=== PATIENT | female | born 1950 | race Caucasian/White ===

== ENCOUNTER → 2020-10-27 | Outpatient (CLI) | payer OTHER ==
[~2020-10-27] MED LIST: /BACIOPOI OP; ASPI325T OR; CIPR500T4 OR; FLAG500T OR; ONDA-1 OR; TRAVATAN OU
== END ==
LOC: M LABSMTC 11:10
PROVIDERS: ATTEND Pediatrics
DX: Z11.59 Encounter for screening for other viral diseases (principal)

== ENCOUNTER 2021-02-08 07:42 | Inpatient (IN) | payer MEDICARE, OTHER ==
[~2021-02-08] VITALS: Ht 152.4 cm; Wt 81.5 kg
[2021-02-08] MEDS ORDERED: NS 1,000 ML IV SCH (08:35)
[2021-02-08] MEDS ORDERED: MORPHINE 2 MG/ML 1ML VIAL (J2270) IV ONE (08:50)
[2021-02-08] MEDS ORDERED: diazePAM 10MG/2ML SYRINGE (J3360 PER 5MG) IV ONE (08:50)
[2021-02-08] MEDS ORDERED: ONDANSETRON 4MG/2ML VIAL IV ONE (08:50)
[2021-02-08] MEDS ORDERED: ISOVUE-370 76% 100ML VIAL As Ordered ONE (09:34)
[2021-02-08 09:40] LABS: BASO % 0.2 % (0.0-1.0); EOS # 0.1 10^3/uL (0.0-0.5); EOS % 0.8 % (0.0-3.0); HEMATOCRIT 40.9 % (36.0-47.0); HEMOGLOBIN 13.3 g/dl (12.0-15.5); LYMPH # 1.9 10^3/uL (1.5-5.0); LYMPH % 20.3 % (24.0-44.0); MEAN CORPUSCULAR HEMOGLOBIN 32.4 pg (27.0-33.0); MEAN CORPUSCULAR HGB CONC 32.5 g/dl (32.0-36.5); MEAN CORPUSCULAR VOLUME 99.5 fl (80.0-96.0); MONO # 0.9 10^3/uL (0.0-0.8); MONO % 9.7 % (2.0-8.0); NEUTROPHILS # 6.5 10^3/uL (1.5-8.5); NEUTROPHILS % 68.5 % (36.0-66.0); RED BLOOD COUNT 4.11 10^6/uL (4.00-5.40); WHITE BLOOD COUNT 9.5 10^3/uL (4.0-10.0)
[2021-02-08 10:10] LABS: PLATELET COUNT, AUTOMATED 73 10^3/uL (150-450)
[2021-02-08 10:15] LABS: ALBUMIN 2.3 GM/DL (3.2-5.2); BILIRUBIN,DIRECT 1.8 MG/DL (0.0-0.2); BILIRUBIN,TOTAL 4.5 MG/DL (0.2-1.0); TOTAL PROTEIN 6.3 GM/DL (6.4-8.2)
[2021-02-08] MEDS ORDERED: TRAV04OPD OU (10:38)
--- NOTE | 2021-02-08 10:38 | REP ---
INDICATION: lg firm bulge lateral to umbilicus, irreducible, decrease BS COMPARISON: None. TECHNIQUE: CT Scan of the abdomen and pelvis was performed with intravenous administration of 100 cc of Isovue 370, without oral contrast. Sagittal and coronal reconstruction images are performed. FINDINGS: Lung bases: Varices are seen along the distal esophagus. There is a small hiatal hernia. Liver: The liver is small in size with scalloped margins suggesting cirrhosis. Gallbladder: Multiple gallstones are seen in the gallbladder. Spleen: There is mild splenomegaly, the length of the spleen is 13.5 cm. Large varices are seen in the splenic hilum, which communicate with the larger left renal vein.. Adrenals: Normal. Pancreas: Normal. Kidneys: Normal. Small and large bowel: There is small-bowel obstruction, the transition point is within an umbilical hernia. The hernia sac contains dilated small bowel as well as collapsed more distal small bowel. There is mild fluid and scattered edema in the hernia sac. The aperture of the hernia is approximately 4.7 cm in diameter.. Diverticula are seen throughout the colon. Free fluid: Mild free fluid in the umbilical hernia sac. Abdominal aorta: No aneurysm or dissection. Adenopathy: None. Appendix: Not inflamed. Osseous structures: There are degenerative changes of the spine without compression deformity. Pelvis: No mass. IMPRESSION: Small-bowel obstruction, with the transition point identified within an umbilical hernia. Mild free fluid in the hernia sac. There are findings of cirrhosis, mild splenomegaly, with varices of the distal esophagus and splenic hilum. <Electronically signed by Shaun Carson > 02/08/21 [id number]
[2021-02-08] MEDS ORDERED: META28.32 PO (10:44)
[2021-02-08] MEDS ORDERED: OCUVTAB8 PO (10:44)
[2021-02-08] MEDS ORDERED: CENT1TAB PO (10:44)
[2021-02-08] MEDS ORDERED: MAGN400C PO (10:44)
[2021-02-08] MEDS ORDERED: C 50TAB PO (10:44)
[2021-02-08] MEDS ORDERED: ZINC1TAB2 PO (10:44)
[2021-02-08] MEDS ORDERED: RA T500C2 PO (10:44)
[2021-02-08] MEDS ORDERED: D31000TA2 PO (10:44)
[2021-02-08] MEDS ORDERED: CALC-263 PO (10:44)
[2021-02-08] MEDS ORDERED: ONDANSETRON 4MG/2ML VIAL IV PRN (11:55)
[2021-02-08 11:58] LABS: RSV AMPLIFICATION NEGATIVE (NEGATIVE)
--- NOTE | 2021-02-08 12:28 | REP ---
INDICATION: NG tube placement. COMPARISON: 11/11/2011. TECHNIQUE: SINGLE PORTABLE AP VIEW OF THE CHEST WAS PERFORMED. FINDINGS: There is no acute infiltrate. There is mild cardiomegaly. There is calcification and tortuosity of the thoracic aorta. The mediastinal silhouette is unchanged. A nasogastric tube is seen. The side port is at the gastroesophageal junction. IMPRESSION: No infiltrate seen. Nasogastric tube side port is at the gastroesophageal junction. <Electronically signed by Shaun Carson > 02/08/21 [id number]
[2021-02-08 14:00] VITALS: BP 158/78
[2021-02-08] MEDS: PANTOPRAZOLE 40MG VIAL (C9113 PER 1) IV SCH (14:16)
[2021-02-08] MEDS: KCL 10MEQ/100ML SWI (KRUN) 10 MEQ in IV 1 EA IV SCH ×3 (15:45→18:10)
--- NOTE | 2021-02-08 15:49 | HPE ---
HISTORY AND PHYSICAL DATE OF ADMISSION: 02/08/2021 ADMISSION DIAGNOSIS: Incarcerated ventral incision hernia with bowel obstruction. HISTORY OF PRESENT ILLNESS: The patient is a pleasant 70-year-old woman who presented to the emergency department at approximately 7:40 on the morning of the 08 of February. She complained of two to three days of some nausea and recurrent vomiting. She reports that with the vomiting, she noticed a bulge in her lower left abdomen that became somewhat more painful. She was unable to tolerate any significant oral intake without recurrence of her nausea and vomiting. She does have a history of repair of an incarcerated umbilical hernia approximately nine years ago. She does not have a primary physician with whom she follows. She thinks it has probably been several years since she saw a physician for medical issues. She does see an manager group who manages her glaucoma. In the emergency department, she underwent evaluation with laboratory studies and then had a CT scan of the abdomen and pelvis as well. She was found to have a bulge at the umbilical area extending into the lower and lower left portion of the abdomen. Labs showed an elevated bilirubin with otherwise normal liver function tests. Her platelet count was low at 73,000. Her CT scan confirmed an incision hernia containing loops of small bowel with at least one loop that was dilated consistent with a point of obstruction. Also noted on the CT scan was some nodularity and decreased size of the liver with an enlarged spleen and prominent vasculature, suggestive of possible varices. I have been able, I believe, to reduce her hernia, and I am admitting her now for preoperative evaluation; particularly, as regards to her apparent underlying cirrhosis, in preparation for repair of her recurrent ventral hernia. ALLERGIES: The patient reports an allergy to LATEX. MEDICATIONS: The patient reports that the only prescription medication that she takes is some Travatan eye drops for her glaucoma. She also takes some multivitamins, some vitamin D3, calcium carbonate, zinc tablets, magnesium oxide, psyllium husk, and vitamin C, as well tumeric root extract. PAST SURGICAL HISTORY: Significant only for repair of her incarcerated umbilical hernia back in 10/2011. This was repaired with a primary closure with placement of a 9 cm Parietex patch. Bilateral cataracts with lens implants and a tonsillectomy in the distant past. PAST MEDICAL HISTORY: The patient reports a history of glaucoma. She has been following with Dr. Workman and reports that her eye pressures are under adequate control at this point. She denies any other active medical problems. She has never had a colonoscopy and reports that her most recent mammogram was probably ten years ago. FAMILY HISTORY: The patient's father reportedly had Alzheimer's and there was a history of heart disease in her mother's family. SOCIAL HISTORY: The patient is . 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 She denies any alcohol intake at all currently. She reports that she was a smoker, but quit 13 years ago. REVIEW OF SYSTEMS: The patient denies any history of chest pain or palpitations. She has no cough, wheezing, or sputum production. She has had two COVID shots. She denies any history of abdominal pain. She has had no melena or hematochezia. She denies any history of hepatitis or jaundice. She does report that her mother had hepatitis many years ago and she apparently had some sort of shot at that time. She denies dysuria or hematuria. She has had no severe bone or joint issues. She denies any history of DVT or pulmonary embolus. She has no history of chronic severe headaches, seizure, or stroke. PHYSICAL EXAMINATION: GENERAL: Reveals a pleasant older woman lying quietly on a stretcher in the emergency department. She is alert and oriented. HEENT: She has a small caliber nasogastric tube in the nose with really nothing in the tubing. She has oxygen tubing on via nasal cannula. She has some spotty red liriano around the orbits bilaterally, which may be petechiae. Sclerae are not obviously icteric. Skin is warm and dry. Mucous membranes are tacky. NECK: Shows no mass. She has no cervical bruit. HEART: Shows a regular rhythm at a rate of about 80. LUNGS: Clear to auscultation bilaterally. She has palpable radial pulses bilaterally. ABDOMEN: Shows a curved scar along the midline beginning above the umbilicus curving to the left and then coming back to the midline. The abdomen is not particularly distended currently. She has bowel sounds present. The abdomen is soft and without significant tenderness. Palpation along the umbilicus revealed a hernia bulge about 12 cm in diameter extending somewhat to the left and inferiorly from the area of the umbilicus. This was massaged and manipulated gently and I was able, I believe, to reduce the hernia completely. There is a suggestion of a fascial defect perhaps 5-6 cm in diameter beneath the umbilicus. There is no evidence of inguinal hernia or inguinal adenopathy. EXTREMITIES: Lower extremities are without edema and she has palpable posterior tibial pulses bilaterally. LABORATORY DATA: Studies today show a white count of 10, hemoglobin 13, hematocrit 41, and a platelet count of 73,000. Differential count shows 68% neutrophils, 20% lymphocytes, and 10% monocytes. [id number] chemistry profile showed a sodium of 141, potassium 3.2, chloride 101, CO2 of 26, BUN 11, creatinine 0.4, and a glucose of 158. Other chemistries showed a total bilirubin of 4.5 with a direct of 1.8. AST is 49, ALT 25, and the alkaline phosphatase is 118. Her total protein is 6.3 with an albumin of 2.3. Lipase is only 75 and she had a lactic acid of 3.3. Serology for COVID, influenza A and B, and RSV were all negative. IMAGING DATA: A CT scan of the abdomen and pelvis had been obtained and I reviewed these images personally. The radiologist interpreted the study as showing a small bowel obstruction with a transition point within a midline ventral hernia. It was reported that there were findings consistent with cirrhosis with some mild splenomegaly with varices of the distal esophagus and splenic hilum. She was also noted to have cholelithiasis. The gallbladder did not appear acutely inflamed. IMPRESSION: 1. Incarcerated ventral incisional hernia with small bowel obstruction, now reduced. 2. Cirrhosis of unclear etiology. 3. Glaucoma. PLAN: The patient and her , who accompanies her, were counseled that she clearly had an obstruction of the small intestine within her ventral incisional hernia. I have now been able to reduce her hernia manually and hopefully, this will relieve her obstruction for now. She will need to have this hernia repaired. However, if it is effectively reduced, then we at least do not have to proceed as an emergency to repair this. I advised her of the findings, suggestive of some chronic damage to her liver, and have recommended an internal medicine or hospitalist consult to address this issue and make some recommendations regarding further evaluation or treatment. They had an opportunity to ask questions. My hope would be that if her liver situation is felt to be stable, that we would be able to proceed within the next couple of days to arrange for a robotic approach for repair of her ventral hernia using mesh. The patient is satisfied with this plan. We will keep her n.p.o. for now with the nasogastric (NG) tube in place; but if later in the day it is clear that her bowel obstruction has resolved, I may remove the NG. She will remain on some IV fluids. I see no need for antibiotics right at this time. RENEE
[2021-02-08 16:08] LABS: INR 1.66
[2021-02-08 16:09] LABS: PARTIAL THROMBOPLASTIN TIME 37.7 SECONDS (24.2-38.5)
[2021-02-08 17:14] LABS: FERRITIN 42 NG/ML (8-252); IRON (FE) 125 UG/DL (50-170); PERCENT SATURATION 69.8 % (13.2-45.0); TOTAL IRON BINDING CAPACITY 179 UG/DL (250-450)
[2021-02-08 17:27] LABS: HEPATITIS B SURFACE ANTIGEN NEGATIVE (NEGATIVE)
[2021-02-08 17:55] LABS: HEPATITIS C VIRUS ABY INDEX < 0.0 INDEX (<0.8)
[2021-02-08 17:56] LABS: HEPATITIS B CORE ANTIBODY IGM NEGATIVE (NEGATIVE)
[2021-02-08 17:59] VITALS: BP 147/81
[2021-02-08 18:06] LABS: HEMOGLOBIN A1c 5.6 %
--- NOTE | 2021-02-08 19:22 | ECGEPIP ---
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
[2021-02-08 19:52] LABS: HEPATITIS A ANTIBODY IGM NEGATIVE (NEGATIVE)
[2021-02-08] MEDS: KCL 40MEQ in NS 1000ML 1,000 ML IV SCH (21:18)
--- NOTE | 2021-02-08 21:48 | REPVR ---
PROCEDURE INFORMATION: Exam: MR Abdomen Without Contrast Exam date and time: 02/08/2021 7:26 PM Age: 70 years old Clinical indication: Screening exam; Other: ? Obstrution; Patient HX: Mrcp; Additional info: Elevated bili R/O cbd dilatation/ psc pbc TECHNIQUE: Imaging protocol: MR of the abdomen without contrast. 3D rendering (Not supervised by radiologist): MIP and/or 3D reconstructed images were created by the technologist. COMPARISON: CT ABD/PEL W/IV CONTRAST ONLY 02/08/2021 9:52 AM FINDINGS: Mediastinal space: There is a small hiatal hernia. Liver: The liver has a nodular surface and cirrhotic morphology. No liver masses are seen. Gallbladder and bile ducts: Multiple small calculi in the gallbladder and cystic duct. Small amount of pericholecystic fluid. Common bile duct is borderline dilated at 7 mm. No obstructing common bile duct stones are seen. Pancreas: The main pancreatic duct is borderline dilated proximally at 3.5 mm. Distal pancreatic duct is nondilated. Spleen: Unremarkable. No splenomegaly. Adrenal glands: Unremarkable. No mass. Kidneys and ureters: Unremarkable. No solid mass. No hydronephrosis. Stomach and bowel: Visualized stomach and intestines are unremarkable. Intraperitoneal space: No free fluid. Arteries: No abdominal aortic aneurysm. Bones/joints: Unremarkable. Soft tissues: Unremarkable. IMPRESSION: 1. Motion limited exam. 2. Possible cholecystitis with multiple calculi in the gallbladder and pericholecystic fluid. Consider gallbladder ultrasound follow-up. 3. Borderline dilated common bile duct and proximal pancreatic duct. No obstructing common duct stone or biliary duct dilation. 4. Cirrhotic liver morphology. 5. Small hiatal hernia. Electronically signed by: Karsten Murrell On 02/08/2021 21:48:37 PM
[2021-02-08 22:00] VITALS: BP 164/82
[2021-02-08] MEDS: LATANOPROST 0.005% OPHTH SOLN 2.5 ML OU SCH (22:18)
[2021-02-09 02:00] VITALS: BP 132/88
[2021-02-09] MEDS: KCL 40MEQ in NS 1000ML 1,000 ML IV SCH ×2 (05:36→14:44)
[2021-02-09 06:00] VITALS: BP 152/84
[2021-02-09 07:11] LABS: CHOLESTEROL LEVEL 161 MG/DL (<200); CHOLESTEROL RISK RATIO 2.927 (<5); HDL CHOLESTEROL 55 MG/DL (>40); LDL CHOLESTEROL 86 MG/DL (<100); NON-HDL-C 106 MG/DL; TRIGLYCERIDES LEVEL 98 MG/DL (<150)
[2021-02-09 07:31] LABS: BLOOD UREA NITROGEN 17 MG/DL (7-18); CALCIUM LEVEL 8.2 MG/DL (8.8-10.2); CARBON DIOXIDE LEVEL 29 MEQ/L (21-32); CHLORIDE LEVEL 111 MEQ/L (98-107); CREATININE FOR GFR 0.48 MG/DL (0.55-1.30); GLOMERULAR FILTRATION RATE > 60.0 (>39); GLUCOSE, FASTING 85 MG/DL (70-100); POTASSIUM SERUM 3.8 MEQ/L (3.5-5.1); SODIUM LEVEL 145 MEQ/L (136-145)
[2021-02-09] MEDS: PANTOPRAZOLE 40MG VIAL (C9113 PER 1) IV SCH (07:54)
[2021-02-09 08:01] LABS: BASO % 0.3 % (0.0-1.0); EOS # 0.2 10^3/uL (0.0-0.5); HEMATOCRIT 39.8 % (36.0-47.0); HEMOGLOBIN 12.5 g/dl (12.0-15.5); LYMPH # 1.9 10^3/uL (1.5-5.0); LYMPH % 29.8 % (24.0-44.0); MEAN CORPUSCULAR HEMOGLOBIN 32.6 pg (27.0-33.0); MEAN CORPUSCULAR HGB CONC 31.4 g/dl (32.0-36.5); MEAN CORPUSCULAR VOLUME 103.9 fl (80.0-96.0); MONO # 0.5 10^3/uL (0.0-0.8); MONO % 8.3 % (2.0-8.0); NEUTROPHILS # 3.8 10^3/uL (1.5-8.5); NEUTROPHILS % 58.3 % (36.0-66.0); RED BLOOD COUNT 3.83 10^6/uL (4.00-5.40); WHITE BLOOD COUNT 6.4 10^3/uL (4.0-10.0)
[2021-02-09 08:02] LABS: PLATELET COUNT, AUTOMATED 68 10^3/uL (150-450)
[2021-02-09 09:31] LABS: ALBUMIN 2.1 GM/DL (3.2-5.2); ALT/SGPT 21 U/L (12-78); BILIRUBIN,DIRECT 1.9 MG/DL (0.0-0.2); BILIRUBIN,TOTAL 3.7 MG/DL (0.2-1.0); TOTAL PROTEIN 5.7 GM/DL (6.4-8.2)
--- NOTE | 2021-02-09 10:10 | IPNPDOC ---
Text Note Date of Service The patient was seen on 02/09/21. NOTE General Surgery Dr Paul The patient is a 70-year-old female admitted 02/08/21 with incarcerated ventral incisional hernia with small bowel obstruction which was reduced in the emergency department as per Dr. Paul. This morning, the patient states abdominal pain is improved but the area is still sore. Denies nausea or vomiting. NG tube removed 02/08. Tolerating ice chips. Reports flatus, no bowel movement. Temperature 98.4, afebrile since admission. Heart rate 84, respiratory rate 18, blood pressure 152/84, 92% room air. Resting in bed, no acute distress. MMM Lungs are clear to auscultation anteriorly. S1-S2 regular rate and rhythm. Abdomen. Mildly distended but soft. Mild tenderness with palpation around the area of the hernia left side of the umbilicus. No erythema, discoloration. Extremities well perfused with no edema. WBC 6.4, hemoglobin 12.5, platelets 68, this is decreased from 73 on admission. Total bilirubin 3.7, direct bilirubin 1.9, AST 37, ALT 21, alkaline phosphatase 95. Total protein 5.7, albumin 2.1. Assessment/plan Incarcerated ventral hernia status post reduction in the emergency department 02/08/21. Continue with nothing by mouth, ice chips. Tentative plan is to proceed with robotic repair of her ventral hernia as per Dr. Paul within the next couple of days once medically optimized. Abn LFTs/Cirrhosis/thrombocytopenia Hospitalist consulted to evaluate further. VS,Fishbone, I+O VS, Fishbone, I+O Laboratory Tests 02/09/21 05:58 02/09/21 05:59 Vital Signs Date Time Temp Pulse Resp B/P (MAP) Pulse Ox O2 Delivery O2 Flow Rate FiO2 02/09/21 06:00 98.4 84 18 152/84 (106) 92 Room Air 02/08/21 22:00 1.0 I&O- Last 24 Hours up to 6 AM 02/09/21 05:59 Intake Total 500 ml Output Total 500 ml Balance 0 ml Attending Note Attending Note Agree with Stefanie's note. I saw patient in evening about 1730. Appreciate evaluation by Dr Andrade. MRI yesterday shows no CBD dilation or stone. Liver C/W cirrhosis. Had Ultrasound of liver today with result pending. Total bili down a bit and platelets at 68K. PEx: Hernia out again but reducible with mild effort. Abd otherwise soft and nontender. Imp: Incisional hernia with risk of reincarceration/ Cirrhosis Plan: will plan robotic assisted repair of hernia on 02/11 if medically ready. Begin full liquids. Stefanie French Feb 09, 2021 10:10 Wero Paul Feb 09, 2021 19:58
[2021-02-09 10:37] VITALS: BP 132/90
--- NOTE | 2021-02-09 10:44 | HPEPDOC ---
General Date of Admission Feb 08, 2021 at 11:55 Date of Service: Feb 08, 2021 Chief Complaint The patient is a 70-year-old female admitted with a reason for visit of Incarerated Incisional Hernia. History of Present Illness Consultation report. Consultation requested by Dr Paul Consultation for evaluation of Cirrhosis seen in CT scan of abdomen and medical optimization prior to surgery for incisional hernia. HPI: 70 year old female with no PMH presented to ED with 2 to 3 days of nausea and vomiting and unable to tolerate food and a bulge in the left side of the abdomen. She was found to have a incisional hernia containing loops of small bowel with at least one loop that was dilated consistent with a point of obstruction. Patient was admitted to the surgical service. The bowel was successfully reduced by surgeon and is planned for a repair of recurrent incisional hernia. During her work up in ED she was noted to have a platelet of 73K. 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 So the hospitalist service was consulted for evaluation for cirrhosis and medical optimization prior to surgery. Patent was never overweight when she was younger. She has gained some weight over the last 15 years , She never was a heavy alcohol drinker. She would just have a drink in special occasions like birthdays. At present she complains of mild pain in the left periumbilical region about 3/10 dull aching but better than before. denies any nausea or vomiting. Home Medications Scheduled Ascorbic Acid (Vitamin C) 500 Mg Tablet, 500 MG PO DAILY, (Reported) Calcium Carb/Vitamin D3/Vit K1 (Citracal Soft Chew) 1 Each Tab.chew, 1 CHEW PO DAILY, (Reported) Cholecalciferol (Vitamin D3) (Vitamin D3) 1,000 Unit Tablet, 1,000 UNITS PO DAILY, (Reported) Magnesium Oxide (Magnesium) 400 Mg Capsule, 400 MG PO DAILY, (Reported) Multivit-Min/FA/Lycopen/Lutein (Centrum Silver Tablet) 1 Each Tablet, 1 TAB PO DAILY, (Reported) Mv-Min/FA/Vit K/Lycop/Lut/Zeax (Ocuvite Eye Plus Multi Tablet) 1 Each Tablet, 1 TAB PO DAILY, (Reported) Psyllium Husk (with Sugar) (Metamucil Powder) 575 Gm Powder, 1 PKT PO DAILY, (Reported) Travoprost (Travatan Z) 0.004% 2.5ML Drops, 1 DROP OU QHS, (Reported) Turmeric Root Extract (Turmeric) 500 Mg Capsule, 500 MG PO DAILY, (Reported) Zinc (Zinc) 50 Mg Tablet, 50 MG PO DAILY, (Reported) Allergies Coded Allergies: latex (Verified Allergy, Intermediate, rash, 02/08/21) Past Medical History Medical History glaucoma Incarcerated umbilical hernia repair in 2012 tonsillectomy bilateral cataract surgery. Eczema/ psoriasis in the right leg. Family History Significant Family History: Heart disease, Other ( Hepatitis in Mother, Psoriasis in family members.) Mother at age 98 of old age Father had Alzheimer's at age 85 Social History * Smoker: former Smoker Alcohol: Denies Drugs: denies A-FIB/CHADSVASC A-FIB History Current/History of A-Fib/PAF?: No Review of Systems Constitutional: Denies: Chills, Fever, Malaise, Night Sweats, Fatigue, Weight Loss Eyes: Denies: Pain, Vision change ENT: Denies: Head Aches, Ear Pain, Dysphagia Skin: Reports: Rash (right leg), Itching Pulmonary: Denies: Dyspnea, Cough Cardiovascular: Denies: Chest Pain, Palpitations, Orthopnea, Paroxysmal Noc. Dyspnea, Lt Headedness Gastrointestinal: Reports: Abdominal Pain; Denies: Nausea, Vomiting, Diarrhea, Constipation Genitourinary: Denies: Dysuria, Frequency, Incontinence, Retention Hematologic: Denies: Bruising, Bleeding Excessively Physical Examination General Exam: Positive: Alert, Cooperative, No Acute Distress Eye Exam: Positive: PERRLA, Conjunctiva & lids normal, EOMI; Negative: Sclera icteric ENT Exam: Positive: Atraumatic, Mucous membr. moist/pink, Pharynx Normal Neck Exam: Positive: Supple; Negative: JVD, thyromegaly Chest Exam: Positive: Clear to auscultation, Normal air movement Heart Exam: Positive: Rate Normal, Regular Rhythm, Normal S1, Normal S2, Murmurs (soft systolic); Negative: Rubs Abdomen Exam: Positive: Normal bowel sounds, Soft, Tenderness (in the left periumbilical area); Negative: Hepatospenomegaly Extremity Exam: Negative: Clubbing, Cyanosis, Edema Skin Exam: Positive: Rash (right leg), Pruritus Neuro Exam: Positive: Normal Speech, Strength at 5/5 X4 ext, Normal Tone Psych Exam: Positive: Mood NL, Memory Intact, Oriented x 3 Vital Signs Vital Signs Date Time Temp Pulse Resp B/P (MAP) Pulse Ox O2 Delivery O2 Flow Rate FiO2 02/08/21 14:00 99.1 85 20 158/78 (104) 96 Room Air 2.0 Laboratory Data Labs 24H Laboratory Tests 2 02/08/21 08:34: Immature Granulocyte % (Auto) 0.5, Neutrophils (%) (Auto) 68.5H, Lymphocytes (%) (Auto) 20.3L, Monocytes (%) (Auto) 9.7H, Eosinophils (%) (Auto) 0.8, Basophils (%) (Auto) 0.2, Neutrophils # (Auto) 6.5, Lymphocytes # (Auto) 1.9, Monocytes # (Auto) 0.9H, Eosinophils # (Auto) 0.1, Basophils # (Auto) 0.0, Nucleated Red Blood Cells % (auto) 0.0, Immature Platelet Fraction 6.3, Lactic Acid Level 3.3*H, Total Bilirubin 4.5H, Direct Bilirubin 1.8H, Aspartate Amino Transf (AST/SGOT) 49H, Alanine Aminotransferase (ALT/SGPT) 25, Alkaline Phosphatase 118H, Total Protein 6.3L, Albumin 2.3L, Albumin/Globulin Ratio 0.6L, Lipase 75 02/08/21 09:24: POC Glucose (Misc Panel) 158H, POC Sodium (Misc Panel) 141, POC Potassium (Misc Panel) 3.2L, POC Chloride (Misc Panel) 101, POC Total CO2 (Misc Panel) 26.0, POC Blood Urea Nitrogen (Misc Panel 11, POC Ionized Calcium (Misc Panel) 4.5, POC Creatinine (Misc Panel) 0.4L, POC Hematocrit (Misc Panel) 40.0 02/08/21 11:04: Coronavirus (COVID-19)(PCR) NEGATIVE, Influenza Type A (RT-PCR) NEGATIVE, Influenza Type B (RT-PCR) NEGATIVE, Respiratory Syncytial Virus (PCR) NEGATIVE 02/08/21 14:11: Lactic Acid Followup at 4 Hours 2.0 02/08/21 15:29: CBC/BMP Laboratory Tests 02/08/21 08:34 Assessment/Plan 70 year old female with no PMH presented to ED with 2 to 3 days of nausea and vomiting and unable to tolerate food and a bulge in the left side of the abdomen. She was found to have a incisional hernia containing loops of small bowel with at least one loop that was dilated consistent with a point of obstruction. Patient was admitted to the surgical service. The bowel was successfully reduced by surgeon and is planned for a repair of recurrent incisional hernia. During her work up in ED she was noted to have a platelet [place] 73K. 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 So the hospitalist service was consulted for evaluation for cirrhosis and medical optimization prior to surgery. 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 No h/o obesity or alcohol use, hepatitis panel is negative, Ferritin not elevated labs have have been sent for work up of Primary biliary cirrhosis and other autoimmune hepatitis, Kenyon's disease, alpha one antitrypsin def Will get hepatic doppler flow. No Ascites will need to be referred to GI as outpatient. Medical optimization with thrombocytopenia and mildly elevated INR at 1.66 may have increased bleeding during surgery. Start Vit [place] [address] will need platelet transfusion Avoid acetaminophen in the post op period. At this time Patient is compensated and medically optimized and may go ahead with planned procedure DVT prophylaxis mechanical. Incisional hernia with SBO Now reduced hernia. Planned for repair of incisional hernia laparoscopically management as per surgery Plan / VTE VTE Prophylaxis Ordered?: Yes EMIGDIO MCFADDEN MD Feb 08, 2021 16:14
[2021-02-09] MEDS: PHYTONADIONE 5 MG TAB PO SCH (11:45)
[2021-02-09] MEDS: NADOLOL 20MG TABLET PO SCH (11:45)
[2021-02-09 14:00] VITALS: BP 128/88
[2021-02-09] MEDS: ACETAMINOPHEN 500 MG TAB PO PRN (16:45)
--- NOTE | 2021-02-09 17:44 | REP ---
INDICATION: hepatic or portal vein thrombosis. COMPARISON: None. TECHNIQUE: Real-time sonographic evaluation of ABDOMEN PERFORMED, WITH DUPLEX DOPPLER EVALUATION OF PORTAL VASCULATURE. FINDINGS: Multiple gallstones are seen in the gallbladder. Gallbladder wall is upper limits normal at 3 mm in thickness. There is no intrahepatic or extrahepatic biliary dilatation, common bile duct measures 6 mm in maximum diameter. The liver demonstrates diffuse heterogeneous coarsened echotexture with no focal mass. The pancreas is not optimally visualized, the visualized portions are grossly unremarkable. Spleen is upper limits of normal in size to mildly enlarged, with no intrinsic abnormality, measuring 12.2 cm in length. There is no evidence of hydronephrosis, cyst, mass, or calculus in either kidney. The right kidney measures 11.4 x 6.7 x 4.4 cm. Left renal dimensions are 11.9 x 4.9 x 4.9 cm. The abdominal aorta could not be visualized. No free fluid is seen. The main portal vein measures 6 mm in diameter. There is a hepatofugal flow in the main portal vein and left portal vein. The right portal vein is not visualized. There is no definite portal vein thrombosis. Hepatic veins are patent with no thrombus, with monophasic waveforms. Patent main hepatic artery demonstrates peak systolic velocity of 86.2 centimeters/second. Splenic vein is dilated and there are multiple splenic varicosities noted. IMPRESSION: Multiple gallstones in the gallbladder. No biliary dilatation or free fluid. Diffuse heterogeneous coarsened echotexture of the liver. Spleen at upper limits of normal in size to mildly enlarged. Hepatofugal flow in the main portal vein and left portal vein. No definite portal vein or hepatic vein thrombosis. Venous varicosities in the region of the spleen. Portal vasculature demonstrates normal direction of flow with no thrombosis. No evidence of hepatic vein thrombosis. <Electronically signed by Shaun Carson > 02/09/21 [id number]
[2021-02-09] MEDS: LATANOPROST 0.005% OPHTH SOLN 2.5 ML OU SCH (20:11)
[2021-02-09 22:00] VITALS: BP 140/80
[2021-02-10 02:00] VITALS: BP 123/60
[2021-02-10 06:00] VITALS: BP 119/60
[2021-02-10 06:30] LABS: BASO % 0.5 % (0.0-1.0); EOS # 0.3 10^3/uL (0.0-0.5); EOS % 3.9 % (0.0-3.0); HEMATOCRIT 40.2 % (36.0-47.0); HEMOGLOBIN 12.7 g/dl (12.0-15.5); LYMPH # 3.1 10^3/uL (1.5-5.0); LYMPH % 35.2 % (24.0-44.0); MEAN CORPUSCULAR HEMOGLOBIN 32.5 pg (27.0-33.0); MEAN CORPUSCULAR HGB CONC 31.6 g/dl (32.0-36.5); MEAN CORPUSCULAR VOLUME 102.8 fl (80.0-96.0); MONO # 0.8 10^3/uL (0.0-0.8); MONO % 8.5 % (2.0-8.0); NEUTROPHILS # 4.5 10^3/uL (1.5-8.5); NEUTROPHILS % 51.4 % (36.0-66.0); PLATELET COUNT, AUTOMATED 109 10^3/uL (150-450); RED BLOOD COUNT 3.91 10^6/uL (4.00-5.40); WHITE BLOOD COUNT 8.8 10^3/uL (4.0-10.0)
[2021-02-10 06:48] LABS: BLOOD UREA NITROGEN 24 MG/DL (7-18); CALCIUM LEVEL 8.4 MG/DL (8.8-10.2); CARBON DIOXIDE LEVEL 26 MEQ/L (21-32); CHLORIDE LEVEL 112 MEQ/L (98-107); CREATININE FOR GFR 0.58 MG/DL (0.55-1.30); GLOMERULAR FILTRATION RATE > 60.0 (>39); GLUCOSE, FASTING 84 MG/DL (70-100); POTASSIUM SERUM 4.5 MEQ/L (3.5-5.1); SODIUM LEVEL 143 MEQ/L (136-145)
[2021-02-10] MEDS: NADOLOL 20MG TABLET PO SCH (09:07)
[2021-02-10] MEDS: PHYTONADIONE 5 MG TAB PO SCH (09:07)
[2021-02-10] MEDS: PANTOPRAZOLE 40MG VIAL (C9113 PER 1) IV SCH (09:08)
--- NOTE | 2021-02-10 10:19 | IPNPDOC ---
Subjective Date Seen The patient was seen on 02/10/21. Subjective Chief Complaint/HPI No complaints this morning. Complains of itching in the leg. Objective Physical Examination General Exam: Positive: Alert, Cooperative, No Acute Distress Eye Exam: Positive: PERRLA, Conjunctiva & lids normal, EOMI; Negative: Sclera icteric ENT Exam: Positive: Atraumatic, Mucous membr. moist/pink, Pharynx Normal Neck Exam: Positive: Supple; Negative: JVD, thyromegaly Chest Exam: Positive: Clear to auscultation, Normal air movement Heart Exam: Positive: Rate Normal, Regular Rhythm, Normal S1, Normal S2, Murmurs (soft systolic); Negative: Rubs Abdomen Exam: Positive: Normal bowel sounds, Soft, Tenderness (in the left periumbilical area); Negative: Hepatospenomegaly Extremity Exam: Negative: Clubbing, Cyanosis, Edema Skin Exam: Positive: Rash (right leg), Pruritus Neuro Exam: Positive: Normal Speech, Strength at 5/5 X4 ext, Normal Tone Psych Exam: Positive: Mood NL, Memory Intact, Oriented x 3 Assessment /Plan Assessment 70 year old female with no PMH presented to ED with 2 to 3 days of nausea and vomiting and unable to tolerate food and a bulge in the left side of the abdomen. She was found to have a incisional hernia containing loops of small bowel with at least one loop that was dilated consistent with a point of ob struction. Patient was admitted to the surgical service. The bowel was successfully reduced by surgeon and is planned for a repair of recurrent incisional hernia. During her work up in ED she was noted to have a platelet of 73K. 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 So the hospitalist service was consulted for evaluation for cirrhosis and medical optimization prior to surgery. 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 No h/o obesity or alcohol use, hepatitis panel is negative, Ferritin not elevated labs have have been sent for work up of Primary biliary cirrhosis and other autoimmune hepatitis, Kenyon's disease, alpha one antitrypsin def Will get hepatic doppler flow. No Ascites will need to be referred to GI as outpatient. Medical optimization with thrombocytopenia and mildly elevated INR at 1.66 may have increased bleeding during surgery. Start Vit [place] [id number] will need platelet transfusion Avoid acetaminophen in the post op period. At this time Patient is compensated and medically optimized and may go ahead with planned procedure, DVT prophylaxis mechanical. Incisional hernia with SBO Now reduced hernia. Planned for repair of incisional hernia laparoscopically management as per surgery Skin rash right leg , Patient applies hydrocortisone oint at home 1% will consult derm. Plan/VTE VTE Prophylaxis Ordered?: Yes VS, I&O, 24H, Fishbone Vital Signs/I&O Vital Signs Date Time Temp Pulse Resp B/P (MAP) Pulse Ox O2 Delivery O2 Flow Rate FiO2 02/10/21 09:07 64 119/60 02/10/21 06:00 97.8 18 92 Room Air 02/08/21 22:00 1.0 I&O- Last 24 Hours up to 6 AM 02/10/21 06:00 Intake Total 460 ml Output Total 950 ml Balance -490 ml Laboratory Data 24H LABS Laboratory Tests 2 02/10/21 06:06: Immature Granulocyte % (Auto) 0.5, Neutrophils (%) (Auto) 51.4, Lymphocytes (%) (Auto) 35.2, Monocytes (%) (Auto) 8.5H, Eosinophils (%) (Auto) 3.9H, Basophils (%) (Auto) 0.5, Neutrophils # (Auto) 4.5, Lymphocytes # (Auto) 3.1, Monocytes # (Auto) 0.8, Eosinophils # (Auto) 0.3, Basophils # (Auto) 0.0, Nucleated Red Blood Cells % (auto) 0.0, Anion Gap 5L, Glomerular Filtration Rate > 60.0, Calcium Level 8.4L CBC/BMP Laboratory Tests 02/10/21 06:06 EMIGDIO MCFADDEN MD Feb 10, 2021 10:19
[2021-02-10] MEDS: ACETAMINOPHEN 500 MG TAB PO PRN ×2 (11:36→18:50)
[2021-02-10 14:00] VITALS: BP 122/78
[2021-02-10 16:09] LABS: ANTI-MITOCHONDRIAL ANTIBODY <20.0 Units (0.0-20.0); ANTINUCLEAR ANTIBODIES DIRECT Negative (Negative); CERULOPLASMIN 15.8 mg/dL (19.0-39.0)
[2021-02-10] MEDS: LATANOPROST 0.005% OPHTH SOLN 2.5 ML OU SCH (21:40)
[2021-02-10 21:49] VITALS: BP 119/85
--- NOTE | 2021-02-10 21:50 | IPN ---
PROGRESS NOTE DATE: 02/10/2021 HISTORY: The patient was admitted on the 08 of February with an incarcerated ventral incisional hernia. This was reduced at the time of admission with resolution of her symptoms. Admission imaging suggested cirrhosis and she has been undergoing evaluation by the Hospitalist. The patient has felt comfortable since yesterday. She tolerated some clear liquids and has had no further nausea or vomiting. OBJECTIVE: VITAL SIGNS: She has been afebrile over the past 24 hours. Her pulse is running in the 60's. Blood pressure is good and her room air oxygen saturation is normal. INTAKE AND OUTPUT: Intake and output shows that she had 1,460 in yesterday with 950 mL of urine recorded and several bowel movements. PHYSICAL EXAMINATION: GENERAL APPEARANCE: The patient is lying comfortably in the hospital bed. She is alert and oriented. HEART: Unremarkable. LUNGS: Unremarkable. ABDOMEN: Her hernia is again protruding but is soft and nontender to palpation. She has active bowel sounds. LABORATORY STUDIES: Laboratory studies today show a white count of 9, hemoglobin 13, hematocrit 40 and a platelet count of 109,000. Differential count is normal. Chemistry profile shows sodium 143, potassium 4.5, chloride 112, CO2 of 26, BUN of 24, creatinine 0.6 and a glucose of 84. IMPRESSION: The patient appears stable and her platelet count has come up a little bit. Her hernia is protruding again but is nontender. PLAN: The patient will be advanced to a regular diet. She will be kept n.p.o. after midnight. The plan is to proceed with a robotic assisted laparoscopic repair of her ventral incisional hernia tomorrow. She is agreeable with this plan. RENEE
[2021-02-11 06:00] VITALS: BP 146/82
[2021-02-11 06:33] LABS: BASO % 0.5 % (0.0-1.0); EOS # 0.2 10^3/uL (0.0-0.5); HEMATOCRIT 38.2 % (36.0-47.0); LYMPH # 2.1 10^3/uL (1.5-5.0); LYMPH % 35.7 % (24.0-44.0); MEAN CORPUSCULAR HEMOGLOBIN 32.4 pg (27.0-33.0); MEAN CORPUSCULAR HGB CONC 31.4 g/dl (32.0-36.5); MEAN CORPUSCULAR VOLUME 103.2 fl (80.0-96.0); MONO # 0.7 10^3/uL (0.0-0.8); MONO % 11.1 % (2.0-8.0); NEUTROPHILS # 2.9 10^3/uL (1.5-8.5); NEUTROPHILS % 48.4 % (36.0-66.0)
[2021-02-11 06:42] LABS: PLATELET COUNT, AUTOMATED 95 10^3/uL (150-450)
[2021-02-11 06:59] LABS: BLOOD UREA NITROGEN 21 MG/DL (7-18); CALCIUM LEVEL 8.6 MG/DL (8.8-10.2); CARBON DIOXIDE LEVEL 28 MEQ/L (21-32); CHLORIDE LEVEL 111 MEQ/L (98-107); CREATININE FOR GFR 0.47 MG/DL (0.55-1.30); GLOMERULAR FILTRATION RATE > 60.0 (>39); GLUCOSE, FASTING 124 MG/DL (70-100); POTASSIUM SERUM 4.1 MEQ/L (3.5-5.1); SODIUM LEVEL 144 MEQ/L (136-145)
[2021-02-11] MEDS: NADOLOL 20MG TABLET PO SCH (08:29)
[2021-02-11] MEDS: PANTOPRAZOLE 40MG VIAL (C9113 PER 1) IV SCH (08:29)
[2021-02-11] MEDS: PHYTONADIONE 5 MG TAB PO SCH (08:29)
[2021-02-11] MEDS ORDERED: fentaNYL 100 MCG/2 ML INJECTION (J3010) As Ordered ONE ×2 (09:31→13:42)
[2021-02-11] MEDS ORDERED: propofoL 200 MG/20 ML VIAL As Ordered ONE (09:32)
[2021-02-11] MEDS ORDERED: ROCURONIUM BROMIDE 50 MG/5 ML VIAL As Ordered ONE ×3 (09:32→16:12)
[2021-02-11] MEDS ORDERED: dexameTHASONE 4 MG/ML 1ML VIAL (J1100 PER 1MG) As Ordered ONE (09:32)
[2021-02-11] MEDS ORDERED: LIDOCAINE 2% 100MG/5ML SDV (FOR ANES.) As Ordered ONE (09:32)
[2021-02-11] MEDS ORDERED: ONDANSETRON 4MG/2ML VIAL As Ordered ONE (09:32)
[2021-02-11] MEDS ORDERED: MIDAZOLAM INJ 2MG/2ML VIAL (J2250 PER 1MG) As Ordered ONE (09:32)
--- NOTE | 2021-02-11 12:14 | IPNPDOC ---
Subjective Date Seen The patient was seen on 02/11/21. Subjective Chief Complaint/HPI Feeling ok this morning. Planned for surgery today. Objective Physical Examination General Exam: Positive: Alert, Cooperative, No Acute Distress Eye Exam: Positive: PERRLA, Conjunctiva & lids normal, EOMI; Negative: Sclera icteric ENT Exam: Positive: Atraumatic, Mucous membr. moist/pink, Pharynx Normal Neck Exam: Positive: Supple; Negative: JVD, thyromegaly Chest Exam: Positive: Clear to auscultation, Normal air movement Heart Exam: Positive: Rate Normal, Regular Rhythm, Normal S1, Normal S2, Murmurs (soft systolic); Negative: Rubs Abdomen Exam: Positive: Normal bowel sounds, Soft, Tenderness (in the left periumbilical area); Negative: Hepatospenomegaly Extremity Exam: Positive: Edema (1+); Negative: Clubbing, Cyanosis Skin Exam: Positive: Rash (right leg), Pruritus Neuro Exam: Positive: Normal Speech, Strength at 5/5 X4 ext, Normal Tone Psych Exam: Positive: Mood NL, Memory Intact, Oriented x 3 Assessment /Plan Assessment 70 year old female with no PMH presented to ED with 2 to 3 days of nausea and vomiting and unable to tolerate food and a bulge in the left side of the abdomen. She was found to have a incisional hernia containing loops of small bowel with at least one loop that was dilated consistent with a point of obstruction. Patient was admitted to the surgical service. The bowel was successfully reduced by surgeon and is planned for a repair of recurrent incisional hernia. During her work up in ED she was noted to have a platelet [place] 73K. 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 So the hospitalist service was consulted for evaluation for cirrhosis and medical optimization prior to surgery. 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 No h/o obesity or alcohol use, hepatitis panel is negative, Ferritin not elevated, ceruloplasmin slightly low at 15.8, antimitochondrial antibody negative. labs have have been sent for work up of Primary biliary cirrhosis and other autoimmune hepatitis, alpha one antitrypsin def Hepatic doppler shows Hepatofugal flow in the main portal vein and left portal vein. No definite portal vein or hepatic vein thrombosis. Venous varicosities in the region of the spleen. Portal vasculature demonstrates normal direction of flow with no thrombosis. No evidence of hepatic vein thrombosis. No Ascites will need to be referred to GI as outpatient. Medical optimization with thrombocytopenia and mildly elevated INR at 1.66 may have increased bleeding during surgery. Start Vit K Nadol[place] [address] will need platelet transfusion Avoid acetaminophen in the post op period. At this time Patient is compensated and medically optimized and may go ahead with planned procedure, DVT prophylaxis mechanical. will watch for fluid overload inth perioperative period , may need lasix. Incisional hernia with SBO Now reduced hernia. Planned for repair of incisional hernia laparoscopically management as per surgery Skin rash discussed with rash likely stasis dermatitis will start on triamcinolone tid Plan/VTE VTE Prophylaxis Ordered?: Yes VS, I&O, 24H, Fishbone Vital Signs/I&O Vital Signs Date Time Temp Pulse Resp B/P (MAP) Pulse Ox O2 Delivery O2 Flow Rate FiO2 02/11/21 08:29 64 146/82 02/11/21 06:00 97.9 18 94 Room Air 02/08/21 22:00 1.0 I&O- Last 24 Hours up to 6 AM 02/11/21 06:00 Intake Total 1720 ml Output Total 100 ml Balance 1620 ml Laboratory Data 24H LABS Laboratory Tests 2 02/11/21 05:50: Immature Granulocyte % (Auto) 0.3, Neutrophils (%) (Auto) 48.4, Lymphocytes (%) (Auto) 35.7, Monocytes (%) (Auto) 11.1H, Eosinophils (%) (Auto) 4.0H, Basophils (%) (Auto) 0.5, Neutrophils # (Auto) 2.9, Lymphocytes # (Auto) 2.1, Monocytes # (Auto) 0.7, Eosinophils # (Auto) 0.2, Basophils # (Auto) 0.0, Nucleated Red Blood Cells % (auto) 0.0, Immature Platelet Fraction 4.9, Anion Gap 5L, Glomerular Filtration Rate > 60.0, Calcium Level 8.6L CBC/BMP Laboratory Tests 02/11/21 05:50 EMIGDIO MCFADDEN MD Feb 11, 2021 12:14
[2021-02-11] MEDS ORDERED: BUPIVACAINE HCL 0.25% 30ML VIAL As Ordered ONE (12:20)
[2021-02-11] MEDS ORDERED: ACETAMINOPHEN 1000MG 100ML IV BTL (OFIRMEV) (J0131 PER 10MG) As Ordered ONE (13:32)
[2021-02-11] MEDS ORDERED: SUGAMMADEX SODIUM 500 MG/5 ML VIAL (BRIDION) As Ordered ONE (14:28)
[2021-02-11] MEDS ORDERED: KETOROLAC 60MG 2ML VIAL As Ordered ONE (14:28)
[2021-02-11] MEDS ORDERED: cefoTEtan INJ 2GM VIAL (S0074 PER 500MG) As Ordered ONE (14:43)
[2021-02-11] MEDS: TRIAMCINOLONE ACET 0.1% OINTMENT 15 GM TOP SCH ×2 (16:00→21:00)
[2021-02-11 16:10] LABS: ALPHA 1 ANTITRYPSIN 124 mg/dL (101-187); ANCA-ATYPICAL <1:20 titer (Neg:<1:20); ANTI-SMOOTH MUSCLE ANTIBODY 6 Units (0-19); CYTOPLASMIC NEUTROP AB ANCA-C <1:20 titer (Neg:<1:20); PERINUCLEAR AB ANCA-P <1:20 titer (Neg:<1:20)
[2021-02-11] MEDS ORDERED: metroNIDAZOLE/NACL 500MG(5MG/ML) 100ML BAG (S0030) As Ordered ONE (18:34)
[2021-02-11] MEDS ORDERED: HYDROmorphone HCL 2 MG/ML 1ML VIAL (J1170) As Ordered ONE (19:33)
[2021-02-11] MEDS: LATANOPROST 0.005% OPHTH SOLN 2.5 ML OU SCH (21:00)
[2021-02-11] MEDS ORDERED: KCL 20MEQ IN 0.45NS 1000ML 1,000 ML IV SCH (21:20)
[2021-02-11 22:01] LABS: BASO % 0.1 % (0.0-1.0); EOS % 0.1 % (0.0-3.0); HEMATOCRIT 41.6 % (36.0-47.0); LYMPH # 1.4 10^3/uL (1.5-5.0); MEAN CORPUSCULAR HEMOGLOBIN 32.7 pg (27.0-33.0); MEAN CORPUSCULAR HGB CONC 31.3 g/dl (32.0-36.5); MEAN CORPUSCULAR VOLUME 104.5 fl (80.0-96.0); MONO # 0.6 10^3/uL (0.0-0.8); MONO % 6.1 % (2.0-8.0); NEUTROPHILS # 7.7 10^3/uL (1.5-8.5); NEUTROPHILS % 79.2 % (36.0-66.0); PLATELET COUNT, AUTOMATED 123 10^3/uL (150-450); RED BLOOD COUNT 3.98 10^6/uL (4.00-5.40); WHITE BLOOD COUNT 9.7 10^3/uL (4.0-10.0)
[2021-02-11 22:11] LABS: INR 1.49; PROTHROMBIN TIME 18.4 SECONDS (12.5-14.3)
[2021-02-11 22:12] LABS: PARTIAL THROMBOPLASTIN TIME 34.1 SECONDS (24.2-38.5)
[2021-02-11 22:34] LABS: ALBUMIN 2.3 GM/DL (3.2-5.2); BILIRUBIN,TOTAL 3.4 MG/DL (0.2-1.0); CALCIUM LEVEL 8.2 MG/DL (8.8-10.2); CREATININE FOR GFR 1.01 MG/DL (0.55-1.30); GLOMERULAR FILTRATION RATE 57.7 (>39); POTASSIUM SERUM 5.4 MEQ/L (3.5-5.1); TOTAL PROTEIN 6.1 GM/DL (6.4-8.2)
[2021-02-11 23:00] VITALS: BP 150/90
[2021-02-11] MEDS ORDERED: ONDANSETRON 4MG/2ML VIAL IV PRN (23:10)
[2021-02-11] MEDS ORDERED: HYDROMORPHONE HCL 0.5 MG/ 0.5 ML SYRINGE (J1170 PER 1) IV PRN (23:10)
[2021-02-11] MEDS ORDERED: fentaNYL 100 MCG/2 ML INJECTION (J3010) IV PRN (23:10)
[2021-02-11] MEDS ORDERED: METOCLOPRAMIDE INJ 10MG/2ML VIAL (J2765 PER 1) IV PRN (23:10)
[2021-02-11] MEDS ORDERED: PERCOCET 5MG/325MG TAB PO PRN (23:10)
[2021-02-11] MEDS ORDERED: LR 1,000 ML IV SCH (23:10)
[2021-02-12] VITALS (9 sets, daily range): BP systolic 128–135; BP diastolic 50–78; O2SAT 96
[2021-02-12] MEDS: NS 0.45% 1,000 ML IV SCH ×3 (01:46→22:46)
[2021-02-12] MEDS: metroNIDAZOLE 500 MG in IV 1 EA IV SCH ×4 (01:46→18:00)
[2021-02-12] MEDS: cefoTEtan DISODIUM 2 GM in D5W MINI-BAG PLUS 50 ML IV SCH ×3 (04:44→16:58)
[2021-02-12] MEDS: ACETAMINOPHEN 500 MG TAB PO PRN ×3 (06:15→19:58)
[2021-02-12 07:38] LABS: BASO % 0.1 % (0.0-1.0); HEMATOCRIT 38.3 % (36.0-47.0); LYMPH # 1.3 10^3/uL (1.5-5.0); LYMPH % 9.2 % (24.0-44.0); MEAN CORPUSCULAR HEMOGLOBIN 32.9 pg (27.0-33.0); MEAN CORPUSCULAR HGB CONC 31.3 g/dl (32.0-36.5); MEAN CORPUSCULAR VOLUME 104.9 fl (80.0-96.0); MONO # 1.1 10^3/uL (0.0-0.8); MONO % 7.6 % (2.0-8.0); NEUTROPHILS # 11.7 10^3/uL (1.5-8.5); NEUTROPHILS % 82.7 % (36.0-66.0); PLATELET COUNT, AUTOMATED 102 10^3/uL (150-450); RED BLOOD COUNT 3.65 10^6/uL (4.00-5.40); WHITE BLOOD COUNT 14.1 10^3/uL (4.0-10.0)
[2021-02-12] MEDS: TRIAMCINOLONE ACET 0.1% OINTMENT 15 GM TOP SCH ×3 (07:54→21:22)
[2021-02-12] MEDS: PANTOPRAZOLE 40MG VIAL (C9113 PER 1) IV SCH (07:55)
[2021-02-12] MEDS: NADOLOL 20MG TABLET PO SCH (07:55)
[2021-02-12] MEDS: PHYTONADIONE 5 MG TAB PO SCH (07:55)
[2021-02-12 08:10] LABS: BILIRUBIN,TOTAL 2.6 MG/DL (0.2-1.0); CALCIUM LEVEL 8.1 MG/DL (8.8-10.2); CREATININE FOR GFR 1.12 MG/DL (0.55-1.30); GLOMERULAR FILTRATION RATE 51.2 (>39); TOTAL PROTEIN 5.7 GM/DL (6.4-8.2)
--- NOTE | 2021-02-12 10:36 | IPNPDOC ---
Text Note Date of Service The patient was seen on 02/12/21. NOTE Gen. surgery. Dr. Paul The patient is a 70-year-old female admitted 02/08/21 with incarcerated ventral incisional hernia with small bowel obstruction which was reduced in the emergency department as per Dr. Paul. Status post RA repair incarcerated ventral hernia with mesh, lysis of adhesion, small bowel resection as per Dr. Paul 02/11/21. This morning, the patient is resting in bed. She reports generalized abdominal discomfort, reports her pain is currently controlled. Has not been out of bed. Reports she has had some ice chips, denies nausea, vomiting. Reports no flatus or BM. Afebrile. VSS General. A week and alert resting in bed. Appears in NAD. dry appearing MM. Lungs are clear to auscultation anteriorly. S1-S2 regular rate and rhythm. Abdomen with some mild distention, soft, mild tenderness around surgical incisions, dressing C/D/I. Extremities no edema. I/o 2000/300 +1700 WBC 14.1, hemoglobin 12.0, platelets 102. Serum creatinine 1.12 with GFR 51. Total bilirubin 2.6, AST 39, ALT 21. Assessment/plan Incarcerated ventral incisional hernia with small bowel obstruction now s/p RA repair incarcerated ventral hernia with mesh, lysis of adhesion, small bowel resection as per Dr. Paul 02/11/21. The patient is currently resting comfortably and states pain is controlled. Has not yet been out of bed. Tolerating ice chips and sips of clears. WBC noted to be 14.1 but patient is afebrile. LFTs stable. Continue IV Cefotan/Flagyl IVF 100cc/hr I/S. Encourage OOB. DVT px. SCD/TEDS Continue to monitor. VS,Fishbone, I+O VS, Fishbone, I+O Laboratory Tests 02/11/21 21:38 02/12/21 06:36 Vital Signs Date Time Temp Pulse Resp B/P (MAP) Pulse Ox O2 Delivery O2 Flow Rate FiO2 02/12/21 07:55 65 135/60 02/12/21 06:00 98.2 14 98 Nasal Cannula 2.0 I&O- Last 24 Hours up to 6 AM 02/12/21 06:00 Intake Total 2125 ml Output Total 300 ml Balance 1825 ml Attending Note Attending Note POD#1. Agree with note by Stefanie. Pretty sore as expected. Had prolonged procedure for repair of hernia with mesh and resection of segment of small bowel Being kept on abx for mesh placement in face of SB perforation and resection. Stefanie French Feb 12, 2021 10:36 Wero Paul Feb 16, 2021 22:30
[2021-02-12] MEDS: MORPHINE 2 MG/ML 1ML VIAL (J2270) IV PRN ×2 (11:13→14:18)
--- NOTE | 2021-02-12 11:24 | IPNPDOC ---
Subjective Date Seen The patient was seen on 02/12/21. Subjective Chief Complaint/HPI Patient had an extensive surgery lasting 9 hours yesterday requiring bowel resection, lysis of adhesions, repair of incarcerated hernia with mesh full operative note is not available at this time. This morning she complains of abdominal pain. Objective Physical Examination General Exam: Positive: Alert, Cooperative, No Acute Distress Eye Exam: Positive: PERRLA, Conjunctiva & lids normal, EOMI; Negative: Sclera icteric ENT Exam: Positive: Atraumatic, Mucous membr. moist/pink, Pharynx Normal Neck Exam: Positive: Supple; Negative: JVD, thyromegaly Chest Exam: Positive: Clear to auscultation, Normal air movement Heart Exam: Positive: Rate Normal, Regular Rhythm, Normal S1, Normal S2, Murmurs (soft systolic); Negative: Rubs Abdomen Exam: Positive: BS Hypoactive, Soft, Tenderness (all over); Negative: Hepatospenomegaly Extremity Exam: Positive: Edema (1+ bipedal ); Negative: Clubbing, Cyanosis Skin Exam: Positive: Rash (right leg), Pruritus Neuro Exam: Positive: Normal Speech, Strength at 5/5 X4 ext, Normal Tone Psych Exam: Positive: Mood NL, Memory Intact, Oriented x 3 Assessment /Plan Assessment 70 year old female with no PMH presented to ED with 2 to 3 days of nausea and vomiting and unable to tolerate food and a bulge in the left side of the abdomen. She was found to have a incisional hernia containing loops of small bowel with at least one loop that was dilated consistent with a point of obstruction. Patient was admitted to the surgical service. The bowel was successfully reduced by surgeon and is planned for a repair of recurrent incisional hernia. During her work up in ED she was noted to have a platelet [place] 73K. 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 So the hospitalist service was consulted for evaluation for cirrhosis and medical optimization prior to surgery. 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 labs have have been sent for work up of other autoimmune hepatitis, alpha one antitrypsin def Hepatic Doppler shows Hepatofugal flow in the main portal vein and left portal vein. No definite portal vein or hepatic vein thrombosis. Venous varicosities in the region of the spleen. Portal vasculature demonstrates normal direction of flow with no thrombosis. No evidence of hepatic vein thrombosis. will need to be referred to GI as outpatient. jeffery cardenas Incisional hernia with SBO had prolonged surgery on 02/11/21 with lysis of adhesions, bowel resection, repair of incarcerated hernia with mesh On Cefotetan and metronidazole management as per surgery Skin rash discussed with rash likely stasis dermatitis will start on triamcinolone tid Plan/VTE VTE Prophylaxis Ordered?: Yes VS, I&O, 24H, Fishbone Vital Signs/I&O Vital Signs Date Time Temp Pulse Resp B/P (MAP) Pulse Ox O2 Delivery O2 Flow Rate FiO2 02/12/21 10:26 98.2 63 15 128/78 (95) 97 Nasal Cannula 2.0 I&O- Last 24 Hours up to 6 AM 02/12/21 05:59 Intake Total 2100 ml Output Total 300 ml Balance 1800 ml Laboratory Data 24H LABS Laboratory Tests 2 02/11/21 21:38: Immature Granulocyte % (Auto) 0.5, Neutrophils (%) (Auto) 79.2H, Lymphocytes (%) (Auto) 14.0L, Monocytes (%) (Auto) 6.1, Eosinophils (%) (Auto) 0.1, Basophils (%) (Auto) 0.1, Neutrophils # (Auto) 7.7, Lymphocytes # (Auto) 1.4L, Monocytes # (Auto) 0.6, Eosinophils # (Auto) 0.0, Basophils # (Auto) 0.0, Nucleated Red Blood Cells % (auto) 0.0, Prothrombin Time 18.4H, Prothromb Time International Ratio 1.49, Activated Partial Thromboplast Time 34.1, Anion Gap 7L, Glomerular Filtration Rate 57.7, Calcium Level 8.2L, Total Bilirubin 3.4H, Aspartate Amino Transf (AST/SGOT) 45H, Alanine Aminotransferase (ALT/SGPT) 25, Alkaline Phosphatase 111, Total Protein 6.1L, Albumin 2.3L, Albumin/Globulin Ratio 0.6L 02/12/21 06:36: Immature Granulocyte % (Auto) 0.4, Neutrophils (%) (Auto) 82.7H, Lymphocytes (%) (Auto) 9.2L, Monocytes (%) (Auto) 7.6, Eosinophils (%) (Auto) 0.0, Basophils (%) (Auto) 0.1, Neutrophils # (Auto) 11.7H, Lymphocytes # (Auto) 1.3L, Monocytes # (Auto) 1.1H, Eosinophils # (Auto) 0.0, Basophils # (Auto) 0.0, Nucleated Red Blood Cells % (auto) 0.0, Anion Gap 7L, Glomerular Filtration Rate 51.2, Calcium Level 8.1L, Total Bilirubin 2.6H, Aspartate Amino Transf (AST/SGOT) 39H, Alanine Aminotransferase (ALT/SGPT) 21, Alkaline Phosphatase 91, Total Protein 5.7L, Albumin 2.0L, Albumin/Globulin Ratio 0.5L CBC/BMP Laboratory Tests 02/11/21 21:38 02/12/21 06:36 EMIGDIO MCFADDEN MD Feb 12, 2021 11:23
[2021-02-12] MEDS: LATANOPROST 0.005% OPHTH SOLN 2.5 ML OU SCH (21:21)
[2021-02-13] VITALS (7 sets, daily range): BP systolic 116–135; BP diastolic 63–75; O2SAT 98
[2021-02-13] MEDS: metroNIDAZOLE 500 MG in IV 1 EA IV SCH ×3 (01:49→17:57)
[2021-02-13] MEDS: cefoTEtan DISODIUM 2 GM in D5W MINI-BAG PLUS 50 ML IV SCH ×2 (04:24→15:13)
[2021-02-13] MEDS: NADOLOL 20MG TABLET PO SCH (08:57)
[2021-02-13] MEDS: PHYTONADIONE 5 MG TAB PO SCH (08:57)
[2021-02-13] MEDS: PANTOPRAZOLE 40MG VIAL (C9113 PER 1) IV SCH (08:57)
[2021-02-13] MEDS: ACETAMINOPHEN 500 MG TAB PO PRN ×3 (08:58→20:40)
[2021-02-13] MEDS: NS 0.45% 1,000 ML IV SCH (08:58)
[2021-02-13 09:46] LABS: BASO % 0.3 % (0.0-1.0); EOS # 0.2 10^3/uL (0.0-0.5); EOS % 1.7 % (0.0-3.0); HEMATOCRIT 36.4 % (36.0-47.0); HEMOGLOBIN 11.4 g/dl (12.0-15.5); LYMPH # 1.9 10^3/uL (1.5-5.0); LYMPH % 16.2 % (24.0-44.0); MEAN CORPUSCULAR HEMOGLOBIN 32.7 pg (27.0-33.0); MEAN CORPUSCULAR HGB CONC 31.3 g/dl (32.0-36.5); MEAN CORPUSCULAR VOLUME 104.3 fl (80.0-96.0); MONO # 1.2 10^3/uL (0.0-0.8); MONO % 9.9 % (2.0-8.0); NEUTROPHILS # 8.4 10^3/uL (1.5-8.5); NEUTROPHILS % 71.4 % (36.0-66.0); PLATELET COUNT, AUTOMATED 109 10^3/uL (150-450); RED BLOOD COUNT 3.49 10^6/uL (4.00-5.40); WHITE BLOOD COUNT 11.7 10^3/uL (4.0-10.0)
[2021-02-13 10:33] LABS: BILIRUBIN,TOTAL 2.5 MG/DL (0.2-1.0); CALCIUM LEVEL 7.9 MG/DL (8.8-10.2); CREATININE FOR GFR 1.3 MG/DL (0.55-1.30); GLOMERULAR FILTRATION RATE 43.1 (>39); POTASSIUM SERUM 4.3 MEQ/L (3.5-5.1); TOTAL PROTEIN 5.7 GM/DL (6.4-8.2)
[2021-02-13] MEDS: TRIAMCINOLONE ACET 0.1% OINTMENT 15 GM TOP SCH ×3 (11:02→20:41)
--- NOTE | 2021-02-13 14:30 | IPNPDOC ---
Subjective Date Seen The patient was seen on 02/13/21. Subjective Chief Complaint/HPI Continues to have severe abdominal pain and unable to move much. However was able to get out of bed with help and use the commode and sit in the chair for a little while. Objective Physical Examination General Exam: Positive: Alert, Cooperative, No Acute Distress Eye Exam: Positive: PERRLA, Conjunctiva & lids normal, EOMI; Negative: Sclera icteric ENT Exam: Positive: Atraumatic, Mucous membr. moist/pink, Pharynx Normal Neck Exam: Positive: Supple; Negative: JVD, thyromegaly Chest Exam: Positive: Clear to auscultation, Normal air movement Heart Exam: Positive: Rate Normal, Regular Rhythm, Normal S1, Normal S2, Murmurs (soft systolic); Negative: Rubs Abdomen Exam: Positive: BS Hypoactive, Soft, Tenderness (all over); Negative: Hepatospenomegaly Extremity Exam: Positive: Edema (1+ bipedal ); Negative: Clubbing, Cyanosis Skin Exam: Positive: Rash (right leg), Pruritus Neuro Exam: Positive: Normal Speech, Strength at 5/5 X4 ext, Normal Tone Psych Exam: Positive: Mood NL, Memory Intact, Oriented x 3 Assessment /Plan Assessment 70 year old female with no PMH presented to ED with 2 to 3 days of nausea and vomiting and unable to tolerate food and a bulge in the left side of the abdomen. She was found to have a incisional hernia containing loops of small bowel with at least one loop that was dilated consistent with a point of obstruction. Patient was admitted to the surgical service. The bowel was successfully reduced by surgeon and is planned for a repair of recurrent incisional hernia. During her work up in ED she was noted to have a platelet [place] 73K. 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 So the hospitalist service was consulted for evaluation for cirrhosis and medical optimization prior to surgery. 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 No definite portal vein or hepatic vein thrombosis. Venous varicosities in the region of the spleen. Portal vasculature demonstrates normal direction of flow with no thrombosis. No evidence of hepatic vein thrombosis. will need to be referred to GI as outpatient. lasix prn Incisional hernia with SBO had prolonged surgery on 02/11/21 with laparoscopic robotic-assisted lysis of adhesions, repair of an incarcerated ventral incisional hernia , small bowel resection with anastomosis as well as closure of her primary defect with placement of mesh. On Cefotetan and metronidazole management as per surgery Skin rash discussed with Derm rash likely stasis dermatitis will start on triamcinolone tid lasix prn Plan/VTE VTE Prophylaxis Ordered?: Yes VS, I&O, 24H, Fishbone Vital Signs/I&O Vital Signs Date Time Temp Pulse Resp B/P (MAP) Pulse Ox O2 Delivery O2 Flow Rate FiO2 02/13/21 13:44 97.9 61 18 124/68 (86) 96 Nasal Cannula 1.5 I&O- Last 24 Hours up to 6 AM 02/13/21 05:59 Intake Total 1140 ml Output Total 150 ml Balance 990 ml Laboratory Data 24H LABS Laboratory Tests 2 02/13/21 09:31: Immature Granulocyte % (Auto) 0.5, Neutrophils (%) (Auto) 71.4H, Lymphocytes (%) (Auto) 16.2L, Monocytes (%) (Auto) 9.9H, Eosinophils (%) (Auto) 1.7, Basophils (%) (Auto) 0.3, Neutrophils # (Auto) 8.4, Lymphocytes # (Auto) 1.9, Monocytes # (Auto) 1.2H, Eosinophils # (Auto) 0.2, Basophils # (Auto) 0.0, Nucleated Red Blood Cells % (auto) 0.0, Anion Gap 6L, Glomerular Filtration Rate 43.1, Calcium Level 7.9L, Total Bilirubin 2.5H, Aspartate Amino Transf (AST/SGOT) 28, Alanine Aminotransferase (ALT/SGPT) 19, Alkaline Phosphatase 79, Total Protein 5.7L, Albumin 2.0L, Albumin/Globulin Ratio 0.5L CBC/BMP Laboratory Tests 02/13/21 09:31 EMIGDIO MCFADDEN MD Feb 13, 2021 14:30
[2021-02-13] MEDS ORDERED: FUROSEMIDE 40MG/4ML VIAL (J1940) IV ONE (14:40)
--- NOTE | 2021-02-13 18:10 | IPN ---
PROGRESS NOTE DATE: 02/13/2021 HISTORY: Patient is now postoperative day #2 from a robotic-assisted laparoscopic repair of an incarcerated ventral incisional hernia. She underwent a small bowel resection with anastomosis as well as closure of her primary defect with placement of mesh. She has been maintained on antibiotics since surgery. Vital signs show that the patient has been afebrile over the past 24 hours. Her pulse is in the 60s. Her blood pressure is normal and she has been maintained on some nasal cannula oxygen with an oxygen saturation in the mid to upper 90s. Intake and output show that yesterday she had a total of approximately 1 liter in. She has voided. She has had a small amount of flatus, but no bowel movement yet. PHYSICAL EXAMINATION: Patient is lying quietly on the hospital bed. Skin is warm and dry. Heart exam shows a regular rhythm. The lungs are clear. The abdomen is perhaps mildly obese. Her dressings are clean and dry. She has a small amount of swelling in the area of her hernia sac, but this is fairly minimal at this point. She does have some tenderness on palpation of the abdomen fairly diffusely, but she has no rebound. LABORATORY STUDIES: Laboratory studies today show a white count of 12, hemoglobin 11, hematocrit 36 and a platelet count of 109,000. Differential count shows 71% neutrophils, 16 % lymphocytes and 10% monocytes. Chemistry profile shows normal electrolytes with a BUN of 41, creatinine 1.3 and a glucose of 183. Her liver function tests are normal with the exception of the total bilirubin of 1.5. Total protein is 5.7 with an albumin of 2.0. IMPRESSION: Patient overall seems to be doing pretty well two days out from her surgery. She has passed some gas and is tolerating some liquids. She is having some pain, somewhat greater than I would have anticipated, but this does not appear to be an indication of a problem. PLAN: I will advance her to full liquids. I will change her oxygen order to maintain her oxygen saturation to greater than 92%. She is encouraged to be up, out of bed and ambulating. [facility] HOSPITALCesar
[2021-02-13] MEDS: LATANOPROST 0.005% OPHTH SOLN 2.5 ML OU SCH (20:41)
[2021-02-14] VITALS: BP 116/62
[2021-02-14] MEDS: metroNIDAZOLE 500 MG in IV 1 EA IV SCH ×3 (01:58→18:00)
[2021-02-14] MEDS: NS 0.45% 1,000 ML IV SCH (02:49)
[2021-02-14] MEDS: cefoTEtan DISODIUM 2 GM in D5W MINI-BAG PLUS 50 ML IV SCH ×2 (03:27→14:32)
[2021-02-14 04:00] VITALS: BP 118/70
[2021-02-14] MEDS: ACETAMINOPHEN 500 MG TAB PO PRN ×2 (05:35→20:23)
[2021-02-14 07:08] LABS: BASO % 0.3 % (0.0-1.0); EOS # 0.2 10^3/uL (0.0-0.5); HEMATOCRIT 33.4 % (36.0-47.0); HEMOGLOBIN 10.7 g/dl (12.0-15.5); LYMPH # 1.5 10^3/uL (1.5-5.0); LYMPH % 18.9 % (24.0-44.0); MEAN CORPUSCULAR HEMOGLOBIN 32.5 pg (27.0-33.0); MEAN CORPUSCULAR VOLUME 101.5 fl (80.0-96.0); NEUTROPHILS # 5.2 10^3/uL (1.5-8.5); NEUTROPHILS % 65.4 % (36.0-66.0); RED BLOOD COUNT 3.29 10^6/uL (4.00-5.40); WHITE BLOOD COUNT 7.9 10^3/uL (4.0-10.0)
[2021-02-14 07:16] LABS: PLATELET COUNT, AUTOMATED 91 10^3/uL (150-450)
[2021-02-14 07:33] LABS: CREATININE FOR GFR 1.01 MG/DL (0.55-1.30); GLOMERULAR FILTRATION RATE 57.7 (>39); POTASSIUM SERUM 3.7 MEQ/L (3.5-5.1)
[2021-02-14] MEDS: PANTOPRAZOLE 40MG VIAL (C9113 PER 1) IV SCH (09:11)
[2021-02-14] MEDS: PHYTONADIONE 5 MG TAB PO SCH (09:12)
[2021-02-14] MEDS: TRIAMCINOLONE ACET 0.1% OINTMENT 15 GM TOP SCH ×3 (09:12→20:23)
[2021-02-14] MEDS: NADOLOL 20MG TABLET PO SCH (09:13)
[2021-02-14 10:00] VITALS: BP 139/72
[2021-02-14 14:00] VITALS: BP 118/68
[2021-02-14] MEDS ORDERED: FUROSEMIDE 40MG/4ML VIAL (J1940) IV ONE (14:20)
[2021-02-14] MEDS ORDERED: NORCO, ANEXSIA 5/325MG TABLET (HYDROcodone/ACETAMINOPHEN) PO PRN (14:45)
--- NOTE | 2021-02-14 16:40 | IPN ---
PROGRESS NOTE DATE: 02/14/2021 HISTORY: The patient is now postop day #3 from a robotic assisted laparoscopic reduction and repair of an incarcerated incisional hernia with a small bowel resection and repair of her hernia with mesh. She was advanced to a full liquid diet yesterday and has been tolerating these somewhat better over the last 24 hours. She did get a dose of Lasix yesterday and again today from Dr. Andrade of the hospitalist service. We have been tapering off her oxygen as tolerated. Vital signs show that she has been afebrile for the past 24 hours. Her pulse is generally in the 60s. Blood pressure is good and her oxygen saturation on 0.5 liters of oxygen has been in the mid 90s. Intake and output show that yesterday she had 2100 in, 1650 of which was IV with 820 ml of urine output. She has had some flatus, but no bowel movement yet today. PHYSICAL EXAMINATION: The patient looks slightly more comfortable today. She is alert and oriented. She reports that she has been up out of bed to sit in a chair twice today. Heart examination shows a regular rhythm. The lungs are clear. The abdomen is soft and she is perhaps a little less tender than she has been. Her incisions appear to be healing well and there is no significant fluid collection within her hernia. She does have bowel sounds present. LABORATORY STUDIES: Today shows that her white count has fallen back to normal at 7.9 with a hemoglobin of 11, hematocrit 33 and a platelet count of 91,000. Her differential reveals 65% neutrophils, 19% lymphocytes and 12% monocytes. Chemistry profile shows normal electrolytes with a BUN of 36, creatinine 1.0 and a glucose of 126. IMPRESSION: The patient is making slow, but steady progress. She has tolerated full liquids. Her blood pressure is good and we are weaning her off her oxygen. PLAN: We will try to strop her oxygen today. I will advance her to a regular diet. I am going to start her on some Senokot once daily to try to assist with her bowel function. She is encouraged to be up out of bed. We will continue her current antibiotics for now. MTDD
[2021-02-14 18:00] VITALS: BP 124/78
[2021-02-14] MEDS: LATANOPROST 0.005% OPHTH SOLN 2.5 ML OU SCH (20:23)
[2021-02-14] MEDS: SENOKOT S TAB PO SCH (20:23)
[2021-02-14 22:00] VITALS: BP 136/70
[2021-02-15 02:00] VITALS: BP 118/72
[2021-02-15] MEDS: metroNIDAZOLE 500 MG in IV 1 EA IV SCH ×3 (02:51→17:24)
[2021-02-15] MEDS: cefoTEtan DISODIUM 2 GM in D5W MINI-BAG PLUS 50 ML IV SCH ×2 (04:33→16:37)
[2021-02-15 05:13] VITALS: BP 122/68
[2021-02-15 08:28] VITALS: BP 120/68
[2021-02-15] MEDS: TRIAMCINOLONE ACET 0.1% OINTMENT 15 GM TOP SCH ×3 (08:52→20:25)
[2021-02-15] MEDS: NADOLOL 20MG TABLET PO SCH (08:53)
[2021-02-15] MEDS: FUROSEMIDE 20 MG TAB PO SCH (08:54)
[2021-02-15] MEDS: SPIRONOLACTONE 25 MG TAB PO SCH (08:55)
[2021-02-15] MEDS: PANTOPRAZOLE 40MG TAB (PROTONIX) PO SCH (08:55)
[2021-02-15] MEDS: ACETAMINOPHEN 500 MG TAB PO PRN ×2 (09:01→20:25)
--- NOTE | 2021-02-15 12:25 | IPNPDOC ---
Text Note Date of Service The patient was seen on 02/15/21. NOTE Gen. surgery. Dr. Paul The patient is POD4 S/P robotic assisted laparoscopic reduction and repair of an incarcerated incisional hernia with a small bowel resection and repair of her hernia with mesh as per Dr Paul. The patient was advanced to regular diet last evening, the patient has been tolerating this. She is up out of bed to the chair. She states she is feeling weak. Denies nausea or vomiting. Abdominal pain has been reasonably controlled. She reports a small amount of flatus, no BM. She is still on supplemental oxygen, saturation is 95%. Temperature 98.1 respiratory rate 18, heart rate 61, blood pressure 120/68, saturation 93% on 1/2 L nasal cannula. Dry appearing lips and mucous membranes. Lungs with good air entry, clear. S1-S2 regular rate and rhythm. Abdomen with surgical dressings C/D/I. soft, still some tenderness around surgical sites. No new labs. I/O [id number]/[id number], +305. Assessment/plan Incarcerated ventral incisional hernia with small bowel obstruction POD4 S/P robotic assisted laparoscopic reduction and repair of an incarcerated incisional hernia with a small bowel resection and repair of her hernia with mesh as per Dr Paul. Afebrile. Continuing to wean off supplemental oxygen. Tolerating regular diet. IV Cefotan/Flagyl I/S. Continue to encourage OOB. DVT px. SCD/TEDS Continue to monitor. VS,Fishbone, I+O VS, Fishbone, I+O Vital Signs Date Time Temp Pulse Resp B/P (MAP) Pulse Ox O2 Delivery O2 Flow Rate FiO2 02/15/21 11:00 0.5 02/15/21 08:53 61 120/68 02/15/21 08:28 98.1 18 93 Nasal Cannula I&O- Last 24 Hours up to 6 AM 02/15/21 06:00 Intake Total 2030 ml Output Total 1825 ml Balance 205 ml Attending Note Attending Note Excellent note by Stefanie. Patient has had BM since seen earlier. No signs of infection. Tolerating diet well. Will follow bowel function. Stop antibiotics. Stefanie French Feb 15, 2021 12:25 Wero Paul Feb 16, 2021 22:37
[2021-02-15 14:00] VITALS: BP 139/70
--- NOTE | 2021-02-15 15:08 | IPNPDOC ---
Text Note Date of Service The patient was seen on 02/15/21. NOTE Subjective: -Abd pain is improving, tolerating walking to the bathroom now -Tolerating regular diet -Passing flatus, no BM yet Objective: General: Alert, Cooperative, No Acute Distress Eyes: PERRLA, Conjunctiva & lids normal, EOMI, anicteric ENT: Atraumatic, Mucous membr. moist/pink, Pharynx Normal Neck: Supple, no JVD or thyromegaly Chest: Clear to auscultation, Normal air movement Heart: Rate Normal, Regular Rhythm, Normal S1, Normal S2, 2/6 systolic murmur Abdomen: Hypoactive bowel sounds, Soft, diffuse tenderness to palpation, no rebound or involuntary guarding Extremities: 1+ bipedal edema, otherwise WWP Neuro: Normal Speech, Strength at 5/5 X4 ext, Normal Tone Psych: Alert and Oriented x 3 Labs: Reviewed Assessment: 70 year old W with no known PMHx who was admitted to the surgical service for incarcerated ventral incisional hernia with small bowel obstruction now POD4 c/p robotic assisted laparoscopic reduction and repair of an incarcerated incisional hernia with a small bowel resection and repair of her hernia with mesh by Dr Paul, with course c/b incidentally noted cirrhosis with associated varices, thrombocytopenia and coagulopathy. 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 No history of alcohol use, hepatitis panel is negative, Ferritin not elevated, ceruloplasmin slightly low at 15.8, antimitochondrial antibody negative, alpha one antitrypsin was normal, ANCA normal Hepatic Doppler shows Hepatofugal flow in the main portal vein and left portal vein. No definite portal vein or hepatic vein thrombosis. Venous varicosities in the region of the spleen. Portal vasculature demonstrates normal direction of flow with no thrombosis. No evidence of hepatic vein thrombosis. will need to be referred to hepatology as outpatient. -lasix prn Incisional hernia with SBO -POD4 - had prolonged surgery on 02/11/21 with laparoscopic robotic-assisted lysis of adhesions, repair of an incarcerated ventral incisional hernia , small bowel resection with anastomosis as well as closure of her primary defect with placement of mesh. -On Cefotetan and metronidazole -management as per surgery -tolerating regular diet -passing flatus, no BM yet Skin rash -discussed with Derm rash likely stasis dermatitis -triamcinolone tid DVT ppx: TEDs VS,Fishbone, I+O VS, Fishbone, I+O Vital Signs Date Time Temp Pulse Resp B/P (MAP) Pulse Ox O2 Delivery O2 Flow Rate FiO2 02/15/21 14:00 98.0 63 18 139/70 (93) 95 Nasal Cannula 0.5 I&O- Last 24 Hours up to 6 AM 02/15/21 06:00 Intake Total 2030 ml Output Total 1825 ml Balance 205 ml LUÍS HILL MD Feb 15, 2021 15:08
[2021-02-15 18:00] VITALS: BP 140/65
[2021-02-15] MEDS ORDERED: ONDANSETRON 4MG/2ML VIAL IV PRN (19:20)
[2021-02-15] MEDS ORDERED: LR 1,000 ML IV SCH (19:20)
[2021-02-15] MEDS: SENOKOT S TAB PO SCH (20:25)
[2021-02-15] MEDS: LATANOPROST 0.005% OPHTH SOLN 2.5 ML OU SCH (20:25)
[2021-02-15 22:00] VITALS: BP 130/60
[2021-02-16 02:00] VITALS: BP 140/65
[2021-02-16 06:00] VITALS: BP 120/54
[2021-02-16 08:45] VITALS: BP 138/64
[2021-02-16] MEDS: PANTOPRAZOLE 40MG TAB (PROTONIX) PO SCH (09:08)
[2021-02-16] MEDS: FUROSEMIDE 20 MG TAB PO SCH (09:09)
[2021-02-16] MEDS: SPIRONOLACTONE 25 MG TAB PO SCH (09:09)
[2021-02-16 09:10] VITALS: BP 138/64
[2021-02-16] MEDS: NADOLOL 20MG TABLET PO SCH (09:10)
[2021-02-16] MEDS: TRIAMCINOLONE ACET 0.1% OINTMENT 15 GM TOP SCH ×2 (09:11→16:29)
[2021-02-16] MEDS ORDERED: ALDA25TA2 PO (09:56)
[2021-02-16] MEDS ORDERED: NADO20TA PO (09:56)
[2021-02-16] MEDS ORDERED: SENN-52 PO (09:56)
[2021-02-16] MEDS ORDERED: PANT40TA29 PO (09:56)
[2021-02-16] MEDS ORDERED: TRIA1OI TOP (09:56)
[2021-02-16] MEDS ORDERED: HYDR-3715 PO (09:56)
--- NOTE | 2021-02-16 10:14 | DS.PDOC ---
Discharge Summary General Date of Admission Feb 08, 2021 at 11:55 Date of Discharge 02/16/2021 Attending Physician: LUÍS HILL MD Specialist/Consultants Involve: Wero Paul Discharge Summary PROCEDURES PERFORMED DURING STAY: ADMITTING DIAGNOSES: Incarcerated ventral hernia DISCHARGE DIAGNOSES: Incarcerated ventral hernia Newly noted liver cirrhosis c/b varices and thrombocytopenia SHANE COMPLICATIONS/CHIEF COMPLAINT: Incarerated Ventral Hernia. HPI: 70 year old W with no known PMH who presented to ED with 2 to 3 days of nausea and vomiting and unable to tolerate food and a bulge in the left side of the abdomen. HOSPITAL COURSE: She was found to have a incisional hernia containing loops of small bowel with at least one loop that was dilated consistent with a point of obstruction. Patient was admitted to the surgical service. The bowel was successfully reduced by surgeon and was planned for a repair of recurrent incisional hernia. During her work up in ED she was noted to have a platelet of 73K. 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 Internal medicine service was consulted for evaluation for cirrhosis and medical optimization prior to surgery. While she is obese, she otherwise has no history of alcohol use, hepatitis panel was negative, ferritin was not elevated, ceruloplasmin was slightly low at 15.8, antimitochondrial antibody was negative, alpha one antitrypsin was normal, ANCA was normal and hepatic Doppler showed Hepatofugal flow in the main portal vein and left portal vein with no definite portal vein or hepatic vein thrombosis. She did have venous varicosities in the region of the spleen. For the cirrhosis, she was started on low dose nadolol and aldactone and had some PRN lasix. With regard to the incisional hernia with SBO, she eventually had a prolonged surgery on 02/11/21 with laparoscopic robotic- assisted lysis of adhesions, repair of an incarcerated ventral incisional hernia , small bowel resection with anastomosis as well as closure of her primary defect with placement of mesh and had a full course of empiric Cefotetan and metronidazole. Her postop course went very well with slow advancement of a diet and is now back on a regular diet and has had bowel movements. Her abdominal pain is well controlled with the current pain regiment. Due the critical illness and surgery, she has some significant deconditioning and on evaluation was deemed appropriate for admission to the ARU. She will require referral to GI/hepatology at home discharge. DISCHARGE MEDICATIONS: Please see below. ALLERGIES: Please see below. PHYSICAL EXAMINATION ON DISCHARGE: VITAL SIGNS: Please see below. General: Alert, Cooperative, No Acute Distress Eyes: PERRLA, Conjunctiva & lids normal, EOMI, anicteric ENT: Atraumatic, Mucous membr. moist/pink, Pharynx Normal Neck: Supple, no JVD or thyromegaly Chest: Clear to auscultation, Normal air movement Heart: Rate Normal, Regular Rhythm, Normal S1, Normal S2, 2/6 systolic murmur Abdomen: Hypoactive bowel sounds, Soft, diffuse tenderness to palpation, no rebound or involuntary guarding Extremities: 1+ bipedal edema, otherwise WWP Neuro: Normal Speech, Strength at 5/5 X4 ext, Normal Tone Psych: Alert and Oriented x 3 LABORATORY DATA: Please see below. IMAGIN/22 CT A/P: Lung bases: Varices are seen along the distal esophagus. There is a small hiatal hernia. Liver: The liver is small in size with scalloped margins suggesting cirrhosis. Gallbladder: Multiple gallstones are seen in the gallbladder. Spleen: There is mild splenomegaly, the length of the spleen is 13.5 cm. Large varices are seen in the splenic hilum, which communicate with the larger left renal vein.. Adrenals: Normal. Pancreas: Normal. Kidneys: Normal. Small and large bowel: There is small-bowel obstruction, the transition point is within an umbilical hernia. The hernia sac contains dilated small bowel as well as collapsed more distal small bowel. There is mild fluid and scattered edema in the hernia sac. The aperture of the hernia is approximately 4.7 cm in diameter.. Diverticula are seen throughout the colon. Free fluid: Mild free fluid in the umbilical hernia sac. Abdominal aorta: No aneurysm or dissection. Adenopathy: None. Appendix: Not inflamed. Osseous structures: There are degenerative changes of the spine without compression deformity. Pelvis: No mass. IMPRESSION: Small-bowel obstruction, with the transition point identified within an umbilical hernia. Mild free fluid in the hernia sac. There are findings of cirrhosis, mild splenomegaly, with varices of the distal esophagus and splenic hilum. 02/08 CXR: There is no acute infiltrate. There is mild cardiomegaly. There is calcification and tortuosity of the thoracic aorta. The mediastinal silhouette is unchanged. A nasogastric tube is seen. The side port is at the gastroesophageal junction. IMPRESSION: No infiltrate seen. Nasogastric tube side port is at the gastroesophageal junction. 02/08 Abd MRI: Liver: The liver has a nodular surface and cirrhotic morphology. No liver masses are seen. Gallbladder and bile ducts: Multiple small calculi in the gallbladder and cystic duct. Small amount of pericholecystic fluid. Common bile duct is borderline dilated at 7 mm. No obstructing common bile duct stones are seen. Pancreas: The main pancreatic duct is borderline dilated proximally at 3.5 mm. Distal pancreatic duct is nondilated. Spleen: Unremarkable. No splenomegaly. Adrenal glands: Unremarkable. No mass. Kidneys and ureters: Unremarkable. No solid mass. No hydronephrosis. Stomach and bowel: Visualized stomach and intestines are unremarkable. Intraperitoneal space: No free fluid. Arteries: No abdominal aortic aneurysm. Bones/joints: Unremarkable. Soft tissues: Unremarkable. IMPRESSION: 1. Motion limited exam. 2. Possible cholecystitis with multiple calculi in the gallbladder and pericholecystic fluid. Consider gallbladder ultrasound follow-up. 3. Borderline dilated common bile duct and proximal pancreatic duct. No obstructing common duct stone or biliary duct dilation. 4. Cirrhotic liver morphology. 5. Small hiatal hernia. 02/09 Abd US: Multiple gallstones are seen in the gallbladder. Gallbladder wall is upper limits normal at 3 mm in thickness. There is no intrahepatic or extrahepatic biliary dilatation, common bile duct measures 6 mm in maximum diameter. The liver demonstrates diffuse heterogeneous coarsened echotexture with no focal mass. The pancreas is not optimally visualized, the visualized portions are grossly unremarkable. Spleen is upper limits of normal in size to mildly enlarged, with no intrinsic abnormality, measuring 12.2 cm in length. There is no evidence of hydronephrosis, cyst, mass, or calculus in either kidney. The right kidney measures 11.4 x 6.7 x 4.4 cm. Left renal dimensions are 11.9 x 4.9 x 4.9 cm. The abdominal aorta could not be visualized. No free fluid is seen. The main portal vein measures 6 mm in diameter. There is a hepatofugal flow in the main portal vein and left portal vein. The right portal vein is not visualized. There is no definite portal vein thrombosis. Hepatic veins are patent with no thrombus, with monophasic waveforms. Patent main hepatic artery demonstrates peak systolic velocity of 86.2 centimeters/second. Splenic vein is dilated and there are multiple splenic varicosities noted. IMPRESSION: Multiple gallstones in the gallbladder. No biliary dilatation or free fluid. Diffuse heterogeneous coarsened echotexture of the liver. Spleen at upper limits of normal in size to mildly enlarged. Hepatofugal flow in the main portal vein and left portal vein. No definite portal vein or hepatic vein thrombosis. Venous varicosities in the region of the spleen. Portal vasculature demonstrates normal direction of flow with no thrombosis. No evidence of hepatic vein thrombosis. PROGNOSIS: Good ACTIVITY: As tolerated DIET: Regular DISCHARGE PLAN: ARU DISPOSITION: ARU DISCHARGE INSTRUCTIONS: 1. ARU 2. Hepatology referral at ARU discharge to home ITEMS TO FOLLOWUP ON ON OUTPATIENT: Surgery follow up after abdominal surgery Hepatology referral for newly noted liver cirrhosis of unclear etiology DISCHARGE CONDITION: Stable TIME SPENT ON DISCHARGE: 42 minutes. Vital Signs/I&Os Vital Signs Date Time Temp Pulse Resp B/P (MAP) Pulse Ox O2 Delivery O2 Flow Rate FiO2 02/16/21 09:10 69 138/64 02/16/21 08:45 98.2 19 92 Room Air 02/16/21 06:00 0.5 I&O- Last 24 Hours up to 6 AM 02/16/21 06:00 Intake Total 660 ml Output Total 0 ml Balance 660 ml Discharge Medications Scheduled Ascorbic Acid (Vitamin C) 500 Mg Tablet, 500 MG PO DAILY, (Reported) Calcium Carb/Vitamin D3/Vit K1 (Citracal Soft Chew) 1 Each Tab.chew, 1 CHEW PO DAILY, (Reported) Cholecalciferol (Vitamin D3) (Vitamin D3) 1,000 Unit Tablet, 1,000 UNITS PO DAILY, (Reported) Magnesium Oxide (Magnesium) 400 Mg Capsule, 400 MG PO DAILY, (Reported) Multivit-Min/FA/Lycopen/Lutein (Centrum Silver Tablet) 1 Each Tablet, 1 TAB PO DAILY, (Reported) Mv-Min/FA/Vit K/Lycop/Lut/Zeax (Ocuvite Eye Plus Multi Tablet) 1 Each Tablet, 1 TAB PO DAILY, (Reported) Nadolol (Nadolol) 20 Mg Tablet, 40 MG PO DAILY Pantoprazole Sodium (Pantoprazole Sodium) 40 Mg Tablet.dr, 40 MG PO DAILY Psyllium Husk (with Sugar) (Metamucil Powder) 575 Gm Powder, 1 PKT PO DAILY, (Reported) Sennosides/Docusate Sodium (Senna Plus Tablet) 1 Each Tablet, 1 TAB PO QHS Spironolactone (Aldactone) 25 Mg Tablet, 25 MG PO QAM Travoprost (Travatan Z) 0.004% 2.5ML Drops, 1 DROP OU QHS, (Reported) Triamcinolone Acet (Triamcinolone Acetonide 0.1% Oint) 15 Gm Oint...g., 0 DOSE TOP TID Turmeric Root Extract (Turmeric) 500 Mg Capsule, 500 MG PO DAILY, (Reported) Zinc (Zinc) 50 Mg Tablet, 50 MG PO DAILY, (Reported) Scheduled PRN Hydrocodone/Acetaminophen (Hydrocodone-Acetamin 5-325 mg) 1 Each Tablet, 1 TAB PO Q6HP PRN for MODERATE/SEVERE PAIN (PS 5-10) Allergies Coded Allergies: latex (Verified Allergy, Intermediate, rash, 02/08/21) LUÍS HILL MD Feb 16, 2021 10:14
--- NOTE | 2021-02-16 10:21 | IPNPDOC ---
Text Note Date of Service The patient was seen on 02/16/21. NOTE Gen. surgery. Dr. Paul The patient is POD5 S/P robotic assisted laparoscopic reduction and repair of an incarcerated incisional hernia with a small bowel resection and repair of her hernia with mesh as per Dr Paul. The patient is tolerating regular diet. She is up out of bed to the chair and eating breakfast. She states she continues to feel weak. Denies nausea or vomiting. Abdominal pain has been controlled. She reports flatus and BM 1 yesterday and 1 this morning. She was on supplemental O2 overnight but is 92% on room air this morning. Afebrile VSS Dry appearing lips and mucous membranes. Lungs with a few inspiratory rales at the bases S1-S2 regular rate and rhythm. Abdomen with surgical dressings C/D/I. soft, still some tenderness around surgical sites. No new labs. I/O not recorded Assessment/plan Incarcerated ventral incisional hernia with small bowel obstruction POD5 S/P robotic assisted laparoscopic reduction and repair of an incarcerated incisional hernia with a small bowel resection and repair of her hernia with mesh as per Dr Paul. Afebrile. Continuing to wean off supplemental oxygen. Tolerating regular diet. IV Cefotan/Flagyl discontinued Continue to encourage I/S. Continue to encourage OOB. DVT px. SCD/TEDS Continue to monitor. VS,Fishbone, I+O VS, Fishbone, I+O Vital Signs Date Time Temp Pulse Resp B/P (MAP) Pulse Ox O2 Delivery O2 Flow Rate FiO2 02/16/21 09:10 69 138/64 02/16/21 08:45 98.2 19 92 Room Air 02/16/21 06:00 0.5 I&O- Last 24 Hours up to 6 AM 02/16/21 06:00 Intake Total 660 ml Output Total 0 ml Balance 660 ml Attending Note Attending Note Patient with less pain. Eating well. Had several BM's. Feels tired. Generally in bed when I come to see her. Wounds clean and healing. Hernia sac with no sig fluid. On diuretics per hospitalist for Cirrhosis. Hospitalist has order transfer to ARU. Stefanie French Feb 16, 2021 10:21 Wero Paul Feb 16, 2021 23:17
[2021-02-16 13:15] VITALS: BP 150/80
[2021-02-16 18:00] VITALS: BP 148/74
--- NOTE | 2021-02-22 08:55 | RO ---
OPERATIVE NOTE DATE OF OPERATION: 02/11/2021 PREOPERATIVE DIAGNOSIS: Ventral incisional hernia. POSTOPERATIVE DIAGNOSIS: Incarcerated ventral incisional hernia with extensive adhesions to small bowel. PROCEDURE PERFORMED: Robotic-assisted laparoscopic repair of an incarcerated ventral incisional hernia with mesh, and small bowel resection with anastomosis. SURGEON: Wero Paul MD WEAVER APPRENTICE: KEM Hicks ANESTHESIA: General INDICATIONS FOR THE PROCEDURE: The patient is a 70-year-old woman with a longstanding ventral hernia. She has previously undergone a repair of a hernia at the umbilicus using mesh but this had recurred and has been present for several years. She presented to the hospital with an incarcerated but it was possible to reduce with resolution of her symptoms. She is now for repair of her incisional hernia. OPERATIVE PROCEDURE: The patient was brought to the operating room and placed on the table in a supine position. She was placed under general endotracheal anesthesia. TEDs and sequentials were utilized. The patient's abdomen was prepped and draped in a sterile fashion. 1/4% Marcaine was infiltrated at each of the trocar sites as needed. Initial entry was in the left upper quadrant slightly below the costal margin. A short transverse incision was made and a Veress needle was inserted. After a positive hanging drop test, the abdomen was inflated with carbon dioxide gas. An 8 mm port was then placed over the scope and advanced to the abdominal wall without difficulty. Initial inspection showed some omentum and bowel extending up to the anterior abdominal wall at the site of her hernia. Her liver was quite nodular consistent with cirrhosis. T here was no ascites identified. A second 8 mm port was placed approximately 10 cm further inferior and slightly more lateral and a third port 12 mm in diameter was placed an additional 10-12 cm inferiorly. The patient was rolled slightly to the right and tilted to a slight Trendelenburg position to the level of the abdominal wall. The patient cart for the da Duane XI robot was then brought into position and docked to the middle port as the endoscope port. Targeting took place on the hernia and the additional robotic arms were docked. A fenestrated bipolar and cauterizing scissors were then inserted. I moved to the control console to then proceed with the surgery. Initially some adhesions of the omentum to the anterior abdominal cavity wall and the edges of the fascial defect were taken down sharply and with cautery. Bowel was seen entering the hernia. Dissection of the adhesions proceeded, reducing bowel and omentum into the abdomen. A loop of bowel that was densely adherent into the hernia was identified after all other structures had been reduced fairly readily. This consisted of a piece of what appeared to be approximately the mid-small bowel. It entered the inferolateral aspect of the fascial defect to the left and then curled across to the right side and came back into the abdomen. Dissection proceeded to attempt to free this. A prolonged period of time up to two hours was taken to try to free this loop without damaging the bowel. It was very densely fused to the tissues at the inferoposterior aspect of her hernia sac. Ultimately it was reduced into the abdomen. There were several seromuscular defects that were identified. There was a small amount of oozing from multiple punctate points on the raw surface were it had been peeled away from the abdominal wall. Initial exam did not confirm a perforation. Several simple sutures of 3-0 Vicryl were placed into a couple of the larger seromuscular tears. The hernia was inspected and this showed a fascial defect approximately 7 cm in length x 5 cm in width. A piece of previously placed Parietex patch was identified along the right edge of the existing fascial defect and extending out slightly on the inner aspect of the abdominal wall from that point. There was no significant preperitoneal fat in the area of her previous defect and it did not appear possible to elevate a peritoneal flap to cover any new mesh that might be placed. A #1 Stratafix suture was used to close the fascial defect longitudinally. The intra-abdominal pressure was reduced to 10 mmHg while this was accomplished. I then selected a 10 x 15 cm Parietex patch to reinforce the fascial closure. This was reference number [id number] and the lot number [id number]. This was rolled and inserted into the abdomen. This was placed with the long axis going longitudinally and covering the anterior abdominal wall centered over the sutured fascial defect. A 2-0 absorbable V-Loc suture was then used to suture across the transverse midline of the patch to fix this to the anterior abdominal wall. The suture was then carried along one edge of the mesh to fix this more securely in place. Additional sutures were placed to suture the longitudinal midline of the mesh in place and then to suture the entire periphery of the mesh to the anterior abdominal wall. The mesh was placed with the nonadherent side facing the bowel. The final repair looked excellent. At this point, the segment of small bowel that had been so difficult to reduce from within the hernia was inspected. There had been some oozing from several small points on the bowel perhaps associated with her underlying liver disease and somewhat low platelet count. The bowel was irrigated and carefully inspected. Several small bleeding points were cauterized. In the course of performing a more thorough inspection of this loop of bowel, a definite perforation of the small bowel was identified. There was also in the area of the perforation some duskiness with a short segment of the mesentery along this same area having been divided. With the combination of the small perforation and what appeared to be a devascularized short segment of the bowel, I elected to resect this segment of the small bowel. I elected to resect the entire segment that had been entrapped in the hernia because this was quite thickened and scarred. In order to facilitate this, the fourth arm of the robot was brought into play. A fourth trocar was placed low in the left lower quadrant and this was an 8 mm port. The arms were all reassigned and I proceeded with a robotic resection of this bowel. The SynchroSeal device was used to divide the mesentery of the bowel that was being resected. The bowel was transected at the proximal and distal ends of the segment using the 45 mm robotic stapler. An anastomosis was performed between the bowel using a 45 mm stapler load. The residual opening was closed with a running 3-0 absorbable V-Loc suture placed as a continuous two layer closure of the bowel. This appeared to give an excellent anastomosis. One or two sutures of Vicryl were used to close the mesenteric defect. The area was then copiously irrigated and the irrigation was then removed as thoroughly as possible. The segment of bowel had been placed within an Endopouch. Approximately 20 cm of bowel were resected. The patient was then returned to a flat position. The robotic instruments were removed. The robot was undocked and withdrawn. I elected to remove the specimen through the 12 mm port site. The string of the specimen pouch was grasped through this port and the port was removed. The skin incision was extended to perhaps 4-5 cm. The subcutaneous tissues were opened with the cautery. The fascia was then also opened in a muscle-splitting approach. The specimen was delivered and sent for permanent pathology. The fascia was then closed in layers with Vicryl. The skin incisions were all closed with buried sutures of 4-0 Vicryl. The patient tolerated the procedure well without apparent complication. She was awakened in the operating room, extubated and moved to the recovery room in stable condition.
== END 2021-02-16 18:50 | DRG 330 ==
LOC: M ED 07:42 → M ED INP 11:55 → ENRESERV 12:11 → M MS5PR 13:50
PROVIDERS: ADMIT Surgery; ATTEND Internal Medicine
PROC: 0WUF4JZ Supplement Abdominal Wall with Synthetic Substitute, Percutaneous Endoscopic Approach (ICD-10-PCS; 2021-02-11)
PROC: 0DN84ZZ Release Small Intestine, Percutaneous Endoscopic Approach (ICD-10-PCS; 2021-02-11)
PROC: 8E0W4CZ Robotic Assisted Procedure of Trunk Region, Percutaneous Endoscopic Approach (ICD-10-PCS; 2021-02-11)
PROC: 0DB84ZZ Excision of Small Intestine, Percutaneous Endoscopic Approach (ICD-10-PCS; principal; 2021-02-11 11:25)
DX: K43.0 Incisional hernia with obstruction, without gangrene (principal); K76.6 Portal hypertension; I85.10 Secondary esophageal varices without bleeding; D68.4 Acquired coagulation factor deficiency; N17.9 Acute kidney failure, unspecified; H40.9 Unspecified glaucoma; K74.60 Unspecified cirrhosis of liver; I87.2 Venous insufficiency (chronic) (peripheral); D69.59 Other secondary thrombocytopenia; Z98.41 Cataract extraction status, right eye; Z98.42 Cataract extraction status, left eye; Z96.1 Presence of intraocular lens; Z87.891 Personal history of nicotine dependence; Z20.822 Contact with and (suspected) exposure to COVID-19

== ENCOUNTER 2021-02-16 12:38 | Inpatient (IN) | payer MEDICARE, OTHER ==
[~2021-02-16] VITALS: Ht 152.4 cm; Wt 76.8 kg
[~2021-02-16 12:38] MED LIST changes: +ALDA25TA2 PO; +C 50TAB PO; +CALC-263 PO; +CENT1TAB PO; +D31000TA2 PO; +HYDR-3715 PO; +MAGN400C PO; +META28.32 PO; +NADO20TA PO; +OCUVTAB8 PO; +PANT40TA29 PO; +RA T500C2 PO; +SENN-52 PO; +TRAV04OPD OU; +TRIA1OI TOP; +ZINC1TAB2 PO
[2021-02-16] MEDS ORDERED: BISACODYL 10 MG SUPP PR PRN (16:05)
[2021-02-16] MEDS ORDERED: oxyCODONE 5MG TAB PO PRN (16:05)
--- NOTE | 2021-02-16 16:13 | HPEPDOC ---
[employer] Note DATE OF ADMISSION: 02-16-21 DATE OF SERVICE: 02-17-21 TIME OF ADMISSION: Please refer to physician's admission order. SOURCE OF ADMISSION INFORMATION: [facility] record and patient CHIEF COMPLAINT: ventral hernia repair HISTORY OF PRESENT ILLNESS: 70F with pmh of glaucoma, hx of umbilical hernia incarceration s/p repair, presented to [facility] ED on 02-08-21 with nausea and vomiting, found to have an incarcerated ventral hernia with CT abdomen showing, "Small-bowel obstruction, with the transition point identified within an umbilical hernia. There are findings of cirrhosis, mild splenomegaly, with varices of the distal esophagus and splenic hilum". She was found to have thrombocytopenia in the setting of liver cirrhosis for which medicine was consulted and etiology was unable to be determined. She underwent a robotic lysis of adhesions, repair of an in carcerated ventral incisional hernia , and small bowel resection with anastomosis as well as closure of her primary defect with placement of mesh on 02-11-21. She was given IV antibiotics, her diet advanced, and she was deemed medically appropriate for discharge to ARU after being evaluated by therapy and noted to have mobility and ADL impairments. REVIEW OF SYSTEMS: The following is a completed review of systems and has been reviewed. Review of systems otherwise unremarkable. PAIN: Patient self reports no pain EYES: No recent vision changes EARS, NOSE, & THROAT: No throat pain, or dysphagia, or rhinorrhea CARDIOVASCULAR: Denies chest pain or palpitations PULMONARY:+ shortness of breath with exertion, denies cough GASTROINTESTINAL: Denies constipation/diarrhea, s/p abdominal hernia repair GENITOURINARY: denies dysuria MUSCULOSKELETAL: generalized weakness. NEUROLOGICAL:denies tremor/parethesias HEMATOLOGICAL: +easy bruising SKIN: RLE rash PSYCHIATRIC[Unremarkable All other review of systems found to be negative. PAST MEDICAL HISTORY: as oer hpi PAST SURGICAL HISTORY: as per hpi ALLERGIES: Please see below. MEDICATIONS: Please see below. SOCIAL HISTORY: Former smoker, no etoh/illicit drugs DIET: low sodium, fluid restrict PHYSICAL EXAMINATION: VITAL SIGNS: Please see below. GENERAL: Pleasant and cooperative. No acute distress. HEENT: PERRL. Extraocular movements intact. Clear conjunctiva CARDIOVASCULAR: Regular rate and rhythm. No murmurs, rubs, or gallops LUNGS: Clear to auscultation bilaterally. No wheezes. No rhonchi ABDOMEN: Soft, mild guarding, TTP, surgical incision c/d/i NEUROLOGICAL: Alert and oriented times three. Cranial nerves II through XII grossly intact. Sensation grossly intact. EXTREMITIES: 5\\5 strength bilateral upper extremities. 5-\\5 strength right lower extremity. 5-/5 strength in left lower extremity. +bilat LE edema SKIN: scattered ecchymosis LABORATORY DATA: Please see below. IMAGING:Imaging documentation personally reviewed by record FUNCTIONAL STATUS: Premorbid: Independent with all activities of daily life as well as mobility On Admission: contact guard ambulating short distances, bed mobility, functional transfers, dressing, GOALS: Mod-I community distances, dressing, toileting, bathing, stairs ASSESSMENT:70-year-old F with past medical history of umbilical hernia repair who presents status post ventral hernia incarceration s/p repair, small bowel resection with anastomosis and lysis of adhesions PLAN: 1. Rehab- PT/OT advance mobility and ADLs, strengthen/stretch/maintain ROM all 4 limbs 2. cardiac- htn c/u BP meds, adjust prn -patient appears fluid overloaded, will fluid restrict, daily weights, suspect degree of CHF- c/u aldactone and lasix, will give 1x IV Lasix and monitor 3. resp- monitor for infection, concern for atelectasis in setting of recent abdominal surgery- CXR negative for infiltrate -supplemental 02 prn, incentive spirometry -bijan 4. GI- s/p ventral hernia incarceration s/p repair, small bowel resection with anastomosis and lysis of adhesions performed 02-11-21 will consult surgery, s/p course of IV antibiotics, monitor for infection, may need to be restarted -liver cirrhosis etiology unclear- f/u GI as outpatient -ppx- protonix 5. DVT ppx- teds, avoid AC due to thrombocytopenia 6. Pain- tylenol an oxycodone 7. Dispo- TBD POST ADMISSION PHYSICIAN EVALUATION: Medical and functional status: Description of medical status, medical assessment: As above. Rehabilitation diagnosis and current and prior cold morbid medical conditions as above. Risk of complications and plans to mitigate them as above. Description of functional status current status is as above. Prior status as above. Status compared to preadmission: There are no clinically significant differences between the patient's current status and the information described on the preadmission screening document. Treatment plan anticipated: Treatment plan is as described above. Required disciplines including physical therapy, occupational therapy, others as noted above. Intensity of services: 3 hours a day, 6 days a week. Special considerations: There are no specific special or safety considerations that would likely preclude immediate implementation of an intensive rehabilitation program or subsequently influence the plan of care. ATTESTATION: Considering all the information above, it is my best judgment that this patient requires intensive rehabilitation therapy as described above and an inpatient hospital environment due to the complexity of nursing, medical, and rehabilitation needs required by the patient. Furthermore, this patient can reasonably be expected to participate in an benefit from an inpatient rehabilitation stay with an interdisciplinary team approach to the delivery of rehabilitation care under the direction and supervision of rehabilitation physician PROGNOSIS: good ESTIMATED LENGTH OF STAY:12-14 days. PROJECTED DISCHARGE DESTINATION: Home with family support and any durable medical equipment required to increase functional safety and mobility TIME SPENT COUNSELING AND COORDINATING INITIAL CARE: Greater than 70 minutes. Vital Signs Vital Signs Date Time Temp Pulse Resp B/P (MAP) Pulse Ox O2 Delivery O2 Flow Rate FiO2 02/16/21 20:00 98.0 73 20 146/65 (92) 90 Room Air 02/17/21 01:00 2.0 Home Medications Scheduled Ascorbic Acid (Vitamin C) 500 Mg Tablet, 500 MG PO DAILY, (Reported) Calcium Carb/Vitamin D3/Vit K1 (Citracal Soft Chew) 1 Each Tab.chew, 1 CHEW PO DAILY, (Reported) Cholecalciferol (Vitamin D3) (Vitamin D3) 1,000 Unit Tablet, 1,000 UNITS PO DAILY, (Reported) Magnesium Oxide (Magnesium) 400 Mg Capsule, 400 MG PO DAILY, (Reported) Multivit-Min/FA/Lycopen/Lutein (Centrum Silver Tablet) 1 Each Tablet, 1 TAB PO DAILY, (Reported) Mv-Min/FA/Vit K/Lycop/Lut/Zeax (Ocuvite Eye Plus Multi Tablet) 1 Each Tablet, 1 TAB PO DAILY, (Reported) Nadolol (Nadolol) 20 Mg Tablet, 40 MG PO DAILY Pantoprazole Sodium (Pantoprazole Sodium) 40 Mg Tablet.dr, 40 MG PO DAILY Psyllium Husk (with Sugar) (Metamucil Powder) 575 Gm Powder, 1 PKT PO DAILY, (Reported) Sennosides/Docusate Sodium (Senna Plus Tablet) 1 Each Tablet, 1 TAB PO QHS Spironolactone (Aldactone) 25 Mg Tablet, 25 MG PO QAM Travoprost (Travatan Z) 0.004% 2.5ML Drops, 1 DROP OU QHS, (Reported) Triamcinolone Acet (Triamcinolone Acetonide 0.1% Oint) 15 Gm Oint...g., 0 DOSE TOP TID Turmeric Root Extract (Turmeric) 500 Mg Capsule, 500 MG PO DAILY, (Reported) Zinc (Zinc) 50 Mg Tablet, 50 MG PO DAILY, (Reported) Scheduled PRN Hydrocodone/Acetaminophen (Hydrocodone-Acetamin 5-325 mg) 1 Each Tablet, 1 TAB PO Q6HP PRN for MODERATE/SEVERE PAIN (PS 5-10) Allergies Coded Allergies: latex (Verified Allergy, Intermediate, rash, 02/08/21) A-FIB/CHADSVASC A-FIB History Current/History of A-Fib/PAF?: No KRISHNA JUÁREZ MD Feb 16, 2021 16:13
[2021-02-16] MEDS ORDERED: PILL CUTTER 1 EACH XX PRN (19:40)
[2021-02-16] MEDS: SENOKOT S TAB PO SCH (19:45)
[2021-02-16 20:00] VITALS: BP 146/65
[2021-02-16] MEDS: MAGNESIUM OXIDE 400MG TAB (MAG-OX) PO SCH (21:03)
[2021-02-16] MEDS: ACETAMINOPHEN TAB 650MG DOSE (2X325MG) PO PRN (21:03)
[2021-02-16] MEDS: TRIAMCINOLONE ACETONIDE 0.025 % 80 GM CREAM TOP SCH (21:04)
[2021-02-16] MEDS: REMEDY PHYTOPLEX Z-GUARD PASTE 113GM TUBE (FROM STOREROOM PRODUCT) TOP SCH (21:04)
[2021-02-16] MEDS: LATANOPROST 0.005% OPHTH SOLN 2.5 ML OU SCH (21:04)
[2021-02-17 06:00] VITALS: BP 142/70
[2021-02-17] MEDS: MULTIVITAMINS/MINERALS THERAP 1 TAB PO SCH (08:00)
[2021-02-17] MEDS: ASCORBIC ACID 500 MG TAB PO SCH (08:00)
[2021-02-17] MEDS: MAGNESIUM OXIDE 400MG TAB (MAG-OX) PO SCH ×2 (08:01→20:34)
[2021-02-17] MEDS: VITAMIN D 1,000 INTERNATIONAL UNITS TABLET PO SCH (08:01)
[2021-02-17] MEDS: ZINC SULFATE 220 MG CAP PO SCH (08:02)
[2021-02-17] MEDS: SPIRONOLACTONE 25 MG TAB PO SCH (08:02)
[2021-02-17] MEDS: NADOLOL 20MG TABLET PO SCH (08:02)
[2021-02-17] MEDS: FUROSEMIDE 20 MG TAB PO SCH (08:02)
[2021-02-17] MEDS: METAMUCIL (PSYLLIUM) PACKET PO SCH (08:03)
[2021-02-17] MEDS: SENOKOT S TAB PO SCH ×2 (08:04→20:34)
[2021-02-17] MEDS: REMEDY PHYTOPLEX Z-GUARD PASTE 113GM TUBE (FROM STOREROOM PRODUCT) TOP SCH ×3 (08:08→20:35)
[2021-02-17] MEDS: TRIAMCINOLONE ACETONIDE 0.025 % 80 GM CREAM TOP SCH ×3 (08:11→20:35)
--- NOTE | 2021-02-17 13:38 | IPNPDOC ---
Text Note Date of Service The patient was seen on 02/17/21. NOTE Subjective: -Abd pain continues to slowly improve -Tolerating regular diet Objective: General: Alert, Cooperative, No Acute Distress Eyes: PERRLA, Conjunctiva & lids normal, EOMI, anicteric ENT: Atraumatic, Mucous membr. moist/pink, Pharynx Normal Neck: Supple, no JVD or thyromegaly Chest: Clear to auscultation, Normal air movement Heart: Rate Normal, Regular Rhythm, Normal S1, Normal S2, 2/6 systolic murmur Abdomen: Hypoactive bowel sounds, Soft, diffuse tenderness to palpation, no rebound or involuntary guarding Extremities: 1+ bipedal edema, otherwise WWP Neuro: Normal Speech, Strength at 5/5 X4 ext, Normal Tone Psych: Alert and Oriented x 3 Labs: Reviewed Assessment: 70 year old W with no known PMHx who was admitted to the surgical service for incarcerated ventral incisional hernia with small bowel obstruction now POD4 c/p robotic assisted laparoscopic reduction and repair of an incarcerated incisional hernia with a small bowel resection and repair of her hernia with mesh by Dr Paul, with course c/b incidentally noted cirrhosis with associated varices, thrombocytopenia and coagulopathy. 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 No history of alcohol use, hepatitis panel is negative, Ferritin not elevated, ceruloplasmin slightly low at 15.8, antimitochondrial antibody negative, alpha one antitrypsin was normal, ANCA normal Hepatic Doppler shows Hepatofugal flow in the main portal vein and left portal vein. No definite portal vein or hepatic vein thrombosis. Venous varicosities in the region of the spleen. Portal vasculature demonstrates normal direction of flow with no thrombosis. No evidence of hepatic vein thrombosis. will need to be referred to hepatology as outpatient. -lasix prn, currently euvolemic Incisional hernia with SBO -POD5 - had prolonged surgery on 02/11/21 with laparoscopic robotic-assisted l ysis of adhesions, repair of an incarcerated ventral incisional hernia , small bowel resection with anastomosis as well as closure of her primary defect with placement of mesh. -s/p Cefotetan and metronidazole course -surgery continues to follow while in ARU -tolerating regular diet Skin rash -triamcinolone tid DVT ppx: TEDs VS,Fishbone, I+O VS, Fishbone, I+O Vital Signs Date Time Temp Pulse Resp B/P (MAP) Pulse Ox O2 Delivery O2 Flow Rate FiO2 02/17/21 08:02 68 140/70 02/17/21 06:00 98.3 18 94 Room Air 02/17/21 01:00 2.0 I&O- Last 24 Hours up to 6 AM 02/17/21 06:00 Intake Total 100 ml Output Total 15 ml Balance 85 ml LUÍS HILL MD Feb 17, 2021 08:49
[2021-02-17 14:00] VITALS: BP 142/60
--- NOTE | 2021-02-17 16:29 | REP ---
INDICATION: r/o infiltrate, recent abdominal surgery. COMPARISON: Portable chest dated 02/08/2021. TECHNIQUE: Upright PA and lateral chest. FINDINGS: The lung hammonds are clear. There are no focal infiltrates or pleural effusions. Cardiac size is normal. The mj, mediastinum and skeletal structures are unremarkable. The NG tube is been removed. There is no free subdiaphragmatic air. IMPRESSION: Essentially negative PA and lateral chest <Electronically signed by Shaun Srcuggs > 02/17/21 [id number]
[2021-02-17] MEDS ORDERED: FUROSEMIDE 20MG/2ML VIAL (J1940) IV ONE (16:40)
[2021-02-17] MEDS: IPRATROPIUM 0.5MG/ALBUTEROL 2.5MG INH SOL UD 3ML (DUONEB) NEB SCH (19:57)
[2021-02-17 20:00] VITALS: BP 169/75
[2021-02-17] MEDS: LATANOPROST 0.005% OPHTH SOLN 2.5 ML OU SCH (20:34)
[2021-02-18 05:23] VITALS: BP 155/70
[2021-02-18] MEDS: ACETAMINOPHEN TAB 650MG DOSE (2X325MG) PO PRN ×2 (06:51→20:54)
[2021-02-18 07:04] LABS: BASO % 0.2 % (0.0-1.0); EOS # 0.3 10^3/uL (0.0-0.5); EOS % 2.9 % (0.0-3.0); HEMATOCRIT 35.1 % (36.0-47.0); HEMOGLOBIN 11.6 g/dl (12.0-15.5); LYMPH # 2.1 10^3/uL (1.5-5.0); LYMPH % 20.7 % (24.0-44.0); MONO # 1.2 10^3/uL (0.0-0.8); MONO % 11.4 % (2.0-8.0); NEUTROPHILS # 6.5 10^3/uL (1.5-8.5); NEUTROPHILS % 64.5 % (36.0-66.0); PLATELET COUNT, AUTOMATED 116 10^3/uL (150-450); RED BLOOD COUNT 3.51 10^6/uL (4.00-5.40); WHITE BLOOD COUNT 10.1 10^3/uL (4.0-10.0)
[2021-02-18 07:29] LABS: BLOOD UREA NITROGEN 17 MG/DL (7-18); CALCIUM LEVEL 8.4 MG/DL (8.8-10.2); CARBON DIOXIDE LEVEL 35 MEQ/L (21-32); CHLORIDE LEVEL 106 MEQ/L (98-107); CREATININE FOR GFR 0.53 MG/DL (0.55-1.30); GLOMERULAR FILTRATION RATE > 60.0 (>39); GLUCOSE, FASTING 155 MG/DL (70-100); NT-PRO BNP 698 PG/ML (<125); POTASSIUM SERUM 3.4 MEQ/L (3.5-5.1); SODIUM LEVEL 144 MEQ/L (136-145)
[2021-02-18] MEDS: IPRATROPIUM 0.5MG/ALBUTEROL 2.5MG INH SOL UD 3ML (DUONEB) NEB SCH ×3 (07:35→20:00)
[2021-02-18] MEDS: NADOLOL 20MG TABLET PO SCH (08:05)
[2021-02-18] MEDS: ASCORBIC ACID 500 MG TAB PO SCH (08:05)
[2021-02-18] MEDS: VITAMIN D 1,000 INTERNATIONAL UNITS TABLET PO SCH (08:05)
[2021-02-18] MEDS: ZINC SULFATE 220 MG CAP PO SCH (08:05)
[2021-02-18] MEDS: MAGNESIUM OXIDE 400MG TAB (MAG-OX) PO SCH ×2 (08:05→20:54)
[2021-02-18] MEDS: MULTIVITAMINS/MINERALS THERAP 1 TAB PO SCH (08:05)
[2021-02-18] MEDS: SPIRONOLACTONE 25 MG TAB PO SCH (08:05)
[2021-02-18] MEDS: FUROSEMIDE 20 MG TAB PO SCH (08:05)
[2021-02-18] MEDS: REMEDY PHYTOPLEX Z-GUARD PASTE 113GM TUBE (FROM STOREROOM PRODUCT) TOP SCH ×3 (08:06→20:55)
[2021-02-18] MEDS: METAMUCIL (PSYLLIUM) PACKET PO SCH (08:07)
[2021-02-18] MEDS: SENOKOT S TAB PO SCH ×2 (08:07→20:54)
[2021-02-18] MEDS: TRIAMCINOLONE ACETONIDE 0.025 % 80 GM CREAM TOP SCH ×3 (09:26→20:55)
[2021-02-18] MEDS ORDERED: POTASSIUM CHLORIDE 10 MEQ SR TABLET PO ONE (10:15)
[2021-02-18] MEDS ORDERED: FUROSEMIDE 20 MG TAB PO ONE (10:15)
[2021-02-18 14:00] VITALS: BP 144/68
[2021-02-18] MEDS: LATANOPROST 0.005% OPHTH SOLN 2.5 ML OU SCH (20:54)
[2021-02-18 20:59] VITALS: BP 146/74
[2021-02-19 05:09] VITALS: BP 148/82
[2021-02-19] MEDS: IPRATROPIUM 0.5MG/ALBUTEROL 2.5MG INH SOL UD 3ML (DUONEB) NEB SCH ×3 (07:08→20:00)
[2021-02-19 07:33] LABS: BASO % 0.3 % (0.0-1.0); EOS # 0.3 10^3/uL (0.0-0.5); EOS % 2.6 % (0.0-3.0); HEMATOCRIT 34.6 % (36.0-47.0); HEMOGLOBIN 11.6 g/dl (12.0-15.5); LYMPH # 2.3 10^3/uL (1.5-5.0); LYMPH % 22.8 % (24.0-44.0); MEAN CORPUSCULAR HEMOGLOBIN 33.7 pg (27.0-33.0); MEAN CORPUSCULAR HGB CONC 33.5 g/dl (32.0-36.5); MEAN CORPUSCULAR VOLUME 100.6 fl (80.0-96.0); MONO % 9.8 % (2.0-8.0); NEUTROPHILS # 6.5 10^3/uL (1.5-8.5); PLATELET COUNT, AUTOMATED 118 10^3/uL (150-450); RED BLOOD COUNT 3.44 10^6/uL (4.00-5.40); WHITE BLOOD COUNT 10.2 10^3/uL (4.0-10.0)
[2021-02-19 07:58] LABS: BLOOD UREA NITROGEN 19 MG/DL (7-18); CALCIUM LEVEL 8.5 MG/DL (8.8-10.2); CARBON DIOXIDE LEVEL 33 MEQ/L (21-32); CHLORIDE LEVEL 104 MEQ/L (98-107); CREATININE FOR GFR 0.61 MG/DL (0.55-1.30); GLOMERULAR FILTRATION RATE > 60.0 (>39); GLUCOSE, FASTING 183 MG/DL (70-100); POTASSIUM SERUM 3.6 MEQ/L (3.5-5.1); SODIUM LEVEL 142 MEQ/L (136-145)
--- NOTE | 2021-02-19 08:45 | IPNPDOC ---
PM&R Progress Note DATE OF SERVICE: Feb 18, 2021 Currency Examiner Progress Note Subjective: PAtient reports her breathing is better today and that se could walk further. She denies any worsening abdominal pain. REVIEW OF SYSTEMS: The following is a completed review of systems and has been reviewed. Review of systems otherwise unremarkable. PAIN: Patient self reports no pain EYES: No recent vision changes EARS, NOSE, & THROAT: No throat pain, or dysphagia, or rhinorrhea CARDIOVASCULAR: Denies chest pain or palpitations PULMONARY:+ shortness of breath with exertion (improving) denies cough GASTROINTESTINAL: Denies constipation/diarrhea, s/p abdominal hernia repair GENITOURINARY: denies dysuria MUSCULOSKELETAL: generalized weakness. NEUROLOGICAL:denies tremor/parethesias HEMATOLOGICAL: +easy bruising SKIN: RLE rash PSYCHIATRIC[Unremarkable All other review of systems found to be negative. PHYSICAL EXAMINATION: VITAL SIGNS: Please see below. GENERAL: Pleasant and cooperative. No acute distress. HEENT: PERRL. Extraocular movements intact. Clear conjunctiva CARDIOVASCULAR: Regular rate and rhythm. No murmurs, rubs, or gallops LUNGS: Clear to auscultation bilaterally. No wheezes. No rhonchi ABDOMEN: Soft, mild guarding, TTP, surgical incision c/d/i NEUROLOGICAL: Alert and oriented times three. Cranial nerves II through XII grossly intact. Sensation grossly intact. EXTREMITIES: 5\5 strength bilateral upper extremities. 5-\5 strength right lower extremity. 5-/5 strength in left lower extremity. +bilat LE edema ASSESSMENT:70-year-old F with past medical history of umbilical hernia repair who presents status post ventral hernia incarceration s/p repair, small bowel resection with anastomosis and lysis of adhesions PLAN: 1. Rehab- PT/OT advance mobility and ADLs, strengthen/stretch/maintain ROM all 4 limbs 2. cardiac- htn c/u BP meds, adjust prn -likely CHF with LE edema, c/u fluid restrict, daily weights, suspect degree of CHF- c/u aldactone, will increase lasix to 40mg daily 3. resp- monitor for infection, concern for atelectasis in setting of recent abdominal surgery- CXR negative for infiltrate -supplemental 02 prn, incentive spirometry -bijan 4. GI- s/p ventral hernia incarceration s/p repair, small bowel resection with anastomosis and lysis of adhesions performed 02-11-21 will consult surgery, s/p course of IV antibiotics, monitor for infection, may need to be restarted -liver cirrhosis etiology unclear- f/u GI as outpatient -ppx- protonix 5. DVT ppx- teds, avoid AC due to thrombocytopenia 6. Pain- tylenol an oxycodone 7. Dispo- TBD Allergies Coded Allergies: latex (Verified Allergy, Intermediate, rash, 02/08/21) Vital Signs Vital Signs Date Time Temp Pulse Resp B/P (MAP) Pulse Ox O2 Delivery O2 Flow Rate FiO2 02/19/21 05:09 98.6 70 20 148/82 (104) 91 Room Air 02/18/21 07:52 1.0 Laboratory Data CBC/BMP Laboratory Tests 02/19/21 07:07 Labs 24H Laboratory Tests 2 02/19/21 07:07: Immature Granulocyte % (Auto) 0.5, Neutrophils (%) (Auto) 64.0, Lymphocytes (%) (Auto) 22.8L, Monocytes (%) (Auto) 9.8H, Eosinophils (%) (Auto) 2.6, Basophils (%) (Auto) 0.3, Neutrophils # (Auto) 6.5, Lymphocytes # (Auto) 2.3, Monocytes # (Auto) 1.0H, Eosinophils # (Auto) 0.3, Basophils # (Auto) 0.0, Nucleated Red Blood Cells % (auto) 0.0, Anion Gap 5L, Glomerular Filtration Rate > 60.0, Calcium Level 8.5L Current Medications Current Medications Current Medications Medications (Trade) Dose Ordered Sig/Lupe Route PRN Reason Start Time Stop Time Status Last Admin Dose Admin Acetaminophen (Tylenol Tab) 650 mg Q4HP PRN PO fever/MILD PAIN (PS 1-4) 02/16/21 16:05 02/18/21 20:54 Albuterol/ Ipratropium (Duoneb (Ipr 0.5mg/Alb 2.5mg)) 3 ml RTID NEB 02/17/21 16:00 02/19/21 07:08 Ascorbic Acid (Vitamin C) 500 mg DAILY PO 02/17/21 09:00 02/18/21 08:05 Bisacodyl (Dulcolax Suppository) 10 mg DAILYPRN PRN [place] CONSTIPATION 02/16/21 16:05 Furosemide (Lasix) 20 mg DAILY PO 02/17/21 09:00 02/18/21 09:57 DC 02/18/21 08:05 Furosemide (Lasix) 40 mg DAILY PO 02/19/21 09:00 Latanoprost (Xalatan 0.005% Op Soln) 1 drop QHS OU 02/16/21 21:00 02/18/21 20:54 Magnesium Oxide (Mag-Ox) 400 mg BID PO 02/16/21 21:00 02/18/21 20:54 Multivitamins (Theragram-M) 1 tab DAILY PO 02/17/21 09:00 02/18/21 08:05 Nadolol (Corgard) 40 mg DAILY PO 02/17/21 09:00 02/18/21 08:05 Oxycodone HCl (Roxicodone, Oxyir) 2.5 mg Q4HP PRN PO PAIN 02/16/21 16:05 Potassium Chloride (Micro-K Extencaps) 10 meq DAILY PO 02/19/21 09:00 Psyllium Hydrophilic Mucilloid (Metamucil) 1 pkt DAILY PO 02/17/21 09:00 02/17/21 08:03 Senna/Docusate Sodium (Senokot S) 1 tab BID PO 02/16/21 21:00 02/18/21 20:54 Spironolactone (Aldactone) 25 mg QAM PO 02/17/21 09:00 02/18/21 08:05 Triamcinolone Acetonide (Kenalog 0.025% Cream) RLE TID TOP 02/16/21 21:00 02/18/21 20:55 Vitamin D (Vitamin D) 1,000 units DAILY PO 02/17/21 09:00 02/18/21 08:05 Zinc Sulfate (Zinc Sulfate) 220 mg DAILY PO 02/17/21 09:00 02/18/21 08:05 KRISHNA JUÁREZ MD Feb 19, 2021 08:45
--- NOTE | 2021-02-19 08:45 | IPNPDOC ---
PM&R Progress Note DATE OF SERVICE: Feb 19, 2021 Filler In Progress Note Subjective: PAtient reporting she feels less short of breath today, but still is having increased urination. REVIEW OF SYSTEMS: The following is a completed review of systems and has been reviewed. Review of systems otherwise unremarkable. PAIN: Patient self reports no pain EYES: No recent vision changes EARS, NOSE, & THROAT: No throat pain, or dysphagia, or rhinorrhea CARDIOVASCULAR: Denies chest pain or palpitations PULMONARY:+ shortness of breath with exertion (improving) denies cough GASTROINTESTINAL: Denies constipation/diarrhea, s/p abdominal hernia repair GENITOURINARY: denies dysuria MUSCULOSKELETAL: generalized weakness. NEUROLOGICAL:denies tremor/paresthesias HEMATOLOGICAL: +easy bruising SKIN: RLE rash PSYCHIATRICUnremarkable All other review of systems found to be negative. PHYSICAL EXAMINATION: VITAL SIGNS: Please see below. GENERAL: Pleasant and cooperative. No acute distress. HEENT: PERRL. Extraocular movements intact. Clear conjunctiva CARDIOVASCULAR: Regular rate and rhythm. No murmurs, rubs, or gallops LUNGS: Clear to auscultation bilaterally. No wheezes. No rhonchi ABDOMEN: Soft, mild guarding, TTP, surgical incision c/d/i NEUROLOGICAL: Alert and oriented times three. Cranial nerves II through XII grossly intact. Sensation grossly intact. EXTREMITIES: 5\5 strength bilateral upper extremities. 5-\5 strength right lower extremity. 5-/5 strength in left lower extremity. +bilat LE edema ASSESSMENT:70-year-old F with past medical history of umbilical hernia repair who presents status post ventral hernia incarceration s/p repair, small bowel resection with anastomosis and lysis of adhesions PLAN: 1. Rehab- PT/OT advance mobility and ADLs, strengthen/stretch/maintain ROM all 4 limbs 2. cardiac- htn c/u BP meds, adjust prn -likely CHF with LE edema, c/u fluid restrict, daily weights, suspect degree of CHF- c/u aldactone, c/u increased lasix to 40mg daily 3. resp- monitor for infection, concern for atelectasis in setting of recent abdominal surgery- CXR negative for infiltrate -supplemental 02 prn, incentive spirometry -bijan 4. GI- s/p ventral hernia incarceration s/p repair, small bowel resection with anastomosis and lysis of adhesions performed 02-11-21 will consult surgery, s/p course of IV antibiotics, monitor for infection, may need to be restarted -liver cirrhosis etiology unclear- f/u GI as outpatient -ppx- protonix 5. DVT ppx- teds, avoid AC due to thrombocytopenia 6. Pain- tylenol an oxycodone 7. - patient reporting increased frequency of urine, will order UA 8. Dispo- TBD Allergies Coded Allergies: latex (Verified Allergy, Intermediate, rash, 02/08/21) Vital Signs Vital Signs Date Time Temp Pulse Resp B/P (MAP) Pulse Ox O2 Delivery O2 Flow Rate FiO2 02/19/21 05:09 98.6 70 20 148/82 (104) 91 Room Air 02/18/21 07:52 1.0 Laboratory Data CBC/BMP Laboratory Tests 02/19/21 07:07 Labs 24H Laboratory Tests 2 02/19/21 07:07: Immature Granulocyte % (Auto) 0.5, Neutrophils (%) (Auto) 64.0, Lymphocytes (%) (Auto) 22.8L, Monocytes (%) (Auto) 9.8H, Eosinophils (%) (Auto) 2.6, Basophils (%) (Auto) 0.3, Neutrophils # (Auto) 6.5, Lymphocytes # (Auto) 2.3, Monocytes # (Auto) 1.0H, Eosinophils # (Auto) 0.3, Basophils # (Auto) 0.0, Nucleated Red Blood Cells % (auto) 0.0, Anion Gap 5L, Glomerular Filtration Rate > 60.0, Calcium Level 8.5L Current Medications Current Medications Current Medications Medications (Trade) Dose Ordered Sig/Lupe Route PRN Reason Start Time Stop Time Status Last Admin Dose Admin Acetaminophen (Tylenol Tab) 650 mg Q4HP PRN PO fever/MILD PAIN (PS 1-4) 02/16/21 16:05 02/18/21 20:54 Albuterol/ Ipratropium (Duoneb (Ipr 0.5mg/Alb 2.5mg)) 3 ml RTID NEB 02/17/21 16:00 02/19/21 07:08 Ascorbic Acid (Vitamin C) 500 mg DAILY PO 02/17/21 09:00 02/18/21 08:05 Bisacodyl (Dulcolax Suppository) 10 mg DAILYPRN PRN IN CONSTIPATION 02/16/21 16:05 Furosemide (Lasix) 20 mg DAILY PO 02/17/21 09:00 02/18/21 09:57 DC 02/18/21 08:05 Furosemide (Lasix) 40 mg DAILY PO 02/19/21 09:00 Latanoprost (Xalatan 0.005% Op Soln) 1 drop QHS OU 02/16/21 21:00 02/18/21 20:54 Magnesium Oxide (Mag-Ox) 400 mg BID PO 02/16/21 21:00 02/18/21 20:54 Multivitamins (Theragram-M) 1 tab DAILY PO 02/17/21 09:00 02/18/21 08:05 Nadolol (Corgard) 40 mg DAILY PO 02/17/21 09:00 02/18/21 08:05 Oxycodone HCl (Roxicodone, Oxyir) 2.5 mg Q4HP PRN PO PAIN 02/16/21 16:05 Potassium Chloride (Micro-K Extencaps) 10 meq DAILY PO 02/19/21 09:00 Psyllium Hydrophilic Mucilloid (Metamucil) 1 pkt DAILY PO 02/17/21 09:00 02/17/21 08:03 Senna/Docusate Sodium (Senokot S) 1 tab BID PO 02/16/21 21:00 02/18/21 20:54 Spironolactone (Aldactone) 25 mg QAM PO 02/17/21 09:00 02/18/21 08:05 Triamcinolone Acetonide (Kenalog 0.025% Cream) RLE TID TOP 02/16/21 21:00 02/18/21 20:55 Vitamin D (Vitamin D) 1,000 units DAILY PO 02/17/21 09:00 02/18/21 08:05 Zinc Sulfate (Zinc Sulfate) 220 mg DAILY PO 02/17/21 09:00 02/18/21 08:05 KRISHNA JUÁREZ MD Feb 19, 2021 08:45
[2021-02-19] MEDS: NADOLOL 20MG TABLET PO SCH (09:56)
[2021-02-19] MEDS: FUROSEMIDE 40 MG TAB PO SCH (09:57)
[2021-02-19] MEDS: SENOKOT S TAB PO SCH ×2 (09:57→20:30)
[2021-02-19] MEDS: MULTIVITAMINS/MINERALS THERAP 1 TAB PO SCH (09:57)
[2021-02-19] MEDS: POTASSIUM CHLORIDE 10 MEQ SR TABLET PO SCH (09:57)
[2021-02-19] MEDS: ZINC SULFATE 220 MG CAP PO SCH (09:57)
[2021-02-19] MEDS: VITAMIN D 1,000 INTERNATIONAL UNITS TABLET PO SCH (09:57)
[2021-02-19] MEDS: MAGNESIUM OXIDE 400MG TAB (MAG-OX) PO SCH ×2 (09:57→20:30)
[2021-02-19] MEDS: ASCORBIC ACID 500 MG TAB PO SCH (09:57)
[2021-02-19] MEDS: METAMUCIL (PSYLLIUM) PACKET PO SCH (09:58)
[2021-02-19] MEDS: SPIRONOLACTONE 25 MG TAB PO SCH (09:58)
[2021-02-19] MEDS: REMEDY PHYTOPLEX Z-GUARD PASTE 113GM TUBE (FROM STOREROOM PRODUCT) TOP SCH ×3 (09:58→20:31)
[2021-02-19] MEDS: TRIAMCINOLONE ACETONIDE 0.025 % 80 GM CREAM TOP SCH ×3 (09:58→20:30)
--- NOTE | 2021-02-19 12:01 | REP ---
INDICATION: swelling and low 02 COMPARISON: None. TECHNIQUE: Real time compression and duplex Doppler interrogation of the bilateral lower extremity deep venous system is performed. FINDINGS: Bilaterally, the common femoral, superficial femoral and popliteal veins are fully compressible with transducer pressure and demonstrate normal spontaneous and phasic flow, without evidence of deep venous thrombosis. IMPRESSION: No evidence of deep venous thrombosis of the bilateral lower extremity femoral popliteal venous system. <Electronically signed by Shaun Carson > 02/19/21 [id number]
[2021-02-19 14:00] VITALS: BP 152/65
[2021-02-19 20:10] VITALS: BP 150/80
[2021-02-19] MEDS: ACETAMINOPHEN TAB 650MG DOSE (2X325MG) PO PRN (20:30)
[2021-02-19] MEDS: LATANOPROST 0.005% OPHTH SOLN 2.5 ML OU SCH (20:30)
[2021-02-20 06:59] VITALS: BP 128/64
[2021-02-20] MEDS: IPRATROPIUM 0.5MG/ALBUTEROL 2.5MG INH SOL UD 3ML (DUONEB) NEB SCH ×3 (07:33→19:43)
[2021-02-20] MEDS: MULTIVITAMINS/MINERALS THERAP 1 TAB PO SCH (09:29)
[2021-02-20] MEDS: NADOLOL 20MG TABLET PO SCH (09:29)
[2021-02-20] MEDS: VITAMIN D 1,000 INTERNATIONAL UNITS TABLET PO SCH (09:30)
[2021-02-20] MEDS: FUROSEMIDE 40 MG TAB PO SCH (09:30)
[2021-02-20] MEDS: SPIRONOLACTONE 25 MG TAB PO SCH (09:30)
[2021-02-20] MEDS: SENOKOT S TAB PO SCH ×2 (09:30→20:24)
[2021-02-20] MEDS: METAMUCIL (PSYLLIUM) PACKET PO SCH (09:30)
[2021-02-20] MEDS: ASCORBIC ACID 500 MG TAB PO SCH (09:30)
[2021-02-20] MEDS: ZINC SULFATE 220 MG CAP PO SCH (09:30)
[2021-02-20] MEDS: MAGNESIUM OXIDE 400MG TAB (MAG-OX) PO SCH ×2 (09:31→20:23)
[2021-02-20] MEDS: POTASSIUM CHLORIDE 10 MEQ SR TABLET PO SCH (09:31)
[2021-02-20] MEDS: TRIAMCINOLONE ACETONIDE 0.025 % 80 GM CREAM TOP SCH ×3 (09:39→20:23)
[2021-02-20] MEDS: REMEDY PHYTOPLEX Z-GUARD PASTE 113GM TUBE (FROM STOREROOM PRODUCT) TOP SCH ×3 (09:40→20:24)
[2021-02-20] MEDS: ACETAMINOPHEN TAB 650MG DOSE (2X325MG) PO PRN ×2 (13:12→20:23)
[2021-02-20 14:00] VITALS: BP 134/60
[2021-02-20 20:00] VITALS: BP 140/70
[2021-02-20] MEDS: LATANOPROST 0.005% OPHTH SOLN 2.5 ML OU SCH (20:23)
[2021-02-21 06:00] VITALS: BP 118/64
[2021-02-21] MEDS: IPRATROPIUM 0.5MG/ALBUTEROL 2.5MG INH SOL UD 3ML (DUONEB) NEB SCH ×3 (07:20→19:33)
[2021-02-21] MEDS: ACETAMINOPHEN TAB 650MG DOSE (2X325MG) PO PRN ×2 (08:38→20:18)
[2021-02-21] MEDS: ZINC SULFATE 220 MG CAP PO SCH (08:42)
[2021-02-21] MEDS: ASCORBIC ACID 500 MG TAB PO SCH (08:42)
[2021-02-21] MEDS: MULTIVITAMINS/MINERALS THERAP 1 TAB PO SCH (08:42)
[2021-02-21] MEDS: POTASSIUM CHLORIDE 10 MEQ SR TABLET PO SCH (08:42)
[2021-02-21] MEDS: SENOKOT S TAB PO SCH ×2 (08:42→20:17)
[2021-02-21] MEDS: NADOLOL 20MG TABLET PO SCH (08:42)
[2021-02-21] MEDS: FUROSEMIDE 40 MG TAB PO SCH (08:42)
[2021-02-21] MEDS: VITAMIN D 1,000 INTERNATIONAL UNITS TABLET PO SCH (08:43)
[2021-02-21] MEDS: METAMUCIL (PSYLLIUM) PACKET PO SCH (08:43)
[2021-02-21] MEDS: MAGNESIUM OXIDE 400MG TAB (MAG-OX) PO SCH ×2 (08:43→20:19)
[2021-02-21] MEDS: SPIRONOLACTONE 25 MG TAB PO SCH (08:43)
[2021-02-21] MEDS: TRIAMCINOLONE ACETONIDE 0.025 % 80 GM CREAM TOP SCH ×3 (08:44→20:19)
[2021-02-21] MEDS: REMEDY PHYTOPLEX Z-GUARD PASTE 113GM TUBE (FROM STOREROOM PRODUCT) TOP SCH ×3 (08:45→20:20)
[2021-02-21 14:00] VITALS: BP 137/62
[2021-02-21 20:00] VITALS: BP 132/68
[2021-02-21] MEDS: LATANOPROST 0.005% OPHTH SOLN 2.5 ML OU SCH (20:19)
[2021-02-22 05:57] VITALS: BP 140/70
[2021-02-22 07:51] LABS: BASO % 0.1 % (0.0-1.0); EOS # 0.3 10^3/uL (0.0-0.5); EOS % 2.9 % (0.0-3.0); HEMATOCRIT 32.9 % (36.0-47.0); HEMOGLOBIN 10.8 g/dl (12.0-15.5); LYMPH % 21.4 % (24.0-44.0); MEAN CORPUSCULAR HEMOGLOBIN 33.5 pg (27.0-33.0); MEAN CORPUSCULAR HGB CONC 32.8 g/dl (32.0-36.5); MEAN CORPUSCULAR VOLUME 102.2 fl (80.0-96.0); MONO # 0.9 10^3/uL (0.0-0.8); NEUTROPHILS # 6.2 10^3/uL (1.5-8.5); NEUTROPHILS % 65.3 % (36.0-66.0); PLATELET COUNT, AUTOMATED 118 10^3/uL (150-450); RED BLOOD COUNT 3.22 10^6/uL (4.00-5.40); WHITE BLOOD COUNT 9.4 10^3/uL (4.0-10.0)
[2021-02-22] MEDS: IPRATROPIUM 0.5MG/ALBUTEROL 2.5MG INH SOL UD 3ML (DUONEB) NEB SCH ×3 (08:00→19:55)
[2021-02-22 08:10] LABS: BLOOD UREA NITROGEN 19 MG/DL (7-18); CALCIUM LEVEL 8.6 MG/DL (8.8-10.2); CARBON DIOXIDE LEVEL 35 MEQ/L (21-32); CHLORIDE LEVEL 102 MEQ/L (98-107); CREATININE FOR GFR 0.66 MG/DL (0.55-1.30); GLOMERULAR FILTRATION RATE > 60.0 (>39); GLUCOSE, FASTING 176 MG/DL (70-100); POTASSIUM SERUM 3.8 MEQ/L (3.5-5.1); SODIUM LEVEL 141 MEQ/L (136-145)
[2021-02-22] MEDS: ASCORBIC ACID 500 MG TAB PO SCH (09:49)
[2021-02-22] MEDS: MAGNESIUM OXIDE 400MG TAB (MAG-OX) PO SCH ×2 (09:49→21:02)
[2021-02-22] MEDS: MULTIVITAMINS/MINERALS THERAP 1 TAB PO SCH (09:49)
[2021-02-22] MEDS: VITAMIN D 1,000 INTERNATIONAL UNITS TABLET PO SCH (09:49)
[2021-02-22] MEDS: SENOKOT S TAB PO SCH ×2 (09:49→21:00)
[2021-02-22] MEDS: ZINC SULFATE 220 MG CAP PO SCH (09:49)
[2021-02-22] MEDS: SPIRONOLACTONE 25 MG TAB PO SCH (09:50)
[2021-02-22] MEDS: NADOLOL 20MG TABLET PO SCH (09:50)
[2021-02-22] MEDS: FUROSEMIDE 40 MG TAB PO SCH (09:50)
[2021-02-22] MEDS: METAMUCIL (PSYLLIUM) PACKET PO SCH (09:50)
[2021-02-22] MEDS: ACETAMINOPHEN TAB 650MG DOSE (2X325MG) PO PRN ×2 (09:51→21:04)
[2021-02-22] MEDS: TRIAMCINOLONE ACETONIDE 0.025 % 80 GM CREAM TOP SCH ×3 (09:51→21:03)
[2021-02-22] MEDS: REMEDY PHYTOPLEX Z-GUARD PASTE 113GM TUBE (FROM STOREROOM PRODUCT) TOP SCH ×3 (09:51→21:04)
[2021-02-22] MEDS: POTASSIUM CHLORIDE 10 MEQ SR TABLET PO SCH (09:52)
[2021-02-22 14:00] VITALS: BP 141/65
[2021-02-22] MEDS: CIPROFLOXACIN 500MG TABLET PO SCH (17:41)
[2021-02-22] MEDS: LACTOBACILLUS ACIDOPHILUS CAP (BACID) PO SCH ×2 (17:41→21:02)
[2021-02-22 20:00] VITALS: BP 130/70
[2021-02-22] MEDS: LATANOPROST 0.005% OPHTH SOLN 2.5 ML OU SCH (21:03)
[2021-02-23] MEDS: CIPROFLOXACIN 500MG TABLET PO SCH ×2 (05:09→17:54)
[2021-02-23 05:32] VITALS: BP 138/66
[2021-02-23] MEDS: IPRATROPIUM 0.5MG/ALBUTEROL 2.5MG INH SOL UD 3ML (DUONEB) NEB SCH ×3 (08:00→20:40)
--- NOTE | 2021-02-23 08:34 | IPNPDOC ---
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 REVIEW OF SYSTEMS: The following is a completed review of systems and has been reviewed. Review of systems otherwise unremarkable. PAIN: Patient self reports no pain EYES: No recent vision changes EARS, NOSE, & THROAT: No throat pain, or dysphagia, or rhinorrhea CARDIOVASCULAR: Denies chest pain or palpitations PULMONARY:+ shortness of breath with exertion (improving) denies cough GASTROINTESTINAL: Denies constipation/diarrhea, s/p abdominal hernia repair GENITOURINARY: denies dysuria MUSCULOSKELETAL: generalized weakness. NEUROLOGICAL:denies tremor/paresthesias HEMATOLOGICAL: +easy bruising SKIN: RLE rash PSYCHIATRIC: Unremarkable All other review of systems found to be negative. PHYSICAL EXAMINATION: VITAL SIGNS: Please see below. GENERAL: Pleasant and cooperative. No acute distress. HEENT: PERRL. Extraocular movements intact. Clear conjunctiva CARDIOVASCULAR: Regular rate and rhythm. No murmurs, rubs, or gallops LUNGS: Clear to auscultation bilaterally. No wheezes. No rhonchi ABDOMEN: soft, but firm to palpation around hernia, mild guarding, TTP, surgical incision c/d/i NEUROLOGICAL: Alert and oriented times three. Cranial nerves II through XII grossly intact. Sensation grossly intact. EXTREMITIES: 5\5 strength bilateral upper extremities. 5-\5 strength right lower extremity. 5-/5 strength in left lower extremity. +bilat LE edema ASSESSMENT:70-year-old F with past medical history of umbilical hernia repair who presents status post ventral hernia incarceration s/p repair, small bowel resection with anastomosis and lysis of adhesions PLAN: 1. Rehab- PT/OT advance mobility and ADLs, strengthen/stretch/maintain ROM all 4 limbs 2. cardiac- htn c/u BP meds, adjust prn -likely CHF with LE edema, c/u fluid restrict, daily weights, suspect degree of CHF- c/u aldactone, c/u increased lasix to 40mg daily 3. resp- monitor for infection, concern for atelectasis in setting of recent abdominal surgery- CXR negative for infiltrate -supplemental 02 prn, incentive spirometry -b[place] 4. GI- s/p ventral hernia incarceration s/p repair, small bowel resection with anastomosis and lysis of adhesions performed 3-25-21 will consult surgery, s/p course of antibiotics, monitor for infection, may need to be restarted on additional antibiotics, on cipro for now for suspected UTI -liver cirrhosis etiology unclear- f/u GI as outpatient -ppx- protonix 5. DVT ppx- teds, avoid AC due to thrombocytopenia 6. Pain- tylenol and oxycodone 7. - UA from 4-2 +LE and bacteria, however no cx due to contamination, repeat UA also with LE and bacteria, patient with lowgrade temp, started Ciprofloxacin 02-22-21 8. Dispo- TBD Allergies Coded Allergies: latex (Verified Allergy, Intermediate, rash, 02/08/21) Vital Signs Vital Signs Date Time Temp Pulse Resp B/P (MAP) Pulse Ox O2 Delivery O2 Flow Rate FiO2 02/23/21 05:32 99.0 74 18 138/66 (90) 94 Room Air 02/22/21 05:57 2.0 Laboratory Data Labs 24H Laboratory Tests 2 02/22/21 12:41: Urine Color YELLOW, Urine Appearance HAZY, Urine pH 5.0, Urine Specific [place] 1.010, Urine Protein NEGATIVE, Urine Glucose (UA) NEGATIVE, Urine Ketones NEGATIVE, Urine Blood NEGATIVE, Urine Nitrite NEGATIVE, Urine Bilirubin NEGATIVE, Urine Urobilinogen 0.2, Urine Leukocyte Esterase 2+H, Urine WBC (Auto) 23H, Urine RBC (Auto) 2, Urine Hyaline Casts (Auto) 1, Urine Bacteria (Auto) 1+H, Urine Squamous Epithelial Cells 8, Urine Mucus (Auto) SMALL, Urine Sperm (Auto) Microbiology Microbiology 02/22/21 Urine Culture, Received Pending 02/21/21 Urine Culture - Final, Complete Current Medications Current Medications Current Medications Medications (Trade) Dose Ordered Sig/Lupe Route PRN Reason Start Time Stop Time Status Last Admin Dose Admin Acetaminophen (Tylenol Tab) 650 mg Q4HP PRN PO fever/MILD PAIN (PS 1-4) 02/16/21 16:05 02/22/21 21:04 Albuterol/ Ipratropium (Duoneb (Ipr 0.5mg/Alb 2.5mg)) 3 ml RTID NEB 02/17/21 16:00 02/22/21 19:55 Ascorbic Acid (Vitamin C) 500 mg DAILY PO 02/17/21 09:00 02/22/21 09:49 Bisacodyl (Dulcolax Suppository) 10 mg DAILYPRN PRN [place] CONSTIPATION 02/16/21 16:05 Ciprofloxacin (Cipro) 500 mg BID@06,18 PO 02/22/21 18:00 02/23/21 05:09 Furosemide (Lasix) 20 mg DAILY PO 02/17/21 09:00 02/18/21 09:57 DC 02/18/21 08:05 Furosemide (Lasix) 40 mg DAILY PO 02/19/21 09:00 02/22/21 09:50 Lactobacillus Acidophilus (Bacid) 1 ea WMHS PO 02/22/21 18:00 02/22/21 21:02 Latanoprost (Xalatan 0.005% Op Soln) 1 drop QHS OU 02/16/21 21:00 02/22/21 21:03 Magnesium Oxide (Mag-Ox) 400 mg BID PO 02/16/21 21:00 02/22/21 21:02 Multivitamins (Theragram-M) 1 tab DAILY PO 02/17/21 09:00 02/22/21 09:49 Nadolol (Corgard) 40 mg DAILY PO 02/17/21 09:00 02/22/21 09:50 Oxycodone HCl (Roxicodone, Oxyir) 2.5 mg Q4HP PRN PO PAIN 02/16/21 16:05 Potassium Chloride (Micro-K Extencaps) 10 meq DAILY PO 02/19/21 09:00 02/22/21 09:52 Psyllium Hydrophilic Mucilloid (Metamucil) 1 pkt DAILY PO 02/17/21 09:00 02/22/21 09:50 Senna/Docusate Sodium (Senokot S) 1 tab BID PO 02/16/21 21:00 02/22/21 09:49 Spironolactone (Aldactone) 25 mg QAM PO 02/17/21 09:00 02/22/21 09:50 Triamcinolone Acetonide (Kenalog 0.025% Cream) RLE TID TOP 02/16/21 21:00 02/22/21 21:03 Vitamin D (Vitamin D) 1,000 units DAILY PO 02/17/21 09:00 02/22/21 09:49 Zinc Sulfate (Zinc Sulfate) 220 mg DAILY PO 02/17/21 09:00 02/22/21 09:49 KRISHNA JUÁREZ MD Feb 23, 2021 08:34
[2021-02-23] MEDS: METAMUCIL (PSYLLIUM) PACKET PO SCH (09:05)
[2021-02-23] MEDS: ZINC SULFATE 220 MG CAP PO SCH (09:05)
[2021-02-23] MEDS: VITAMIN D 1,000 INTERNATIONAL UNITS TABLET PO SCH (09:05)
[2021-02-23] MEDS: POTASSIUM CHLORIDE 10 MEQ SR TABLET PO SCH (09:05)
[2021-02-23] MEDS: LACTOBACILLUS ACIDOPHILUS CAP (BACID) PO SCH ×4 (09:05→21:06)
[2021-02-23] MEDS: MAGNESIUM OXIDE 400MG TAB (MAG-OX) PO SCH ×2 (09:05→21:06)
[2021-02-23] MEDS: SENOKOT S TAB PO SCH ×2 (09:05→21:05)
[2021-02-23] MEDS: ASCORBIC ACID 500 MG TAB PO SCH (09:05)
[2021-02-23] MEDS: SPIRONOLACTONE 25 MG TAB PO SCH (09:05)
[2021-02-23] MEDS: MULTIVITAMINS/MINERALS THERAP 1 TAB PO SCH (09:05)
[2021-02-23] MEDS: NADOLOL 20MG TABLET PO SCH (09:06)
[2021-02-23] MEDS: TRIAMCINOLONE ACETONIDE 0.025 % 80 GM CREAM TOP SCH ×3 (09:06→21:07)
[2021-02-23] MEDS: FUROSEMIDE 40 MG TAB PO SCH (09:06)
[2021-02-23] MEDS: REMEDY PHYTOPLEX Z-GUARD PASTE 113GM TUBE (FROM STOREROOM PRODUCT) TOP SCH ×3 (09:07→21:09)
[2021-02-23] MEDS: ACETAMINOPHEN TAB 650MG DOSE (2X325MG) PO PRN ×2 (09:12→21:06)
[2021-02-23 14:00] VITALS: BP 130/63
[2021-02-23] MEDS: GASTROGRAFIN SOLUTION 30ML PO SCH (14:30)
--- NOTE | 2021-02-23 18:34 | REP ---
INDICATION: monitor ventral hernia s/p recent small bowel repair COMPARISON: 02/08/2021. TECHNIQUE: CT Scan of the abdomen and pelvis was performed without intravenous contrast. Sagittal and coronal reconstruction images performed. FINDINGS: Lung bases: There are mild fibrotic changes in each lung base. There is a small hiatal hernia. Liver: There are again findings of cirrhosis and portal hypertension, with distal esophageal varices, as well as varices in the splenic hilum.. Gallbladder: There are gallstones in the gallbladder. Spleen: Mild splenomegaly. Adrenals: Normal. Pancreas: Grossly unremarkable.. Kidneys: No hydronephrosis or nephrolithiasis. Ureters demonstrate no dilatation or calculus. Small and large bowel: There is extensive diverticulosis of the colon with no evidence of bowel wall thickening. No free intraperitoneal air is seen. There is no bowel obstruction. There is diffuse air in the anterior abdominal wall soft tissues predominately on the right. At the site of the prior hernia there is a lobulated complex fluid collection with foci of internal air, measuring approximately 10.7 x 8.7 x 15.9 cm. This could represent an abscess. In the left lower abdominal wall a separate fluid collection measures 4.4 x 3.9 x 5.1 cm.. Free fluid: None. Abdominal aorta: No aneurysm. Adenopathy: None. Appendix: Not inflamed. Osseous structures: There are degenerative changes of the spine without compression deformity. Pelvis: No mass. No bladder calculus seen. IMPRESSION: No free intraperitoneal air or fluid. There is scattered air in the anterior abdominal wall soft tissues predominantly on the right. At the site of the prior anterior abdominal hernia there is a lobulated complex fluid collection containing air measuring approximately 10.7 x 8.7 x 15.9 cm. This could represent an abscess. Another smaller fluid collection is seen in the left lower anterior abdominal wall. <Electronically signed by Shaun Carson > 02/23/21 [id number]
[2021-02-23 20:08] VITALS: BP 126/60
[2021-02-23] MEDS: metroNIDAZOLE (FLAGYL) 500MG TABLET PO SCH (21:05)
[2021-02-23] MEDS: LATANOPROST 0.005% OPHTH SOLN 2.5 ML OU SCH (21:07)
[2021-02-24] MEDS: CIPROFLOXACIN 500MG TABLET PO SCH (04:59)
[2021-02-24] MEDS: metroNIDAZOLE (FLAGYL) 500MG TABLET PO SCH ×3 (04:59→20:52)
[2021-02-24 06:00] VITALS: BP 140/64
[2021-02-24] MEDS: IPRATROPIUM 0.5MG/ALBUTEROL 2.5MG INH SOL UD 3ML (DUONEB) NEB SCH ×3 (07:23→20:00)
[2021-02-24 08:26] LABS: BASO % 0.3 % (0.0-1.0); EOS # 0.1 10^3/uL (0.0-0.5); EOS % 0.9 % (0.0-3.0); HEMATOCRIT 34.9 % (36.0-47.0); HEMOGLOBIN 11.5 g/dl (12.0-15.5); LYMPH # 1.4 10^3/uL (1.5-5.0); LYMPH % 9.4 % (24.0-44.0); MEAN CORPUSCULAR HEMOGLOBIN 33.6 pg (27.0-33.0); MONO # 1.5 10^3/uL (0.0-0.8); MONO % 10.1 % (2.0-8.0); NEUTROPHILS # 11.7 10^3/uL (1.5-8.5); NEUTROPHILS % 78.9 % (36.0-66.0); PLATELET COUNT, AUTOMATED 108 10^3/uL (150-450); RED BLOOD COUNT 3.42 10^6/uL (4.00-5.40)
[2021-02-24 08:32] LABS: WHITE BLOOD COUNT 14.8 10^3/uL (4.0-10.0)
[2021-02-24 08:51] LABS: BLOOD UREA NITROGEN 15 MG/DL (7-18); CALCIUM LEVEL 8.8 MG/DL (8.8-10.2); CARBON DIOXIDE LEVEL 32 MEQ/L (21-32); CHLORIDE LEVEL 103 MEQ/L (98-107); CREATININE FOR GFR 0.69 MG/DL (0.55-1.30); GLOMERULAR FILTRATION RATE > 60.0 (>39); GLUCOSE, FASTING 145 MG/DL (70-100); SODIUM LEVEL 139 MEQ/L (136-145)
[2021-02-24] MEDS: MULTIVITAMINS/MINERALS THERAP 1 TAB PO SCH (09:29)
[2021-02-24] MEDS: ASCORBIC ACID 500 MG TAB PO SCH (09:29)
[2021-02-24] MEDS: FUROSEMIDE 40 MG TAB PO SCH (09:29)
[2021-02-24] MEDS: ZINC SULFATE 220 MG CAP PO SCH (09:29)
[2021-02-24] MEDS: POTASSIUM CHLORIDE 10 MEQ SR TABLET PO SCH (09:29)
[2021-02-24] MEDS: MAGNESIUM OXIDE 400MG TAB (MAG-OX) PO SCH ×2 (09:29→20:52)
[2021-02-24] MEDS: VITAMIN D 1,000 INTERNATIONAL UNITS TABLET PO SCH (09:30)
[2021-02-24] MEDS: SENOKOT S TAB PO SCH ×2 (09:30→20:52)
[2021-02-24] MEDS: METAMUCIL (PSYLLIUM) PACKET PO SCH (09:30)
[2021-02-24] MEDS: NADOLOL 20MG TABLET PO SCH (09:30)
[2021-02-24] MEDS: TRIAMCINOLONE ACETONIDE 0.025 % 80 GM CREAM TOP SCH ×3 (09:31→20:53)
[2021-02-24] MEDS: REMEDY PHYTOPLEX Z-GUARD PASTE 113GM TUBE (FROM STOREROOM PRODUCT) TOP SCH ×3 (09:32→20:54)
[2021-02-24] MEDS: LACTOBACILLUS ACIDOPHILUS CAP (BACID) PO SCH ×4 (09:33→20:52)
[2021-02-24] MEDS: SPIRONOLACTONE 25 MG TAB PO SCH (09:34)
[2021-02-24] MEDS ORDERED: LIDOCAINE 1% MDV 20ML VIAL As Ordered ONE ×2 (12:31→13:18)
[2021-02-24 14:00] VITALS: BP 151/70
[2021-02-24] MEDS: CEFEPIME HCL 2 GM in D5W MINI-BAG PLUS 50 ML IV SCH ×2 (15:00→20:52)
--- NOTE | 2021-02-24 18:06 | REP ---
INDICATION: difficult IV access, need IV antibiotics. COMPARISON: None. TECHNIQUE: The procedure was performed under the direct supervision of Dr. Carson. The risks and benefits of the procedure were explained to the patient and informed consent was obtained. The right basilic vein was localized using ultrasound guidance. The skin was prepped and draped in a sterile fashion. 2% lidocaine was used as a local anesthetic. Using ultrasound guidance the basilic vein was cannulated and a 0.018 guidewire was inserted and advanced to the SVC using fluoroscopic guidance. The needle was removed and a 4.5 [place] dilator and peel-away sheath was inserted over the guide wire. A 4.5 [place] single lumen catheter was cut to length of 40 cm. The dilator was removed and the catheter was inserted over the guide wire with the tip ending in the SVC. The peel-away sheath was removed and the catheter was flushed with heparinized saline as per Hospital protocol. The catheter was affixed to the skin and a sterile dressing was applied. The patient tolerated the procedure well and there were no immediate complications. 0.1 minutes of fluoro time was utilized for this procedure. FINDINGS: None IMPRESSION: PICC line insertion right basilic vein with the tip ending in the SVC <Electronically signed by Frederick Bob > 02/24/21 1622 <Electronically signed by Shaun Carson > 02/24/21 [id number]
--- NOTE | 2021-02-24 18:07 | REP ---
INDICATION: abdominal abscess drain and culture. COMPARISON: None. TECHNIQUE: The procedure was performed under the direct supervision of Dr. Carson. The patient has a history of a lobulated, complex fluid collection, anterior to the prior anterior abdominal hernia, measuring 10.7 x 8.7 x 15.9 cm seen on a previous CT scan dated 02/23/2021. The risks and benefits of the procedure were explained to the patient and informed consent was obtained. The abdominal fluid collection was localized using ultrasound guidance. The skin was prepped and draped in a sterile fashion. 1% lidocaine was used as a local anesthetic. Ultrasound images demonstrate a fluid collection to have multiple septations throughout. Using ultrasound guidance a 10 [place] APDL catheter was inserted using trocar technique. The trocar tip was used to break up as many of the septations as possible to promote drainage. 475 cc of low viscosity red colored fluid was withdrawn with a sample sent to the lab for analysis. The catheter was affixed to the skin and a sterile dressing was applied. The catheter was connected to a gravity drainage bag. The patient tolerated the procedure well and there were no immediate complications. After the appropriate amount to monitor convalescence the patient was discharged from the department. FINDINGS: None IMPRESSION: Ultrasound-guided abdominal abscess drain with placement of an 8 [place] APDL catheter. <Electronically signed by Frederick Bob > 02/24/21 1618 <Electronically signed by Shaun Carson > 02/24/21 [id number]
[2021-02-24 19:28] LABS: BASO % 0.2 % (0.0-1.0); EOS # 0.2 10^3/uL (0.0-0.5); EOS % 1.8 % (0.0-3.0); HEMATOCRIT 32.2 % (36.0-47.0); HEMOGLOBIN 10.7 g/dl (12.0-15.5); LYMPH # 2.8 10^3/uL (1.5-5.0); LYMPH % 21.6 % (24.0-44.0); MEAN CORPUSCULAR HGB CONC 33.2 g/dl (32.0-36.5); MEAN CORPUSCULAR VOLUME 102.2 fl (80.0-96.0); MONO # 1.4 10^3/uL (0.0-0.8); MONO % 10.8 % (2.0-8.0); NEUTROPHILS # 8.4 10^3/uL (1.5-8.5); NEUTROPHILS % 65.3 % (36.0-66.0); PLATELET COUNT, AUTOMATED 108 10^3/uL (150-450); RED BLOOD COUNT 3.15 10^6/uL (4.00-5.40); WHITE BLOOD COUNT 12.9 10^3/uL (4.0-10.0)
[2021-02-24 19:47] LABS: ALBUMIN 1.8 GM/DL (3.2-5.2); ALT/SGPT 15 U/L (12-78); BILIRUBIN,TOTAL 2.3 MG/DL (0.2-1.0); BLOOD UREA NITROGEN 17 MG/DL (7-18); CALCIUM LEVEL 8.8 MG/DL (8.8-10.2); CARBON DIOXIDE LEVEL 32 MEQ/L (21-32); CHLORIDE LEVEL 102 MEQ/L (98-107); CREATININE FOR GFR 0.84 MG/DL (0.55-1.30); GLOMERULAR FILTRATION RATE > 60.0 (>39); GLUCOSE, FASTING 236 MG/DL (70-100); MAGNESIUM LEVEL 1.8 MG/DL (1.8-2.4); POTASSIUM SERUM 3.6 MEQ/L (3.5-5.1); SODIUM LEVEL 140 MEQ/L (136-145); TOTAL PROTEIN 5.5 GM/DL (6.4-8.2)
[2021-02-24] MEDS ORDERED: ISOVUE-370 76% 100ML VIAL As Ordered ONE (19:53)
[2021-02-24 20:26] VITALS: BP 136/63
--- NOTE | 2021-02-24 20:33 | REPVR ---
PROCEDURE INFORMATION: Exam: CT Abdomen And Pelvis With Contrast Exam date and time: 02/24/2021 8:08 PM Age: 70 years old Clinical indication: Other: Blood in drainage bag TECHNIQUE: Imaging protocol: Computed tomography of the abdomen and pelvis with contrast. Radiation optimization: All CT scans at this facility use at least one of these dose optimization techniques: automated exposure control; mA and/or kV adjustment per patient size (includes targeted exams where dose is matched to clinical indication); or iterative reconstruction. Contrast material: ISOVUE 370; Contrast volume: 100 ml; Contrast route: INTRAVENOUS (IV); COMPARISON: CT ABD/PEL W/PO CONTRAST ONLY 02/23/2021 3:58 PM FINDINGS: Tubes, catheters and devices: A percutaneous drain extends into the anterior abdominal wall abscess. Mediastinal space: There is a small hiatal hernia. Liver: The liver has a cirrhotic morphology and nodular surface. No liver masses are seen. Gallbladder and bile ducts: Mild gallbladder wall edema and pericholecystic fluid. Calculi are present in the gallbladder. No biliary duct dilation. Gallbladder is nondistended. Pancreas: Normal. No ductal dilation. Spleen: The spleen is enlarged. Adrenal glands: Normal. No mass. Kidneys and ureters: Normal. No hydronephrosis. Stomach and bowel: There is colonic diverticulosis without evidence of diverticulitis. Postoperative changes in the small bowel. No bowel obstruction or inflammatory changes. Appendix: No evidence of appendicitis. Intraperitoneal space: Mild mesenteric edema. Vasculature: Gastroesophageal varices are noted. Portal vein is small but patent. There are prominent splenorenal varices. No aortic aneurysm or dissection. Lymph nodes: Unremarkable. No enlarged lymph nodes. Urinary bladder: Unremarkable as visualized. Reproductive: Unremarkable as visualized. Bones/joints: There are advanced degenerative changes in the spine and pelvis. Soft tissues: Mild subcutaneous emphysema in the right anterolateral chest wall. Generalized subcutaneous emphysema in the abdominal wall. There is a thick-walled peripherally enhancing abscess in the anterior abdominal wall measuring approximately 10.6 x 2.8 x 6.3 cm. The abscess is decreased in size since the prior exam. Some soft tissue enhancement with several small adjacent blood vessels is noted in the posterior aspect of the abscess (image 84 of series 301). No contrast extravasation is seen within the fluid collection however. Smaller fluid collection in the left anterolateral abdominal wall is unchanged. IMPRESSION: 1. Interval decrease in size of anterior abdominal wall abscess. Some soft tissue enhancement in the posterior aspect of the abscess. No intraluminal contrast extravasation is seen. 2. Cirrhotic liver with portal hypertension including splenomegaly, splenorenal and gastroesophageal varices, and mild mesenteric edema. 3. Colonic diverticulosis without evidence of diverticulitis. 4. Gallbladder wall thickening may be due to portal hypertension. Cholelithiasis. No biliary duct dilation. Electronically signed by: Karsten Murrell On 02/24/2021 20:33:21 PM
[2021-02-24] MEDS: LATANOPROST 0.005% OPHTH SOLN 2.5 ML OU SCH (20:52)
--- NOTE | 2021-02-24 20:54 | IPNPDOC ---
PM&R Progress Note DATE OF SERVICE: Feb 24, 2021 [employer] Over Progress Note Subjective: Patient seen this morning while IV access being attempted, she understands she will need additional antibiotics due to concern for abdominal abscess seen on CT and increasing white count. REVIEW OF SYSTEMS: The following is a completed review of systems and has been reviewed. Review of systems otherwise unremarkable. PAIN: Patient self reports no pain EYES: No recent vision changes EARS, NOSE, & THROAT: No throat pain, or dysphagia, or rhinorrhea CARDIOVASCULAR: Denies chest pain or palpitations PULMONARY:+ shortness of breath with exertion (improving) denies cough GASTROINTESTINAL: Denies constipation/diarrhea, s/p abdominal hernia repair GENITOURINARY: denies dysuria MUSCULOSKELETAL: generalized weakness. NEUROLOGICAL:denies tremor/paresthesias HEMATOLOGICAL: +easy bruising SKIN: RLE rash PSYCHIATRIC: Unremarkable All other review of systems found to be negative. PHYSICAL EXAMINATION: VITAL SIGNS: Please see below. GENERAL: Pleasant and cooperative. No acute distress. HEENT: PERRL. Extraocular movements intact. Clear conjunctiva CARDIOVASCULAR: Regular rate and rhythm. No murmurs, rubs, or gallops LUNGS: Clear to auscultation bilaterally. No wheezes. No rhonchi ABDOMEN: soft, but firm to palpation around hernia, mild guarding, TTP, surgical incision c/d/i NEUROLOGICAL: Alert and oriented times three. Cranial nerves II through XII grossly intact. Sensation grossly intact. EXTREMITIES: 5\5 strength bilateral upper extremities. 5-\5 strength right lower extremity. 5-/5 strength in left lower extremity. +bilat LE edema ASSESSMENT:70-year-old F with past medical history of umbilical hernia repair who presents status post ventral hernia incarceration s/p repair, small bowel resection with anastomosis and lysis of adhesions PLAN: 1. Rehab- PT/OT advance mobility and ADLs, strengthen/stretch/maintain ROM all 4 limbs 2. cardiac- htn c/u BP meds, adjust prn -likely CHF with LE edema, c/u fluid restrict, daily weights, c/u aldactone, c/u increased lasix to 40mg daily 3. resp- monitor for infection, concern for atelectasis in setting of recent abdominal surgery- CXR negative for infiltrate -supplemental 02 prn, incentive spirometry -bijan 4. GI- s/p ventral hernia incarceration s/p repair, small bowel resection with anastomosis and lysis of adhesions performed 02-11-21, surgery consulted and did come see patient today, oral flagyl started 02-23-[address] abd report finding of fluid collection/abscess, will switch from Cipro (started for UTI) and start Cefepime given worsening leukocytosis and persistent low grade temps today, ID consulted and recommends IR drainage for culture- PICC line ordered as well as patient has difficult IV access -liver cirrhosis etiology unclear- f/u GI as outpatient -ppx- protonix 5. DVT ppx- teds, avoid AC due to thrombocytopenia 6. Pain- tylenol and oxycodone 7. - UA from 02-19 +LE and bacteria, however no cx due to contamination, repeat UA also with LE and bacteria, patient with lowgrade temp, started Ciprofloxacin 02-22-21, but switched to Cefepime today to better cover intrabdominal abscess, Ucx +ENTEROBACTER CLOACAE COMPLEX 8. Dispo- TBD Allergies Coded Allergies: latex (Verified Allergy, Intermediate, rash, 02/08/21) Vital Signs Vital Signs Date Time Temp Pulse Resp B/P (MAP) Pulse Ox O2 Delivery O2 Flow Rate FiO2 02/24/21 14:00 99.0 69 18 151/70 (97) 91 Room Air 02/24/21 06:00 2.0 Laboratory Data CBC/BMP Laboratory Tests 02/24/21 07:42 02/24/21 19:07 Labs 24H Laboratory Tests 2 02/24/21 07:42: Immature Granulocyte % (Auto) 0.4, Neutrophils (%) (Auto) 78.9H, Lymphocytes (%) (Auto) 9.4L, Monocytes (%) (Auto) 10.1H, Eosinophils (%) (Auto) 0.9, Basophils (%) (Auto) 0.3, Neutrophils # (Auto) 11.7H, Lymphocytes # (Auto) 1.4L, Monocytes # (Auto) 1.5H, Eosinophils # (Auto) 0.1, Basophils # (Auto) 0.0, Nucleated Red Blood Cells % (auto) 0.0, Anion Gap 4L, Glomerular Filtration Rate > 60.0, Calcium Level 8.8 02/24/21 19:07: Immature Granulocyte % (Auto) 0.3, Neutrophils (%) (Auto) 65.3, Lymphocytes (%) (Auto) 21.6L, Monocytes (%) (Auto) 10.8H, Eosinophils (%) (Auto) 1.8, Basophils (%) (Auto) 0.2, Neutrophils # (Auto) 8.4, Lymphocytes # (Auto) 2.8, Monocytes # (Auto) 1.4H, Eosinophils # (Auto) 0.2, Basophils # (Auto) 0.0, Nucleated Red Blood Cells % (auto) 0.0, Anion Gap 6L, Glomerular Filtration Rate > 60.0, C alcium Level 8.8, Lactic Acid Level 2.3*H, Magnesium Level 1.8, Total Bilirubin 2.3H, Aspartate Amino Transf (AST/SGOT) 34, Alanine Aminotransferase (ALT/SGPT) 15, Alkaline Phosphatase 98, Total Protein 5.5L, Albumin 1.8L, Albumin/Globulin Ratio 0.5L Microbiology Microbiology 02/24/21 Gram Stain, Received Pending 02/24/21 Abscess Culture, Received Pending 02/22/21 Urine Culture - Final, Complete Enterobacter Cloacae Complex 02/21/21 Urine Culture - Final, Complete Current Medications Current Medications Current Medications Medications (Trade) Dose Ordered Sig/Lupe Route PRN Reason Start Time Stop Time Status Last Admin Dose Admin Acetaminophen (Tylenol Tab) 650 mg Q4HP PRN PO fever/MILD PAIN (PS 1-4) 02/16/21 16:05 02/23/21 21:06 Albuterol/ Ipratropium (Duoneb (Ipr 0.5mg/Alb 2.5mg)) 3 ml RTID NEB 02/17/21 16:00 02/24/21 07:23 Ascorbic Acid (Vitamin C) 500 mg DAILY PO 02/17/21 09:00 02/24/21 09:29 Bisacodyl (Dulcolax Suppository) 10 mg DAILYPRN PRN [place] CONSTIPATION 02/16/21 16:05 Cefepime HCl 2 gm/ Dextrose 50 ml @ 100 mls/hr Q8H IV 02/24/21 12:00 02/24/21 15:00 Ciprofloxacin (Cipro) 500 mg BID@06,18 PO 02/22/21 18:00 02/24/21 08:44 DC 02/24/21 04:59 Diatrizoate Meglum/ Diatrizoate Sod (Gastrografin) 10 ml Q30M PO 02/23/21 14:00 02/23/21 14:31 DC 02/23/21 14:30 Furosemide (Lasix) 20 mg DAILY PO 02/17/21 09:00 02/18/21 09:57 DC 02/18/21 08:05 Furosemide (Lasix) 40 mg DAILY PO 02/19/21 09:00 02/24/21 09:29 Lactobacillus Acidophilus (Bacid) 1 ea WMHS PO 02/22/21 18:00 02/24/21 17:16 Latanoprost (Xalatan 0.005% Op Soln) 1 drop QHS OU 02/16/21 21:00 02/23/21 21:07 Magnesium Oxide (Mag-Ox) 400 mg BID PO 02/16/21 21:00 02/24/21 09:29 Metronidazole (Flagyl) 500 mg Q8H PO 02/23/21 21:00 02/24/21 17:15 Multivitamins (Theragram-M) 1 tab DAILY PO 02/17/21 09:00 02/24/21 09:29 Nadolol (Corgard) 40 mg DAILY PO 02/17/21 09:00 02/24/21 09:30 Oxycodone HCl (Roxicodone, Oxyir) 2.5 mg Q4HP PRN PO PAIN 02/16/21 16:05 Potassium Chloride (Micro-K Extencaps) 10 meq DAILY PO 02/19/21 09:00 02/24/21 09:29 Psyllium Hydrophilic Mucilloid (Metamucil) 1 pkt DAILY PO 02/17/21 09:00 02/24/21 09:30 Senna/Docusate Sodium (Senokot S) 1 tab BID PO 02/16/21 21:00 02/24/21 09:30 Spironolactone (Aldactone) 25 mg QAM PO 02/17/21 09:00 02/24/21 09:34 Triamcinolone Acetonide (Kenalog 0.025% Cream) RLE TID TOP 02/16/21 21:00 02/24/21 17:15 Vitamin D (Vitamin D) 1,000 units DAILY PO 02/17/21 09:00 02/24/21 09:30 Zinc Sulfate (Zinc Sulfate) 220 mg DAILY PO 02/17/21 09:00 02/24/21 09:29 KRISHNA JUÁREZ MD Feb 24, 2021 20:54
[2021-02-24] MEDS: ACETAMINOPHEN TAB 650MG DOSE (2X325MG) PO PRN (21:18)
[2021-02-25] MEDS ORDERED: SODIUM CHLORIDE 0.9% INJ 10 ML SYR IV PRN (00:55)
[2021-02-25 03:30] VITALS: BP 122/58
[2021-02-25] MEDS: metroNIDAZOLE (FLAGYL) 500MG TABLET PO SCH ×2 (04:27→12:30)
[2021-02-25] MEDS: CEFEPIME HCL 2 GM in D5W MINI-BAG PLUS 50 ML IV SCH ×3 (04:28→19:28)
[2021-02-25] MEDS: SODIUM CHLORIDE 0.9% INJ 10 ML SYR IV SCH ×2 (05:04→16:56)
[2021-02-25 06:13] VITALS: BP 111/57
--- NOTE | 2021-02-25 07:12 | CR ---
CONSULTATION DATE: 02/24/2021 REASON FOR CONSULTATION: Fluid collection, recent hernia wound. HISTORY OF PRESENT ILLNESS: The patient is a 70-year-old woman who had been admitted on or about the 08 of February with an incarcerated ventral incisional hernia. Her hernia was reduced and on the 11 of February she underwent a robotic-assisted laparoscopic repair of her hernia. There was a loop of bowel that was solidly fixed within her hernia and this was damaged in freeing this from within the hernia sac and a short bowel resection was necessary. She did well following surgery and on or about the 16 of February was discharged to be readmitted to the Acute Rehabilitation Unit. On the 23 of February she underwent evaluation with a CT scan of the abdomen and pelvis. This was ordered according to the report to monitor her recent hernia repair. The CT scan showed some fluid in her old hernia site and I was asked to evaluate her. When I came to see her on the floor, she had already been sent down to x-ray for placement of a percutaneous drain and a PICC line to support presumed long-term antibiotics. I did review her CT scan and this showed a moderate amount of fluid in her old hernia sac with a small amount of air. There was also a small amount of residual air within the abdominal wall which would not be unexpected at this point following her surgery. Otherwise, there was no sign of any problem with her hernia repair or bowel resection. Later in the evening after the drain had been placed, I was contacted by the Hospitalist who was called because she had a small amount of blood draining from the previously placed catheter and he asked my opinion regarding whether this was a normal finding or not. I reviewed the CT scan from that situation where they had repeated a CT scan and note a small amount of residual fluid within the hernia sac. Her fluid from the seroma drainage was sent for gram stain and culture and this is pending. IMPRESSION: Probable benign wound seroma. I would likely have recommended against drainage of this fluid if I had the opportunity to assess her prior to her being sent for placement of a drain. It is absolutely expected that she would have collected some fluid within the wound. Normally, we would wait for this to resolve spontaneously. The question of what I would recommend is now moot as a drain was placed and she was started on antibiotics. RECOMMENDATIONS: I would recommend that you await the cultures and make decisions about antibiotics based on the culture results. You can deal with the drain as is appropriate. RENEE
[2021-02-25] MEDS: IPRATROPIUM 0.5MG/ALBUTEROL 2.5MG INH SOL UD 3ML (DUONEB) NEB SCH ×3 (07:37→20:54)
[2021-02-25 07:57] LABS: BASO % 0.3 % (0.0-1.0); EOS # 0.2 10^3/uL (0.0-0.5); EOS % 2.5 % (0.0-3.0); HEMATOCRIT 34.1 % (36.0-47.0); HEMOGLOBIN 11.3 g/dl (12.0-15.5); LYMPH # 1.5 10^3/uL (1.5-5.0); LYMPH % 15.2 % (24.0-44.0); MEAN CORPUSCULAR HEMOGLOBIN 33.6 pg (27.0-33.0); MEAN CORPUSCULAR HGB CONC 33.1 g/dl (32.0-36.5); MEAN CORPUSCULAR VOLUME 101.5 fl (80.0-96.0); MONO % 10.9 % (2.0-8.0); NEUTROPHILS # 6.7 10^3/uL (1.5-8.5); NEUTROPHILS % 70.5 % (36.0-66.0); PLATELET COUNT, AUTOMATED 105 10^3/uL (150-450); RED BLOOD COUNT 3.36 10^6/uL (4.00-5.40); WHITE BLOOD COUNT 9.5 10^3/uL (4.0-10.0)
[2021-02-25 08:19] LABS: ALBUMIN 1.8 GM/DL (3.2-5.2); ALT/SGPT 16 U/L (12-78); BILIRUBIN,TOTAL 2.4 MG/DL (0.2-1.0); BLOOD UREA NITROGEN 19 MG/DL (7-18); CALCIUM LEVEL 9.1 MG/DL (8.8-10.2); CARBON DIOXIDE LEVEL 31 MEQ/L (21-32); CHLORIDE LEVEL 105 MEQ/L (98-107); CREATININE FOR GFR 0.67 MG/DL (0.55-1.30); GLOMERULAR FILTRATION RATE > 60.0 (>39); GLUCOSE, FASTING 172 MG/DL (70-100); SODIUM LEVEL 141 MEQ/L (136-145); TOTAL PROTEIN 5.7 GM/DL (6.4-8.2)
[2021-02-25] MEDS: FUROSEMIDE 40 MG TAB PO SCH (08:43)
[2021-02-25] MEDS: NADOLOL 20MG TABLET PO SCH (08:43)
[2021-02-25] MEDS: MULTIVITAMINS/MINERALS THERAP 1 TAB PO SCH (08:43)
[2021-02-25] MEDS: LACTOBACILLUS ACIDOPHILUS CAP (BACID) PO SCH ×4 (08:43→21:02)
[2021-02-25] MEDS: MAGNESIUM OXIDE 400MG TAB (MAG-OX) PO SCH ×2 (08:43→21:02)
[2021-02-25] MEDS: VITAMIN D 1,000 INTERNATIONAL UNITS TABLET PO SCH (08:44)
[2021-02-25] MEDS: METAMUCIL (PSYLLIUM) PACKET PO SCH (08:44)
[2021-02-25] MEDS: POTASSIUM CHLORIDE 10 MEQ SR TABLET PO SCH (08:44)
[2021-02-25] MEDS: ZINC SULFATE 220 MG CAP PO SCH (08:44)
[2021-02-25] MEDS: SPIRONOLACTONE 25 MG TAB PO SCH (08:44)
[2021-02-25] MEDS: SENOKOT S TAB PO SCH (08:44)
[2021-02-25] MEDS: ASCORBIC ACID 500 MG TAB PO SCH (08:44)
[2021-02-25] MEDS: TRIAMCINOLONE ACETONIDE 0.025 % 80 GM CREAM TOP SCH ×3 (08:45→21:03)
[2021-02-25] MEDS: REMEDY PHYTOPLEX Z-GUARD PASTE 113GM TUBE (FROM STOREROOM PRODUCT) TOP SCH ×3 (08:57→21:03)
--- NOTE | 2021-02-25 11:27 | IPNPDOC ---
PM&R Progress Note DATE OF SERVICE: Feb 25, 2021 [employer]ship Progress Note Subjective: Patient seen in the gym stating she feels much better since starting IV antibiotics and that she felt a little dizzy climbing stairs, but otherwise is ok. REVIEW OF SYSTEMS: The following is a completed review of systems and has been reviewed. Review of systems otherwise unremarkable. PAIN: Patient self reports no pain EYES: No recent vision changes EARS, NOSE, & THROAT: No throat pain, or dysphagia, or rhinorrhea CARDIOVASCULAR: Denies chest pain or palpitations PULMONARY:+ shortness of breath with exertion (improving) denies cough GASTROINTESTINAL: Denies constipation/diarrhea, s/p abdominal hernia repair GENITOURINARY: denies dysuria MUSCULOSKELETAL: generalized weakness. NEUROLOGICAL:denies tremor/paresthesias HEMATOLOGICAL: +easy bruising SKIN: RLE rash PSYCHIATRIC: Unremarkable All other review of systems found to be negative. PHYSICAL EXAMINATION: VITAL SIGNS: Please see below. GENERAL: Pleasant and cooperative. No acute distress. HEENT: PERRL. Extraocular movements intact. Clear conjunctiva CARDIOVASCULAR: Regular rate and rhythm. No murmurs, rubs, or gallops LUNGS: Clear to auscultation bilaterally. No wheezes. No rhonchi ABDOMEN: soft, but firm to palpation around hernia, mild guarding, TTP, surgical incision c/d/i NEUROLOGICAL: Alert and oriented times three. Cranial nerves II through XII grossly intact. Sensation grossly intact. EXTREMITIES: 5\5 strength bilateral upper extremities. 5-\5 strength right lower extremity. 5-/5 strength in left lower extremity. +bilat LE edema ASSESSMENT:70-year-old F with past medical history of umbilical hernia repair who presents status post ventral hernia incarceration s/p repair, small bowel resection with anastomosis and lysis of adhesions PLAN: 1. Rehab- PT/OT advance mobility and ADLs, strengthen/stretch/maintain ROM all 4 limbs, ambulating with RW and able to climb stairs 2. cardiac- htn c/u BP meds, adjust prn -likely CHF with LE edema, c/u fluid restrict, daily weights, c/u aldactone, c/u increased lasix to 40mg daily 3. resp- monitor for infection, concern for atelectasis in setting of recent abdominal surgery- CXR negative for infiltrate, breathing somewhat improved since addition of diuretic, however patient still with sats in low 90s and dyspneic, will order CTA to r/o PE -supplemental 02 prn, incentive spirometry -duonebs 4. GI- s/p ventral hernia incarceration s/p repair, small bowel resection with anastomosis and lysis of adhesions performed 02-11-21, surgery consulted and did come see patient today, oral flagyl started 02-23-[address] abd report finding of fluid collection/abscess, switched from Cipro (started for UTI) to Cefepime given worsening leukocytosis and persistent low grade temps, ID cons ulted and recommended IR drainage for culture-sanguinous drainage, abdomen softer today, leukocytosis and Lactic acid also better - PICC line placed 02-24 -liver cirrhosis etiology unclear- f/u GI as outpatient -ppx- protonix 5. DVT ppx- teds, avoid AC due to thrombocytopenia 6. Pain- tylenol and oxycodone 7. - UA from 02-19 +LE and bacteria, however no cx due to contamination, repeat UA also with LE and bacteria, patient with lowgrade temp, started Ciprofloxacin 02-22-21, but switched to Cefepime 02-24 to better cover intra-abdominal abscess, Ucx +ENTEROBACTER CLOACAE COMPLEX 8. Dispo- TBD Allergies Coded Allergies: latex (Verified Allergy, Intermediate, rash, 02/08/21) Vital Signs Vital Signs Date Time Temp Pulse Resp B/P (MAP) Pulse Ox O2 Delivery O2 Flow Rate FiO2 02/25/21 08:43 68 122/60 02/25/21 06:13 97.1 18 92 Room Air 02/24/21 06:00 2.0 Laboratory Data CBC/BMP Laboratory Tests 02/24/21 19:07 02/25/21 07:30 Labs 24H Laboratory Tests 2 02/24/21 19:07: Immature Granulocyte % (Auto) 0.3, Neutrophils (%) (Auto) 65.3, Lymphocytes (%) (Auto) 21.6L, Monocytes (%) (Auto) 10.8H, Eosinophils (%) (Auto) 1.8, Basophils (%) (Auto) 0.2, Neutrophils # (Auto) 8.4, Lymphocytes # (Auto) 2.8, Monocytes # (Auto) 1.4H, Eosinophils # (Auto) 0.2, Basophils # (Auto) 0.0, Nucleated Red Blood Cells % (auto) 0.0, Anion Gap 6L, Glomerular Filtration Rate > 60.0, Lactic Acid Level 2.3*H, Calcium Level 8.8, Magnesium Level 1.8, Total Bilirubin 2.3H, Aspartate Amino Transf (AST/SGOT) 34, Alanine Aminotransferase (ALT/SGPT) 15, Alkaline Phosphatase 98, Total Protein 5.5L, Albumin 1.8L, Albumin/Globulin Ratio 0.5L 02/24/21 23:28: Lactic Acid Followup at 4 Hours 1.7 02/25/21 07:30: Immature Granulocyte % (Auto) 0.6, Neutrophils (%) (Auto) 70.5H, Lymphocytes (%) (Auto) 15.2L, Monocytes (%) (Auto) 10.9H, Eosinophils (%) (Auto) 2.5, Basophils (%) (Auto) 0.3, Neutrophils # (Auto) 6.7, Lymphocytes # (Auto) 1.5, Monocytes # (Auto) 1.0H, Eosinophils # (Auto) 0.2, Basophils # (Auto) 0.0, Nucleated Red Blood Cells % (auto) 0.0, Anion Gap 5L, Glomerular Filtration Rate > 60.0, Calcium Level 9.1, Total Bilirubin 2.4H, Aspartate Amino Transf (AST/SGOT) 34, Alanine Aminotransferase (ALT/SGPT) 16, Alkaline Phosphatase 103, Total Protein 5.7L, Albumin 1.8L, Albumin/Globulin Ratio 0.5L Microbiology Microbiology 02/24/21 Gram Stain - Final, Resulted 02/24/21 Abscess Culture, Resulted Pending 02/22/21 Urine Culture - Final, Complete Enterobacter Cloacae Complex 02/21/21 Urine Culture - Final, Complete Current Medications Current Medications Current Medications Medications (Trade) Dose Ordered Sig/Lupe Route PRN Reason Start Time Stop Time Status Last Admin Dose Admin Acetaminophen (Tylenol Tab) 650 mg Q4HP PRN PO fever/MILD PAIN (PS 1-4) 02/16/21 16:05 02/24/21 21:18 Albuterol/ Ipratropium (Duoneb (Ipr 0.5mg/Alb 2.5mg)) 3 ml RTID NEB 02/17/21 16:00 02/25/21 07:37 Ascorbic Acid (Vitamin C) 500 mg DAILY PO 02/17/21 09:00 02/25/21 08:44 Bisacodyl (Dulcolax Suppository) 10 mg DAILYPRN PRN [place] CONSTIPATION 02/16/21 16:05 Cefepime HCl 2 gm/ Dextrose 50 ml @ 100 mls/hr Q8H IV 02/24/21 12:00 02/25/21 04:28 Ciprofloxacin (Cipro) 500 mg BID@06,18 PO 02/22/21 18:00 02/24/21 08:44 DC 02/24/21 04:59 Diatrizoate Meglum/ Diatrizoate Sod (Gastrografin) 10 ml Q30M PO 02/23/21 14:00 02/23/21 14:31 DC 02/23/21 14:30 Furosemide (Lasix) 20 mg DAILY PO 02/17/21 09:00 02/18/21 09:57 DC 02/18/21 08:05 Furosemide (Lasix) 40 mg DAILY PO 02/19/21 09:00 02/25/21 08:43 Heparin Sodium (Heparin (Flush)) 200 units ASDIRECTED PRN IV SEE LABEL COMMENTS 02/25/21 00:55 Heparin Sodium (Heparin (Flush)) 200 units PICC IV 02/25/21 06:00 02/25/21 05:05 Lactobacillus Acidophilus (Bacid) 1 ea WMHS PO 02/22/21 18:00 02/25/21 08:43 Latanoprost (Xalatan 0.005% Op Soln) 1 drop QHS OU 02/16/21 21:00 02/24/21 20:52 Magnesium Oxide (Mag-Ox) 400 mg BID PO 02/16/21 21:00 02/25/21 08:43 Metronidazole (Flagyl) 500 mg Q8H PO 02/23/21 21:00 02/25/21 04:27 Multivitamins (Theragram-M) 1 tab DAILY PO 02/17/21 09:00 02/25/21 08:43 Nadolol (Corgard) 40 mg DAILY PO 02/17/21 09:00 02/25/21 08:43 Oxycodone HCl (Roxicodone, Oxyir) 2.5 mg Q4HP PRN PO PAIN 02/16/21 16:05 Potassium Chloride (Micro-K Extencaps) 10 meq DAILY PO 02/19/21 09:00 02/25/21 08:44 Psyllium Hydrophilic Mucilloid (Metamucil) 1 pkt DAILY PO 02/17/21 09:00 02/25/21 08:44 Senna/Docusate Sodium (Senokot S) 1 tab BID PO 02/16/21 21:00 02/25/21 08:44 Sodium Chloride (Saline Lock Flush) 10 ml ASDIRECTED PRN IV SEE LABEL COMMENTS 02/25/21 00:55 Sodium Chloride (Saline Lock Flush) 10 ml PICC IV 02/25/21 06:00 02/25/21 05:04 Spironolactone (Aldactone) 25 mg QAM PO 02/17/21 09:00 02/25/21 08:44 Triamcinolone Acetonide (Kenalog 0.025% Cream) RLE TID TOP 02/16/21 21:00 02/25/21 08:45 Vitamin D (Vitamin D) 1,000 units DAILY PO 02/17/21 09:00 02/25/21 08:44 Zinc Sulfate (Zinc Sulfate) 220 mg DAILY PO 02/17/21 09:00 02/25/21 08:44 KRISHNA JUÁREZ MD Feb 25, 2021 11:27
[2021-02-25] MEDS ORDERED: NS 1,000 ML IV ONE (11:50)
[2021-02-25 14:00] VITALS: BP 118/56
[2021-02-25 18:46] LABS: C REACTIVE PROTEIN QUANTITATIV 4.56 MG/DL (0.00-0.30)
[2021-02-25] MEDS ORDERED: ISOVUE-370 76% 100ML VIAL As Ordered ONE ×2 (19:43→19:49)
[2021-02-25 20:15] VITALS: BP 127/60
[2021-02-25] MEDS: ACETAMINOPHEN TAB 650MG DOSE (2X325MG) PO PRN (21:02)
[2021-02-25] MEDS: LATANOPROST 0.005% OPHTH SOLN 2.5 ML OU SCH (21:03)
--- NOTE | 2021-02-25 21:51 | REPVR ---
PROCEDURE INFORMATION: Exam: CTA Chest With Contrast Exam date and time: 02/25/2021 8:46 PM Age: 70 years old Clinical indication: Other: Low 02 sats; Additional info: R/O pe, low 02 sats S/P recent surgery TECHNIQUE: Imaging protocol: Computed tomographic angiography of the chest with contrast. 3D rendering (Not supervised by radiologist): MIP and/or 3D reconstructed images were created by the technologist. Radiation optimization: All CT scans at this facility use at least one of these dose optimization techniques: automated exposure control; mA and/or kV adjustment per patient size (includes targeted exams where dose is matched to clinical indication); or iterative reconstruction. Contrast material: ISOVUE 370; Contrast volume: 75 ml; Contrast route: INTRAVENOUS (IV); COMPARISON: [place] Chest, 2 view PA, Lat 02/17/2021 4:11 PM FINDINGS: Pulmonary arteries: Normal. No pulmonary emboli. Aorta: Unremarkable. No aortic aneurysm. No aortic dissection. Lungs: There are at least 3 small noncalcified nodules in the left lung measuring up to 5 mm. Mild basilar atelectasis. Lungs are otherwise clear. No airspace consolidation. Pleural spaces: Unremarkable. No pneumothorax. No pleural effusion. Heart: Unremarkable. No cardiomegaly. No pericardial effusion. Lymph nodes: Unremarkable. No enlarged lymph nodes. Liver: Cirrhotic liver. Spleen: Splenomegaly. Bones/joints: Unremarkable. No acute fracture. Soft tissues: Unremarkable. IMPRESSION: 1. Subcutaneous emphysema in the right anterior abdominal wall. 2. No evidence of pulmonary embolism. No acute findings in the chest. 3. At least 3 small pulmonary nodules in the left lung. For patients at low risk (minimal or absent history of smoking and of other known risk factors), no routine follow-up is indicated. For patients at high risk (history of smoking or of other known risk factors), consider optional CT Chest at 12 months. (Reference: Lacey) REFERENCES: Lacey H, et al. Guidelines for Management of Incidental Pulmonary Nodules Detected on CT Images: From the Fleischner Society 2017. Radiology. 2017;284(1):228-243. Electronically signed by: Karsten Murrell On 02/25/2021 21:52:22 PM
[2021-02-26] MEDS: CEFEPIME HCL 2 GM in D5W MINI-BAG PLUS 50 ML IV SCH (04:10)
[2021-02-26] MEDS: SODIUM CHLORIDE 0.9% INJ 10 ML SYR IV SCH ×2 (04:36→16:43)
[2021-02-26 06:31] VITALS: BP 114/56
[2021-02-26] MEDS: IPRATROPIUM 0.5MG/ALBUTEROL 2.5MG INH SOL UD 3ML (DUONEB) NEB SCH ×3 (07:33→20:31)
[2021-02-26 08:12] LABS: BASO % 0.3 % (0.0-1.0); EOS # 0.2 10^3/uL (0.0-0.5); HEMATOCRIT 31.1 % (36.0-47.0); HEMOGLOBIN 10.3 g/dl (12.0-15.5); LYMPH # 1.3 10^3/uL (1.5-5.0); MEAN CORPUSCULAR HEMOGLOBIN 33.6 pg (27.0-33.0); MEAN CORPUSCULAR HGB CONC 33.1 g/dl (32.0-36.5); MEAN CORPUSCULAR VOLUME 101.3 fl (80.0-96.0); MONO # 0.7 10^3/uL (0.0-0.8); MONO % 10.5 % (2.0-8.0); NEUTROPHILS # 4.7 10^3/uL (1.5-8.5); NEUTROPHILS % 66.9 % (36.0-66.0); RED BLOOD COUNT 3.07 10^6/uL (4.00-5.40)
[2021-02-26 08:20] LABS: PLATELET COUNT, AUTOMATED 92 10^3/uL (150-450)
[2021-02-26 08:30] LABS: BLOOD UREA NITROGEN 16 MG/DL (7-18); CALCIUM LEVEL 8.4 MG/DL (8.8-10.2); CARBON DIOXIDE LEVEL 30 MEQ/L (21-32); CHLORIDE LEVEL 106 MEQ/L (98-107); CREATININE FOR GFR 0.59 MG/DL (0.55-1.30); GLOMERULAR FILTRATION RATE > 60.0 (>39); GLUCOSE, FASTING 168 MG/DL (70-100); POTASSIUM SERUM 3.8 MEQ/L (3.5-5.1); SODIUM LEVEL 141 MEQ/L (136-145)
[2021-02-26] MEDS: TRIAMCINOLONE ACETONIDE 0.025 % 80 GM CREAM TOP SCH ×3 (09:00→20:42)
--- NOTE | 2021-02-26 09:49 | CR ---
CONSULTATION DATE: 02/25/2021 REASON FOR CONSULTATION: I was asked to consult by Alesha Reyna MD for evaluation of a postoperative fluid collection after umbilical hernia repair. HISTORY OF PRESENT ILLNESS: Mrs. Henley is a 70-year-old female who was admitted under the care of Dr. Paul on February 08 for a ventral incisional hernia incarceration. The patient underwent repair and after she had presented to the emergency room with nausea, vomiting and severe abdominal pain from the incarceration. CT of abdomen showed a small bowel obstruction with transition point identified at the umbilical hernia. 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 The patient underwent lysis of adhesions, repair of incarcerated hernia and small bowel resection with anastomosis as well as closure of the primary defect with placement of mesh on 02/11/21. The patient received IV cefotetan from 02/11 to 02/15 and IV metronidazole from 02/12 to 02/15. The patient was then transferred to acute rehab under the care of Dr. Reyna for physical therapy. A couple days ago, the patient was having increasing abdominal pain with slight elevation of the white count of 14,000 and therefore she underwent CT of the abdomen and pelvis which showed a ring-enhancing abscess in the anterior abdominal wall measuring 10.8 x 2.8 x 6.3 cm. The abscess was decreased in size compared to a prior exam that was done on 02/23. There was some soft tissue enhancement with several small absent blood vessels noted in the posterior aspect of the abscess, cirrhotic fluid with portal hypertension, including splenomegaly and gastroesophageal varices, colonic diverticulosis. The patient underwent a drainage procedure and a drain was placed in the right lower quadrant which has bloody discharge. Abdominal ultrasound done on 02/24/21 showed a 15.9 x 10.7 x 8.7 cm fluid collection, lobulated, complex anterior to the anterior abdominal hernia. 475 mL of red-colored fluid was withdrawn with a sample sent to the lab for analysis. A culture of that is still pending. Gram stain only shows red cells with organism seen. The catheter was connected to gravity with an 8 Swedish catheter. The patient was also complaining today of increasing shortness of breath and therefore, a CT angiogram was ordered and done tonight which showed subcutaneous emphysema in the right anterior abdominal wall but no evidence of pulmonary embolism, no acute findings in the chest, three small pulmonary nodules in the left lung, low-risk. PAST MEDICAL HISTORY: 1. Obesity. 2. History of incarcerated ventral hernia with mesh placement in 07/[address] Logan. 3. Liver cirrhosis. 4. No history of diabetes. SOCIAL HISTORY: She is a former smoker, no alcohol use currently. MEDICATIONS: 1. Cefepime 2 gm IV q.8 hours. 2. Flagyl 500 mg p.o. q.8 hours. 3. Probiotics one tablet p.o. with meals. 4. Furosemide 40 mg p.o. daily. 5. Albuterol/Atrovent neb q.4 p.r.n. 6. Metamucil one packet p.o. daily. 7. Aldactone 25 mg p.o. daily. 8. Vitamin C 500 mg p.o. daily. 9. Nadolol 40 mg p.o. daily. 10. Multivitamin one tablet daily. 11. Kenalog, right lower extremity. 12. Xalatan, one drop, OU q.h.s. 13. Maalox 400 mg p.o. b.i.d. ALLERGIES: LATEX. LABORATORY DATA: White count 9.5, hemoglobin 11.3, hematocrit 34.1, platelets 105. On 02/24 yesterday before the drainage, white count was 14.8, hemoglobin 11.5, hematocrit 34.2, platelets 108. Sodium 141, potassium 4, chloride 105, bicarb 31, BUN 19, creatinine 0.67, glucose 172, lactic acid 1.7, calcium 9.1, bilirubin 2.4. AST 34, ALT 16, alk phos 103. CRP 4.56, total protein 5.7, albumin 1.8. Fluid from right abdominal collection is pending culture. Urine culture had Enterobacter cloacae sensitive to cefazolin, also to cefepime, 20,000 colony-forming units. Urinalysis: +2 leukocyte esterase, 23 white cells. REVIEW OF SYSTEMS: The patient has no nausea, vomiting or diarrhea. She has good appetite. Abdominal pain has improved since doing this procedure. She denies any dysuria, hematuria or flank pain. She has frequency but she has been taking diuretics. She has some frequent bowel movements but has been on Metamucil as well as Senokot b.i.d. PHYSICAL EXAMINATION: Temperature is 97.1, pulse 79, respirations 18, blood pressure 127/60, O2 sat 93% on room air. Heart: Normal S1, S2, no murmurs appreciated. Lungs: Clear. No wheezes, rales or rhonchi, diminished at the bases. Abdomen: Obese, soft, nontender. A small incision below the umbilical cord well healed, right lower quadrant drain with a catheter. The drainage bag has 10 mL of bloody drainage. Extremities: No clubbing, cyanosis or edema. She has ecchymosis on both upper extremities. HEENT: Pupils are round and reactive, anicteric. Oropharynx clear. IMPRESSION: This is a 70-year-old female with a history of incarcerated umbilical hernia who was admitted with small bowel obstruction, underwent lysis of adhesions and small bowel resection. The patient was transferred to rehabilitation for physical therapy . She was complaining of increasing abdominal pain, had a white count of 14,[address] of abdomen and pelvis which showed a subcutaneous fluid collection which was concerning for an abscess due to ring enhancement, it was large, 15 cm x 10 cm. This collection was drained and the culture is still pending. The patient was started on IV cefepime and p.o. Flagyl. There was also a questionable abnormal urine culture although it only had 20,000 Enterobacter cloacae. The patient does not have dysuria and I doubt she had a urinary tract infection. This subcutaneous collection could be just postoperative seroma with some bleeding and not necessarily infectious but at this point we will wait for result of abdominal and urine culture. PLAN: DC p.o. Flagyl as this collection is only subcutaneous not intraabdominal , continue IV cefepime every 12 hours. We will discontinue antibiotics or descalate after abdominal fluid culture results. If negative, would discontinue antibiotics. Discontinue Senokot, the patient is having frequent bowel movements, up to five bowel movements a day Continue probiotics one tablet p.o. three times a day. MTDD
[2021-02-26] MEDS: METAMUCIL (PSYLLIUM) PACKET PO SCH (10:28)
[2021-02-26] MEDS: MULTIVITAMINS/MINERALS THERAP 1 TAB PO SCH (10:28)
[2021-02-26] MEDS: ZINC SULFATE 220 MG CAP PO SCH (10:28)
[2021-02-26] MEDS: LACTOBACILLUS ACIDOPHILUS CAP (BACID) PO SCH ×4 (10:28→20:41)
[2021-02-26] MEDS: VITAMIN D 1,000 INTERNATIONAL UNITS TABLET PO SCH (10:28)
[2021-02-26] MEDS: SPIRONOLACTONE 25 MG TAB PO SCH (10:28)
[2021-02-26] MEDS: MAGNESIUM OXIDE 400MG TAB (MAG-OX) PO SCH ×2 (10:29→20:41)
[2021-02-26] MEDS: FUROSEMIDE 40 MG TAB PO SCH (10:29)
[2021-02-26] MEDS: POTASSIUM CHLORIDE 10 MEQ SR TABLET PO SCH (10:29)
[2021-02-26] MEDS: ASCORBIC ACID 500 MG TAB PO SCH (10:29)
[2021-02-26] MEDS: NADOLOL 20MG TABLET PO SCH (10:30)
[2021-02-26] MEDS: REMEDY PHYTOPLEX Z-GUARD PASTE 113GM TUBE (FROM STOREROOM PRODUCT) TOP SCH ×3 (10:42→20:42)
[2021-02-26 14:00] VITALS: BP 128/63
--- NOTE | 2021-02-26 14:02 | IPN ---
PROGRESS NOTE DATE: 02/26/2021 Ursula was a little upset today because they had multiple attempts to do blood draws, and she has poor intravenous (IV) access. She has no nausea, vomiting, or diarrhea. No abdominal pain. Her drain has bloody serous fluid. She had five bowel movements today and five bowel movements the day before. Output in the drainage bag had 90 mL yesterday. PHYSICAL EXAMINATION: Temperature is 97.3, pulse 69, respirations 18, blood pressure 120/56, oxygen saturation 93% on room air. HEART: Normal S1, S2. No murmurs, rubs, or gallops. LUNGS: Clear. No wheezes, rales, or rhonchi. ABDOMEN: Soft, mildly tender around the drain. Surgical scar has healed from hernia repair. LABORATORY DATA: Sodium 141, potassium 3.8, chloride 106, bicarbonate 30, BUN 16, creatinine 0.59, glucose 168, calcium 8.4. White count 7, hemoglobin 10.3, hematocrit 31.1, platelets 92, 67% neutrophils, 19% lymphocytes, 10% monocytes. Culture from abdominal wound was no growth Gram stain had moderate red cells. No organisms seen. Urine culture had Enterobacter cloacae, only 20,000 colonies. IMPRESSION: 1. Postoperative seroma with no evidence of infection. Culture was negative. Patient has received 48 hours of cefepime, which will be discontinued. 2. Enterobacter cloacae bacteruria with no evidence of urinary symptoms. Patient does not need to be treated with antibiotics . 3. Liver cirrhosis with thrombocytopenia and hypoalbuminemia, on nadolol and Aldactone. 4. Diarrhea. Senokot has been discontinue on February 25. Probably antibiotic associated. Continue to monitor bowel movements. PLAN: Discontinue IV cefepime. I do not see any evidence of infection at this time. Patient's drain can be removed when there is less than 10-20 mL of fluid, and it could be done by interventional radiology (IR). Case has been discussed with Dr. Reyna, who agrees with the plan. RENEE
[2021-02-26] MEDS ORDERED: hydrOXYzine 25 MG TAB PO ONE (14:25)
--- NOTE | 2021-02-26 14:30 | IPNPDOC ---
PM&R Progress Note DATE OF SERVICE: Feb 26, 2021 Certified Alcohol Counselor Progress Note Subjective: Patient seen in her room happy to hear she no longer needs antibiotics after having been seen by ID, denies any fevers, or new weakness. She acknowledges she is very anxious and thinks she would benefit from an anxiolytic. REVIEW OF SYSTEMS: The following is a completed review of systems and has been reviewed. Review of systems otherwise unremarkable. PAIN: Patient self reports no pain EYES: No recent vision changes EARS, NOSE, & THROAT: No throat pain, or dysphagia, or rhinorrhea CARDIOVASCULAR: Denies chest pain or palpitations PULMONARY:+ shortness of breath with exertion (improving) denies cough GASTROINTESTINAL: Denies constipation/diarrhea, s/p abdominal hernia repair GENITOURINARY: denies dysuria MUSCULOSKELETAL: generalized weakness. NEUROLOGICAL:denies tremor/paresthesias HEMATOLOGICAL: +easy bruising SKIN: RLE rash PSYCHIATRIC: Unremarkable All other review of systems found to be negative. PHYSICAL EXAMINATION: VITAL SIGNS: Please see below. GENERAL: Pleasant and cooperative. No acute distress. HEENT: PERRL. Extraocular movements intact. Clear conjunctiva CARDIOVASCULAR: Regular rate and rhythm. No murmurs, rubs, or gallops LUNGS: Clear to auscultation bilaterally. No wheezes. No rhonchi ABDOMEN: soft, but firm to palpation around hernia, mild guarding, TTP, surgical incision c/d/i NEUROLOGICAL: Alert and oriented times three. Cranial nerves II through XII grossly intact. Sensation grossly intact. EXTREMITIES: 5\5 strength bilateral upper extremities. 5-\5 strength right lower extremity. 5-/5 strength in left lower extremity. +bilat LE edema ASSESSMENT:70-year-old F with past medical history of umbilical hernia repair who presents status post ventral hernia incarceration s/p repair, small bowel resection with anastomosis and lysis of adhesions PLAN: 1. Rehab- PT/OT advance mobility and ADLs, strengthen/stretch/maintain ROM all 4 limbs, ambulating with RW and able to climb stairs 2. cardiac- htn c/u BP meds, adjust prn -likely CHF with LE edema, c/u fluid restrict, daily weights, c/u aldactone, c/u increased lasix to 40mg daily 3. resp- monitor for infection, concern for atelectasis in setting of recent abdominal surgery- CXR negative for infiltrate, breathing somewhat improved since addition of diuretic, however patient still with sats in low 90s and dyspneic, CTA negative for PE, patient's breathing better -supplemental 02 prn, incentive spirometry -bijan 4. GI- s/p ventral hernia incarceration s/p repair, small bowel resection with anastomosis and lysis of adhesions performed 02-11-21, surgery consulted and did come see patient today, oral flagyl started 02-23-[address] abd report finding of fluid collection/abscess, switched from Cipro (started for UTI) to Cefepime given worsening leukocytosis and persistent low grade temps, ID consulted and recommended IR drainage for culture-sanguinous drainage, abdomen c/u to be softer, leukocytosis and Lactic acid also better- ok to d/c antibiotics per ID, recs appreciated - PICC line placed 02-24 -liver cirrhosis etiology unclear- f/u GI as outpatient -ppx- protonix 5. DVT ppx- teds, avoid AC due to thrombocytopenia 6. Pain- tylenol and oxycodone 7. - Ucx +ENTEROBACTER CLOACAE COMPLEX has received Cipro followed by Cefepime, ok to d/c antibiotics per ID 8. Psych- patient reporting seh is anxious and would like to trial Atarax 8. Dispo- TBD Allergies Coded Allergies: latex (Verified Allergy, Intermediate, rash, 02/08/21) Vital Signs Vital Signs Date Time Temp Pulse Resp B/P (MAP) Pulse Ox O2 Delivery O2 Flow Rate FiO2 02/26/21 14:00 98.3 75 18 128/63 (84) 90 Room Air 02/24/21 06:00 2.0 Laboratory Data CBC/BMP Laboratory Tests 02/26/21 07:26 02/26/21 07:27 Labs 24H Laboratory Tests 2 02/26/21 07:26: Anion Gap 5L, Glomerular Filtration Rate > 60.0, Calcium Level 8.4L 02/26/21 07:27: Immature Granulocyte % (Auto) 0.3, Neutrophils (%) (Auto) 66.9H, Lymphocytes (%) (Auto) 19.0L, Monocytes (%) (Auto) 10.5H, Eosinophils (%) (Auto) 3.0, Basophils (%) (Auto) 0.3, Neutrophils # (Auto) 4.7, Lymphocytes # (Auto) 1.3L, Monocytes # (Auto) 0.7, Eosinophils # (Auto) 0.2, Basophils # (Auto) 0.0, Nucleated Red Blood Cells % (auto) 0.0, Immature Platelet Fraction 4.1 Microbiology Microbiology 02/24/21 Gram Stain - Final, Complete 02/24/21 Abscess Culture - Final, Complete 02/22/21 Urine Culture - Final, Complete Enterobacter Cloacae Complex 02/21/21 Urine Culture - Final, Complete Current Medications Current Medications Current Medications Medications (Trade) Dose Ordered Sig/Lupe Route PRN Reason Start Time Stop Time Status Last Admin Dose Admin Acetaminophen (Tylenol Tab) 650 mg Q4HP PRN PO fever/MILD PAIN (PS 1-4) 02/16/21 16:05 02/25/21 21:02 Albuterol/ Ipratropium (Duoneb (Ipr 0.5mg/Alb 2.5mg)) 3 ml RTID NEB 02/17/21 16:00 02/26/21 07:33 Ascorbic Acid (Vitamin C) 500 mg DAILY PO 02/17/21 09:00 02/26/21 10:29 Bisacodyl (Dulcolax Suppository) 10 mg DAILYPRN PRN [place] CONSTIPATION 02/16/21 16:05 Cefepime HCl 2 gm/ Dextrose 50 ml @ 100 mls/hr Q8H IV 02/24/21 12:00 02/26/21 11:04 DC 02/26/21 04:10 Ciprofloxacin (Cipro) 500 mg BID@06,18 PO 02/22/21 18:00 02/24/21 08:44 DC 02/24/21 04:59 Diatrizoate Meglum/ Diatrizoate Sod (Gastrografin) 10 ml Q30M PO 02/23/21 14:00 02/23/21 14:31 DC 02/23/21 14:30 Furosemide (Lasix) 20 mg DAILY PO 02/17/21 09:00 02/18/21 09:57 DC 02/18/21 08:05 Furosemide (Lasix) 40 mg DAILY PO 02/19/21 09:00 02/26/21 10:29 Heparin Sodium (Heparin (Flush)) 200 units ASDIRECTED PRN IV SEE LABEL COMMENTS 02/25/21 00:55 02/26/21 10:38 DC Heparin Sodium (Heparin (Flush)) 200 units PICC IV 02/25/21 06:00 02/26/21 10:38 DC 02/26/21 04:36 Hydroxyzine HCl (Atarax) 25 mg Q6HP PRN PO ANXIETY 02/26/21 14:25 Lactobacillus Acidophilus (Bacid) 1 ea WMHS PO 02/22/21 18:00 02/26/21 12:50 Latanoprost (Xalatan 0.005% Op Soln) 1 drop QHS OU 02/16/21 21:00 02/25/21 21:03 Magnesium Oxide (Mag-Ox) 400 mg BID PO 02/16/21 21:00 02/26/21 10:29 Metronidazole (Flagyl) 500 mg Q8H PO 02/23/21 21:00 02/25/21 18:11 DC 02/25/21 12:30 Multivitamins (Theragram-M) 1 tab DAILY PO 02/17/21 09:00 02/26/21 10:28 Nadolol (Corgard) 40 mg DAILY PO 02/17/21 09:00 02/26/21 10:30 Oxycodone HCl (Roxicodone, Oxyir) 2.5 mg Q4HP PRN PO PAIN 02/16/21 16:05 Potassium Chloride (Micro-K Extencaps) 10 meq DAILY PO 02/19/21 09:00 02/26/21 10:29 Psyllium Hydrophilic Mucilloid (Metamucil) 1 pkt DAILY PO 02/17/21 09:00 02/26/21 10:28 Senna/Docusate Sodium (Senokot S) 1 tab BID PO 02/16/21 21:00 02/25/21 18:11 DC 02/25/21 08:44 Sodium Chloride (Saline Lock Flush) 10 ml ASDIRECTED PRN IV SEE LABEL COMMENTS 02/25/21 00:55 Sodium Chloride (Saline Lock Flush) 10 ml PICC IV 02/25/21 06:00 02/26/21 04:36 Spironolactone (Aldactone) 25 mg QAM PO 02/17/21 09:00 02/26/21 10:28 Triamcinolone Acetonide (Kenalog 0.025% Cream) RLE TID TOP 02/16/21 21:00 02/25/21 21:03 Vitamin D (Vitamin D) 1,000 units DAILY PO 02/17/21 09:00 02/26/21 10:28 Zinc Sulfate (Zinc Sulfate) 220 mg DAILY PO 02/17/21 09:00 02/26/21 10:28 KRISHNA JUÁREZ MD Feb 26, 2021 14:30
[2021-02-26 20:00] VITALS: BP 129/58
[2021-02-26] MEDS: LATANOPROST 0.005% OPHTH SOLN 2.5 ML OU SCH (20:41)
[2021-02-27 05:18] VITALS: BP 146/70
[2021-02-27] MEDS: SODIUM CHLORIDE 0.9% INJ 10 ML SYR IV SCH ×2 (05:38→18:28)
[2021-02-27] MEDS: IPRATROPIUM 0.5MG/ALBUTEROL 2.5MG INH SOL UD 3ML (DUONEB) NEB SCH ×3 (07:35→19:53)
[2021-02-27] MEDS: VITAMIN D 1,000 INTERNATIONAL UNITS TABLET PO SCH (09:02)
[2021-02-27] MEDS: METAMUCIL (PSYLLIUM) PACKET PO SCH (09:02)
[2021-02-27] MEDS: MULTIVITAMINS/MINERALS THERAP 1 TAB PO SCH (09:02)
[2021-02-27] MEDS: ZINC SULFATE 220 MG CAP PO SCH (09:02)
[2021-02-27] MEDS: hydrOXYzine 25 MG TAB PO PRN ×2 (09:02→20:34)
[2021-02-27] MEDS: FUROSEMIDE 40 MG TAB PO SCH (09:03)
[2021-02-27] MEDS: POTASSIUM CHLORIDE 10 MEQ SR TABLET PO SCH (09:03)
[2021-02-27] MEDS: SPIRONOLACTONE 25 MG TAB PO SCH (09:03)
[2021-02-27] MEDS: MAGNESIUM OXIDE 400MG TAB (MAG-OX) PO SCH ×2 (09:03→20:35)
[2021-02-27] MEDS: LACTOBACILLUS ACIDOPHILUS CAP (BACID) PO SCH ×4 (09:03→20:34)
[2021-02-27] MEDS: ASCORBIC ACID 500 MG TAB PO SCH (09:03)
[2021-02-27] MEDS: NADOLOL 20MG TABLET PO SCH (09:08)
[2021-02-27] MEDS: REMEDY PHYTOPLEX Z-GUARD PASTE 113GM TUBE (FROM STOREROOM PRODUCT) TOP SCH ×3 (09:09→20:35)
[2021-02-27] MEDS: TRIAMCINOLONE ACETONIDE 0.025 % 80 GM CREAM TOP SCH ×3 (09:09→20:37)
[2021-02-27 14:00] VITALS: BP 127/58
[2021-02-27 20:00] VITALS: BP 152/70
[2021-02-27] MEDS: LATANOPROST 0.005% OPHTH SOLN 2.5 ML OU SCH (20:37)
--- NOTE | 2021-02-27 22:23 | IPN ---
PROGRESS NOTE DATE: 02/27/2021 HISTORY: The patient is a 70-year-old woman who was admitted on the February 08, 2021 with an incarcerated incisional hernia with a bowel obstruction. Her hernia was reduced, but she was also noted to have evidence of cirrhosis. She underwent evaluation for the cirrhosis and on the February 11, 2021 she underwent a robotic-assisted laparoscopic repair of her incisional hernia with mesh and also had a short small bowel resection of a loop that had been damaged trying to free it from extensive adhesions to the abdominal wall. On February 16, 2021, she was discharged and then readmitted to the acute rehabilitation floor. She had a drain placed in a seroma from her hernia sac on February 24, 2021. This had initially drained a large amount of what sounded like serosanguinous fluid. Patient reports that the drainage has diminished. She is feeling a little stronger today. Vital signs show that she has been afebrile for several days. Her pulse is in the 60s and 70s and her blood pressure is acceptable. Intake and output shows that yesterday she had 490 recorded in with only 70 mL recorded out, though she has had multiple voids and several bowel movements noted yesterday. PHYSICAL EXAMINATION: Patient is lying quietly in the hospital bed. She denies any abdominal pain. Examination shows a dressing on the lower abdomen with a drain entering the abdominal wall in the right lower abdomen. There is a small amount of brownish-red, watery fluid in the tubing. The abdomen is soft and without significant tenderness. Her incisions appear clean and dry. IMPRESSION: Patient appears to be doing well since her surgery. She has been progressing with some rehabilitation. She reports that she is feeling better today after being allowed to rest some today. RECOMMENDATIONS: The drain should be removed when the output has diminished sufficiently. Certainly, the seroma could reoccur, but this would likely be smaller if it did. Patient should follow up with me in the office, probably two weeks or so after she is discharged from rehabilitation. RENEE
[2021-02-28] MEDS ORDERED: SODIUM CHLORIDE 0.9% INJ 10 ML SYR IV PRN (04:50)
[2021-02-28] MEDS: SODIUM CHLORIDE 0.9% INJ 10 ML SYR IV SCH ×4 (05:00→17:19)
[2021-02-28 05:18] VITALS: BP 156/69
[2021-02-28] MEDS: IPRATROPIUM 0.5MG/ALBUTEROL 2.5MG INH SOL UD 3ML (DUONEB) NEB SCH ×3 (07:33→20:45)
[2021-02-28] MEDS: METAMUCIL (PSYLLIUM) PACKET PO SCH (08:17)
[2021-02-28] MEDS: LACTOBACILLUS ACIDOPHILUS CAP (BACID) PO SCH ×4 (08:17→20:49)
[2021-02-28 08:18] VITALS: BP 156/69
[2021-02-28] MEDS: MAGNESIUM OXIDE 400MG TAB (MAG-OX) PO SCH ×2 (08:18→20:49)
[2021-02-28] MEDS: ZINC SULFATE 220 MG CAP PO SCH (08:18)
[2021-02-28] MEDS: NADOLOL 20MG TABLET PO SCH (08:18)
[2021-02-28] MEDS: VITAMIN D 1,000 INTERNATIONAL UNITS TABLET PO SCH (08:18)
[2021-02-28] MEDS: FUROSEMIDE 40 MG TAB PO SCH (08:19)
[2021-02-28] MEDS: MULTIVITAMINS/MINERALS THERAP 1 TAB PO SCH (08:19)
[2021-02-28] MEDS: ASCORBIC ACID 500 MG TAB PO SCH (08:19)
[2021-02-28] MEDS: SPIRONOLACTONE 25 MG TAB PO SCH (08:19)
[2021-02-28] MEDS: POTASSIUM CHLORIDE 10 MEQ SR TABLET PO SCH (08:19)
[2021-02-28] MEDS: TRIAMCINOLONE ACETONIDE 0.025 % 80 GM CREAM TOP SCH ×3 (08:20→20:49)
[2021-02-28] MEDS: REMEDY PHYTOPLEX Z-GUARD PASTE 113GM TUBE (FROM STOREROOM PRODUCT) TOP SCH ×3 (08:21→20:49)
[2021-02-28 14:00] VITALS: BP 136/60
[2021-02-28 20:10] VITALS: BP 127/64
[2021-02-28] MEDS: LATANOPROST 0.005% OPHTH SOLN 2.5 ML OU SCH (20:49)
[2021-03-01] MEDS: SODIUM CHLORIDE 0.9% INJ 10 ML SYR IV SCH ×4 (05:32→18:00)
[2021-03-01 06:00] VITALS: BP 129/60
[2021-03-01 06:15] LABS: BASO % 0.3 % (0.0-1.0); EOS # 0.2 10^3/uL (0.0-0.5); EOS % 2.8 % (0.0-3.0); HEMATOCRIT 31.5 % (36.0-47.0); HEMOGLOBIN 10.3 g/dl (12.0-15.5); LYMPH # 2.1 10^3/uL (1.5-5.0); MEAN CORPUSCULAR HEMOGLOBIN 33.9 pg (27.0-33.0); MEAN CORPUSCULAR HGB CONC 32.7 g/dl (32.0-36.5); MEAN CORPUSCULAR VOLUME 103.6 fl (80.0-96.0); MONO # 0.8 10^3/uL (0.0-0.8); MONO % 11.1 % (2.0-8.0); NEUTROPHILS # 4.2 10^3/uL (1.5-8.5); NEUTROPHILS % 57.4 % (36.0-66.0); PLATELET COUNT, AUTOMATED 101 10^3/uL (150-450); RED BLOOD COUNT 3.04 10^6/uL (4.00-5.40); WHITE BLOOD COUNT 7.4 10^3/uL (4.0-10.0)
[2021-03-01 06:38] LABS: BLOOD UREA NITROGEN 14 MG/DL (7-18); CALCIUM LEVEL 8.8 MG/DL (8.8-10.2); CARBON DIOXIDE LEVEL 31 MEQ/L (21-32); CHLORIDE LEVEL 104 MEQ/L (98-107); CREATININE FOR GFR 0.56 MG/DL (0.55-1.30); GLOMERULAR FILTRATION RATE > 60.0 (>39); GLUCOSE, FASTING 115 MG/DL (70-100); POTASSIUM SERUM 3.7 MEQ/L (3.5-5.1); SODIUM LEVEL 140 MEQ/L (136-145)
[2021-03-01] MEDS: IPRATROPIUM 0.5MG/ALBUTEROL 2.5MG INH SOL UD 3ML (DUONEB) NEB SCH ×3 (07:14→20:38)
[2021-03-01] MEDS: REMEDY PHYTOPLEX Z-GUARD PASTE 113GM TUBE (FROM STOREROOM PRODUCT) TOP SCH ×3 (09:00→20:48)
[2021-03-01] MEDS: LACTOBACILLUS ACIDOPHILUS CAP (BACID) PO SCH ×4 (09:28→20:47)
[2021-03-01] MEDS: MAGNESIUM OXIDE 400MG TAB (MAG-OX) PO SCH ×2 (09:29→20:47)
[2021-03-01] MEDS: POTASSIUM CHLORIDE 10 MEQ SR TABLET PO SCH (09:29)
[2021-03-01] MEDS: MULTIVITAMINS/MINERALS THERAP 1 TAB PO SCH (09:29)
[2021-03-01] MEDS: VITAMIN D 1,000 INTERNATIONAL UNITS TABLET PO SCH (09:29)
[2021-03-01] MEDS: ASCORBIC ACID 500 MG TAB PO SCH (09:29)
[2021-03-01] MEDS: NADOLOL 20MG TABLET PO SCH (09:30)
[2021-03-01] MEDS: SPIRONOLACTONE 25 MG TAB PO SCH (09:30)
[2021-03-01] MEDS: ZINC SULFATE 220 MG CAP PO SCH (09:30)
[2021-03-01] MEDS: FUROSEMIDE 40 MG TAB PO SCH (09:30)
[2021-03-01] MEDS: METAMUCIL (PSYLLIUM) PACKET PO SCH (09:30)
[2021-03-01] MEDS: TRIAMCINOLONE ACETONIDE 0.025 % 80 GM CREAM TOP SCH ×3 (09:31→20:48)
--- NOTE | 2021-03-01 13:51 | IPNPDOC ---
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 REVIEW OF SYSTEMS: The following is a completed review of systems and has been reviewed. Review of systems otherwise unremarkable. PAIN: Patient self reports no pain EYES: No recent vision changes EARS, NOSE, & THROAT: No throat pain, or dysphagia, or rhinorrhea CARDIOVASCULAR: Denies chest pain or palpitations PULMONARY:+ shortness of breath with exertion (improving) denies cough GASTROINTESTINAL: Denies constipation/diarrhea, s/p abdominal hernia repair GENITOURINARY: denies dysuria MUSCULOSKELETAL: generalized weakness. NEUROLOGICAL:denies tremor/paresthesias HEMATOLOGICAL: +easy bruising SKIN: RLE rash PSYCHIATRIC: Unremarkable All other review of systems found to be negative. PHYSICAL EXAMINATION: VITAL SIGNS: Please see below. GENERAL: Pleasant and cooperative. No acute distress. HEENT: PERRL. Extraocular movements intact. Clear conjunctiva CARDIOVASCULAR: Regular rate and rhythm. No murmurs, rubs, or gallops LUNGS: Clear to auscultation bilaterally. No wheezes. No rhonchi ABDOMEN: soft, but firm to palpation around hernia, mild guarding, TTP, surgical incision c/d/i NEUROLOGICAL: Alert and oriented times three. Cranial nerves II through XII grossly intact. Sensation grossly intact. EXTREMITIES: 5\5 strength bilateral upper extremities. 5-\5 strength right lower extremity. 5-/5 strength in left lower extremity. +bilat LE edema ASSESSMENT:70-year-old F with past medical history of umbilical hernia repair who presents status post ventral hernia incarceration s/p repair, small bowel resection with anastomosis and lysis of adhesions PLAN: 1. Rehab- PT/OT advance mobility and ADLs, strengthen/stretch/maintain ROM all 4 limbs, ambulating with RW and able to climb stairs 2. cardiac- htn c/u BP meds, adjust prn -likely CHF with LE edema, c/u fluid restrict, daily weights, c/u aldactone, c/u increased lasix to 40mg daily 3. resp- monitor for infection, concern for atelectasis in setting of recent abdominal surgery- CXR negative for infiltrate, breathing somewhat improved since addition of diuretic, however patient still with sats in low 90s and dyspneic, CTA negative for PE, patient's breathing better -supplemental 02 prn, incentive spirometry -duonebs 4. GI- s/p ventral hernia incarceration s/p repair, small bowel resection with anastomosis and lysis of adhesions performed 02-11-21, surgery consulted and did come see patient today, oral flagyl started 02-23-[address] abd report finding of fluid collection/abscess, switched from Cipro (started for UTI) to Cefepime given worsening leukocytosis and persistent low grade temps, ID consulted and recommended IR drainage for culture-sanguinous drainage, abdomen c/u to be softer, leukocytosis and Lactic acid also better- ok to d/c antibiotics per ID, recs appreciated - PICC line placed 02-24 -liver cirrhosis etiology unclear- f/u GI as outpatient -ppx- protonix 5. DVT ppx- teds, avoid AC due to thrombocytopenia 6. Pain- tylenol and oxycodone 7. - Ucx +ENTEROBACTER CLOACAE COMPLEX has received Cipro followed by Cefepime, ok to d/c antibiotics per ID 8. Psych- patient did not like atarax and instead would like to try an ant idepressant, will start Lexapro low dose 8. Dispo- 03-02-21 to home, progressing towards goals Allergies Coded Allergies: latex (Verified Allergy, Intermediate, rash, 02/08/21) Vital Signs Vital Signs Date Time Temp Pulse Resp B/P (MAP) Pulse Ox O2 Delivery O2 Flow Rate FiO2 03/01/21 07:15 Nasal Cannula 1.0 03/01/21 06:00 98.0 67 18 129/60 (83) 91 02/28/21 20:45 24 Laboratory Data CBC/BMP Laboratory Tests 03/01/21 06:00 Labs 24H Laboratory Tests 2 03/01/21 06:00: Immature Granulocyte % (Auto) 0.4, Neutrophils (%) (Auto) 57.4, Lymphocytes (%) (Auto) 28.0, Monocytes (%) (Auto) 11.1H, Eosinophils (%) (Auto) 2.8, Basophils (%) (Auto) 0.3, Neutrophils # (Auto) 4.2, Lymphocytes # (Auto) 2.1, Monocytes # (Auto) 0.8, Eosinophils # (Auto) 0.2, Basophils # (Auto) 0.0, Nucleated Red Blood Cells % (auto) 0.0, Anion Gap 5L, Glomerular Filtration Rate > 60.0, Calcium Level 8.8 Microbiology Microbiology 02/24/21 Gram Stain - Final, Complete 02/24/21 Abscess Culture - Final, Complete 02/22/21 Urine Culture - Final, Complete Enterobacter Cloacae Complex 02/21/21 Urine Culture - Final, Complete Current Medications Current Medications Current Medications Medications (Trade) Dose Ordered Sig/Lupe Route PRN Reason Start Time Stop Time Status Last Admin Dose Admin Acetaminophen (Tylenol Tab) 650 mg Q4HP PRN PO fever/MILD PAIN (PS 1-4) 02/16/21 16:05 02/25/21 21:02 Albuterol/ Ipratropium (Duoneb (Ipr 0.5mg/Alb 2.5mg)) 3 ml RTID NEB 02/17/21 16:00 03/01/21 07:14 Ascorbic Acid (Vitamin C) 500 mg DAILY PO 02/17/21 09:00 03/01/21 09:29 Bisacodyl (Dulcolax Suppository) 10 mg DAILYPRN PRN MA CONSTIPATION 02/16/21 16:05 Cefepime HCl 2 gm/ Dextrose 50 ml @ 100 mls/hr Q8H IV 02/24/21 12:00 02/26/21 11:04 DC 02/26/21 04:10 Ciprofloxacin (Cipro) 500 mg BID@06,18 PO 02/22/21 18:00 02/24/21 08:44 DC 02/24/21 04:59 Diatrizoate Meglum/ Diatrizoate Sod (Gastrografin) 10 ml Q30M PO 02/23/21 14:00 02/23/21 14:31 DC 02/23/21 14:30 Furosemide (Lasix) 20 mg DAILY PO 02/17/21 09:00 02/18/21 09:57 DC 02/18/21 08:05 Furosemide (Lasix) 40 mg DAILY PO 02/19/21 09:00 03/01/21 09:30 Heparin Sodium (Heparin (Flush)) 200 units ASDIRECTED PRN IV SEE LABEL COMMENTS 02/28/21 04:50 Heparin Sodium (Heparin (Flush)) 200 units ASDIRECTED PRN IV SEE LABEL COMMENTS 02/25/21 00:55 02/26/21 10:38 DC Heparin Sodium (Heparin (Flush)) 200 units PICC IV 02/28/21 06:00 03/01/21 05:32 Heparin Sodium (Heparin (Flush)) 200 units PICC IV 02/25/21 06:00 02/26/21 10:38 DC 02/26/21 04:36 Hydroxyzine HCl (Atarax) 25 mg Q6HP PRN PO ANXIETY 02/26/21 14:25 02/27/21 20:34 Lactobacillus Acidophilus (Bacid) 1 ea WMHS PO 02/22/21 18:00 03/01/21 12:38 Latanoprost (Xalatan 0.005% Op Soln) 1 drop QHS OU 02/16/21 21:00 02/28/21 20:49 Magnesium Oxide (Mag-Ox) 400 mg BID PO 02/16/21 21:00 03/01/21 09:29 Metronidazole (Flagyl) 500 mg Q8H PO 02/23/21 21:00 02/25/21 18:11 DC 02/25/21 12:30 Multivitamins (Theragram-M) 1 tab DAILY PO 02/17/21 09:00 03/01/21 09:29 Nadolol (Corgard) 40 mg DAILY PO 02/17/21 09:00 03/01/21 09:30 Oxycodone HCl (Roxicodone, Oxyir) 2.5 mg Q4HP PRN PO PAIN 02/16/21 16:05 Potassium Chloride (Micro-K Extencaps) 10 meq DAILY PO 02/19/21 09:00 03/01/21 09:29 Psyllium Hydrophilic Mucilloid (Metamucil) 1 pkt DAILY PO 02/17/21 09:00 03/01/21 09:30 Senna/Docusate Sodium (Senokot S) 1 tab BID PO 02/16/21 21:00 02/25/21 18:11 DC 02/25/21 08:44 Sodium Chloride (Saline Lock Flush) 10 ml ASDIRECTED PRN IV SEE LABEL COMMENTS 02/28/21 04:50 Sodium Chloride (Saline Lock Flush) 10 ml ASDIRECTED PRN IV SEE LABEL COMMENTS 02/25/21 00:55 Sodium Chloride (Saline Lock Flush) 10 ml PICC IV 02/28/21 06:00 03/01/21 05:32 Sodium Chloride (Saline Lock Flush) 10 ml PICC IV 02/25/21 06:00 02/28/21 17:18 Spironolactone (Aldactone) 25 mg QAM PO 02/17/21 09:00 03/01/21 09:30 Triamcinolone Acetonide (Kenalog 0.025% Cream) RLE TID TOP 02/16/21 21:00 03/01/21 09:31 Vitamin D (Vitamin D) 1,000 units DAILY PO 02/17/21 09:00 03/01/21 09:29 Zinc Sulfate (Zinc Sulfate) 220 mg DAILY PO 02/17/21 09:00 03/01/21 09:30 KRISHNA JUÁREZ MD Mar 01, 2021 13:51
[2021-03-01 14:00] VITALS: BP 129/60
[2021-03-01] MEDS: ESCITALOPRAM OXALATE 10 MG TAB (LEXAPRO) PO SCH (17:46)
[2021-03-01 20:15] VITALS: BP 136/62
[2021-03-01] MEDS: LATANOPROST 0.005% OPHTH SOLN 2.5 ML OU SCH (20:50)
[2021-03-02] MEDS: SODIUM CHLORIDE 0.9% INJ 10 ML SYR IV SCH (05:38)
[2021-03-02 06:16] VITALS: BP 144/67
[2021-03-02] MEDS: IPRATROPIUM 0.5MG/ALBUTEROL 2.5MG INH SOL UD 3ML (DUONEB) NEB SCH ×2 (07:33→13:18)
[2021-03-02] MEDS: METAMUCIL (PSYLLIUM) PACKET PO SCH (09:00)
[2021-03-02] MEDS: REMEDY PHYTOPLEX Z-GUARD PASTE 113GM TUBE (FROM STOREROOM PRODUCT) TOP SCH (09:00)
[2021-03-02] MEDS: ZINC SULFATE 220 MG CAP PO SCH (10:07)
[2021-03-02] MEDS: LACTOBACILLUS ACIDOPHILUS CAP (BACID) PO SCH ×2 (10:07→12:30)
[2021-03-02] MEDS: MAGNESIUM OXIDE 400MG TAB (MAG-OX) PO SCH (10:07)
[2021-03-02] MEDS: ESCITALOPRAM OXALATE 10 MG TAB (LEXAPRO) PO SCH (10:07)
[2021-03-02] MEDS: MULTIVITAMINS/MINERALS THERAP 1 TAB PO SCH (10:08)
[2021-03-02] MEDS: FUROSEMIDE 40 MG TAB PO SCH (10:08)
[2021-03-02] MEDS: POTASSIUM CHLORIDE 10 MEQ SR TABLET PO SCH (10:08)
[2021-03-02] MEDS: NADOLOL 20MG TABLET PO SCH (10:09)
[2021-03-02] MEDS: SPIRONOLACTONE 25 MG TAB PO SCH (10:09)
[2021-03-02] MEDS: VITAMIN D 1,000 INTERNATIONAL UNITS TABLET PO SCH (10:09)
[2021-03-02] MEDS: ASCORBIC ACID 500 MG TAB PO SCH (10:09)
[2021-03-02] MEDS: TRIAMCINOLONE ACETONIDE 0.025 % 80 GM CREAM TOP SCH (10:10)
[2021-03-02] MEDS ORDERED: ZINC220CA PO (12:36)
[2021-03-02] MEDS ORDERED: LEXA1TAB PO (12:36)
[2021-03-02] MEDS ORDERED: NADO20TA PO (12:36)
[2021-03-02] MEDS ORDERED: FURO40TA2 PO (12:36)
[2021-03-02] MEDS ORDERED: VITAD1000T PO (12:36)
[2021-03-02] MEDS ORDERED: KLOR10TA76 PO (12:36)
[2021-03-02] MEDS ORDERED: RISATAB3 PO (12:36)
[2021-03-02] MEDS ORDERED: ASCO50TA PO (12:36)
[2021-03-02] MEDS ORDERED: ALDA25TA2 PO (12:36)
[2021-03-02 14:00] VITALS: BP 135/63
--- NOTE | 2021-03-17 08:40 | PMRDS ---
NAME: GUILLE TIDWELL [facility] WT ID#: [id number] : 1950 JOB: [id number] REBECCA: 03/02/2021 ACCT: [id number] DOCTOR: KRISHNA JUÁREZ MD PMR DISCHARGE SUMMARY DATE OF ADMISSION: 02/16/2021 DATE OF DISCHARGE: 03/02/2021 CHIEF COMPLAINT/DISCHARGE DIAGNOSIS: Ventral hernia repair. HISTORY OF PRESENT ILLNESS: A 70-year-old female with a past medical history of umbilical hernia incarceration status post repair who presented to [facility] ED on 02/08/2021 with nausea and vomiting, found to have an incarcerated ventral hernia with CT of abdomen showing "a small bowel obstruction with a transition point identified within the umbilical hernia. There are findings of cirrhosis, mild splenomegaly with varices of the distal esophagus and splenic hilum." She was found to have thrombocytopenia, worsening liver cirrhosis for which medicine was consulted, etiology unable to be determined. She underwent a robotic lysis of adhesions, repair of incarcerated ventral hernia and a small bowel resection with anastomosis as well as closure of her primary ___ mesh on 02/11/2021. She was given IV antibiotics, her diet was advanced and she was deemed medically appropriate for discharge to ARU. She was seen and evaluated by therapy and noted to have mobility and ADL impairments. PAST MEDICAL HISTORY: As per HPI. HOSPITAL COURSE: Patient was admitted and enrolled in a comprehensive PT/OT program. She received 24 hour nursing supervision and weekly team meetings were held to discuss her progress. The patient was noted to have considerable dyspnea on initial evaluation, a chest x-ray was negative for infiltrates. Her breathing improved minimally with the addition of diuretics. She did receive supplemental oxygen, incentive spirometry and DuoNeb. CTA was negative for pulmonary embolism. Patient developed worsening abdominal swelling with low grade temperatures and leukocytosis, CT of the abdomen and pelvis was ordered showing fluid collection or abscess. She was started on antibiotics and evaluated by Infectious Disease. A drain was placed for her fluid collection, there was copious sanguinous drainage. The patient's abdominal swelling did improve, her leukocytosis also improved and her low grade fevers. Ultimately, she was taken off of IV antibiotics. Her thrombocytopenia remained stable. She made steady gains in therapy and was deemed medically and functionally stable for home. DISCHARGE MEDICATIONS: As per instructions. FUNCTIONAL HISTORY: Patient was modified independent for all functional transfers and ambulation. Thank you for this referral.
== END 2021-03-02 17:00 | disposition home health service (06) | DRG 947 ==
LOC: M PM&R 18:50
PROVIDERS: ADMIT Physical Medicine & Rehabilitation; ATTEND Physical Medicine & Rehabilitation
PROC: 0W9G30Z Drainage of Peritoneal Cavity with Drainage Device, Percutaneous Approach (ICD-10-PCS; 2021-02-24)
PROC: 02HV33Z Insertion of Infusion Device into Superior Vena Cava, Percutaneous Approach (ICD-10-PCS; principal; 2021-02-24 12:30)
DX: R53.1 Weakness (principal); K65.1 Peritoneal abscess; H40.9 Unspecified glaucoma; I50.9 Heart failure, unspecified; I11.0 Hypertensive heart disease with heart failure; D69.59 Other secondary thrombocytopenia; K74.60 Unspecified cirrhosis of liver; Z74.09 Other reduced mobility; Z74.1 Need for assistance with personal care; Z87.891 Personal history of nicotine dependence; Z79.899 Other long term (current) drug therapy; Z91.040 Latex allergy status

== ENCOUNTER → 2021-03-09 | Outpatient (CLI) | payer MEDICARE, OTHER ==
[~2021-03-09] MED LIST changes: +ASCO50TA PO; +FURO40TA2 PO; +KLOR10TA76 PO; +LEXA1TAB PO; +RISATAB3 PO; +VITAD1000T PO; +ZINC220CA PO
[2021-03-09 10:14] VITALS: BP 160/72
--- NOTE | 2021-04-13 14:33 | REP ---
INDICATION: ABDOMINAL ABSCESS-REMOVE DRAIN PORT. COMPARISON: None. TECHNIQUE: The procedure was performed under the direct supervision of Dr. Davila. Patient has a history of a lobulated, complex fluid collection measuring 10.7 x 8.7 x 15.9 cm seen on a previous CT scan dated 02/23/2021. The patient had a 10 [place] skater APDL catheter placed on 02/24/2021. The risks and benefits of the procedure were explained to the patient and informed consent was obtained. The existing 8 [place] catheter was cut and removed without technical difficulty. A sterile dressing was then applied. The patient tolerated the procedure well and there were no immediate complications. After the appropriate amount to monitor convalescence the patient was discharged from the department. FINDINGS: None IMPRESSION: Eight [place] drainage catheter removed without technical difficulty. <Electronically signed by Noel Davila > 04/13/21 [id number]
== END ==
LOC: M IRPRO 09:52
PROVIDERS: ATTEND Physical Medicine & Rehabilitation
DX: Z48.00 Encounter for change or removal of nonsurgical wound dressing (principal)

== ENCOUNTER → 2021-03-19 | Outpatient (CLI) | payer MEDICARE, OTHER ==
[2021-03-19 16:24] LABS: BASO % 0.3 % (0.0-1.0); EOS # 0.2 10^3/uL (0.0-0.5); HEMATOCRIT 41.3 % (36.0-47.0); HEMOGLOBIN 13.8 g/dl (12.0-15.5); LYMPH # 2.9 10^3/uL (1.5-5.0); LYMPH % 25.3 % (24.0-44.0); MEAN CORPUSCULAR HEMOGLOBIN 33.3 pg (27.0-33.0); MEAN CORPUSCULAR HGB CONC 33.4 g/dl (32.0-36.5); MEAN CORPUSCULAR VOLUME 99.5 fl (80.0-96.0); MONO # 1.5 10^3/uL (0.0-0.8); MONO % 13.2 % (2.0-8.0); NEUTROPHILS # 6.6 10^3/uL (1.5-8.5); NEUTROPHILS % 58.8 % (36.0-66.0); PLATELET COUNT, AUTOMATED 135 10^3/uL (150-450); RED BLOOD COUNT 4.15 10^6/uL (4.00-5.40)
[2021-03-19 16:25] LABS: WHITE BLOOD COUNT 11.3 10^3/uL (4.0-10.0)
[2021-03-19 16:40] LABS: INR 1.48; PARTIAL THROMBOPLASTIN TIME 33.8 SECONDS (24.2-38.5); PROTHROMBIN TIME 18.3 SECONDS (12.5-14.3)
[2021-03-19 17:14] LABS: ALBUMIN 2.6 GM/DL (3.2-5.2); ALT/SGPT 24 U/L (12-78); BILIRUBIN,TOTAL 3.1 MG/DL (0.2-1.0); BLOOD UREA NITROGEN 23 MG/DL (7-18); CALCIUM LEVEL 10.6 MG/DL (8.8-10.2); CARBON DIOXIDE LEVEL 32 MEQ/L (21-32); CHLORIDE LEVEL 99 MEQ/L (98-107); CREATININE FOR GFR 0.86 MG/DL (0.55-1.30); GLOMERULAR FILTRATION RATE > 60.0 (>39); GLUCOSE, FASTING 184 MG/DL (70-100); POTASSIUM SERUM 3.7 MEQ/L (3.5-5.1); SODIUM LEVEL 138 MEQ/L (136-145); TOTAL PROTEIN 7.6 GM/DL (6.4-8.2)
[2021-03-19 17:39] LABS: HIV 1&2 SCREEN CENTAUR NEGATIVE (NEGATIVE)
== END ==
LOC: M LAB 15:39
PROVIDERS: ATTEND Student in an Organized Health Care Education/Training Program
DX: K74.60 Unspecified cirrhosis of liver (principal); D69.6 Thrombocytopenia, unspecified

== ENCOUNTER → 2021-04-15 | Outpatient (CLI) | payer MEDICARE, OTHER ==
--- NOTE | 2021-04-15 11:31 | PFTRPT ---
Height: 59.00 Inches Weight: 145.00 Lbs BSA: 1.61 Diagnosis: R91.8 DATE: 04/15/2021 ORDERED BY: TORIBIO Olmos Pre and post bronchodilator studies have excellent technical quality. Forced vital capacity is reduced. FEV1 is in borderline proportion. Obstructive index is therefore borderline as well. Expiratory limit of the flow-volume loop does suggest at least some degree of flow rate limitation. No significant bronchodilator response is identified. Total lung capacity is normal. Residual volume suggests air trapping. Diffusing capacity is significantly reduced, but is appropriate for alveolar volume. Hemoglobin is acceptable at 13. Airway resistance is markedly elevated with concomitant decrease in airway conductance. IMPRESSION: Suspect at least some degree of underlying air trapping. Please correlate clinically. MTDD
== END ==
LOC: M CARPUL 11:02
PROVIDERS: ATTEND Physician Assistant
DX: R91.8 Other nonspecific abnormal finding of lung field (principal)

== ENCOUNTER → 2021-06-08 | Outpatient (CLI) | payer MEDICARE, OTHER ==
[2021-06-08 10:01] LABS: PLATELET COUNT, AUTOMATED 107 10^3/uL (150-450)
[2021-06-08 10:15] LABS: INR 1.44; PROTHROMBIN TIME 17.9 SECONDS (12.5-14.3)
[2021-06-08 10:16] LABS: PARTIAL THROMBOPLASTIN TIME 33.7 SECONDS (24.2-38.5)
[2021-06-08 10:31] LABS: ALBUMIN 2.7 GM/DL (3.2-5.2); BILIRUBIN,DIRECT 1.1 MG/DL (0.0-0.2); BILIRUBIN,TOTAL 3.1 MG/DL (0.2-1.0); CALCIUM LEVEL 8.7 MG/DL (8.8-10.2); CREATININE FOR GFR 1.12 MG/DL (0.55-1.30); GLOMERULAR FILTRATION RATE 51.2 (>39); PERCENT SATURATION 79.5 % (13.2-45.0); POTASSIUM SERUM 3.4 MEQ/L (3.5-5.1); TOTAL PROTEIN 6.3 GM/DL (6.4-8.2)
[2021-06-14 11:12] LABS: LIVER-KIDNEY MICROSOMAL ABY <20.1 Units (0.0-20.0)
== END ==
LOC: M LAB 07:55
PROVIDERS: ATTEND Internal Medicine Gastroenterology
DX: K74.60 Unspecified cirrhosis of liver (principal)

== ENCOUNTER → 2021-08-14 | Outpatient (CLI) | payer MEDICARE, OTHER ==
[~2021-08-14] MED LIST changes: -KLOR10TA76 PO; +POTA-136 PO
== END ==
LOC: M LABSMTC 09:15
PROVIDERS: ATTEND Anesthesiology
DX: Z20.828 Contact with and (suspected) exposure to other viral communicable diseases (principal); Z11.59 Encounter for screening for other viral diseases

== ENCOUNTER 2021-08-19 13:31 | Day surgery (SDC) | payer MEDICARE, OTHER ==
[~2021-08-19] VITALS: Ht 152.4 cm; Wt 69.1 kg
[~2021-08-19 13:31] MED LIST changes: +NS 1,000 ML IV ONE
[2021-08-19] MEDS ORDERED: fentaNYL 100 MCG/2 ML INJECTION (J3010) As Ordered ONE (14:45)
[2021-08-19] MEDS ORDERED: propofoL 200 MG/20 ML VIAL As Ordered ONE (14:45)
[2021-08-19] MEDS ORDERED: LIDOCAINE 2% 100MG/5ML SDV (FOR ANES.) As Ordered ONE (14:46)
[2021-08-19] MEDS ORDERED: GLYCOPYRROLATE INJ 0.2 MG/ML 2 ML VIAL As Ordered ONE (14:51)
--- NOTE | 2021-08-19 15:39 | ROOR ---
Patient Name: Ursula Henley Procedure Date: 08/19/2021 3:14 PM Date of : 1950 Age: 70 Room: [facility] Gender: Female Note Status: Finalized Procedure: Upper GI endoscopy Indications: Cirrhosis with suspected esophageal varices Providers: Erick Crockett MD Referring MD: Lb Brown-1 Wilfredo Requesting Provider: Medicines: Monitored Anesthesia Care Complications: No immediate complications. Procedure: Pre-Anesthesia Assessment: - Prior to the procedure, a History and Physical was performed, and patient medications and allergies were reviewed. The patient is competent. The risks and benefits of the procedure and the sedation options and risks were discussed with the patient. All questions were answered and informed consent was obtained. Patient identification and proposed procedure were verified by the physician, the nurse and the anesthesiologist in the procedure room. Mental Status Examination: alert and oriented. Airway Examination: normal oropharyngeal airway and neck mobility. Respiratory Examination: clear to auscultation. CV Examination: normal. Prophylactic Antibiotics: The patient does not require prophylactic antibiotics. Prior Anticoagulants: The patient has taken no previous anticoagulant or antiplatelet agents. ASA Grade Assessment: II - A patient with mild systemic disease. After reviewing the risks and benefits, the patient was deemed in satisfactory condition to undergo the procedure. The anesthesia plan was to use monitored anesthesia care (MAC). Immediately prior to administration of medications, the patient was re-assessed for adequacy to receive sedatives. The heart rate, respiratory rate, oxygen saturations, blood pressure, adequacy of pulmonary ventilation, and response to care were monitored throughout the procedure. The physical status of the patient was re-assessed after the procedure. The Endoscope was introduced through the mouth, and advanced to the second part of duodenum. The upper GI endoscopy was accomplished without difficulty. The patient tolerated the procedure well. Findings: LA Grade A (one or more mucosal breaks less than 5 mm, not extending between tops of 2 mucosal folds) esophagitis with no bleeding was found in the distal esophagus. Biopsies were taken with a cold forceps for histology. Verification of patient identification for the specimen was done by the physician and nurse using the patient's name, date and medical record number. Estimated blood loss was minimal. A small hiatal hernia was present. No gross lesions were noted in the entire examined stomach. The duodenal bulb and second portion of the duodenum were normal. Impression: - LA Grade A reflux esophagitis. Rule out Renee's esophagus. Biopsied. - Small hiatal hernia. - No gross lesions in the stomach. - Normal duodenal bulb and second portion of the duodenum. Recommendation: - Patient has a contact number available for emergencies. The signs and symptoms of potential delayed complications were discussed with the patient. Return to normal activities tomorrow. Written discharge instructions were provided to the patient. - High fiber diet. - Continue present medications. - Await pathology results. - Follow an antireflux regimen. - Telephone GI clinic for pathology results in 2 weeks. - Return to GI clinic if persistent symptoms or new symptoms. - Return to primary care physician. Procedure Code(s): --- Professional --- 25401, Esophagogastroduodenoscopy, flexible, transoral; with biopsy, single or multiple Diagnosis Code(s): --- Professional --- K21.0, Gastro-esophageal reflux disease with esophagitis K44.9, Diaphragmatic hernia without obstruction or gangrene K74.60, Unspecified cirrhosis of liver CPT copyright 2019 [employer]. All rights reserved. The codes documented in this report are preliminary and upon administrative support manager review may be revised to meet current compliance requirements. Erick Crockett MD Erick Crockett MD 08/19/2021 3:38:43 PM Electronically signed by Erick Crockett MD Number of Addenda: 0 Note Initiated On: 08/19/2021 3:14 PM Estimated Blood Loss: Estimated blood loss was minimal.
[2021-08-19 15:56] VITALS: BP 138/67
== END 2021-08-19 16:13 | disposition home or self-care (01) ==
LOC: M OPP 13:31
PROVIDERS: ATTEND Internal Medicine Gastroenterology
DX: K21.00 Gastro-esophageal reflux disease with esophagitis, without bleeding (principal); K44.9 Diaphragmatic hernia without obstruction or gangrene; K74.60 Unspecified cirrhosis of liver; Z79.899 Other long term (current) drug therapy; Z91.040 Latex allergy status; Z87.891 Personal history of nicotine dependence
CPT/HCPCS: 43239; 88305; J3010

== ENCOUNTER → 2021-08-23 | Outpatient (CLI) | payer MEDICARE, OTHER ==
[~2021-08-23] MED LIST changes: -NS 1,000 ML IV ONE
--- NOTE | 2021-08-24 14:44 | SLEEPCENT ---
DATE: 08/23/2021 PROCEDURE: Nocturnal polysomnography. ORDERED BY: Jun Moreno. Nocturnal polysomnography was performed for evaluation of sleep physiology in this patient with a history of excessive somnolence and nonrestorative sleep. 8 hours and 11 minutes of data were reviewed. There were 277 minutes of sleep identified. Sleep latency was prolonged at 67.5 minutes. REM latency was quite prolonged at 375 minutes. Sleep architecture showed fragmentation and poor progression. There were periods of wake resulting in a reduced sleep efficiency of 56.9%. The electrocardiogram showed a sinus rhythm with an average heart rate of 60 beats per minute. EEG showed alpha intrusion. No focal events were appreciated, and there were normal waveforms for wake and sleep stages. There were only 2 respiratory events identified of 10 seconds in duration or greater for an apnea-hypopnea index well within normal limits at 0.4. Snoring was noted over the course of the study, more prominently in the supine posture, and arousals from respiratory events when arousals from snoring were included occurred 7.4 times per hour. There were no significant oxygen desaturations below 90%. There was scattered activity in the limb leads but no trains of events. Limb movement arousal index was 13.6. IMPRESSION: Normal nocturnal polysomnography with snoring in the supine position. RECOMMENDATION: Sleep position retraining for avoidance of supine position may be helpful. cc: KRISHNA JUÁREZ MD
== END ==
LOC: M SLEEP 20:00
PROVIDERS: ATTEND Physician Assistant
DX: R40.0 Somnolence (principal); R06.83 Snoring

== ENCOUNTER → 2021-09-01 | Outpatient (CLI) | payer MEDICARE, OTHER ==
--- NOTE | 2021-09-01 13:32 | REP ---
INDICATION: ABNORMAL PFT RESULTS COMPARISON: 02/25/2021 TECHNIQUE: Axial noncontrast images from the thoracic inlet to the upper abdomen with coronal and sagittal reformations. This CT examination was performed using the following dose reduction techniques: Automated exposure control, adjustment of mA and/or kv according to the patient's size, and use of iterative reconstruction technique. FINDINGS: Bilateral lung hammonds are relatively well aerated and symmetric. Few stable small noncalcified primarily subpleural nodules are again identified up to approximately 3-4 mm. No acute consolidation or effusion. No pneumothorax. Tracheobronchial tree is patent. Mediastinum demonstrates atherosclerotic changes to the aorta and coronary arteries without aortic aneurysm or cardiomegaly. No pericardial effusion. Nodes significant adenopathy. 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 Musculoskeletal structures are intact. Upper abdomen demonstrates evidence for cirrhosis and portal hypertension. IMPRESSION: 1. Few scattered small 3-4 mm noncalcified nodules remain stable. Low risk patients require no further investigation while high risk patients may warrant 12 month follow-up. 2. No acute mediastinal or pleuroparenchymal process. 3. Evidence for cirrhosis and portal hypertension. <Electronically signed by Floyd Payne > 09/01/21 [id number]
== END ==
LOC: M RAD 12:37
PROVIDERS: ATTEND Physician Assistant
DX: R91.8 Other nonspecific abnormal finding of lung field (principal); R94.2 Abnormal results of pulmonary function studies

== ENCOUNTER → 2021-09-10 | Outpatient (CLI) | payer MEDICARE, OTHER | LOC: M PLALAB 15:51 | PROVIDERS: ATTEND Student in an Organized Health Care Education/Training Program | DX: K74.60 Unspecified cirrhosis of liver (principal) ==

== ENCOUNTER → 2021-09-10 | Outpatient (REF) | payer MEDICARE, OTHER | LOC: M SFHCPLAZ 15:35 | DX: K74.60 Unspecified cirrhosis of liver (principal) ==

== ENCOUNTER → 2021-09-13 | Outpatient (CLI) | payer MEDICARE, OTHER ==
[2021-09-13 11:42] LABS: INR 1.29; PROTHROMBIN TIME 16.6 SECONDS (12.7-14.5)
[2021-09-13 11:43] LABS: PARTIAL THROMBOPLASTIN TIME 34.3 SECONDS (25.9-37.0)
[2021-09-13 12:01] LABS: ALBUMIN 2.7 GM/DL (3.2-5.2); CALCIUM LEVEL 9.8 MG/DL (8.8-10.2); CREATININE FOR GFR 1.53 MG/DL (0.55-1.30); GLOMERULAR FILTRATION RATE 35.7 (>39); POTASSIUM SERUM 4.4 MEQ/L (3.5-5.1); TOTAL PROTEIN 6.5 GM/DL (6.4-8.2)
[2021-09-13 12:07] LABS: PTH INTACT 31.9 PG/ML (18.5-88.0)
== END ==
LOC: M LAB 10:33
PROVIDERS: ATTEND Student in an Organized Health Care Education/Training Program
DX: K74.60 Unspecified cirrhosis of liver (principal)

== ENCOUNTER → 2021-10-16 | Outpatient (CLI) | payer SELFPAY | LOC: M LABSMTC 10:18 | PROVIDERS: ATTEND Pediatrics | DX: Z20.822 Contact with and (suspected) exposure to COVID-19 (principal); Z11.52 Encounter for screening for COVID-19 ==

== ENCOUNTER → 2022-08-08 | Outpatient (CLI) | payer MEDICARE, OTHER ==
[~2022-08-08] MED LIST changes: -D31000TA2 PO; +VITA100093 PO
[2022-08-08 14:12] LABS: CALCIUM LEVEL 9.6 MG/DL (8.8-10.2); CREATININE FOR GFR 1.17 MG/DL (0.55-1.30); GLOMERULAR FILTRATION RATE 48.5 (>39); POTASSIUM SERUM 4.5 MEQ/L (3.5-5.1)
== END ==
LOC: M LAB 11:05
PROVIDERS: ATTEND Student in an Organized Health Care Education/Training Program
DX: Z51.81 Encounter for therapeutic drug level monitoring (principal)

== ENCOUNTER → 2022-08-26 | Outpatient (CLI) | payer MEDICARE, OTHER ==
[2022-08-26 12:49] LABS: ALBUMIN 2.9 GM/DL (3.2-5.2); CALCIUM LEVEL 9.8 MG/DL (8.8-10.2); CREATININE FOR GFR 1.23 MG/DL (0.55-1.30); GLOMERULAR FILTRATION RATE 45.8 (>39); POTASSIUM SERUM 4.8 MEQ/L (3.5-5.1); TOTAL PROTEIN 6.6 GM/DL (6.4-8.2)
[2022-08-26 12:54] LABS: HEMOGLOBIN A1c 5.8 %
== END ==
LOC: M LAB 11:02
PROVIDERS: ATTEND Family Medicine
DX: Z13.1 Encounter for screening for diabetes mellitus (principal); Z79.899 Other long term (current) drug therapy

== ENCOUNTER 2022-09-09 07:46 | Inpatient (IN) | payer MEDICARE, OTHER ==
[~2022-09-09] VITALS: Ht 165.1 cm; Wt 71.5 kg
[2022-09-09 09:00] LABS: VENOUS BASE EXCESS 2.4 (-2.0-2.0); VENOUS HCO3 26.6 MEQ/L (23.0-27.0); VENOUS O2 SATURATION 94.9 % (60.0-80.0); VENOUS PARTIAL PRESSURE O2 75.8 mmHg (30.0-50.0); VENOUS PH 7.441 UNITS (7.330-7.430); VENOUS STANDARD HCO3 26.5 MEQ/L; VENOUS TOTAL CO2 27.8 MEQ/L (24.0-28.0)
[2022-09-09 09:06] LABS: BASO % 0.1 % (0.0-1.0); EOS # 0.2 10^3/uL (0.0-0.5); EOS % 1.1 % (0.0-3.0); HEMATOCRIT 40.8 % (36.0-47.0); HEMOGLOBIN 13.8 g/dl (12.0-15.5); LYMPH # 1.8 10^3/uL (1.5-5.0); LYMPH % 12.5 % (24.0-44.0); MEAN CORPUSCULAR HEMOGLOBIN 32.8 pg (27.0-33.0); MEAN CORPUSCULAR HGB CONC 33.8 g/dl (32.0-36.5); MEAN CORPUSCULAR VOLUME 96.9 fl (80.0-96.0); MONO # 1.5 10^3/uL (0.0-0.8); MONO % 10.3 % (2.0-8.0); NEUTROPHILS # 10.9 10^3/uL (1.5-8.5); NEUTROPHILS % 75.4 % (36.0-66.0); RED BLOOD COUNT 4.21 10^6/uL (4.00-5.40); WHITE BLOOD COUNT 14.5 10^3/uL (4.0-10.0)
[2022-09-09 09:26] LABS: RSV AMPLIFICATION NEGATIVE (NEGATIVE)
[2022-09-09 09:30] LABS: PLATELET COUNT, AUTOMATED 86 10^3/uL (150-450)
[2022-09-09] MEDS: NS 1,000 ML IV SCH ×3 (09:33→23:45)
[2022-09-09 10:07] LABS: ALBUMIN 2.9 GM/DL (3.2-5.2); BILIRUBIN,DIRECT 1.5 MG/DL (0.0-0.2); BILIRUBIN,TOTAL 5.5 MG/DL (0.2-1.0); CALCIUM LEVEL 10.5 MG/DL (8.8-10.2); CREATININE FOR GFR 1.36 MG/DL (0.55-1.30); GLOMERULAR FILTRATION RATE 40.8 (>39); POTASSIUM SERUM 5.2 MEQ/L (3.5-5.1); THYROID STIMULATING HORMONE 2.43 uIU/ML (0.358-3.740); TOTAL PROTEIN 6.9 GM/DL (6.4-8.2)
[2022-09-09] MEDS ORDERED: LACTULOSE 20 GM/30 ML SYRUP UD PO ONE (11:30)
[2022-09-09] MEDS ORDERED: ONDANSETRON 4MG 2ML VIAL IV ONE (12:10)
[2022-09-09] MEDS ORDERED: GLUCAGON INJ 1MG VIAL SC PRN (14:00)
[2022-09-09] MEDS ORDERED: GLUCOSE 4GM CHEW TABLET PO PRN (14:00)
[2022-09-09] MEDS ORDERED: DEXTROSE 50% 50 ML SYRINGE IV PRN (14:00)
[2022-09-09] MEDS ORDERED: VITA500C24 PO (15:15)
[2022-09-09] MEDS ORDERED: IPRA0.00 INH (15:15)
[2022-09-09] MEDS ORDERED: ALBU8.5H INH (15:15)
[2022-09-09] MEDS ORDERED: K-TA10TA PO (15:15)
[2022-09-09] MEDS ORDERED: SPIR-10 PO (15:15)
[2022-09-09] MEDS ORDERED: RISATAB3 PO (15:15)
[2022-09-09] MEDS ORDERED: ZINC220CA PO (15:15)
[2022-09-09] MEDS ORDERED: NADO20TA PO (15:15)
[2022-09-09] MEDS ORDERED: PRED10TA2 PO (15:17)
[2022-09-09] MEDS ORDERED: MED REC COMMENT (15:19)
[2022-09-09] MEDS ORDERED: LACTULOSE 20 GM/30 ML SYRUP UD PR ONE (15:25)
[2022-09-09] MEDS ORDERED: HOME MED LIST COMPLETE! XX SCH (15:25)
[2022-09-09 15:41] LABS: INR 1.41; PROTHROMBIN TIME 17.5 SECONDS (12.5-14.5)
[2022-09-09] MEDS: cefTRIAXone SOD 2 GM in D5W MINI-BAG PLUS 50 ML IV SCH (16:34)
[2022-09-09] MEDS: NADOLOL 20MG TABLET PO SCH (16:44)
[2022-09-09] MEDS: INSULIN LISPRO (NovoLOG) PER UNIT SC SCH (18:00)
[2022-09-09] MEDS: LACTULOSE 20 GM/30 ML SYRUP UD PO SCH (18:53)
[2022-09-09 23:12] VITALS: BP 168/82
[2022-09-10] VITALS (22 sets, daily range): BP systolic 135–158; BP diastolic 67–78; O2SAT 91–99
[2022-09-10] MEDS ORDERED: ALBUTEROL SULFATE 2.5 MG/0.5 ML INH NEB SOLN INH PRN (00:20)
[2022-09-10] MEDS: LACTULOSE 20 GM/30 ML SYRUP UD PO SCH ×4 (00:32→18:18)
[2022-09-10] MEDS: INSULIN LISPRO (NovoLOG) PER UNIT SC SCH ×5 (00:33→23:59)
[2022-09-10] MEDS: IPRATROPIUM 0.5MG/ALBUTEROL 2.5MG INH SOL UD 3ML (DUONEB) INH SCH ×4 (00:38→20:18)
[2022-09-10 08:26] LABS: HEMATOCRIT 38.9 % (36.0-47.0); HEMOGLOBIN 12.9 g/dl (12.0-15.5); MEAN CORPUSCULAR HGB CONC 33.2 g/dl (32.0-36.5); MEAN CORPUSCULAR VOLUME 99.5 fl (80.0-96.0); RED BLOOD COUNT 3.91 10^6/uL (4.00-5.40); WHITE BLOOD COUNT 14.4 10^3/uL (4.0-10.0)
[2022-09-10 08:30] LABS: PLATELET COUNT, AUTOMATED 70 10^3/uL (150-450)
[2022-09-10 08:35] LABS: INR 1.42; PROTHROMBIN TIME 17.6 SECONDS (12.5-14.5)
[2022-09-10 08:47] LABS: ALBUMIN 2.6 GM/DL (3.2-5.2); ALT/SGPT 39 U/L (12-78); BILIRUBIN,TOTAL 6.7 MG/DL (0.2-1.0); BLOOD UREA NITROGEN 40 MG/DL (7-18); CALCIUM LEVEL 9.6 MG/DL (8.8-10.2); CARBON DIOXIDE LEVEL 23 MEQ/L (21-32); CHLORIDE LEVEL 113 MEQ/L (98-107); CREATININE FOR GFR 1.44 MG/DL (0.55-1.30); GLOMERULAR FILTRATION RATE 38.2 (>39); GLUCOSE, FASTING 210 MG/DL (70-100); MAGNESIUM LEVEL 1.9 MG/DL (1.8-2.4); POTASSIUM SERUM 4.2 MEQ/L (3.5-5.1); SODIUM LEVEL 142 MEQ/L (136-145); TOTAL PROTEIN 5.9 GM/DL (6.4-8.2)
[2022-09-10] MEDS: NADOLOL 20MG TABLET PO SCH (09:14)
[2022-09-10] MEDS: NS 1,000 ML IV SCH ×2 (09:15→20:25)
[2022-09-10] MEDS: amLODIPine 5 MG TAB GT SCH (10:27)
[2022-09-10] MEDS: cefTRIAXone SOD 2 GM in D5W MINI-BAG PLUS 50 ML IV SCH (18:17)
[2022-09-11] VITALS (16 sets, daily range): BP systolic 136–159; BP diastolic 65–70; O2SAT 93–95
[2022-09-11] MEDS: IPRATROPIUM 0.5MG/ALBUTEROL 2.5MG INH SOL UD 3ML (DUONEB) INH SCH ×4 (01:06→22:05)
[2022-09-11] MEDS: LACTULOSE 20 GM/30 ML SYRUP UD PO SCH ×4 (01:31→18:08)
[2022-09-11] MEDS: NS 1,000 ML IV SCH (05:32)
[2022-09-11 06:13] LABS: HEMATOCRIT 38.3 % (36.0-47.0); HEMOGLOBIN 12.4 g/dl (12.0-15.5); MEAN CORPUSCULAR HEMOGLOBIN 33.4 pg (27.0-33.0); MEAN CORPUSCULAR HGB CONC 32.4 g/dl (32.0-36.5); MEAN CORPUSCULAR VOLUME 103.2 fl (80.0-96.0); RED BLOOD COUNT 3.71 10^6/uL (4.00-5.40); WHITE BLOOD COUNT 13.6 10^3/uL (4.0-10.0)
[2022-09-11 06:22] LABS: PLATELET COUNT, AUTOMATED 54 10^3/uL (150-450)
[2022-09-11 06:38] LABS: ALBUMIN 2.5 GM/DL (3.2-5.2); BILIRUBIN,TOTAL 5.1 MG/DL (0.2-1.0); CREATININE FOR GFR 1.22 MG/DL (0.55-1.30); GLOMERULAR FILTRATION RATE 46.3 (>39); MAGNESIUM LEVEL 1.6 MG/DL (1.8-2.4); POTASSIUM SERUM 4.4 MEQ/L (3.5-5.1); TOTAL PROTEIN 5.7 GM/DL (6.4-8.2)
[2022-09-11 06:46] LABS: INR 1.46
[2022-09-11] MEDS: INSULIN LISPRO (NovoLOG) PER UNIT SC SCH ×4 (06:47→21:31)
[2022-09-11] MEDS: NADOLOL 20MG TABLET PO SCH (10:40)
[2022-09-11] MEDS: amLODIPine 5 MG TAB GT SCH (10:41)
[2022-09-11] MEDS: cefTRIAXone SOD 2 GM in D5W MINI-BAG PLUS 50 ML IV SCH (17:11)
[2022-09-11] MEDS ORDERED: POLYVINYL ALCOHOL OPHTH SOLN 15 ML(LIQUITEARS) OU PRN (20:05)
[2022-09-11] MEDS: LATANOPROST 0.005% OPHTH SOLN 2.5 ML OU SCH (21:31)
[2022-09-12] VITALS: O2SAT 94
[2022-09-12] MEDS: IPRATROPIUM 0.5MG/ALBUTEROL 2.5MG INH SOL UD 3ML (DUONEB) INH SCH ×4 (01:41→20:31)
[2022-09-12 04:00] VITALS: BP 156/67
[2022-09-12] MEDS: LACTULOSE 20 GM/30 ML SYRUP UD PO SCH ×5 (06:29→21:21)
[2022-09-12 07:42] LABS: HEMATOCRIT 34.4 % (36.0-47.0); HEMOGLOBIN 11.6 g/dl (12.0-15.5); MEAN CORPUSCULAR HEMOGLOBIN 33.9 pg (27.0-33.0); MEAN CORPUSCULAR HGB CONC 33.7 g/dl (32.0-36.5); MEAN CORPUSCULAR VOLUME 100.6 fl (80.0-96.0); RED BLOOD COUNT 3.42 10^6/uL (4.00-5.40); WHITE BLOOD COUNT 11.9 10^3/uL (4.0-10.0)
[2022-09-12 07:45] LABS: PLATELET COUNT, AUTOMATED 61 10^3/uL (150-450)
[2022-09-12 07:54] LABS: INR 1.46
[2022-09-12 08:16] VITALS: BP 134/61
[2022-09-12 08:21] LABS: ALBUMIN 2.4 GM/DL (3.2-5.2); BILIRUBIN,TOTAL 2.9 MG/DL (0.2-1.0); CALCIUM LEVEL 9.5 MG/DL (8.8-10.2); CREATININE FOR GFR 1.11 MG/DL (0.55-1.30); GLOMERULAR FILTRATION RATE 51.6 (>39); MAGNESIUM LEVEL 1.8 MG/DL (1.8-2.4); TOTAL PROTEIN 5.7 GM/DL (6.4-8.2)
[2022-09-12] MEDS: amLODIPine 5 MG TAB GT SCH (08:27)
[2022-09-12] MEDS: NADOLOL 20MG TABLET PO SCH (08:27)
[2022-09-12] MEDS: INSULIN LISPRO (NovoLOG) PER UNIT SC SCH ×4 (08:28→21:49)
[2022-09-12 11:15] LABS: HEPATITIS B SURFACE ANTIGEN NEGATIVE (NEGATIVE)
[2022-09-12 11:33] LABS: HEPATITIS C VIRUS ABY INDEX < 0.0 INDEX (<0.8)
[2022-09-12 11:39] LABS: HEPATITIS B CORE ANTIBODY IGM NEGATIVE (NEGATIVE)
[2022-09-12 14:16] LABS: PERCENT SATURATION 95.1 % (13.2-45.0)
[2022-09-12 16:00] VITALS: BP 147/65
[2022-09-12] MEDS: CEPHALEXIN 250MG CAPSULE PO SCH ×2 (16:25→21:49)
[2022-09-12 20:00] VITALS: BP 144/70
[2022-09-12] MEDS: LATANOPROST 0.005% OPHTH SOLN 2.5 ML OU SCH (21:49)
[2022-09-13 00:40] VITALS: BP 144/67
[2022-09-13 06:00] VITALS: BP 140/69
[2022-09-13] MEDS: LACTULOSE 20 GM/30 ML SYRUP UD PO SCH ×3 (06:23→21:42)
[2022-09-13 06:46] LABS: HEMATOCRIT 32.2 % (36.0-47.0); HEMOGLOBIN 10.5 g/dl (12.0-15.5); MEAN CORPUSCULAR HEMOGLOBIN 33.2 pg (27.0-33.0); MEAN CORPUSCULAR HGB CONC 32.6 g/dl (32.0-36.5); MEAN CORPUSCULAR VOLUME 101.9 fl (80.0-96.0); RED BLOOD COUNT 3.16 10^6/uL (4.00-5.40); WHITE BLOOD COUNT 11.4 10^3/uL (4.0-10.0)
[2022-09-13 06:52] LABS: PLATELET COUNT, AUTOMATED 52 10^3/uL (150-450)
[2022-09-13 07:25] LABS: ALBUMIN 2.1 GM/DL (3.2-5.2); BILIRUBIN,TOTAL 2.2 MG/DL (0.2-1.0); CALCIUM LEVEL 9.2 MG/DL (8.8-10.2); CREATININE FOR GFR 0.99 MG/DL (0.55-1.30); GLOMERULAR FILTRATION RATE 58.9 (>39); MAGNESIUM LEVEL 1.8 MG/DL (1.8-2.4); POTASSIUM SERUM 4.6 MEQ/L (3.5-5.1); TOTAL PROTEIN 5.2 GM/DL (6.4-8.2)
[2022-09-13] MEDS: IPRATROPIUM 0.5MG/ALBUTEROL 2.5MG INH SOL UD 3ML (DUONEB) INH SCH ×4 (07:56→20:33)
[2022-09-13] MEDS: CEPHALEXIN 250MG CAPSULE PO SCH ×4 (08:13→21:42)
[2022-09-13] MEDS: NADOLOL 20MG TABLET PO SCH (08:14)
[2022-09-13] MEDS: INSULIN LISPRO (NovoLOG) PER UNIT SC SCH ×4 (08:14→20:56)
[2022-09-13] MEDS: amLODIPine 5 MG TAB GT SCH (08:15)
[2022-09-13 14:00] VITALS: BP 137/65
[2022-09-13 20:07] VITALS: BP 157/81
[2022-09-13] MEDS: LATANOPROST 0.005% OPHTH SOLN 2.5 ML OU SCH (21:42)
[2022-09-14] MEDS: IPRATROPIUM 0.5MG/ALBUTEROL 2.5MG INH SOL UD 3ML (DUONEB) INH SCH ×2 (02:35→06:26)
[2022-09-14] MEDS: LACTULOSE 20 GM/30 ML SYRUP UD PO SCH (05:14)
[2022-09-14 06:29] LABS: HEMOGLOBIN 9.9 g/dl (12.0-15.5); MEAN CORPUSCULAR HEMOGLOBIN 33.3 pg (27.0-33.0); MEAN CORPUSCULAR HGB CONC 34.1 g/dl (32.0-36.5); MEAN CORPUSCULAR VOLUME 97.6 fl (80.0-96.0); PLATELET COUNT, AUTOMATED 52 10^3/uL (150-450); RED BLOOD COUNT 2.97 10^6/uL (4.00-5.40); WHITE BLOOD COUNT 10.2 10^3/uL (4.0-10.0)
[2022-09-14 06:47] VITALS: BP 129/64
[2022-09-14 07:03] LABS: ALBUMIN 2.1 GM/DL (3.2-5.2); ALT/SGPT 40 U/L (12-78); BILIRUBIN,TOTAL 2.4 MG/DL (0.2-1.0); BLOOD UREA NITROGEN 29 MG/DL (7-18); CALCIUM LEVEL 9.2 MG/DL (8.8-10.2); CARBON DIOXIDE LEVEL 24 MEQ/L (21-32); CHLORIDE LEVEL 110 MEQ/L (98-107); CREATININE FOR GFR 0.96 MG/DL (0.55-1.30); GLOMERULAR FILTRATION RATE > 60.0 (>39); GLUCOSE, FASTING 180 MG/DL (70-100); MAGNESIUM LEVEL 1.7 MG/DL (1.8-2.4); POTASSIUM SERUM 4.4 MEQ/L (3.5-5.1); SODIUM LEVEL 139 MEQ/L (136-145); TOTAL PROTEIN 4.8 GM/DL (6.4-8.2)
[2022-09-14] MEDS ORDERED: MAGNESIUM OXIDE 400MG TAB (MAG-OX) PO ONE (08:00)
[2022-09-14 08:14] VITALS: BP 152/72
[2022-09-14] MEDS: amLODIPine 5 MG TAB GT SCH (08:14)
[2022-09-14] MEDS: INSULIN LISPRO (NovoLOG) PER UNIT SC SCH (08:14)
[2022-09-14] MEDS: CEPHALEXIN 250MG CAPSULE PO SCH (08:14)
[2022-09-14] MEDS: NADOLOL 20MG TABLET PO SCH (08:14)
[2022-09-14] MEDS ORDERED: AMLO1TAB24 GT (10:47)
[2022-09-14] MEDS ORDERED: LACT20EL PO (10:47)
== END 2022-09-14 13:33 | disposition home health service (06) | DRG 442 ==
LOC: EDBD 07:46 → M ED 07:46 → M ED INP 14:10 → ENRESERV 22:34 → M PCU 23:05 → M MSPAV 09-13 00:35
PROVIDERS: ADMIT Family Medicine; ATTEND Family Medicine
DX: K72.91 Hepatic failure, unspecified with coma (principal); N39.0 Urinary tract infection, site not specified; K74.60 Unspecified cirrhosis of liver; J44.9 Chronic obstructive pulmonary disease, unspecified; Z87.891 Personal history of nicotine dependence; R73.9 Hyperglycemia, unspecified; D69.59 Other secondary thrombocytopenia

== ENCOUNTER 2022-11-04 15:35 | Emergency (ER) | payer MEDICARE, OTHER ==
[~2022-11-04] VITALS: Ht 152.4 cm; Wt 76.4 kg
[~2022-11-04 15:35] MED LIST changes: +ALBU8.5H INH; +AMLO1TAB24 GT; +IPRA0.00 INH; +K-TA10TA PO; +LACT20EL PO; +MED REC COMMENT; +PRED10TA2 PO; +SPIR-10 PO; +VITA500C24 PO
[2022-11-04 17:46] LABS: BASO % 0.2 % (0.0-1.0); EOS # 0.3 10^3/uL (0.0-0.5); HEMATOCRIT 37.4 % (36.0-47.0); HEMOGLOBIN 12.4 g/dl (12.0-15.5); LYMPH # 1.7 10^3/uL (1.5-5.0); LYMPH % 18.1 % (24.0-44.0); MEAN CORPUSCULAR HEMOGLOBIN 32.5 pg (27.0-33.0); MEAN CORPUSCULAR HGB CONC 33.2 g/dl (32.0-36.5); MEAN CORPUSCULAR VOLUME 97.9 fl (80.0-96.0); MONO # 0.8 10^3/uL (0.0-0.8); MONO % 8.9 % (2.0-8.0); NEUTROPHILS # 6.3 10^3/uL (1.5-8.5); NEUTROPHILS % 69.4 % (36.0-66.0); PLATELET COUNT, AUTOMATED 116 10^3/uL (150-450); RED BLOOD COUNT 3.82 10^6/uL (4.00-5.40); WHITE BLOOD COUNT 9.1 10^3/uL (4.0-10.0)
[2022-11-04 18:06] LABS: BLOOD UREA NITROGEN 18 MG/DL (9-23); CALCIUM LEVEL 9.4 MG/DL (8.3-10.6); CARBON DIOXIDE LEVEL 21 MMOL/L (20-31); CHLORIDE LEVEL 108 MMOL/L (98-107); CREATININE FOR GFR 0.81 MG/DL (0.55-1.30); GLOMERULAR FILTRATION RATE > 60.0 (>39); GLUCOSE, FASTING 179 MG/DL (74-106); POTASSIUM SERUM 4.5 MMOL/L (3.5-5.1); SODIUM LEVEL 140 MMOL/L (136-145)
[2022-11-04] MEDS ORDERED: FUROSEMIDE 40MG/4ML VIAL IV ONE (19:30)
[2022-11-04 19:50] LABS: ALBUMIN 2.8 G/DL (3.2-5.2); ALKALINE PHOSPHATASE 128 U/L (46-116); ALT/SGPT 23 U/L (7.0-40); AST/SGOT 64 U/L (<34); TOTAL PROTEIN 7.1 G/DL (5.7-8.2)
[2022-11-04 20:28] LABS: INR 1.43; PROTHROMBIN TIME 17.7 SECONDS (12.5-14.5)
[2022-11-04 20:29] LABS: PARTIAL THROMBOPLASTIN TIME 33.6 SECONDS (24.8-34.2)
[2022-11-04] MEDS ORDERED: LASI20TA3 PO (21:36)
[2022-11-04 22:04] LABS: APPEARANCE, URINE MANUAL CLOUDY (CLEAR); COLOR, URINE MANUAL LT YELLOW (YELLOW); SPECIFIC GRAVITY,URINE MANUAL 1.005 (1.002-1.035)
[2022-11-04 22:05] LABS: BILIRUBIN, URINE MANUAL NEGATIVE (NEGATIVE); BLOOD URINE MANUAL TRACE (NEGATIVE); GLUCOSE, URINE (UA) MANUAL NEGATIVE (NEGATIVE); KETONE, URINE MANUAL NEGATIVE (NEGATIVE); LEUKOCYTE ESTERASE, URINE MAN POSITIVE (NEGATIVE); NITRITE, URINE MANUAL NEGATIVE (NEGATIVE); PROTEIN, URINE MANUAL NEGATIVE (NEGATIVE); UROBILINOGEN, URINE MANUAL NORMAL (NORMAL)
[2022-11-04 22:21] LABS: BACTERIA, URINE SMALL AMOUNT; HYALINE CAST, URINE NONE SEEN /lpf (0-1); MUCUS, URINE SMALL AMOUNT (NEGATIVE); RBC, URINE 0-1 /hpf (0-3); SQUAMOUS EPITHELIAL CELL URINE LARGE AMOUNT /hpf (SMALL AMT)
[2022-11-04 22:32] VITALS: BP 125/61
== END 2022-11-04 22:54 | disposition home or self-care (01) ==
LOC: M ED 15:35
DX: K74.60 Unspecified cirrhosis of liver (principal); R60.9 Edema, unspecified; J18.9 Pneumonia, unspecified organism; Z79.899 Other long term (current) drug therapy; Z91.040 Latex allergy status
CPT/HCPCS: 36415; 71045; 80048; 80076; 81000; 81015; 83880; 85025; 85610; 85730; 93005; 96374; 99284; J1940

== ENCOUNTER → 2022-11-08 | Outpatient (CLI) | payer MEDICARE, OTHER ==
[~2022-11-08] MED LIST changes: +LASI20TA3 PO
[2022-11-08 10:41] LABS: BLOOD UREA NITROGEN 15 MG/DL (9-23); CALCIUM LEVEL 9.4 MG/DL (8.3-10.6); CARBON DIOXIDE LEVEL 28 MMOL/L (20-31); CHLORIDE LEVEL 104 MMOL/L (98-107); CREATININE FOR GFR 0.93 MG/DL (0.55-1.30); GLOMERULAR FILTRATION RATE > 60.0 (>39); GLUCOSE, FASTING 146 MG/DL (74-106); POTASSIUM SERUM 3.8 MMOL/L (3.5-5.1); SODIUM LEVEL 141 MMOL/L (136-145)
== END ==
LOC: M LAB 09:29
PROVIDERS: ATTEND Physician Assistant Medical
DX: R60.9 Edema, unspecified (principal)

== ENCOUNTER → 2023-02-21 | Outpatient (REF) | payer MEDICARE, OTHER ==
[2023-02-21 14:05] LABS: PERCENT SATURATION 80.8 % (13.2-45.0)
[2023-02-21 14:08] LABS: FERRITIN 175.1 NG/ML (7.3-270.7)
[2023-02-21 14:10] LABS: INR 1.34; PROTHROMBIN TIME 16.8 SECONDS (12.5-14.5)
== END ==
LOC: M LAB REF 12:18
PROVIDERS: ATTEND Internal Medicine
DX: E83.119 Hemochromatosis, unspecified (principal); K74.69 Other cirrhosis of liver

== ENCOUNTER → 2023-04-04 | Outpatient (REF) | payer MEDICARE, OTHER | LOC: M LAB REF 12:27 | PROVIDERS: ATTEND Internal Medicine | DX: N39.0 Urinary tract infection, site not specified (principal) ==

== ENCOUNTER 2023-05-31 23:31 | Inpatient (IN) | payer MEDICARE, OTHER ==
[~2023-05-31] VITALS: Ht 152.4 cm; Wt 68.9 kg
[~2023-05-31 23:31] MED LIST changes: -K-TA10TA PO; +POTA-164 PO
[2023-05-31] MEDS ORDERED: CONS10SO3 PO (23:52)
[2023-06-01] VITALS (8 sets, daily range): BP systolic 116–124; BP diastolic 55–60; TEMP 98.1–98.3; O2SAT 92–95
[2023-06-01 00:33] LABS: INR 1.43; PROTHROMBIN TIME 17.7 SECONDS (12.5-14.5)
[2023-06-01 00:34] LABS: PARTIAL THROMBOPLASTIN TIME 32.1 SECONDS (24.8-34.2)
[2023-06-01 00:40] LABS: LIPASE 32 U/L (12-53)
[2023-06-01 00:42] LABS: ALBUMIN 2.6 G/DL (3.2-5.2); ALKALINE PHOSPHATASE 110 U/L (46-116); ALT/SGPT < 9 U/L (7.0-40); AST/SGOT 12 U/L (<34); BILIRUBIN,DIRECT 1.6 MG/DL (<0.4); BILIRUBIN,TOTAL 4.7 MG/DL (0.3-1.2); BLOOD UREA NITROGEN 20 MG/DL (9-23); CALCIUM LEVEL 8.7 MG/DL (8.3-10.6); CARBON DIOXIDE LEVEL 21 MMOL/L (20-31); CHLORIDE LEVEL 107 MMOL/L (98-107); CPK CREATINE PHOSPHOKINASE 79 U/L (34-145); CREATININE FOR GFR 0.78 MG/DL (0.55-1.30); GLOMERULAR FILTRATION RATE > 60.0 (>39); GLUCOSE, FASTING 337 MG/DL (74-106); MB/CK RELATIVE INDEX 1.26 (< OR =4); POTASSIUM SERUM 3.7 MMOL/L (3.5-5.1); SODIUM LEVEL 138 MMOL/L (136-145); TOTAL PROTEIN 5.8 G/DL (5.7-8.2)
[2023-06-01 00:43] LABS: THYROID STIMULATING HORMONE 1.099 uIU/ML (0.55-4.78)
[2023-06-01] MEDS ORDERED: NS 910 ML in IV 1 EA IV ONE (01:25)
[2023-06-01] MEDS ORDERED: PIPERACILLIN/TAZOBACTAM SOD 4.5 GM in D5W MINI-BAG PLUS 50 ML IV ONE (01:30)
[2023-06-01] MEDS ORDERED: ISOVUE-370 76% 100ML VIAL As Ordered ONE (01:42)
[2023-06-01 01:44] LABS: BASO % 0.2 % (0.0-1.0); EOS # 0.1 10^3/uL (0.0-0.5); HEMATOCRIT 37.8 % (36.0-47.0); HEMOGLOBIN 12.3 g/dl (12.0-15.5); LYMPH # 0.9 10^3/uL (1.5-5.0); LYMPH % 6.4 % (24.0-44.0); MEAN CORPUSCULAR HEMOGLOBIN 32.4 pg (27.0-33.0); MEAN CORPUSCULAR HGB CONC 32.5 g/dl (32.0-36.5); MEAN CORPUSCULAR VOLUME 99.5 fl (80.0-96.0); MONO # 1.5 10^3/uL (0.0-0.8); MONO % 10.8 % (2.0-8.0); NEUTROPHILS # 11.1 10^3/uL (1.5-8.5); NEUTROPHILS % 80.4 % (36.0-66.0); WHITE BLOOD COUNT 13.9 10^3/uL (4.0-10.0)
[2023-06-01 01:51] LABS: PLATELET COUNT, AUTOMATED 74 10^3/uL (150-450)
[2023-06-01 02:18] LABS: CK-MB VALUE MASS < 1.0 NG/ML (<3.6)
[2023-06-01 02:40] LABS: CPK CREATINE PHOSPHOKINASE 94 U/L (34-145); MB/CK RELATIVE INDEX 1.06 (< OR =4)
[2023-06-01] MEDS ORDERED: FLUT1BLS8 INH (05:28)
[2023-06-01] MEDS ORDERED: IPRA0.00 INH (05:28)
[2023-06-01] MEDS ORDERED: OCUVTAB PO (05:28)
[2023-06-01] MEDS ORDERED: GLIM1TAB4 PO (05:28)
[2023-06-01] MEDS ORDERED: HOME MED LIST COMPLETE! XX SCH (05:30)
[2023-06-01] MEDS ORDERED: SYST1SOL4 OU (05:35)
[2023-06-01] MEDS ORDERED: GLUCAGON INJ 1MG VIAL SC PRN (05:40)
[2023-06-01] MEDS ORDERED: DEXTROSE 50% 50ML SYRINGE IV PRN (05:40)
[2023-06-01] MEDS ORDERED: ALBUTEROL SULFATE 2.5MG/0.5ML INH NEB SOLN NEB PRN (05:40)
[2023-06-01] MEDS ORDERED: LR 1,000 ML IV SCH (05:40)
[2023-06-01] MEDS ORDERED: HYDROMORPHONE HCL 0.5 MG/ 0.5 ML SYRINGE IV PRN (05:40)
[2023-06-01] MEDS ORDERED: ONDANSETRON 4MG 2ML VIAL IV PRN (05:40)
[2023-06-01] MEDS ORDERED: GLUCOSE 4GM CHEW TABLET PO PRN (05:40)
[2023-06-01] MEDS: PIPERACILLIN/TAZOBACTAM SOD 3.375 GM in D5W MINI-BAG PLUS 50 ML IV SCH ×3 (07:36→20:19)
[2023-06-01] MEDS ORDERED: IPRATROPIUM 0.5MG/ALBUTEROL 2.5MG INH SOL UD 3ML (DUONEB) NEB SCH (08:00)
[2023-06-01 08:33] LABS: BASO % 0.2 % (0.0-1.0); EOS % 0.2 % (0.0-3.0); HEMATOCRIT 34.2 % (36.0-47.0); HEMOGLOBIN 11.2 g/dl (12.0-15.5); LYMPH # 1.1 10^3/uL (1.5-5.0); LYMPH % 9.1 % (24.0-44.0); MEAN CORPUSCULAR HEMOGLOBIN 32.7 pg (27.0-33.0); MEAN CORPUSCULAR HGB CONC 32.7 g/dl (32.0-36.5); MEAN CORPUSCULAR VOLUME 99.7 fl (80.0-96.0); MONO % 8.4 % (2.0-8.0); NEUTROPHILS % 81.6 % (36.0-66.0); RED BLOOD COUNT 3.43 10^6/uL (4.00-5.40); WHITE BLOOD COUNT 12.3 10^3/uL (4.0-10.0)
[2023-06-01] MEDS: LEVEMIR (INSULIN DETEMIR) 1 UNITS/0.01ML SC SCH (08:54)
[2023-06-01 08:56] LABS: PLATELET COUNT, AUTOMATED 67 10^3/uL (150-450)
[2023-06-01 09:08] LABS: ALBUMIN 2.3 G/DL (3.2-5.2); ALKALINE PHOSPHATASE 86 U/L (46-116); ALT/SGPT 18 U/L (7.0-40); AST/SGOT 43 U/L (<34); BILIRUBIN,TOTAL 4.3 MG/DL (0.3-1.2); BLOOD UREA NITROGEN 20 MG/DL (9-23); CALCIUM LEVEL 8.1 MG/DL (8.3-10.6); CARBON DIOXIDE LEVEL 22 MMOL/L (20-31); CHLORIDE LEVEL 109 MMOL/L (98-107); GLOMERULAR FILTRATION RATE > 60.0 (>39); GLUCOSE, FASTING 269 MG/DL (74-106); MAGNESIUM LEVEL 1.7 MG/DL (1.8-2.4); POTASSIUM SERUM 3.8 MMOL/L (3.5-5.1); SODIUM LEVEL 139 MMOL/L (136-145); TOTAL PROTEIN 5.2 G/DL (5.7-8.2)
[2023-06-01] MEDS ORDERED: IPRATROPIUM 0.5MG/ALBUTEROL 2.5MG INH SOL UD 3ML (DUONEB) INH PRN (09:15)
[2023-06-01 09:51] LABS: BILIRUBIN,DIRECT 1.5 MG/DL (<0.4)
[2023-06-01] MEDS: LACTULOSE 20GM/30ML SYRUP UDC PO SCH ×2 (10:14→20:19)
[2023-06-01] MEDS: MAG SULF 1GM/100ML (MAG RUN) 1 GM in IV 1 EA IV SCH ×2 (10:15→11:38)
[2023-06-01] MEDS: VITAMIN D 1,000 INTERNATIONAL UNITS TABLET PO SCH (10:15)
[2023-06-01] MEDS: OCUVITE 1 TAB PO SCH (10:15)
[2023-06-01] MEDS: ASCORBIC ACID 500 MG TAB PO SCH (10:15)
[2023-06-01] MEDS: MAGNESIUM OXIDE 400MG TAB (MAG-OX) PO SCH (10:15)
[2023-06-01] MEDS: LACTOBACILLUS ACIDOPHILUS CAP (BACID) PO SCH ×2 (10:15→20:20)
[2023-06-01] MEDS: POLYVINYL ALCOHOL OPHTH SOLN 15ML (LIQUITEARS) OU SCH ×2 (10:16→20:20)
[2023-06-01] MEDS: LIDOCAINE 5% (LIDODERM) PATCH TD SCH (11:37)
[2023-06-01] MEDS: NADOLOL 20MG TABLET PO SCH (11:37)
[2023-06-01] MEDS ORDERED: INSULIN LISPRO (NovoLOG) PER UNIT SC SCH ×2 (12:00→21:00)
[2023-06-01] MEDS: INSULIN LISPRO (NovoLOG) PER UNIT SC SCH ×2 (12:22→16:45)
[2023-06-01] MEDS: ADVAIR HFA 230/21MCG INHALER INH SCH ×2 (13:08→20:00)
[2023-06-01] MEDS: TIOTROPIUM INHALER/CAPSULE (SPIRIVA) INH SCH (13:08)
[2023-06-01] MEDS ORDERED: HEPARIN SOD (PORCINE) 5000UNITS/ML 1ML VIAL/SYRINGE SC SCH (14:00)
[2023-06-01] MEDS: ALBUTEROL 90 MCG/ACT 8GM HFA INHALER INH PRN ×2 (15:24→20:28)
[2023-06-01] MEDS ORDERED: LATANOPROST 0.005% OPHTH SOLN 2.5 ML OU SCH (21:00)
[2023-06-02] VITALS (9 sets, daily range): BP systolic 117–129; BP diastolic 57–60; TEMP 98–98.2; O2SAT 92–96
[2023-06-02] MEDS: PIPERACILLIN/TAZOBACTAM SOD 3.375 GM in D5W MINI-BAG PLUS 50 ML IV SCH ×2 (02:44→08:19)
[2023-06-02 06:08] LABS: BASO % 0.2 % (0.0-1.0); EOS # 0.3 10^3/uL (0.0-0.5); EOS % 3.6 % (0.0-3.0); HEMATOCRIT 33.8 % (36.0-47.0); HEMOGLOBIN 11.2 g/dl (12.0-15.5); MEAN CORPUSCULAR HEMOGLOBIN 32.9 pg (27.0-33.0); MEAN CORPUSCULAR HGB CONC 33.1 g/dl (32.0-36.5); MEAN CORPUSCULAR VOLUME 99.4 fl (80.0-96.0); NEUTROPHILS # 5.8 10^3/uL (1.5-8.5); NEUTROPHILS % 62.8 % (36.0-66.0); WHITE BLOOD COUNT 9.3 10^3/uL (4.0-10.0)
[2023-06-02 06:11] LABS: PLATELET COUNT, AUTOMATED 70 10^3/uL (150-450)
[2023-06-02 06:38] LABS: ALBUMIN 2.2 G/DL (3.2-5.2); ALKALINE PHOSPHATASE 71 U/L (46-116); ALT/SGPT 19 U/L (7.0-40); AST/SGOT 35 U/L (<34); BILIRUBIN,TOTAL 3.5 MG/DL (0.3-1.2); BLOOD UREA NITROGEN 17 MG/DL (9-23); CALCIUM LEVEL 8.1 MG/DL (8.3-10.6); CARBON DIOXIDE LEVEL 23 MMOL/L (20-31); CHLORIDE LEVEL 111 MMOL/L (98-107); CREATININE FOR GFR 0.97 MG/DL (0.55-1.30); GLOMERULAR FILTRATION RATE > 60.0 (>39); GLUCOSE, FASTING 152 MG/DL (74-106); MAGNESIUM LEVEL 1.7 MG/DL (1.8-2.4); POTASSIUM SERUM 3.5 MMOL/L (3.5-5.1); SODIUM LEVEL 141 MMOL/L (136-145); TOTAL PROTEIN 4.9 G/DL (5.7-8.2)
[2023-06-02] MEDS ORDERED: MAG SULF 1GM/100ML (MAG RUN) 1 GM in IV 1 EA IV ONE (08:00)
[2023-06-02] MEDS: TIOTROPIUM INHALER/CAPSULE (SPIRIVA) INH SCH (08:10)
[2023-06-02] MEDS: ADVAIR HFA 230/21MCG INHALER INH SCH (08:11)
[2023-06-02] MEDS: LEVEMIR (INSULIN DETEMIR) 1 UNITS/0.01ML SC SCH (08:14)
[2023-06-02] MEDS: LACTULOSE 20GM/30ML SYRUP UDC PO SCH (08:15)
[2023-06-02] MEDS: INSULIN LISPRO (NovoLOG) PER UNIT SC SCH ×2 (08:15→12:13)
[2023-06-02] MEDS: NADOLOL 20MG TABLET PO SCH (08:18)
[2023-06-02] MEDS: LIDOCAINE 5% (LIDODERM) PATCH TD SCH (08:19)
[2023-06-02] MEDS: LACTOBACILLUS ACIDOPHILUS CAP (BACID) PO SCH (08:20)
[2023-06-02] MEDS: MAGNESIUM OXIDE 400MG TAB (MAG-OX) PO SCH (08:20)
[2023-06-02] MEDS: VITAMIN D 1,000 INTERNATIONAL UNITS TABLET PO SCH (08:20)
[2023-06-02] MEDS: ASCORBIC ACID 500 MG TAB PO SCH (08:23)
[2023-06-02] MEDS: OCUVITE 1 TAB PO SCH (08:23)
[2023-06-02] MEDS: POLYVINYL ALCOHOL OPHTH SOLN 15ML (LIQUITEARS) OU SCH (08:24)
[2023-06-02] MEDS ORDERED: traMADol 50 MG TAB PO PRN (10:35)
[2023-06-02] MEDS ORDERED: PILL CUTTER 1 EACH XX PRN (10:40)
[2023-06-02] MEDS ORDERED: LIDO5TD TD (11:21)
[2023-06-02] MEDS ORDERED: TRAM50TA2 PO ×2 (11:21→12:19)
== END 2023-06-02 13:10 | DRG 605 ==
LOC: M ED 23:31 → M ED INP 06-01 05:40 → ENRESERV 06-01 06:28 → M PCU 06-01 08:27
PROVIDERS: ADMIT Internal Medicine; ATTEND Internal Medicine
DX: S20.211A Contusion of right front wall of thorax, initial encounter (principal); K76.6 Portal hypertension; R53.1 Weakness; K75.81 Nonalcoholic steatohepatitis (NASH); D64.9 Anemia, unspecified; E11.9 Type 2 diabetes mellitus without complications; I10 Essential (primary) hypertension; E83.42 Hypomagnesemia; D69.6 Thrombocytopenia, unspecified; E80.6 Other disorders of bilirubin metabolism; J44.9 Chronic obstructive pulmonary disease, unspecified; Z79.84 Long term (current) use of oral hypoglycemic drugs; Z79.899 Other long term (current) drug therapy; Z88.8 Allergy status to other drugs, medicaments and biological substances; Z91.040 Latex allergy status; Z20.822 Contact with and (suspected) exposure to COVID-19; W07.XXXA Fall from chair, initial encounter; Y92.009 Unspecified place in unspecified non-institutional (private) residence as the place of occurrence of the external cause

== ENCOUNTER 2023-06-02 11:10 | Inpatient (IN) | payer MEDICARE, OTHER ==
[~2023-06-02] VITALS: Ht 152.4 cm; Wt 67.5 kg
[~2023-06-02 11:10] MED LIST changes: +CONS10SO3 PO; +FLUT1BLS8 INH; +GLIM1TAB4 PO; +OCUVTAB PO; +SYST1SOL4 OU
[2023-06-02] MEDS ORDERED: TRAM50TA2 PO ×2 (11:21→12:19)
[2023-06-02] MEDS ORDERED: LIDO5TD TD (11:21)
[2023-06-02] MEDS ORDERED: GLUCAGON INJ 1MG VIAL SC PRN ×2 (11:50→19:15)
[2023-06-02] MEDS ORDERED: GLUCOSE 4GM CHEW TABLET PO PRN ×2 (11:50→19:15)
[2023-06-02] MEDS ORDERED: traMADol 50 MG TAB PO PRN (11:50)
[2023-06-02] MEDS ORDERED: ACETAMINOPHEN TAB 650MG DOSE (2X325MG) PO PRN (11:50)
[2023-06-02] MEDS ORDERED: DEXTROSE 50% 50ML SYRINGE IV PRN ×2 (11:50→19:15)
[2023-06-02] MEDS ORDERED: ALBUTEROL 90 MCG/ACT 8GM HFA INHALER INH PRN (11:50)
[2023-06-02] MEDS: INSULIN LISPRO (NovoLOG) PER UNIT SC SCH ×3 (12:00→20:08)
[2023-06-02 14:00] VITALS: BP 132/65; TEMP 97.6; O2SAT 94
[2023-06-02] MEDS: LACTOBACILLUS ACIDOPHILUS CAP (BACID) PO SCH (18:21)
[2023-06-02] MEDS: ADVAIR HFA 230/21MCG INHALER INH SCH (20:00)
[2023-06-02] MEDS: POLYVINYL ALCOHOL OPHTH SOLN 15ML (LIQUITEARS) OU SCH (20:14)
[2023-06-02] MEDS: LACTULOSE 20GM/30ML SYRUP UDC PO SCH (20:14)
[2023-06-02] MEDS: LATANOPROST 0.005% OPHTH SOLN 2.5 ML OU SCH (20:14)
[2023-06-02] MEDS: DICLOFENAC EPOLAMINE 1.3% PATCH TOP SCH (20:15)
[2023-06-02] MEDS: DOCUSATE SODIUM 100MG CAPSULE PO SCH (20:15)
[2023-06-02] MEDS: SENNA 8.6 MG TAB (SENOKOT) PO SCH (20:15)
[2023-06-02] MEDS: HEPARIN SOD (PORCINE) 5000UNITS/ML 1ML VIAL/SYRINGE SC SCH (20:15)
[2023-06-02] MEDS: TRIAMCINOLONE ACET 0.1% CREAM 80GM TOP SCH (20:15)
[2023-06-02 20:19] VITALS: BP 147/73; TEMP 98.2; O2SAT 94
[2023-06-03 05:56] VITALS: BP 139/71; TEMP 98; O2SAT 91
[2023-06-03 07:05] LABS: BASO % 0.4 % (0.0-1.0); EOS # 0.4 10^3/uL (0.0-0.5); EOS % 4.8 % (0.0-3.0); HEMATOCRIT 34.4 % (36.0-47.0); HEMOGLOBIN 11.4 g/dl (12.0-15.5); LYMPH # 1.8 10^3/uL (1.5-5.0); LYMPH % 23.4 % (24.0-44.0); MEAN CORPUSCULAR HGB CONC 33.1 g/dl (32.0-36.5); MEAN CORPUSCULAR VOLUME 99.7 fl (80.0-96.0); MONO # 0.8 10^3/uL (0.0-0.8); MONO % 10.2 % (2.0-8.0); NEUTROPHILS # 4.7 10^3/uL (1.5-8.5); NEUTROPHILS % 60.8 % (36.0-66.0); RED BLOOD COUNT 3.45 10^6/uL (4.00-5.40); WHITE BLOOD COUNT 7.7 10^3/uL (4.0-10.0)
[2023-06-03 07:10] LABS: PLATELET COUNT, AUTOMATED 69 10^3/uL (150-450)
[2023-06-03 07:31] LABS: ALBUMIN 2.1 G/DL (3.2-5.2); ALKALINE PHOSPHATASE 80 U/L (46-116); ALT/SGPT 17 U/L (7.0-40); AST/SGOT 36 U/L (<34); BILIRUBIN,TOTAL 3.4 MG/DL (0.3-1.2); BLOOD UREA NITROGEN 16 MG/DL (9-23); CALCIUM LEVEL 8.2 MG/DL (8.3-10.6); CARBON DIOXIDE LEVEL 22 MMOL/L (20-31); CHLORIDE LEVEL 111 MMOL/L (98-107); CREATININE FOR GFR 0.81 MG/DL (0.55-1.30); GLOMERULAR FILTRATION RATE > 60.0 (>39); GLUCOSE, FASTING 130 MG/DL (74-106); MAGNESIUM LEVEL 1.8 MG/DL (1.8-2.4); POTASSIUM SERUM 3.8 MMOL/L (3.5-5.1); SODIUM LEVEL 143 MMOL/L (136-145)
[2023-06-03] MEDS: GLIMEPIRIDE 1 MG TABLET PO SCH (08:38)
[2023-06-03] MEDS: INSULIN LISPRO (NovoLOG) PER UNIT SC SCH ×4 (08:38→20:27)
[2023-06-03] MEDS: LACTOBACILLUS ACIDOPHILUS CAP (BACID) PO SCH ×2 (08:38→17:49)
[2023-06-03] MEDS: DICLOFENAC EPOLAMINE 1.3% PATCH TOP SCH ×2 (08:38→20:31)
[2023-06-03] MEDS: OCUVITE 1 TAB PO SCH (08:39)
[2023-06-03] MEDS: NADOLOL 20MG TABLET PO SCH (08:39)
[2023-06-03] MEDS: DOCUSATE SODIUM 100MG CAPSULE PO SCH ×2 (08:39→20:24)
[2023-06-03] MEDS: LACTULOSE 20GM/30ML SYRUP UDC PO SCH ×2 (08:39→20:30)
[2023-06-03] MEDS: MAGNESIUM OXIDE 400MG TAB (MAG-OX) PO SCH (08:39)
[2023-06-03] MEDS: TRIAMCINOLONE ACET 0.1% CREAM 80GM TOP SCH ×2 (08:40→20:27)
[2023-06-03] MEDS: VITAMIN D 1,000 INTERNATIONAL UNITS TABLET PO SCH (08:40)
[2023-06-03] MEDS: POLYVINYL ALCOHOL OPHTH SOLN 15ML (LIQUITEARS) OU SCH ×2 (08:40→20:26)
[2023-06-03] MEDS: PANTOPRAZOLE 40MG TAB (PROTONIX) PO SCH (08:40)
[2023-06-03] MEDS: ASCORBIC ACID 500 MG TAB PO SCH (08:40)
[2023-06-03] MEDS: HEPARIN SOD (PORCINE) 5000UNITS/ML 1ML VIAL/SYRINGE SC SCH ×2 (09:00→20:24)
[2023-06-03] MEDS ORDERED: LIDOCAINE 5% (LIDODERM) PATCH TD SCH (09:00)
[2023-06-03] MEDS: ADVAIR HFA 230/21MCG INHALER INH SCH ×2 (11:38→21:24)
[2023-06-03] MEDS: TIOTROPIUM INHALER/CAPSULE (SPIRIVA) INH SCH (11:38)
[2023-06-03] MEDS: LevoFLOXacin 250 MG TABLET PO SCH (11:48)
[2023-06-03 14:00] VITALS: BP 133/64; TEMP 98.9; O2SAT 94
[2023-06-03 20:00] VITALS: BP 152/73; TEMP 98.4; O2SAT 94
[2023-06-03] MEDS: SENNA 8.6 MG TAB (SENOKOT) PO SCH (20:24)
[2023-06-03] MEDS: LATANOPROST 0.005% OPHTH SOLN 2.5 ML OU SCH (20:33)
[2023-06-04 06:00] VITALS: BP 127/62; TEMP 98.3; O2SAT 94
[2023-06-04] MEDS: LevoFLOXacin 250 MG TABLET PO SCH (06:00)
[2023-06-04] MEDS: GLIMEPIRIDE 1 MG TABLET PO SCH (07:19)
[2023-06-04] MEDS: LACTOBACILLUS ACIDOPHILUS CAP (BACID) PO SCH ×2 (07:50→17:53)
[2023-06-04] MEDS: INSULIN LISPRO (NovoLOG) PER UNIT SC SCH ×4 (07:51→21:00)
[2023-06-04] MEDS: DICLOFENAC EPOLAMINE 1.3% PATCH TOP SCH ×2 (07:51→22:19)
[2023-06-04] MEDS: PANTOPRAZOLE 40MG TAB (PROTONIX) PO SCH (07:52)
[2023-06-04] MEDS: ASCORBIC ACID 500 MG TAB PO SCH (07:52)
[2023-06-04] MEDS: OCUVITE 1 TAB PO SCH (07:52)
[2023-06-04] MEDS: MAGNESIUM OXIDE 400MG TAB (MAG-OX) PO SCH (07:52)
[2023-06-04] MEDS: VITAMIN D 1,000 INTERNATIONAL UNITS TABLET PO SCH (07:52)
[2023-06-04] MEDS: POLYVINYL ALCOHOL OPHTH SOLN 15ML (LIQUITEARS) OU SCH ×2 (07:54→22:19)
[2023-06-04] MEDS: NADOLOL 20MG TABLET PO SCH (07:54)
[2023-06-04] MEDS: HEPARIN SOD (PORCINE) 5000UNITS/ML 1ML VIAL/SYRINGE SC SCH ×2 (07:54→22:18)
[2023-06-04] MEDS: TRIAMCINOLONE ACET 0.1% CREAM 80GM TOP SCH ×2 (07:54→22:20)
[2023-06-04] MEDS: DOCUSATE SODIUM 100MG CAPSULE PO SCH ×2 (07:55→22:11)
[2023-06-04] MEDS: LACTULOSE 20GM/30ML SYRUP UDC PO SCH ×2 (07:59→22:11)
[2023-06-04] MEDS: ADVAIR HFA 230/21MCG INHALER INH SCH ×2 (08:09→20:41)
[2023-06-04] MEDS: TIOTROPIUM INHALER/CAPSULE (SPIRIVA) INH SCH (08:09)
[2023-06-04] MEDS ORDERED: VANCOMYCIN HCL 1,000 MG, VIAL MATE ADAPTER 1 EACH in D5W 250 ML IV SCH (10:20)
[2023-06-04 10:47] LABS: BASO % 0.4 % (0.0-1.0); EOS # 0.3 10^3/uL (0.0-0.5); EOS % 4.5 % (0.0-3.0); HEMATOCRIT 36.3 % (36.0-47.0); HEMOGLOBIN 11.8 g/dl (12.0-15.5); LYMPH # 1.6 10^3/uL (1.5-5.0); LYMPH % 22.7 % (24.0-44.0); MEAN CORPUSCULAR HEMOGLOBIN 32.6 pg (27.0-33.0); MEAN CORPUSCULAR HGB CONC 32.5 g/dl (32.0-36.5); MEAN CORPUSCULAR VOLUME 100.3 fl (80.0-96.0); MONO # 0.7 10^3/uL (0.0-0.8); MONO % 9.7 % (2.0-8.0); NEUTROPHILS # 4.4 10^3/uL (1.5-8.5); NEUTROPHILS % 62.3 % (36.0-66.0); RED BLOOD COUNT 3.62 10^6/uL (4.00-5.40); WHITE BLOOD COUNT 7.1 10^3/uL (4.0-10.0)
[2023-06-04 10:50] LABS: PLATELET COUNT, AUTOMATED 81 10^3/uL (150-450)
[2023-06-04 10:58] LABS: ERYTHROCYTE SEDIMENTATION RATE 11 mm/hr (0-30)
[2023-06-04] MEDS ORDERED: VANCOMYCIN HCL 750 MG, VIAL MATE ADAPTER 1 EACH in D5W 250 ML IV ONE ×2 (11:00→12:00)
[2023-06-04 11:07] LABS: BLOOD UREA NITROGEN 18 MG/DL (9-23); CALCIUM LEVEL 8.8 MG/DL (8.3-10.6); CARBON DIOXIDE LEVEL 20 MMOL/L (20-31); CHLORIDE LEVEL 108 MMOL/L (98-107); GLOMERULAR FILTRATION RATE > 60.0 (>39); GLUCOSE, FASTING 268 MG/DL (74-106); MAGNESIUM LEVEL 1.7 MG/DL (1.8-2.4); SODIUM LEVEL 138 MMOL/L (136-145)
[2023-06-04] MEDS ORDERED: MAG SULF 1GM/100ML (MAG RUN) 1 GM in IV 1 EA IV ONE (13:00)
[2023-06-04 14:00] VITALS: BP 122/60; TEMP 98.9; O2SAT 95
[2023-06-04 20:00] VITALS: BP 118/62; TEMP 98.6; O2SAT 94
[2023-06-04] MEDS: SENNA 8.6 MG TAB (SENOKOT) PO SCH (22:10)
[2023-06-04] MEDS: traMADol 50 MG TAB PO PRN (22:10)
[2023-06-04] MEDS: LATANOPROST 0.005% OPHTH SOLN 2.5 ML OU SCH (22:19)
[2023-06-04] MEDS: VANCOMYCIN HCL 750 MG, VIAL MATE ADAPTER 1 EACH in D5W 250 ML IV SCH (23:13)
[2023-06-05] MEDS: LevoFLOXacin 250 MG TABLET PO SCH (05:22)
[2023-06-05 05:32] LABS: BASO % 0.1 % (0.0-1.0); EOS # 0.3 10^3/uL (0.0-0.5); HEMATOCRIT 31.5 % (36.0-47.0); HEMOGLOBIN 10.2 g/dl (12.0-15.5); LYMPH # 1.6 10^3/uL (1.5-5.0); MEAN CORPUSCULAR HEMOGLOBIN 32.1 pg (27.0-33.0); MEAN CORPUSCULAR HGB CONC 32.4 g/dl (32.0-36.5); MEAN CORPUSCULAR VOLUME 99.1 fl (80.0-96.0); MONO # 0.6 10^3/uL (0.0-0.8); NEUTROPHILS # 4.2 10^3/uL (1.5-8.5); NEUTROPHILS % 62.5 % (36.0-66.0); RED BLOOD COUNT 3.18 10^6/uL (4.00-5.40); WHITE BLOOD COUNT 6.7 10^3/uL (4.0-10.0)
[2023-06-05 05:36] LABS: PLATELET COUNT, AUTOMATED 66 10^3/uL (150-450)
[2023-06-05 06:00] VITALS: BP 165/81; TEMP 98.3; O2SAT 93
[2023-06-05 06:07] VITALS: BP 139/63
[2023-06-05 06:08] LABS: BLOOD UREA NITROGEN 17 MG/DL (9-23); CALCIUM LEVEL 8.2 MG/DL (8.3-10.6); CARBON DIOXIDE LEVEL 22 MMOL/L (20-31); CHLORIDE LEVEL 110 MMOL/L (98-107); CREATININE FOR GFR 0.88 MG/DL (0.55-1.30); GLOMERULAR FILTRATION RATE > 60.0 (>39); GLUCOSE, FASTING 189 MG/DL (74-106); MAGNESIUM LEVEL 1.6 MG/DL (1.8-2.4); POTASSIUM SERUM 4.1 MMOL/L (3.5-5.1); SODIUM LEVEL 141 MMOL/L (136-145)
[2023-06-05] MEDS: ADVAIR HFA 230/21MCG INHALER INH SCH ×2 (07:01→21:04)
[2023-06-05] MEDS: TIOTROPIUM INHALER/CAPSULE (SPIRIVA) INH SCH (07:01)
[2023-06-05] MEDS: ASCORBIC ACID 500 MG TAB PO SCH (08:22)
[2023-06-05] MEDS: HEPARIN SOD (PORCINE) 5000UNITS/ML 1ML VIAL/SYRINGE SC SCH ×2 (08:22→21:36)
[2023-06-05] MEDS: OCUVITE 1 TAB PO SCH (08:23)
[2023-06-05] MEDS: PANTOPRAZOLE 40MG TAB (PROTONIX) PO SCH (08:23)
[2023-06-05] MEDS: DOCUSATE SODIUM 100MG CAPSULE PO SCH ×2 (08:23→21:36)
[2023-06-05] MEDS: VITAMIN D 1,000 INTERNATIONAL UNITS TABLET PO SCH (08:23)
[2023-06-05] MEDS: INSULIN LISPRO (NovoLOG) PER UNIT SC SCH ×4 (08:23→21:00)
[2023-06-05] MEDS: GLIMEPIRIDE 1 MG TABLET PO SCH (08:23)
[2023-06-05] MEDS: MAGNESIUM OXIDE 400MG TAB (MAG-OX) PO SCH ×2 (08:23→21:36)
[2023-06-05] MEDS: LACTULOSE 20GM/30ML SYRUP UDC PO SCH ×2 (08:23→21:36)
[2023-06-05] MEDS: LACTOBACILLUS ACIDOPHILUS CAP (BACID) PO SCH ×2 (08:23→18:53)
[2023-06-05] MEDS: NADOLOL 20MG TABLET PO SCH (08:24)
[2023-06-05] MEDS: DICLOFENAC EPOLAMINE 1.3% PATCH TOP SCH ×2 (08:24→21:37)
[2023-06-05] MEDS: POLYVINYL ALCOHOL OPHTH SOLN 15ML (LIQUITEARS) OU SCH ×2 (08:25→21:38)
[2023-06-05] MEDS: TRIAMCINOLONE ACET 0.1% CREAM 80GM TOP SCH ×2 (08:25→21:38)
[2023-06-05] MEDS: traMADol 50 MG TAB PO PRN ×2 (08:30→21:37)
[2023-06-05] MEDS: VANCOMYCIN HCL 750 MG, VIAL MATE ADAPTER 1 EACH in D5W 250 ML IV SCH (09:59)
[2023-06-05] MEDS: ceFAZolin SOD 2 GM in IV 1 EA IV SCH ×2 (13:57→21:36)
[2023-06-05 14:00] VITALS: BP 130/70; TEMP 98.1; O2SAT 94
[2023-06-05] MEDS ORDERED: ISOVUE-370 76% 100ML VIAL As Ordered ONE ×2 (17:17→18:09)
[2023-06-05 20:00] VITALS: BP 177/84; TEMP 98.7; O2SAT 90
[2023-06-05 20:30] VITALS: BP 138/66
[2023-06-05] MEDS: SENNA 8.6 MG TAB (SENOKOT) PO SCH (21:37)
[2023-06-05] MEDS: LATANOPROST 0.005% OPHTH SOLN 2.5 ML OU SCH (21:38)
[2023-06-06] MEDS: ceFAZolin SOD 2 GM in IV 1 EA IV SCH ×3 (05:52→21:40)
[2023-06-06] MEDS: traMADol 50 MG TAB PO PRN ×2 (05:58→17:45)
[2023-06-06 06:00] VITALS: BP 144/64; TEMP 98.5; O2SAT 93
[2023-06-06] MEDS: GLIMEPIRIDE 1 MG TABLET PO SCH (07:32)
[2023-06-06] MEDS: TIOTROPIUM INHALER/CAPSULE (SPIRIVA) INH SCH (07:38)
[2023-06-06] MEDS: ADVAIR HFA 230/21MCG INHALER INH SCH ×2 (07:38→20:44)
[2023-06-06] MEDS: LACTULOSE 20GM/30ML SYRUP UDC PO SCH ×2 (09:00→21:40)
[2023-06-06] MEDS: HEPARIN SOD (PORCINE) 5000UNITS/ML 1ML VIAL/SYRINGE SC SCH ×2 (09:23→21:41)
[2023-06-06] MEDS: DOCUSATE SODIUM 100MG CAPSULE PO SCH ×2 (09:24→21:40)
[2023-06-06] MEDS: MAGNESIUM OXIDE 400MG TAB (MAG-OX) PO SCH ×2 (09:24→21:40)
[2023-06-06] MEDS: INSULIN LISPRO (NovoLOG) PER UNIT SC SCH ×4 (09:24→20:42)
[2023-06-06] MEDS: LACTOBACILLUS ACIDOPHILUS CAP (BACID) PO SCH ×2 (09:24→17:41)
[2023-06-06] MEDS: DICLOFENAC EPOLAMINE 1.3% PATCH TOP SCH ×2 (09:25→21:40)
[2023-06-06] MEDS: POLYVINYL ALCOHOL OPHTH SOLN 15ML (LIQUITEARS) OU SCH ×2 (09:25→21:41)
[2023-06-06] MEDS: OCUVITE 1 TAB PO SCH (09:25)
[2023-06-06] MEDS: PANTOPRAZOLE 40MG TAB (PROTONIX) PO SCH (09:25)
[2023-06-06] MEDS: VITAMIN D 1,000 INTERNATIONAL UNITS TABLET PO SCH (09:25)
[2023-06-06] MEDS: ASCORBIC ACID 500 MG TAB PO SCH (09:25)
[2023-06-06] MEDS: NADOLOL 20MG TABLET PO SCH (09:25)
[2023-06-06] MEDS: TRIAMCINOLONE ACET 0.1% CREAM 80GM TOP SCH ×2 (09:25→21:41)
[2023-06-06 14:00] VITALS: BP 150/74; TEMP 98.1; O2SAT 95
[2023-06-06 19:35] VITALS: BP 141/67; TEMP 98.5; O2SAT 92
[2023-06-06] MEDS: SENNA 8.6 MG TAB (SENOKOT) PO SCH (21:40)
[2023-06-06] MEDS: LATANOPROST 0.005% OPHTH SOLN 2.5 ML OU SCH (21:41)
[2023-06-07 05:13] VITALS: BP 169/79; TEMP 98; O2SAT 92
[2023-06-07] MEDS: ceFAZolin SOD 2 GM in IV 1 EA IV SCH ×3 (05:31→21:46)
[2023-06-07] MEDS: traMADol 50 MG TAB PO PRN (05:38)
[2023-06-07 06:15] VITALS: BP 136/64
[2023-06-07] MEDS: PANTOPRAZOLE 40MG TAB (PROTONIX) PO SCH (07:19)
[2023-06-07] MEDS: DICLOFENAC EPOLAMINE 1.3% PATCH TOP SCH ×2 (07:19→20:27)
[2023-06-07] MEDS: MAGNESIUM OXIDE 400MG TAB (MAG-OX) PO SCH ×2 (07:20→20:26)
[2023-06-07] MEDS: OCUVITE 1 TAB PO SCH (07:20)
[2023-06-07] MEDS: NADOLOL 20MG TABLET PO SCH (07:20)
[2023-06-07] MEDS: HEPARIN SOD (PORCINE) 5000UNITS/ML 1ML VIAL/SYRINGE SC SCH ×2 (07:20→20:27)
[2023-06-07] MEDS: LACTULOSE 20GM/30ML SYRUP UDC PO SCH ×2 (07:20→20:25)
[2023-06-07] MEDS: GLIMEPIRIDE 1 MG TABLET PO SCH (07:20)
[2023-06-07] MEDS: DOCUSATE SODIUM 100MG CAPSULE PO SCH ×3 (07:20→20:26)
[2023-06-07] MEDS: ASCORBIC ACID 500 MG TAB PO SCH (07:21)
[2023-06-07] MEDS: TRIAMCINOLONE ACET 0.1% CREAM 80GM TOP SCH ×2 (07:21→20:29)
[2023-06-07] MEDS: LACTOBACILLUS ACIDOPHILUS CAP (BACID) PO SCH ×2 (07:21→17:13)
[2023-06-07] MEDS: VITAMIN D 1,000 INTERNATIONAL UNITS TABLET PO SCH (07:21)
[2023-06-07] MEDS: POLYVINYL ALCOHOL OPHTH SOLN 15ML (LIQUITEARS) OU SCH ×2 (07:21→20:28)
[2023-06-07] MEDS: INSULIN LISPRO (NovoLOG) PER UNIT SC SCH ×4 (07:22→20:28)
[2023-06-07] MEDS: ADVAIR HFA 230/21MCG INHALER INH SCH ×2 (08:00→20:37)
[2023-06-07 10:48] LABS: BASO % 0.5 % (0.0-1.0); EOS # 0.3 10^3/uL (0.0-0.5); EOS % 3.2 % (0.0-3.0); HEMATOCRIT 33.9 % (36.0-47.0); HEMOGLOBIN 11.2 g/dl (12.0-15.5); LYMPH # 1.6 10^3/uL (1.5-5.0); LYMPH % 19.5 % (24.0-44.0); MEAN CORPUSCULAR HEMOGLOBIN 33.3 pg (27.0-33.0); MEAN CORPUSCULAR VOLUME 100.9 fl (80.0-96.0); MONO # 0.8 10^3/uL (0.0-0.8); MONO % 9.6 % (2.0-8.0); NEUTROPHILS # 5.5 10^3/uL (1.5-8.5); NEUTROPHILS % 66.4 % (36.0-66.0); RED BLOOD COUNT 3.36 10^6/uL (4.00-5.40); WHITE BLOOD COUNT 8.3 10^3/uL (4.0-10.0)
[2023-06-07 10:58] LABS: PLATELET COUNT, AUTOMATED 94 10^3/uL (150-450)
[2023-06-07 11:09] LABS: BLOOD UREA NITROGEN 20 MG/DL (9-23); CALCIUM LEVEL 9.1 MG/DL (8.3-10.6); CARBON DIOXIDE LEVEL 23 MMOL/L (20-31); CHLORIDE LEVEL 106 MMOL/L (98-107); CREATININE FOR GFR 0.79 MG/DL (0.55-1.30); GLOMERULAR FILTRATION RATE > 60.0 (>39); GLUCOSE, FASTING 309 MG/DL (74-106); POTASSIUM SERUM 4.1 MMOL/L (3.5-5.1); SODIUM LEVEL 136 MMOL/L (136-145)
[2023-06-07 14:00] VITALS: BP 140/68; TEMP 98.4; O2SAT 96
[2023-06-07] MEDS: TIOTROPIUM INHALER/CAPSULE (SPIRIVA) INH SCH (15:30)
[2023-06-07 20:00] VITALS: BP 125/61; TEMP 97.1; O2SAT 92
[2023-06-07] MEDS: SENNA 8.6 MG TAB (SENOKOT) PO SCH (20:26)
[2023-06-07] MEDS: LATANOPROST 0.005% OPHTH SOLN 2.5 ML OU SCH (20:28)
[2023-06-08] MEDS: ceFAZolin SOD 2 GM in IV 1 EA IV SCH ×3 (05:38→22:29)
[2023-06-08 05:53] VITALS: BP 118/58; TEMP 97; O2SAT 94
[2023-06-08] MEDS: TIOTROPIUM INHALER/CAPSULE (SPIRIVA) INH SCH (07:03)
[2023-06-08] MEDS: NADOLOL 20MG TABLET PO SCH (07:12)
[2023-06-08] MEDS: LACTOBACILLUS ACIDOPHILUS CAP (BACID) PO SCH ×2 (07:12→16:37)
[2023-06-08] MEDS: OCUVITE 1 TAB PO SCH (07:12)
[2023-06-08] MEDS: ASCORBIC ACID 500 MG TAB PO SCH (07:12)
[2023-06-08] MEDS: MAGNESIUM OXIDE 400MG TAB (MAG-OX) PO SCH ×2 (07:12→22:28)
[2023-06-08] MEDS: DICLOFENAC EPOLAMINE 1.3% PATCH TOP SCH ×2 (07:12→22:28)
[2023-06-08] MEDS: PANTOPRAZOLE 40MG TAB (PROTONIX) PO SCH (07:12)
[2023-06-08] MEDS: GLIMEPIRIDE 1 MG TABLET PO SCH (07:13)
[2023-06-08] MEDS: DOCUSATE SODIUM 100MG CAPSULE PO SCH ×2 (07:13→22:27)
[2023-06-08] MEDS: LACTULOSE 20GM/30ML SYRUP UDC PO SCH ×2 (07:13→21:00)
[2023-06-08] MEDS: INSULIN LISPRO (NovoLOG) PER UNIT SC SCH ×4 (07:13→21:00)
[2023-06-08] MEDS: POLYVINYL ALCOHOL OPHTH SOLN 15ML (LIQUITEARS) OU SCH ×2 (07:14→22:28)
[2023-06-08] MEDS: ADVAIR HFA 230/21MCG INHALER INH SCH ×2 (07:14→21:40)
[2023-06-08] MEDS: TRIAMCINOLONE ACET 0.1% CREAM 80GM TOP SCH (07:14)
[2023-06-08] MEDS: VITAMIN D 1,000 INTERNATIONAL UNITS TABLET PO SCH (07:16)
[2023-06-08] MEDS: HEPARIN SOD (PORCINE) 5000UNITS/ML 1ML VIAL/SYRINGE SC SCH ×2 (08:50→21:00)
[2023-06-08] MEDS ORDERED: LIDOCAINE 1% MDV 20ML VIAL As Ordered ONE (10:45)
[2023-06-08 11:06] LABS: MAGNESIUM LEVEL 1.7 MG/DL (1.8-2.4)
[2023-06-08] MEDS ORDERED: SODIUM CHLORIDE 0.9% INJ 10 ML SYR IV PRN (12:30)
[2023-06-08 14:00] VITALS: BP 120/55; TEMP 98.2; O2SAT 94
[2023-06-08] MEDS ORDERED: MAG SULF 1GM/100ML (MAG RUN) 1 GM in IV 1 EA IV ONE (16:15)
[2023-06-08] MEDS: SODIUM CHLORIDE 0.9% INJ 10 ML SYR IV SCH (16:41)
[2023-06-08 20:00] VITALS: BP 124/59; TEMP 98.1; O2SAT 94
[2023-06-08] MEDS: SENNA 8.6 MG TAB (SENOKOT) PO SCH (22:27)
[2023-06-08] MEDS: LATANOPROST 0.005% OPHTH SOLN 2.5 ML OU SCH (22:28)
[2023-06-09] MEDS: ceFAZolin SOD 2 GM in IV 1 EA IV SCH ×3 (05:22→22:12)
[2023-06-09] MEDS: SODIUM CHLORIDE 0.9% INJ 10 ML SYR IV SCH ×2 (05:22→18:00)
[2023-06-09 06:00] VITALS: BP 133/61; TEMP 98.4; O2SAT 94
[2023-06-09] MEDS: HEPARIN SOD (PORCINE) 5000UNITS/ML 1ML VIAL/SYRINGE SC SCH ×3 (07:52→22:23)
[2023-06-09] MEDS: TIOTROPIUM INHALER/CAPSULE (SPIRIVA) INH SCH (08:21)
[2023-06-09] MEDS: ADVAIR HFA 230/21MCG INHALER INH SCH ×2 (08:22→20:53)
[2023-06-09] MEDS: DICLOFENAC EPOLAMINE 1.3% PATCH TOP SCH ×2 (08:56→22:21)
[2023-06-09] MEDS: INSULIN LISPRO (NovoLOG) PER UNIT SC SCH ×4 (08:57→21:00)
[2023-06-09] MEDS: VITAMIN D 1,000 INTERNATIONAL UNITS TABLET PO SCH (08:58)
[2023-06-09] MEDS: NADOLOL 20MG TABLET PO SCH (08:58)
[2023-06-09] MEDS: GLIMEPIRIDE 1 MG TABLET PO SCH (08:58)
[2023-06-09] MEDS: DOCUSATE SODIUM 100MG CAPSULE PO SCH ×2 (08:58→22:24)
[2023-06-09] MEDS: OCUVITE 1 TAB PO SCH (08:59)
[2023-06-09] MEDS: LACTULOSE 20GM/30ML SYRUP UDC PO SCH ×2 (08:59→22:24)
[2023-06-09] MEDS: LACTOBACILLUS ACIDOPHILUS CAP (BACID) PO SCH ×2 (08:59→18:00)
[2023-06-09] MEDS: MAGNESIUM OXIDE 400MG TAB (MAG-OX) PO SCH ×2 (08:59→22:24)
[2023-06-09] MEDS: PANTOPRAZOLE 40MG TAB (PROTONIX) PO SCH (08:59)
[2023-06-09] MEDS: ASCORBIC ACID 500 MG TAB PO SCH (08:59)
[2023-06-09] MEDS: POLYVINYL ALCOHOL OPHTH SOLN 15ML (LIQUITEARS) OU SCH ×2 (08:59→22:25)
[2023-06-09 10:42] LABS: BASO % 0.5 % (0.0-1.0); EOS # 0.3 10^3/uL (0.0-0.5); EOS % 3.7 % (0.0-3.0); HEMATOCRIT 34.2 % (36.0-47.0); HEMOGLOBIN 11.3 g/dl (12.0-15.5); LYMPH # 1.5 10^3/uL (1.5-5.0); LYMPH % 20.3 % (24.0-44.0); MEAN CORPUSCULAR HEMOGLOBIN 32.9 pg (27.0-33.0); MEAN CORPUSCULAR VOLUME 99.7 fl (80.0-96.0); MONO # 0.7 10^3/uL (0.0-0.8); MONO % 9.6 % (2.0-8.0); NEUTROPHILS # 4.9 10^3/uL (1.5-8.5); NEUTROPHILS % 65.1 % (36.0-66.0); RED BLOOD COUNT 3.43 10^6/uL (4.00-5.40); WHITE BLOOD COUNT 7.5 10^3/uL (4.0-10.0)
[2023-06-09 10:54] LABS: BLOOD UREA NITROGEN 21 MG/DL (9-23); CARBON DIOXIDE LEVEL 24 MMOL/L (20-31); CHLORIDE LEVEL 108 MMOL/L (98-107); CREATININE FOR GFR 0.69 MG/DL (0.55-1.30); GLOMERULAR FILTRATION RATE > 60.0 (>39); GLUCOSE, FASTING 136 MG/DL (74-106); MAGNESIUM LEVEL 1.7 MG/DL (1.8-2.4); POTASSIUM SERUM 4.1 MMOL/L (3.5-5.1); SODIUM LEVEL 138 MMOL/L (136-145)
[2023-06-09 11:05] LABS: PLATELET COUNT, AUTOMATED 88 10^3/uL (150-450)
[2023-06-09 14:00] VITALS: BP 154/67; TEMP 97.8; O2SAT 96
[2023-06-09] MEDS ORDERED: propofoL 200 MG/20 ML VIAL As Ordered ONE (18:06)
[2023-06-09] MEDS ORDERED: fentaNYL 100 MCG/2 ML INJECTION As Ordered ONE (18:06)
[2023-06-09] MEDS ORDERED: CETACAINE SPRAY 5GM As Ordered ONE (18:06)
[2023-06-09 20:00] VITALS: BP 145/67; TEMP 97.6; O2SAT 93
[2023-06-09] MEDS: LATANOPROST 0.005% OPHTH SOLN 2.5 ML OU SCH (22:25)
[2023-06-09] MEDS: SENNA 8.6 MG TAB (SENOKOT) PO SCH (22:25)
[2023-06-10 06:00] VITALS: BP 120/61; TEMP 98.5; O2SAT 93
[2023-06-10] MEDS: ceFAZolin SOD 2 GM in IV 1 EA IV SCH ×3 (06:05→21:32)
[2023-06-10] MEDS: SODIUM CHLORIDE 0.9% INJ 10 ML SYR IV SCH ×2 (06:06→17:20)
[2023-06-10] MEDS: TIOTROPIUM INHALER/CAPSULE (SPIRIVA) INH SCH (07:26)
[2023-06-10] MEDS: ADVAIR HFA 230/21MCG INHALER INH SCH ×2 (07:26→20:15)
[2023-06-10] MEDS: DOCUSATE SODIUM 100MG CAPSULE PO SCH ×2 (07:47→21:00)
[2023-06-10] MEDS: LACTULOSE 20GM/30ML SYRUP UDC PO SCH ×2 (07:47→21:00)
[2023-06-10] MEDS: ASCORBIC ACID 500 MG TAB PO SCH (07:47)
[2023-06-10] MEDS: DICLOFENAC EPOLAMINE 1.3% PATCH TOP SCH ×2 (07:47→21:47)
[2023-06-10] MEDS: GLIMEPIRIDE 1 MG TABLET PO SCH (07:48)
[2023-06-10] MEDS: MAGNESIUM OXIDE 400MG TAB (MAG-OX) PO SCH ×2 (07:48→21:30)
[2023-06-10] MEDS: VITAMIN D 1,000 INTERNATIONAL UNITS TABLET PO SCH (07:48)
[2023-06-10] MEDS: PANTOPRAZOLE 40MG TAB (PROTONIX) PO SCH (07:48)
[2023-06-10] MEDS: OCUVITE 1 TAB PO SCH (07:48)
[2023-06-10] MEDS: NADOLOL 20MG TABLET PO SCH (07:48)
[2023-06-10] MEDS: LACTOBACILLUS ACIDOPHILUS CAP (BACID) PO SCH ×2 (07:49→17:19)
[2023-06-10] MEDS: HEPARIN SOD (PORCINE) 5000UNITS/ML 1ML VIAL/SYRINGE SC SCH ×2 (07:49→21:30)
[2023-06-10] MEDS: INSULIN LISPRO (NovoLOG) PER UNIT SC SCH ×4 (07:49→21:00)
[2023-06-10] MEDS: POLYVINYL ALCOHOL OPHTH SOLN 15ML (LIQUITEARS) OU SCH ×2 (07:50→21:31)
[2023-06-10] MEDS ORDERED: CETACAINE SPRAY 5GM ONE (10:44)
[2023-06-10 14:00] VITALS: BP 118/70; TEMP 98.1; O2SAT 93
[2023-06-10 20:00] VITALS: BP 129/65; TEMP 98.1; O2SAT 94
[2023-06-10] MEDS: SENNA 8.6 MG TAB (SENOKOT) PO SCH (21:00)
[2023-06-10] MEDS: LATANOPROST 0.005% OPHTH SOLN 2.5 ML OU SCH (21:31)
[2023-06-11] MEDS: ceFAZolin SOD 2 GM in IV 1 EA IV SCH ×3 (05:12→21:07)
[2023-06-11] MEDS: SODIUM CHLORIDE 0.9% INJ 10 ML SYR IV SCH ×2 (05:13→17:38)
[2023-06-11 06:00] VITALS: BP 132/66; TEMP 97.9; O2SAT 97
[2023-06-11] MEDS: TIOTROPIUM INHALER/CAPSULE (SPIRIVA) INH SCH (07:05)
[2023-06-11] MEDS: ADVAIR HFA 230/21MCG INHALER INH SCH ×2 (07:05→21:32)
[2023-06-11] MEDS: DOCUSATE SODIUM 100MG CAPSULE PO SCH ×2 (09:00→19:30)
[2023-06-11] MEDS: LACTULOSE 20GM/30ML SYRUP UDC PO SCH ×2 (09:00→19:30)
[2023-06-11] MEDS: INSULIN LISPRO (NovoLOG) PER UNIT SC SCH ×4 (09:06→20:08)
[2023-06-11] MEDS: DICLOFENAC EPOLAMINE 1.3% PATCH TOP SCH ×2 (09:07→21:07)
[2023-06-11] MEDS: OCUVITE 1 TAB PO SCH (09:07)
[2023-06-11] MEDS: HEPARIN SOD (PORCINE) 5000UNITS/ML 1ML VIAL/SYRINGE SC SCH ×2 (09:07→21:00)
[2023-06-11] MEDS: LACTOBACILLUS ACIDOPHILUS CAP (BACID) PO SCH ×2 (09:08→17:38)
[2023-06-11] MEDS: GLIMEPIRIDE 1 MG TABLET PO SCH (09:08)
[2023-06-11] MEDS: MAGNESIUM OXIDE 400MG TAB (MAG-OX) PO SCH ×2 (09:09→21:07)
[2023-06-11] MEDS: ASCORBIC ACID 500 MG TAB PO SCH (09:09)
[2023-06-11] MEDS: VITAMIN D 1,000 INTERNATIONAL UNITS TABLET PO SCH (09:09)
[2023-06-11] MEDS: NADOLOL 20MG TABLET PO SCH (09:09)
[2023-06-11] MEDS: PANTOPRAZOLE 40MG TAB (PROTONIX) PO SCH (09:09)
[2023-06-11] MEDS: POLYVINYL ALCOHOL OPHTH SOLN 15ML (LIQUITEARS) OU SCH ×2 (09:10→21:07)
[2023-06-11 14:00] VITALS: BP 142/65; TEMP 98.2; O2SAT 95
[2023-06-11] MEDS: SENNA 8.6 MG TAB (SENOKOT) PO SCH (19:30)
[2023-06-11 20:00] VITALS: BP 136/67; TEMP 98; O2SAT 94
[2023-06-11] MEDS: LATANOPROST 0.005% OPHTH SOLN 2.5 ML OU SCH (21:07)
[2023-06-12] MEDS: ceFAZolin SOD 2 GM in IV 1 EA IV SCH ×3 (05:39→21:08)
[2023-06-12] MEDS: SODIUM CHLORIDE 0.9% INJ 10 ML SYR IV SCH ×2 (05:41→18:05)
[2023-06-12 06:00] VITALS: BP 160/60; TEMP 97.6; O2SAT 94
[2023-06-12] MEDS: TIOTROPIUM INHALER/CAPSULE (SPIRIVA) INH SCH (07:22)
[2023-06-12] MEDS: ADVAIR HFA 230/21MCG INHALER INH SCH ×2 (07:23→19:32)
[2023-06-12] MEDS ORDERED: GLIM1TAB4 PO (08:20)
[2023-06-12] MEDS ORDERED: ALBU8.5H INH (08:20)
[2023-06-12] MEDS ORDERED: FLUT1BLS8 INH (08:20)
[2023-06-12] MEDS ORDERED: RISATAB3 PO (08:20)
[2023-06-12] MEDS ORDERED: TRAM50TA2 PO (08:20)
[2023-06-12] MEDS ORDERED: MAGN400C PO (08:20)
[2023-06-12] MEDS ORDERED: CONS10SO3 PO (08:20)
[2023-06-12] MEDS ORDERED: DICL20GE TP (08:20)
[2023-06-12] MEDS ORDERED: NADO20TA PO (08:20)
[2023-06-12] MEDS: HEPARIN SOD (PORCINE) 5000UNITS/ML 1ML VIAL/SYRINGE SC SCH ×2 (08:55→21:00)
[2023-06-12] MEDS: INSULIN LISPRO (NovoLOG) PER UNIT SC SCH ×4 (08:56→20:04)
[2023-06-12] MEDS: GLIMEPIRIDE 1 MG TABLET PO SCH (08:56)
[2023-06-12] MEDS: MAGNESIUM OXIDE 400MG TAB (MAG-OX) PO SCH ×2 (08:56→20:52)
[2023-06-12] MEDS: DICLOFENAC EPOLAMINE 1.3% PATCH TOP SCH ×2 (08:56→20:51)
[2023-06-12] MEDS: VITAMIN D 1,000 INTERNATIONAL UNITS TABLET PO SCH (08:57)
[2023-06-12] MEDS: PANTOPRAZOLE 40MG TAB (PROTONIX) PO SCH (08:57)
[2023-06-12] MEDS: ASCORBIC ACID 500 MG TAB PO SCH (08:57)
[2023-06-12] MEDS: NADOLOL 20MG TABLET PO SCH (08:57)
[2023-06-12] MEDS: OCUVITE 1 TAB PO SCH (08:57)
[2023-06-12] MEDS: LACTOBACILLUS ACIDOPHILUS CAP (BACID) PO SCH ×2 (08:57→18:07)
[2023-06-12] MEDS: LACTULOSE 20GM/30ML SYRUP UDC PO SCH ×2 (08:58→20:51)
[2023-06-12] MEDS: DOCUSATE SODIUM 100MG CAPSULE PO SCH ×2 (08:58→20:52)
[2023-06-12] MEDS: POLYVINYL ALCOHOL OPHTH SOLN 15ML (LIQUITEARS) OU SCH ×2 (08:59→21:08)
[2023-06-12 14:00] VITALS: BP_SYST 145; BP_SYST 155; BP_DIAS 30; BP_DIAS 40; TEMP 98.7; O2SAT 95
[2023-06-12 20:00] VITALS: BP 130/69; TEMP 97.9; O2SAT 94
[2023-06-12] MEDS: SENNA 8.6 MG TAB (SENOKOT) PO SCH (20:52)
[2023-06-12] MEDS: LATANOPROST 0.005% OPHTH SOLN 2.5 ML OU SCH (20:52)
[2023-06-13] MEDS: ceFAZolin SOD 2 GM in IV 1 EA IV SCH (05:37)
[2023-06-13 06:00] VITALS: BP 146/72; TEMP 98; O2SAT 94
[2023-06-13] MEDS: SODIUM CHLORIDE 0.9% INJ 10 ML SYR IV SCH (06:26)
[2023-06-13] MEDS: LACTULOSE 20GM/30ML SYRUP UDC PO SCH (07:23)
[2023-06-13] MEDS: DOCUSATE SODIUM 100MG CAPSULE PO SCH (07:24)
[2023-06-13] MEDS: HEPARIN SOD (PORCINE) 5000UNITS/ML 1ML VIAL/SYRINGE SC SCH (07:24)
[2023-06-13] MEDS: ADVAIR HFA 230/21MCG INHALER INH SCH (07:41)
[2023-06-13] MEDS: TIOTROPIUM INHALER/CAPSULE (SPIRIVA) INH SCH (07:41)
[2023-06-13 07:45] VITALS: BP 146/72
[2023-06-13] MEDS: DICLOFENAC EPOLAMINE 1.3% PATCH TOP SCH (07:45)
[2023-06-13] MEDS: ASCORBIC ACID 500 MG TAB PO SCH (07:45)
[2023-06-13] MEDS: OCUVITE 1 TAB PO SCH (07:45)
[2023-06-13] MEDS: NADOLOL 20MG TABLET PO SCH (07:45)
[2023-06-13] MEDS: GLIMEPIRIDE 1 MG TABLET PO SCH (07:45)
[2023-06-13] MEDS: VITAMIN D 1,000 INTERNATIONAL UNITS TABLET PO SCH (07:46)
[2023-06-13] MEDS: MAGNESIUM OXIDE 400MG TAB (MAG-OX) PO SCH (07:46)
[2023-06-13] MEDS: PANTOPRAZOLE 40MG TAB (PROTONIX) PO SCH (07:46)
[2023-06-13] MEDS: INSULIN LISPRO (NovoLOG) PER UNIT SC SCH (07:46)
[2023-06-13] MEDS: LACTOBACILLUS ACIDOPHILUS CAP (BACID) PO SCH (07:46)
[2023-06-13] MEDS: POLYVINYL ALCOHOL OPHTH SOLN 15ML (LIQUITEARS) OU SCH (07:47)
== END 2023-06-13 09:15 | disposition home health service (06) | DRG 948 ==
LOC: M PM&R 13:15
PROVIDERS: ADMIT Physical Medicine & Rehabilitation; ATTEND Physical Medicine & Rehabilitation
PROC: 05HC33Z Insertion of Infusion Device into Left Basilic Vein, Percutaneous Approach (ICD-10-PCS; principal; 2023-06-08 15:00)
PROC: B246ZZZ Ultrasonography of Right and Left Heart (ICD-10-PCS; 2023-06-10)
DX: R53.81 Other malaise (principal); K76.6 Portal hypertension; E87.0 Hyperosmolality and hypernatremia; N39.0 Urinary tract infection, site not specified; S20.211D Contusion of right front wall of thorax, subsequent encounter; K74.60 Unspecified cirrhosis of liver; E11.9 Type 2 diabetes mellitus without complications; Z74.09 Other reduced mobility; Z74.1 Need for assistance with personal care; J44.9 Chronic obstructive pulmonary disease, unspecified; E83.42 Hypomagnesemia; K80.20 Calculus of gallbladder without cholecystitis without obstruction; D69.6 Thrombocytopenia, unspecified; K21.9 Gastro-esophageal reflux disease without esophagitis; D64.9 Anemia, unspecified; M25.571 Pain in right ankle and joints of right foot; B95.61 Methicillin susceptible Staphylococcus aureus infection as the cause of diseases classified elsewhere; I10 Essential (primary) hypertension; Z79.899 Other long term (current) drug therapy; Z88.8 Allergy status to other drugs, medicaments and biological substances; Z91.040 Latex allergy status; E88.09 Other disorders of plasma-protein metabolism, not elsewhere classified; Z87.891 Personal history of nicotine dependence

== ENCOUNTER → 2023-06-19 | Outpatient (REF) | payer MEDICARE, OTHER ==
[~2023-06-19] MED LIST changes: +DICL20GE TP; +LIDO5TD TD; +TRAM50TA2 PO
== END ==
LOC: M LAB REF 16:05
PROVIDERS: ATTEND Internal Medicine
DX: A49.01 Methicillin susceptible Staphylococcus aureus infection, unspecified site (principal); R78.71 Abnormal lead level in blood

== ENCOUNTER → 2023-09-05 | Outpatient (REF) | payer MEDICARE, OTHER ==
[2023-09-05 17:43] LABS: C REACTIVE PROTEIN QUANTITATIV 0.8 MG/DL (<1.0)
[2023-09-05 17:45] LABS: PERCENT SATURATION 82.8 % (13.2-45.0)
[2023-09-05 17:48] LABS: FERRITIN 268.7 NG/ML (7.3-270.7)
== END ==
LOC: M LAB REF 16:14
PROVIDERS: ATTEND Internal Medicine
DX: R78.81 Bacteremia (principal); K74.60 Unspecified cirrhosis of liver

== ENCOUNTER → 2023-09-18 | Outpatient (REF) | payer MEDICARE, OTHER ==
[2023-09-19 14:33] LABS: PHOSPHORUS LEVEL 2.3 MG/DL (2.4-5.1); PTH INTACT 10.8 PG/ML (18.5-88.0)
== END ==
LOC: M LAB REF 12:43
PROVIDERS: ATTEND Internal Medicine
DX: E83.52 Hypercalcemia (principal)

== ENCOUNTER → 2023-09-28 | Outpatient (REF) | payer MEDICARE, OTHER ==
[~2023-09-28] MED LIST changes: +LIDO5DIS41 TD; +MAGN400T2 PO; +METF500T13 PO; +SEMA1PEN2 INJ; +TREL1AER INH; +VENTAER INH
== END ==
LOC: M LAB REF 16:22
PROVIDERS: ATTEND Internal Medicine
DX: E83.52 Hypercalcemia (principal)

== ENCOUNTER → 2023-12-25 | Outpatient (REF) | payer MEDICARE, OTHER ==
[~2023-12-25] MED LIST changes: +CEFD300CAP PO
[2023-12-25 13:53] LABS: INR 1.56; PROTHROMBIN TIME 18.2 SECONDS (12.5-14.5)
== END ==
LOC: M LAB REF 12:52
PROVIDERS: ATTEND Internal Medicine
DX: K74.60 Unspecified cirrhosis of liver (principal)

== ENCOUNTER 2024-02-07 15:06 | Emergency (ER) | payer MEDICARE, OTHER ==
[~2024-02-07] VITALS: Ht 152.4 cm; Wt 55.1 kg
[2024-02-07] MEDS: IBUPROFEN 400MG TAB PO ONE (18:03)
[2024-02-07 19:39] VITALS: BP 119/57; TEMP 97.6; O2SAT 96
== END 2024-02-07 19:54 | disposition home or self-care (01) ==
LOC: M ED 15:06
DX: M16.0 Bilateral primary osteoarthritis of hip (principal); M46.1 Sacroiliitis, not elsewhere classified; K74.60 Unspecified cirrhosis of liver; K76.82 Hepatic encephalopathy; Z91.040 Latex allergy status; Z88.8 Allergy status to other drugs, medicaments and biological substances; Z79.899 Other long term (current) drug therapy; Z79.51 Long term (current) use of inhaled steroids

== ENCOUNTER 2024-05-08 02:47 | Inpatient (IN) | payer MEDICARE, OTHER ==
[~2024-05-08] VITALS: Ht 165.1 cm; Wt 59.9 kg
[~2024-05-08 02:47] MED LIST changes: +FURO20TA2 PO; -GLIM1TAB4 PO; +GLIM1TAB84 PO
[2024-05-08 03:39] LABS: BASO % 0.3 % (0.0-1.0); EOS # 0.2 10^3/uL (0.0-0.5); EOS % 2.4 % (0.0-3.0); HEMOGLOBIN 11.1 g/dl (12.0-15.5); LYMPH # 1.9 10^3/uL (1.5-5.0); LYMPH % 27.7 % (24.0-44.0); MEAN CORPUSCULAR HEMOGLOBIN 32.3 pg (27.0-33.0); MEAN CORPUSCULAR HGB CONC 33.6 g/dl (32.0-36.5); MEAN CORPUSCULAR VOLUME 95.9 fl (80.0-96.0); MONO # 0.6 10^3/uL (0.0-0.8); MONO % 8.4 % (2.0-8.0); NEUTROPHILS # 4.1 10^3/uL (1.5-8.5); NEUTROPHILS % 60.9 % (36.0-66.0); PLATELET COUNT, AUTOMATED 100 10^3/uL (150-450); RED BLOOD COUNT 3.44 10^6/uL (4.00-5.40); WHITE BLOOD COUNT 6.7 10^3/uL (4.0-10.0)
[2024-05-08 04:04] LABS: THYROID STIMULATING HORMONE 2.944 uIU/ML (0.55-4.78)
[2024-05-08 04:11] LABS: CALCIUM LEVEL 10.7 MG/DL (8.3-10.6); CREATININE FOR GFR 0.97 MG/DL (0.55-1.30); GLOMERULAR FILTRATION RATE 59.9 (>39)
[2024-05-08 07:47] LABS: CK-MB VALUE MASS 1.3 NG/ML (<3.6); MAGNESIUM LEVEL 1.8 MG/DL (1.8-2.4)
[2024-05-08 07:51] LABS: FREE T4 0.93 NG/DL (0.89-1.76)
[2024-05-08 08:10] LABS: MB/CK RELATIVE INDEX 1.78 (< OR =4)
[2024-05-08 09:01] LABS: CK-MB VALUE MASS 1.1 NG/ML (<3.6)
[2024-05-08 09:03] LABS: ALBUMIN 2.4 G/DL (3.2-5.2); BILIRUBIN,DIRECT 1.3 MG/DL (<0.4); BILIRUBIN,TOTAL 3.4 MG/DL (0.3-1.2); MB/CK RELATIVE INDEX 1.69 (< OR =4); TOTAL PROTEIN 5.6 G/DL (5.7-8.2)
[2024-05-08] MEDS ORDERED: ISOVUE-370 76% 100ML VIAL As Ordered ONE (11:52)
[2024-05-08 13:15] VITALS: BP 155/76; TEMP 97.9; O2SAT 96
[2024-05-08] MEDS ORDERED: IPRATROPIUM 0.5MG/ALBUTEROL 2.5MG INH SOL UD 3ML (DUONEB) NEB PRN (14:30)
[2024-05-08] MEDS ORDERED: GLUCOSE 4 GM CHEW PO PRN (14:30)
[2024-05-08] MEDS ORDERED: DEXTROSE 50% 50ML SYRINGE IV PRN (14:30)
[2024-05-08] MEDS ORDERED: GLUCAGON INJ 1MG VIAL SC PRN (14:30)
[2024-05-08] MEDS: NS 1,000 ML IV SCH (14:42)
[2024-05-08 15:04] LABS: INR 1.44; PROTHROMBIN TIME 17.1 SECONDS (12.5-14.5)
[2024-05-08] MEDS: INSULIN LISPRO (NovoLOG) PER UNIT SC SCH ×2 (17:10→21:00)
[2024-05-08] MEDS ORDERED: FURO20TA2 PO (17:48)
[2024-05-08] MEDS ORDERED: HOME MED LIST COMPLETE! XX SCH (17:50)
[2024-05-08] MEDS: MAG SULF 1GM/100ML (MAG RUN) 1 GM in IV 1 EA IV ONE (18:40)
[2024-05-08] MEDS: LACTULOSE 20GM/30ML SYRUP UDC PO SCH (18:40)
[2024-05-08] MEDS: SYMBICORT 160/4.5MCG INHALER 6GM INH SCH (19:32)
[2024-05-08] MEDS ORDERED: SYMBICORT 80/4.5MCG INHALER 6GM INH SCH (20:00)
[2024-05-08 21:13] VITALS: BP 117/61; TEMP 98.6; O2SAT 94
[2024-05-08] MEDS: rifAXIMin 550 MG TAB (XIFAXAN) PO SCH (21:20)
[2024-05-08 21:38] VITALS: O2SAT 98
[2024-05-09 04:09] LABS: HEMATOCRIT 30.3 % (36.0-47.0); HEMOGLOBIN 10.1 g/dl (12.0-15.5); MEAN CORPUSCULAR HEMOGLOBIN 32.5 pg (27.0-33.0); MEAN CORPUSCULAR HGB CONC 33.3 g/dl (32.0-36.5); MEAN CORPUSCULAR VOLUME 97.4 fl (80.0-96.0); RED BLOOD COUNT 3.11 10^6/uL (4.00-5.40)
[2024-05-09 04:41] LABS: ALBUMIN 2.3 G/DL (3.2-5.2); ALKALINE PHOSPHATASE 101 U/L (46-116); ALT/SGPT 24 U/L (7.0-40); AST/SGOT 38 U/L (<34); BILIRUBIN,TOTAL 3.9 MG/DL (0.3-1.2); BLOOD UREA NITROGEN 19 MG/DL (9-23); CALCIUM LEVEL 9.7 MG/DL (8.3-10.6); CARBON DIOXIDE LEVEL 21 MMOL/L (20-31); CHLORIDE LEVEL 113 MMOL/L (98-107); CREATININE FOR GFR 0.87 MG/DL (0.55-1.30); GLOMERULAR FILTRATION RATE > 60.0 (>39); GLUCOSE, FASTING 107 MG/DL (74-106); PLATELET COUNT, AUTOMATED 89 10^3/uL (150-450); POTASSIUM SERUM 3.7 MMOL/L (3.5-5.1); SODIUM LEVEL 141 MMOL/L (136-145); TOTAL PROTEIN 5.4 G/DL (5.7-8.2)
[2024-05-09 06:02] VITALS: BP 125/66; TEMP 98.4; O2SAT 99
[2024-05-09] MEDS: PANTOPRAZOLE 40MG VIAL IV SCH (08:17)
[2024-05-09] MEDS: ENOXAPARIN 40MG/0.4ML SYRINGE (J1650 PER 10MG) SC SCH (09:00)
[2024-05-09 12:00] VITALS: BP 127/64; TEMP 97.9; O2SAT 97
[2024-05-09] MEDS: TIOTROPIUM INHALER/CAPSULE (SPIRIVA) INH SCH (12:16)
[2024-05-09 19:49] VITALS: BP 124/60; TEMP 98.1; O2SAT 94
[2024-05-09] MEDS: LACTULOSE 20GM/30ML SYRUP UDC PO SCH (21:00)
[2024-05-09] MEDS: HYDROCORTISONE 1% CREAM 30GM TOP SCH (21:05)
[2024-05-10 03:54] VITALS: BP 122/60; TEMP 97.9; O2SAT 98
[2024-05-10 06:27] LABS: BASO % 0.2 % (0.0-1.0); EOS # 0.2 10^3/uL (0.0-0.5); EOS % 3.6 % (0.0-3.0); HEMATOCRIT 29.4 % (36.0-47.0); HEMOGLOBIN 9.5 g/dl (12.0-15.5); LYMPH # 1.7 10^3/uL (1.5-5.0); LYMPH % 26.3 % (24.0-44.0); MEAN CORPUSCULAR HEMOGLOBIN 31.8 pg (27.0-33.0); MEAN CORPUSCULAR HGB CONC 32.3 g/dl (32.0-36.5); MEAN CORPUSCULAR VOLUME 98.3 fl (80.0-96.0); MONO # 0.6 10^3/uL (0.0-0.8); MONO % 8.8 % (2.0-8.0); NEUTROPHILS # 3.9 10^3/uL (1.5-8.5); NEUTROPHILS % 60.8 % (36.0-66.0); RED BLOOD COUNT 2.99 10^6/uL (4.00-5.40); WHITE BLOOD COUNT 6.4 10^3/uL (4.0-10.0)
[2024-05-10 06:32] LABS: PLATELET COUNT, AUTOMATED 86 10^3/uL (150-450)
[2024-05-10 06:37] LABS: BLOOD UREA NITROGEN 19 MG/DL (9-23); CALCIUM LEVEL 8.8 MG/DL (8.3-10.6); CARBON DIOXIDE LEVEL 21 MMOL/L (20-31); CHLORIDE LEVEL 115 MMOL/L (98-107); CREATININE FOR GFR 0.96 MG/DL (0.55-1.30); GLOMERULAR FILTRATION RATE > 60.0 (>39); GLUCOSE, FASTING 145 MG/DL (74-106); POTASSIUM SERUM 3.9 MMOL/L (3.5-5.1); SODIUM LEVEL 143 MMOL/L (136-145)
[2024-05-10] MEDS: LACTULOSE 20GM/30ML SYRUP UDC PO SCH ×2 (08:54→20:15)
[2024-05-10 12:00] VITALS: BP 122/60; TEMP 97.9; O2SAT 97
[2024-05-10 20:07] VITALS: BP 123/59; TEMP 98.4; O2SAT 95
[2024-05-11] MEDS: LATANOPROST 0.005% OPHTH SOLN 2.5 ML OU SCH (01:23)
[2024-05-11 04:51] VITALS: BP 123/60; TEMP 97.9; O2SAT 98
[2024-05-11 06:33] LABS: BASO % 0.3 % (0.0-1.0); EOS # 0.2 10^3/uL (0.0-0.5); EOS % 3.3 % (0.0-3.0); HEMOGLOBIN 9.5 g/dl (12.0-15.5); LYMPH # 1.6 10^3/uL (1.5-5.0); MEAN CORPUSCULAR HEMOGLOBIN 31.8 pg (27.0-33.0); MEAN CORPUSCULAR HGB CONC 32.8 g/dl (32.0-36.5); MONO # 0.7 10^3/uL (0.0-0.8); MONO % 10.3 % (2.0-8.0); NEUTROPHILS # 4.6 10^3/uL (1.5-8.5); NEUTROPHILS % 63.8 % (36.0-66.0); RED BLOOD COUNT 2.99 10^6/uL (4.00-5.40); WHITE BLOOD COUNT 7.2 10^3/uL (4.0-10.0)
[2024-05-11 06:46] LABS: PLATELET COUNT, AUTOMATED 90 10^3/uL (150-450)
[2024-05-11 12:00] VITALS: BP 122/60; TEMP 97.9; O2SAT 95
[2024-05-11] MEDS: ENOXAPARIN 40MG/0.4ML SYRINGE (J1650 PER 10MG) SC SCH (17:11)
[2024-05-11 20:08] VITALS: BP 118/58; TEMP 97.9; O2SAT 95
[2024-05-11] MEDS: LACTULOSE 20GM/30ML SYRUP UDC PO SCH (20:46)
[2024-05-12 04:22] VITALS: BP 131/70; TEMP 97.9; O2SAT 98
[2024-05-12 07:13] LABS: BASO % 0.3 % (0.0-1.0); EOS # 0.3 10^3/uL (0.0-0.5); EOS % 4.7 % (0.0-3.0); HEMATOCRIT 29.2 % (36.0-47.0); HEMOGLOBIN 9.2 g/dl (12.0-15.5); LYMPH # 1.6 10^3/uL (1.5-5.0); LYMPH % 27.2 % (24.0-44.0); MEAN CORPUSCULAR HEMOGLOBIN 31.6 pg (27.0-33.0); MEAN CORPUSCULAR HGB CONC 31.5 g/dl (32.0-36.5); MEAN CORPUSCULAR VOLUME 100.3 fl (80.0-96.0); MONO # 0.6 10^3/uL (0.0-0.8); MONO % 9.2 % (2.0-8.0); NEUTROPHILS # 3.5 10^3/uL (1.5-8.5); NEUTROPHILS % 58.3 % (36.0-66.0); RED BLOOD COUNT 2.91 10^6/uL (4.00-5.40)
[2024-05-12 07:16] LABS: PLATELET COUNT, AUTOMATED 82 10^3/uL (150-450)
[2024-05-12 07:31] LABS: CALCIUM LEVEL 8.8 MG/DL (8.3-10.6); GLOMERULAR FILTRATION RATE 57.9 (>39); POTASSIUM SERUM 4.5 MMOL/L (3.5-5.1)
[2024-05-12] MEDS: NS 1,000 ML IV SCH (08:53)
[2024-05-12 08:55] LABS: MAGNESIUM LEVEL 1.7 MG/DL (1.8-2.4)
[2024-05-12] MEDS: MAG SULF 1GM/100ML (MAG RUN) 1 GM in IV 1 EA IV SCH (10:46)
[2024-05-12 12:00] VITALS: BP 131/60; TEMP 97.9; O2SAT 95
[2024-05-12 20:41] VITALS: BP 110/50; TEMP 98.1; O2SAT 93
[2024-05-13 03:39] VITALS: BP 120/63; TEMP 97.5; O2SAT 94
[2024-05-13 06:34] LABS: BASO % 0.4 % (0.0-1.0); EOS # 0.2 10^3/uL (0.0-0.5); EOS % 3.6 % (0.0-3.0); HEMATOCRIT 27.4 % (36.0-47.0); HEMOGLOBIN 8.9 g/dl (12.0-15.5); LYMPH # 1.4 10^3/uL (1.5-5.0); LYMPH % 26.4 % (24.0-44.0); MEAN CORPUSCULAR HGB CONC 32.5 g/dl (32.0-36.5); MEAN CORPUSCULAR VOLUME 98.6 fl (80.0-96.0); MONO # 0.5 10^3/uL (0.0-0.8); MONO % 8.6 % (2.0-8.0); NEUTROPHILS # 3.3 10^3/uL (1.5-8.5); NEUTROPHILS % 60.6 % (36.0-66.0); RED BLOOD COUNT 2.78 10^6/uL (4.00-5.40); WHITE BLOOD COUNT 5.4 10^3/uL (4.0-10.0)
[2024-05-13 06:37] LABS: PLATELET COUNT, AUTOMATED 83 10^3/uL (150-450)
[2024-05-13 06:58] LABS: BLOOD UREA NITROGEN 27 MG/DL (9-23); CALCIUM LEVEL 8.6 MG/DL (8.3-10.6); CARBON DIOXIDE LEVEL 20 MMOL/L (20-31); CHLORIDE LEVEL 115 MMOL/L (98-107); CREATININE FOR GFR 0.88 MG/DL (0.55-1.30); GLOMERULAR FILTRATION RATE > 60.0 (>39); GLUCOSE, FASTING 115 MG/DL (74-106); POTASSIUM SERUM 4.3 MMOL/L (3.5-5.1); SODIUM LEVEL 140 MMOL/L (136-145)
[2024-05-13] MEDS: LACTULOSE 20GM/30ML SYRUP UDC PO SCH (07:59)
[2024-05-13 12:00] VITALS: BP 121/63; TEMP 97.7; O2SAT 95
[2024-05-13 20:00] VITALS: BP 130/61; TEMP 97.7; O2SAT 96
[2024-05-14 04:00] VITALS: BP 133/65; TEMP 97.7; O2SAT 97
[2024-05-14 12:00] VITALS: BP 109/54; TEMP 97.9; O2SAT 96
[2024-05-14 20:00] VITALS: BP 133/66; TEMP 98.1; O2SAT 93
[2024-05-15 04:00] VITALS: BP 129/66; TEMP 97.7; O2SAT 92
[2024-05-15] MEDS ORDERED: XIFA550T PO (11:17)
[2024-05-15 12:00] VITALS: BP 128/66; TEMP 97.9; O2SAT 95
== END 2024-05-15 14:11 | DRG 443 ==
LOC: M ED 02:47 → M ED INP 02:48 → INTOOBSV 14:23 → UNDOADMOB 14:23 → M MSPAV 15:15 → M ED INP 15:15 → M MSPAV 15:15 → OBSVTOIN 05-10 10:16
PROVIDERS: ADMIT Internal Medicine; ATTEND Internal Medicine
DX: K76.82 Hepatic encephalopathy (principal); K75.81 Nonalcoholic steatohepatitis (NASH); J44.9 Chronic obstructive pulmonary disease, unspecified; E11.9 Type 2 diabetes mellitus without complications; E83.42 Hypomagnesemia; R55 Syncope and collapse; T67.5XXA Heat exhaustion, unspecified, initial encounter; E86.0 Dehydration; D69.6 Thrombocytopenia, unspecified; R03.0 Elevated blood-pressure reading, without diagnosis of hypertension; H40.9 Unspecified glaucoma; G47.33 Obstructive sleep apnea (adult) (pediatric); Z66 Do not resuscitate; E83.52 Hypercalcemia; K21.9 Gastro-esophageal reflux disease without esophagitis; D64.9 Anemia, unspecified; Z79.84 Long term (current) use of oral hypoglycemic drugs; Z79.899 Other long term (current) drug therapy; Z88.8 Allergy status to other drugs, medicaments and biological substances; Z91.040 Latex allergy status

== ENCOUNTER → 2024-06-17 | Outpatient (REF) | payer MEDICARE, OTHER ==
[~2024-06-17] MED LIST changes: +XIFA550T PO
[2024-06-17 16:22] LABS: PERCENT SATURATION 32.2 % (13.2-45.0)
[2024-06-17 16:25] LABS: FERRITIN 127.9 NG/ML (7.3-270.7)
[2024-06-17 16:26] LABS: INR 1.52; PROTHROMBIN TIME 17.8 SECONDS (12.5-14.5)
== END ==
LOC: M LAB REF 16:05
PROVIDERS: ATTEND Internal Medicine
DX: D64.9 Anemia, unspecified (principal); K74.60 Unspecified cirrhosis of liver

== ENCOUNTER → 2024-07-05 | Outpatient (CLI) | payer MEDICARE, OTHER | LOC: M RAD 12:19 | PROVIDERS: ATTEND Nurse Practitioner Adult Health | DX: M25.552 Pain in left hip (principal); K80.20 Calculus of gallbladder without cholecystitis without obstruction; K57.30 Diverticulosis of large intestine without perforation or abscess without bleeding ==

== ENCOUNTER → 2024-07-26 | Outpatient (REF) | payer MEDICARE, OTHER | LOC: M LAB REF 12:29 | PROVIDERS: ATTEND Internal Medicine | DX: E11.22 Type 2 diabetes mellitus with diabetic chronic kidney disease (principal) ==

== ENCOUNTER 2024-11-01 08:42 | Emergency (ER) | payer MEDICARE, OTHER ==
[~2024-11-01] VITALS: Ht 152.4 cm; Wt 51.4 kg
[2024-11-01 09:04] VITALS: BP 130/62; TEMP 97.6; O2SAT 94
[2024-11-01] MEDS: MORPHINE 2 MG/ML 1ML VIAL IV ONE (09:35)
[2024-11-01 09:38] LABS: BASO % 0.3 % (0.0-1.0); EOS # 0.2 10^3/uL (0.0-0.5); EOS % 2.4 % (0.0-3.0); HEMATOCRIT 30.8 % (36.0-47.0); HEMOGLOBIN 10.1 g/dl (12.0-15.5); LYMPH # 1.6 10^3/uL (1.5-5.0); LYMPH % 25.7 % (24.0-44.0); MEAN CORPUSCULAR HGB CONC 32.8 g/dl (32.0-36.5); MEAN CORPUSCULAR VOLUME 100.7 fl (80.0-96.0); MONO # 0.4 10^3/uL (0.0-0.8); MONO % 6.8 % (2.0-8.0); NEUTROPHILS % 63.5 % (36.0-66.0); RED BLOOD COUNT 3.06 10^6/uL (4.00-5.40); WHITE BLOOD COUNT 6.4 10^3/uL (4.0-10.0)
[2024-11-01 09:45] LABS: PLATELET COUNT, AUTOMATED 75 10^3/uL (150-450)
[2024-11-01 09:51] LABS: INR 1.41; PARTIAL THROMBOPLASTIN TIME 33.8 SECONDS (24.8-34.2); PROTHROMBIN TIME 17.5 SECONDS (12.5-14.5)
[2024-11-01 10:19] VITALS: BP 130/58; TEMP 98.6; O2SAT 95
[2024-11-01 10:29] LABS: BLOOD UREA NITROGEN 33 MG/DL (9-23); CALCIUM LEVEL 10.6 MG/DL (8.3-10.6); CARBON DIOXIDE LEVEL 21 MMOL/L (20-31); CHLORIDE LEVEL 115 MMOL/L (98-107); CREATININE FOR GFR 0.94 MG/DL (0.55-1.30); GLOMERULAR FILTRATION RATE > 60.0 (>39); GLUCOSE, FASTING 127 MG/DL (74-106); POTASSIUM SERUM 4.3 MMOL/L (3.5-5.1); SODIUM LEVEL 146 MMOL/L (136-145)
[2024-11-01 10:36] LABS: CK-MB VALUE MASS 2.2 NG/ML (<3.6)
[2024-11-01 10:51] LABS: CPK CREATINE PHOSPHOKINASE 63 U/L (34-145); MB/CK RELATIVE INDEX 3.49 (< OR =4)
== END 2024-11-01 10:22 | disposition short-term general hospital (02) ==
LOC: M ED 08:42
DX: S06.34AA Traumatic hemorrhage of right cerebrum with loss of consciousness status unknown, initial encounter (principal); S12.190A Other displaced fracture of second cervical vertebra, initial encounter for closed fracture; W06.XXXA Fall from bed, initial encounter; Y92.9 Unspecified place or not applicable; Y93.9 Activity, unspecified; Y99.9 Unspecified external cause status; E11.9 Type 2 diabetes mellitus without complications; I10 Essential (primary) hypertension; K75.81 Nonalcoholic steatohepatitis (NASH); K76.82 Hepatic encephalopathy; Z87.891 Personal history of nicotine dependence; Z79.899 Other long term (current) drug therapy; Z88.8 Allergy status to other drugs, medicaments and biological substances; Z91.040 Latex allergy status

== ENCOUNTER 2024-12-31 14:12 | Inpatient (IN) | payer MEDICARE, OTHER ==
[~2024-12-31] VITALS: Ht 152.4 cm; Wt 58.3 kg
[2024-12-31] MEDS ORDERED: XIFA550T PO (15:22)
[2024-12-31 15:37] LABS: VENOUS BASE EXCESS -2.7 (-2.0-2.0); VENOUS HCO3 22.5 MMOL/L (23.0-27.0); VENOUS O2 SATURATION 75.4 % (60.0-80.0); VENOUS PARTIAL PRESSURE CO2 40.7 mmHg (38.0-50.0); VENOUS PARTIAL PRESSURE O2 44.9 mmHg (30.0-50.0); VENOUS PH 7.361 UNITS (7.330-7.430); VENOUS STANDARD HCO3 21.8 MMOL/L; VENOUS TOTAL CO2 23.8 MMOL/L (24.0-28.0)
[2024-12-31] MEDS ORDERED: ISOVUE-370 76% 100ML VIAL As Ordered ONE (15:39)
[2024-12-31 15:56] LABS: BASO % 0.1 % (0.0-1.0); EOS # 0.2 10^3/uL (0.0-0.5); EOS % 2.4 % (0.0-3.0); HEMATOCRIT 29.3 % (36.0-47.0); HEMOGLOBIN 9.1 g/dl (12.0-15.5); LYMPH # 1.1 10^3/uL (1.5-5.0); LYMPH % 13.7 % (24.0-44.0); MEAN CORPUSCULAR HEMOGLOBIN 32.2 pg (27.0-33.0); MEAN CORPUSCULAR HGB CONC 31.1 g/dl (32.0-36.5); MEAN CORPUSCULAR VOLUME 103.5 fl (80.0-96.0); MONO # 0.5 10^3/uL (0.0-0.8); MONO % 6.1 % (2.0-8.0); NEUTROPHILS # 6.2 10^3/uL (1.5-8.5); NEUTROPHILS % 77.3 % (36.0-66.0); PLATELET COUNT, AUTOMATED 125 10^3/uL (150-450); RED BLOOD COUNT 2.83 10^6/uL (4.00-5.40)
[2024-12-31] MEDS ORDERED: AZIT-10 PO (15:57)
[2024-12-31] MEDS ORDERED: APAP325T4 PO (15:57)
[2024-12-31] MEDS ORDERED: FLON1SPR NARES (15:57)
[2024-12-31] MEDS ORDERED: IPRA0.00 IN (15:57)
[2024-12-31] MEDS ORDERED: TRAM50TA2 PO (15:57)
[2024-12-31] MEDS ORDERED: SYMB16INH INH (15:57)
[2024-12-31] MEDS ORDERED: ACET-683 PO (15:59)
[2024-12-31] MEDS ORDERED: HOME MED LIST COMPLETE! XX SCH (16:00)
[2024-12-31 16:02] LABS: KETONE, URINE AUTO RFX NEGATIVE (NEGATIVE); LEUKOCYTE ESTERASE UR AUTO RFX NEGATIVE (NEGATIVE); MUCUS, URINE RFX SMALL (NEGATIVE); NITRITE, URINE AUTO RFX NEGATIVE (NEGATIVE); RBC, URINE AUTO RFX 2 /HPF (0-3); SQUAM EPITHELIAL CELL UR AURFX 0 /HPF (0-6); WBC, URINE AUTO RFX 3 /HPF (0-3)
[2024-12-31 16:04] LABS: ETHYL ALCOHOL (ETHANOL) 0.004 % (0.000-0.010)
[2024-12-31] MEDS: LIDOCAINE 2% 5ML JELLY UROJET TOP ONE (16:05)
[2024-12-31 16:06] LABS: ALBUMIN 1.7 G/DL (3.2-5.2); ALKALINE PHOSPHATASE 114 U/L (35-104); ALT/SGPT 33 U/L (7.0-40); AST/SGOT 66 U/L (<34); BILIRUBIN,DIRECT 0.9 MG/DL (<0.4); BILIRUBIN,TOTAL 2.4 MG/DL (0.3-1.2); BLOOD UREA NITROGEN 33 MG/DL (9-23); CALCIUM LEVEL 9.6 MG/DL (8.3-10.6); CARBON DIOXIDE LEVEL 23 MMOL/L (20-31); CHLORIDE LEVEL 108 MMOL/L (98-107); CK-MB VALUE MASS 1.6 NG/ML (<3.6); CREATININE FOR GFR 0.77 MG/DL (0.55-1.30); GLOMERULAR FILTRATION RATE > 60.0 (>39); GLUCOSE, FASTING 76 MG/DL (74-106); MAGNESIUM LEVEL 1.7 MG/DL (1.8-2.4); POTASSIUM SERUM 5.7 MMOL/L (3.5-5.1); SALICYLATE LEVEL < 3.0 MG/DL (<30); SODIUM LEVEL 142 MMOL/L (136-145); TOTAL PROTEIN 6.6 G/DL (5.7-8.2)
[2024-12-31 16:08] LABS: THYROID STIMULATING HORMONE 3.178 uIU/ML (0.55-4.78)
[2024-12-31 16:09] LABS: CPK CREATINE PHOSPHOKINASE 66 U/L (34-145); MB/CK RELATIVE INDEX 2.42 (< OR =4)
[2024-12-31 16:32] LABS: BARBITURATES URINE NEGATIVE (NEGATIVE); COCAINE METABOLITE URINE NEGATIVE (NEGATIVE); METHADONE URINE NEGATIVE (NEGATIVE)
[2024-12-31 16:33] LABS: AMPHETAMINES LEVEL URINE NEGATIVE (NEGATIVE); BENZODIAZEPINES URINE NEGATIVE (NEGATIVE); CANNABINOIDS URINE NEGATIVE (NEGATIVE); OPIATES URINE NEGATIVE (NEGATIVE); PHENCYCLIDINE URINE NEGATIVE (NEGATIVE)
[2024-12-31] MEDS: cefTRIAXone SOD 1 GM in DEXTROSE 5% (D5W) ADV/MINI-BAG 50 ML IV ONE (17:21)
[2024-12-31] MEDS: NS 500 ML IV ONE (17:21)
[2024-12-31] MEDS: NS (Normal Saline) 0.9% 1,000 ML IV ONE (17:21)
[2024-12-31 17:28] LABS: INR 1.39; PARTIAL THROMBOPLASTIN TIME 30.4 SECONDS (24.8-34.2); PROTHROMBIN TIME 17.3 SECONDS (12.5-14.5)
[2024-12-31] MEDS: INSULIN LISPRO (NovoLOG) PER UNIT SC SCH (18:00)
[2024-12-31 18:17] LABS: CK-MB VALUE MASS < 1.0 NG/ML (<3.6)
[2024-12-31 18:18] LABS: CPK CREATINE PHOSPHOKINASE 21 U/L (34-145); MB/CK RELATIVE INDEX 4.76 (< OR =4)
[2024-12-31] MEDS: DOXYCYCLINE HYCLATE 100 MG in DEXTROSE 5% (D5W) MINI-BAG PLU 100 ML IV ONE (18:34)
[2024-12-31] MEDS: LACTULOSE 20GM/30ML SYRUP UDC PO ONE (19:00)
[2024-12-31] MEDS ORDERED: GLUCOSE 4 GM CHEW PO PRN (19:10)
[2024-12-31] MEDS ORDERED: GLUCAGON INJ 1MG VIAL SC PRN (19:10)
[2024-12-31] MEDS: SYMBICORT 160/4.5MCG INHALER 6GM INH SCH (19:39)
[2024-12-31 20:20] LABS: HEMATOCRIT 27.8 % (36.0-47.0); HEMOGLOBIN 8.5 g/dl (12.0-15.5); MEAN CORPUSCULAR HEMOGLOBIN 31.5 pg (27.0-33.0); MEAN CORPUSCULAR HGB CONC 30.6 g/dl (32.0-36.5); PLATELET COUNT, AUTOMATED 117 10^3/uL (150-450); WHITE BLOOD COUNT 7.8 10^3/uL (4.0-10.0)
[2024-12-31] MEDS: DEXTROSE 50% 50ML SYRINGE IV STA (20:30)
[2024-12-31] MEDS: HumuLIN R (REGULAR) INSULIN (NovoLIN R) **100U/ML** PER UNIT IV STA (20:31)
[2024-12-31 20:44] LABS: BLOOD UREA NITROGEN 31 MG/DL (9-23); CARBON DIOXIDE LEVEL 21 MMOL/L (20-31); CHLORIDE LEVEL 112 MMOL/L (98-107); CREATININE FOR GFR 0.74 MG/DL (0.55-1.30); GLOMERULAR FILTRATION RATE > 60.0 (>39); GLUCOSE, FASTING 93 MG/DL (74-106); POTASSIUM SERUM 5.1 MMOL/L (3.5-5.1); SODIUM LEVEL 143 MMOL/L (136-145)
[2024-12-31] MEDS: LATANOPROST 0.005% OPHTH SOLN 2.5 ML OU SCH (21:00)
[2024-12-31] MEDS: D5W/0.9% SODIUM CHLORIDE 1,000 ML IV SCH (21:02)
[2024-12-31] MEDS: LACTULOSE 20GM/30ML SYRUP UDC PO SCH (21:24)
[2024-12-31] MEDS: LACTULOSE 20GM/30ML SYRUP UDC PR SCH (21:39)
[2024-12-31] MEDS: rifAXIMin 550 MG TAB (XIFAXAN) PO SCH (21:55)
[2025-01-01] VITALS (8 sets, daily range): BP systolic 105–129; BP diastolic 51–72; TEMP 97–97.4; O2SAT 92–98
[2025-01-01] MEDS: DEXTROSE 50% 50ML SYRINGE IV PRN (00:18)
[2025-01-01] MEDS ORDERED: LACTULOSE 20GM/30ML SYRUP UDC NG SCH ×2 (03:05→06:00)
[2025-01-01] MEDS: LACTULOSE 20GM/30ML SYRUP UDC NG SCH (05:59)
[2025-01-01] MEDS ORDERED: cefTRIAXone SOD 2 GM in DEXTROSE 5% (D5W) ADV/MINI-BAG 50 ML IV SCH ×2 (06:00→06:43)
[2025-01-01] MEDS: cefTRIAXone SOD 2 GM in DEXTROSE 5% (D5W) ADV/MINI-BAG 50 ML IV SCH (06:53)
[2025-01-01] MEDS: FLUTICASONE PROP 0.05% NASAL SPRAY 16 GM (FLONASE) NARES SCH (08:33)
[2025-01-01 10:31] LABS: BASO % 0.2 % (0.0-1.0); EOS # 0.3 10^3/uL (0.0-0.5); HEMATOCRIT 26.5 % (36.0-47.0); HEMOGLOBIN 8.2 g/dl (12.0-15.5); LYMPH # 1.5 10^3/uL (1.5-5.0); LYMPH % 17.3 % (24.0-44.0); MEAN CORPUSCULAR HEMOGLOBIN 31.8 pg (27.0-33.0); MEAN CORPUSCULAR HGB CONC 30.9 g/dl (32.0-36.5); MEAN CORPUSCULAR VOLUME 102.7 fl (80.0-96.0); MONO # 0.7 10^3/uL (0.0-0.8); MONO % 8.1 % (2.0-8.0); NEUTROPHILS # 6.1 10^3/uL (1.5-8.5); NEUTROPHILS % 70.9 % (36.0-66.0); PLATELET COUNT, AUTOMATED 113 10^3/uL (150-450); RED BLOOD COUNT 2.58 10^6/uL (4.00-5.40); WHITE BLOOD COUNT 8.6 10^3/uL (4.0-10.0)
[2025-01-01 10:49] LABS: ALBUMIN 1.5 G/DL (3.2-5.2); ALKALINE PHOSPHATASE 99 U/L (35-104); ALT/SGPT 24 U/L (7.0-40); AST/SGOT 36 U/L (<34); BILIRUBIN,TOTAL 1.7 MG/DL (0.3-1.2); BLOOD UREA NITROGEN 31 MG/DL (9-23); CALCIUM LEVEL 8.9 MG/DL (8.3-10.6); CARBON DIOXIDE LEVEL 22 MMOL/L (20-31); CHLORIDE LEVEL 115 MMOL/L (98-107); CREATININE FOR GFR 0.77 MG/DL (0.55-1.30); GLOMERULAR FILTRATION RATE > 60.0 (>39); GLUCOSE, FASTING 114 MG/DL (74-106); MAGNESIUM LEVEL 1.5 MG/DL (1.8-2.4); POTASSIUM SERUM 4.3 MMOL/L (3.5-5.1); SODIUM LEVEL 145 MMOL/L (136-145); TOTAL PROTEIN 5.9 G/DL (5.7-8.2)
[2025-01-01] MEDS: LACTULOSE 20GM/30ML SYRUP UDC PR SCH (12:00)
[2025-01-01] MEDS: KETOROLAC 30 MG/ML 1ML VIAL IV ONE (12:24)
[2025-01-01] MEDS: MAG SULF 1GM/100ML (MAG RUN) 1 GM in IV 1 EA IV SCH (13:50)
[2025-01-01] MEDS: IPRATROPIUM 0.5MG/ALBUTEROL 2.5MG INH SOL UD 3ML (DUONEB) INH PRN (21:31)
[2025-01-02 04:30] VITALS: BP 130/58; TEMP 98.2; O2SAT 90
[2025-01-02 07:41] VITALS: BP 112/58; TEMP 98; O2SAT 92
[2025-01-02 09:33] LABS: BASO % 0.3 % (0.0-1.0); EOS # 0.2 10^3/uL (0.0-0.5); EOS % 3.3 % (0.0-3.0); HEMATOCRIT 25.7 % (36.0-47.0); LYMPH # 1.1 10^3/uL (1.5-5.0); LYMPH % 15.3 % (24.0-44.0); MEAN CORPUSCULAR HEMOGLOBIN 31.7 pg (27.0-33.0); MEAN CORPUSCULAR HGB CONC 31.1 g/dl (32.0-36.5); MONO # 0.6 10^3/uL (0.0-0.8); MONO % 8.4 % (2.0-8.0); NEUTROPHILS # 5.3 10^3/uL (1.5-8.5); NEUTROPHILS % 72.2 % (36.0-66.0); RED BLOOD COUNT 2.52 10^6/uL (4.00-5.40); WHITE BLOOD COUNT 7.4 10^3/uL (4.0-10.0)
[2025-01-02 09:50] LABS: PLATELET COUNT, AUTOMATED 89 10^3/uL (150-450)
[2025-01-02 10:19] LABS: ALBUMIN 1.4 G/DL (3.2-5.2); ALKALINE PHOSPHATASE 94 U/L (35-104); ALT/SGPT 22 U/L (7.0-40); AST/SGOT 37 U/L (<34); BILIRUBIN,TOTAL 1.6 MG/DL (0.3-1.2); BLOOD UREA NITROGEN 23 MG/DL (9-23); CALCIUM LEVEL 9.4 MG/DL (8.3-10.6); CARBON DIOXIDE LEVEL 19 MMOL/L (20-31); CHLORIDE LEVEL 118 MMOL/L (98-107); CREATININE FOR GFR 0.81 MG/DL (0.55-1.30); GLOMERULAR FILTRATION RATE > 60.0 (>39); GLUCOSE, FASTING 127 MG/DL (74-106); SODIUM LEVEL 145 MMOL/L (136-145); TOTAL PROTEIN 5.9 G/DL (5.7-8.2)
[2025-01-02 10:26] LABS: PROCALCITONIN 0.19 ng/ml
[2025-01-02 10:42] LABS: MAGNESIUM LEVEL 2.3 MG/DL (1.8-2.4)
[2025-01-02] MEDS ORDERED: MAG SULF 1GM/100ML (MAG RUN) 1 GM in IV 1 EA IV SCH (11:00)
[2025-01-02 12:35] VITALS: BP 104/53; TEMP 98.1; O2SAT 93
[2025-01-02 15:33] VITALS: BP 105/59; TEMP 97.9; O2SAT 94
[2025-01-02] MEDS: KETOROLAC 30 MG/ML 1ML VIAL IV ONE (17:30)
[2025-01-02 19:49] VITALS: BP 128/61; TEMP 98.6; O2SAT 93
[2025-01-02 20:00] VITALS: BP_SYST 106; BP_SYST 128; BP_DIAS 61; BP_DIAS 65; TEMP 97.4; TEMP 98.6; O2SAT 93; O2SAT 96
[2025-01-02] MEDS: NYSTATIN 100,000 UNITS/GM TOPICAL PWD 15GM TOP SCH (22:06)
[2025-01-02] MEDS: MORPHINE 2 MG/ML 1ML VIAL IV PRN (22:07)
[2025-01-03 00:14] VITALS: BP 110/53; TEMP 97.8; O2SAT 93
[2025-01-03 03:47] VITALS: BP 105/53; TEMP 97.6; O2SAT 95
[2025-01-03 04:00] VITALS: BP 112/58; TEMP 98; O2SAT 92
[2025-01-03 07:50] VITALS: BP 112/58; TEMP 98; O2SAT 92
[2025-01-03] MEDS ORDERED: ONDANSETRON 4MG ORAL DISINTEGRATING TAB PO PRN (11:15)
[2025-01-03] MEDS ORDERED: HYOSCYAMINE SULFATE 0.125 MG SUBL TABLET PO PRN (11:15)
[2025-01-03] MEDS: MORPHINE 10MG/0.5ML ORAL CONCENTRATE SOLUTION U/D SL SCH (13:59)
[2025-01-03] MEDS: LACTULOSE 20GM/30ML SYRUP UDC PO SCH (15:46)
[2025-01-03] MEDS: LORazepam 1 MG TAB PO PRN (18:09)
[2025-01-03] MEDS: SCOPOLAMINE 1MG TRANSDERMAL PATCH TOP SCH (20:40)
[2025-01-04] MEDS: MORPHINE 10MG/0.5ML ORAL CONCENTRATE SOLUTION U/D SL PRN (10:32)
[2025-01-05] MEDS: MORPHINE 10MG/0.5ML ORAL CONCENTRATE SOLUTION U/D SL SCH (17:12)
[2025-01-06] MEDS: GLYCOPYRROLATE INJ 0.2 MG/ML 2 ML VIAL IV SCH (11:59)
[2025-01-06] MEDS: MORPHINE 10MG/0.5ML ORAL CONCENTRATE SOLUTION U/D SL SCH (13:57)
[2025-01-07] MEDS: LORazepam 1 MG TAB PO SCH (13:20)
[2025-01-07] MEDS: MORPHINE 10MG/0.5ML ORAL CONCENTRATE SOLUTION U/D SL SCH (13:21)
[2025-01-08] MEDS: ATROPINE SULFATE 1% OPHTH SOLN 2ML BTL SL PRN (17:33)
[2025-01-09] MEDS: MORPHINE 10MG/0.5ML ORAL CONCENTRATE SOLUTION U/D SL PRN (11:01)
== END 2025-01-13 04:48 | disposition expired | DRG 441 ==
LOC: M ED 14:12 → EDBD 14:12 → M ED INP 19:05 → M PCU 23:43 → M MSPAV 01-03 17:51
PROVIDERS: ADMIT Student in an Organized Health Care Education/Training Program; ATTEND Student in an Organized Health Care Education/Training Program
PROC: 06HN33Z Insertion of Infusion Device into Left Femoral Vein, Percutaneous Approach (ICD-10-PCS; principal; 2024-12-31)
DX: K72.00 Acute and subacute hepatic failure without coma (principal); G93.41 Metabolic encephalopathy; J69.0 Pneumonitis due to inhalation of food and vomit; E43 Unspecified severe protein-calorie malnutrition; G92.8 Other toxic encephalopathy; J96.00 Acute respiratory failure, unspecified whether with hypoxia or hypercapnia; L89.153 Pressure ulcer of sacral region, stage 3; Z66 Do not resuscitate; K75.81 Nonalcoholic steatohepatitis (NASH); J44.9 Chronic obstructive pulmonary disease, unspecified; E11.9 Type 2 diabetes mellitus without complications; H40.9 Unspecified glaucoma; D64.9 Anemia, unspecified; D69.6 Thrombocytopenia, unspecified; Z79.2 Long term (current) use of antibiotics; Z79.899 Other long term (current) drug therapy; Z91.040 Latex allergy status; Z88.8 Allergy status to other drugs, medicaments and biological substances; S32.059D Unspecified fracture of fifth lumbar vertebra, subsequent encounter for fracture with routine healing; S22.049D Unspecified fracture of fourth thoracic vertebra, subsequent encounter for fracture with routine healing; S22.069D Unspecified fracture of T7-T8 vertebra, subsequent encounter for fracture with routine healing; S12.101D Unspecified nondisplaced fracture of second cervical vertebra, subsequent encounter for fracture with routine healing